=== PATIENT | male | born 1935 | race Caucasian/White ===

== ENCOUNTER → 2018-01-06 | Outpatient (CLI) | payer BC, MEDICARE ==
[2018-01-01 13:51] VITALS: BMI 33.3
[2018-01-06 11:44] VITALS: BP 144/68; PULSE 60; RESP 18; TEMP 97.8
--- NOTE | 2018-01-06 12:26 | P.PAINCN ---
History of Present Illness - Reason for Consult Consult date: 01/06/18 - History of Present Illness This is the initial consultation visit , [birth year] 2 years old male with a chronic history of severe low back pain, inserted 3 years ago but the intensity of the pain increased since april 2017, he denies any initiating event, the pain is constant, increased with movement, relieved with rest, localizing the low back area and radiated to the posterior aspect of the lower extremity, he feels his leg weaker than usual, he described his pain as aching pain, no numbness, no fever no night sweats, currently on [place] 5/325 when necessary, he denies any side effect from the medication. Past Medical History Past Medical History: Coronary Artery Disease (CAD), Chest Pain / Angina, COPD, Diabetes Mellitus, Hyperlipidemia, Hypertension, Pneumonia, Prostate Disorder, Sleep Apnea/CPAP/BIPAP Additional Past Medical History / Comment(s): CATARACTS, MURMUR, SINUS PROBLEMS , OCC USES CPAP MACHINE, BACK PAIN-DIFFICULTY W/MOBILITY TIRES EASILY AND SOB WITH EXERTION USES ROLLING WALKER OR W/C History of Any Multi-Drug Resistant Organisms: None Reported Past Surgical History: Coronary Bypass/CABG, Heart Catheterization, Heart Catheterization With Stent, Hernia Repair, Pacemaker, Tonsillectomy Additional Past Surgical History / Comment(s): QUAD BYPASS, HEART CATH 2010, - 2015([facility]), COLONOSCOPY. Past Anesthesia/Blood Transfusion Reactions: No Reported Reaction Date of Last Stent Placement:: 2015 Type of Cardiac Device: Permanent Pacemaker Device Placement Date:: 2016 Smoking Status: Former smoker - Past Family History Mother Family Medical History: Diabetes Mellitus Father Family Medical History: Unable to Obtain Additional Family Medical History / Comment(s): UNK TYPE Medications and Allergies Home Medications Medication Instructions Recorded Confirmed Type Furosemide 40 mg PO DAILY 08/27/15 01/06/18 History Insulin Glargine,Hum.rec.anlog 70 units SQ HS 08/27/15 01/06/18 History [Lantus Solostar] Insulin Lispro [humaLOG Kwikpen] 12 unit SQ AC-BRKFST 08/27/15 01/06/18 History Insulin Lispro [humaLOG Kwikpen] 28 unit SQ AC-LUNCH 08/27/15 01/06/18 History Insulin Lispro [humaLOG Kwikpen] 38 unit SQ AC-SUPPER 08/27/15 01/06/18 History Rosuvastatin Calcium [Crestor] 10 mg PO HS 08/27/15 01/06/18 History Solifenacin Succinate [Vesicare] 5 mg PO HS 08/27/15 01/06/18 History Tamsulosin HCl 0.4 mg PO DAILY 08/27/15 01/06/18 History amLODIPine BESYLATE [Norvasc] 5 mg PO DAILY 08/27/15 01/06/18 History rOPINIRole HCL [Requip] 1 mg PO HS 08/27/15 01/06/18 History Carvedilol [Coreg] 25 mg PO BID-W/MEALS 09/17/15 01/06/18 History Clopidogrel [Plavix] 75 mg PO DAILY #90 tab 09/18/15 01/06/18 Rx Nitroglycerin Sl Tabs [Nitrostat] 0.4 mg SUBLINGUAL Q5M PRN #25 tab 09/18/15 Rx Aspirin EC [Ecotrin Low Dose] 81 mg PO DAILY 12/05/15 01/06/18 History Dapagliflozin Propanediol [Farxiga] 5 mg PO DAILY 12/05/15 01/06/18 History Losartan/Hydrochlorothiazide 1 tab PO DAILY 12/05/15 01/06/18 History [Losartan-Hctz 100-25 mg Tab] Potassium Chloride [Klor-Con 20] 20 meq PO DAILY 12/05/15 01/06/18 History Simvastatin [Zocor] 20 mg PO HS 12/05/15 01/06/18 History metFORMIN HCL [Glucophage] 1,000 mg PO W/SUPPER 12/05/15 01/06/18 History Acetaminophen Tab [Tylenol] 650 mg PO Q6HR PRN #0 tab 12/10/15 01/06/18 Rx Famotidine [Pepcid] 20 mg PO DAILY tab 12/10/15 01/06/18 Rx HYDROcodone/APAP 5-325MG [[place] 1 tab PO Q6H PRN #60 tab 12/10/15 01/06/18 Rx 5-325] INSULIN LISPRO (humaLOG) [humaLOG] 0 unit SQ ACHS vial 12/10/15 01/06/18 Rx Dulaglutide [Trulicity] 1.5 mg SQ WE 01/01/18 01/06/18 History Gabapentin [Neurontin] 600 mg PO BID 01/01/18 01/06/18 History Allergies Allergy/AdvReac Type Severity Reaction Status Date / Time No Known Allergies Allergy Verified 01/06/18 11:22 Physical Exam Vitals: Vital Signs Temp Pulse Resp BP Pulse Ox 01/06/18 11:25 97.8 F 60 18 144/68 97 Social history : not smoker , NO ETOH , NO Illegal drugs use . Review of Systems : 1- Constitutional : no chills , no fever , no night sweats , 2- Ears : no ear discharge , no change in hearing 3-Nose, Mouth ,Throat ; no bleeding gums, no sore throat , no epistaxis , 4-Cardiovascular : Denies chest pain, , no orthopnea , no palpitation 5-Respiratory : Denies cough , no dyspnea , no hemoptysis 6-Gastrointestinal :, no change in bowel habits , no coffee- ground emesis . 7-Genitourinary : No hematuria , no discharge , no incontinence, 8-Musculoskeletal : No gait dysfunction , report low back pain , 9- Neurological : no ataxia , no tremor , no sezure , 10-Psychatric , no suicidal ideation no hallucination 11- Endocrine : no cold intolerence , no polyuria , no polydypsia , 12-Hematologic : no easy bleeding , no easy brusing , 13-Allergic / immunology : no angioedema , no wheezing ,no allergic rhinitis 14-Integumentary : no brttle nails , no change hair / nails , no foot/leg ulcers . Physical Examinations : 1-Constitutional : Cooperative , not in acute distress . 2-HEENT : nech ; supple , no Lymphadenopathy , no Thyromegaly , :eyes , no icterus, no photophobia . ENT : , normal oropharynx , no Thrush 3- Respiratory : Chest clear to auscultations Bilaterally , no wheezing 4- Cardiovascular : regular rate and rhythem , S1 , S2 , no S3 , no S4. 5- Gastrointestinal: abdomen soft no tenderness , no organomegally . 6- Genitourinary : Defferred . 7-Integumentary : No cellulitis , no ulcers , normal skin turgor , no cyanotic . 8- neurologic : Cranial nerve II to XII intact , no focal neurological deffecit 9-psychatric : alert , oriented X 3 , appropriate affect , intact judgment and insight . 10-Lymphatic : no Lymphadenopathy. 11- musculoskeltal: normal gait Cervical and thoracic Spine Normal motor strength in the upper extremity. Trigger point in the right side infrascapular muscles. Lumber spine moter stegnth lower extremities ,thigh and legs 5/5 Right side , 5/5 Left side deep tendon reflexes : normal Knee Jerk , normal ankle Jerk positive lumber facet Loading Test Range of motion of the lumbar spine , flexion normal , extension associated with pain strait leg raising test negative bilaterally Fabere test negative bilaterally tenderness over the Sacroiliac joint on the R and L sides Results Comments: MRI of the lumbar spine and done at [facility]= neuroforaminal stenosis multilevel lumbar degenerative disc disease and multilevel lumbar facet arthropathy at L4 5 and L5-S1 Assessment and Plan Plan: Telemarketing Representative plan= lumbar spondylosis with facet arthropathy,lumbar degenerative disc disease, lumbar spinal stenosis clinically Most of the pain is coming from the facetogenic component patient will be scheduled to have diagnostic medial branch block lumbar area L3-4 ,L4-5 , L5 S1 do it twice and its possible proceed with the radiofrequency ablation of the medial branch Time with Patient: Greater than 30 PQRS Measure Charge Sheet Measure #130: Documentation of Current Meds in Medical Chart: Patient's medications documented in chart Measure #226: Tobacco Use: Screen & Cessation Intervention: Pt not a tobacco user Measure #111: Pneumonia Vaccination: Pneumococcal vaccine administered or previously received Measure #47: Advance Care Plan: Advance care planning discussed & documented, pt chose/unable to give Measure #412: Opioid Treatment Agreement: No documentation of signed opioid treatment agreement Measure #408: Opioid Therapy Follow-up Evaluation: Patient had NO f/u eval minimum every 3 months during opioid therapy Measure #317: Preventitive Care & Scrn High Bld Press & F/U: Pre-hypertensive or hypertensive BP documented, pt will f/u with PCP Measure #128: Body Mass Index (BMI) Screening & Follow-up: BMI documented ABOVE normal parameters - f/u documented Measure #131: Pain Assessment & Follow-up: Pain positive & plan documented, Follow-up scheduled Measure #431: Unhealthy Alcohol Use Preventative Care & Scrn: Patient not identified as an unhealthy alcohol user PQRS Narrative: Smoking Status Former smoker Do You Want the Pneumonia Vaccine Up to Date Vaccine AT THIS TIME? Blood Pressure 144/68 Pain Intensity [Lower Back] 10 Scale Used Numeric (1 - 10) Hx Alcohol Use (MH) No Home Medications: Ambulatory Orders Furosemide 40 mg PO DAILY 08/27/15 Insulin Glargine,Hum.rec.anlog [Lantus Solostar] 70 units SQ HS 08/27/15 Insulin Lispro [humaLOG Kwikpen] 12 unit SQ AC-BRKFST 08/27/15 Insulin Lispro [humaLOG Kwikpen] 28 unit SQ AC-LUNCH 08/27/15 Insulin Lispro [humaLOG Kwikpen] 38 unit SQ AC-SUPPER 08/27/15 Rosuvastatin Calcium [Crestor] 10 mg PO HS 08/27/15 Solifenacin Succinate [Vesicare] 5 mg PO HS 08/27/15 Tamsulosin HCl 0.4 mg PO DAILY 08/27/15 amLODIPine BESYLATE [Norvasc] 5 mg PO DAILY 08/27/15 rOPINIRole HCL [Requip] 1 mg PO HS 08/27/15 Carvedilol [Coreg] 25 mg PO BID-W/MEALS 09/17/15 Clopidogrel [Plavix] 75 mg PO DAILY #90 tab 09/18/15 Nitroglycerin Sl Tabs [Nitrostat] 0.4 mg SUBLINGUAL Q5M PRN #25 tab 09/18/15 Aspirin EC [Ecotrin Low Dose] 81 mg PO DAILY 12/05/15 Dapagliflozin Propanediol [Farxiga] 5 mg PO DAILY 12/05/15 Losartan/Hydrochlorothiazide [Losartan-Hctz 100-25 mg Tab] 1 tab PO DAILY Potassium Chloride [Klor-Con 20] 20 meq PO DAILY 12/05/15 Simvastatin [Zocor] 20 mg PO HS 12/05/15 metFORMIN HCL [Glucophage] 1,000 mg PO W/SUPPER 12/05/15 Acetaminophen Tab [Tylenol] 650 mg PO Q6HR PRN #0 tab 12/10/15 Famotidine [Pepcid] 20 mg PO DAILY tab 12/10/15 HYDROcodone/APAP 5-325MG [[place] 5-325] 1 tab PO Q6H PRN #60 tab 12/10/15 INSULIN LISPRO (humaLOG) [humaLOG] 0 unit SQ ACHS vial 12/10/15 Dulaglutide [Trulicity] 1.5 mg SQ WE 01/01/18 Gabapentin [Neurontin] 600 mg PO BID 01/01/18
== END | disposition home or self-care (01) ==
LOC: PNWHC3 11:06
PROVIDERS: ATTEND Specialist
DX: M48.061 Spinal stenosis, lumbar region without neurogenic claudication (principal); M51.36 Other intervertebral disc degeneration, lumbar region; M47.816 Spondylosis without myelopathy or radiculopathy, lumbar region; M46.96 Unspecified inflammatory spondylopathy, lumbar region; I25.10 Atherosclerotic heart disease of native coronary artery without angina pectoris; J44.9 Chronic obstructive pulmonary disease, unspecified; E11.9 Type 2 diabetes mellitus without complications; E78.5 Hyperlipidemia, unspecified; I10 Essential (primary) hypertension; Z87.891 Personal history of nicotine dependence; Z79.4 Long term (current) use of insulin; Z79.02 Long term (current) use of antithrombotics/antiplatelets; Z79.82 Long term (current) use of aspirin; Z79.84 Long term (current) use of oral hypoglycemic drugs; Z79.899 Other long term (current) drug therapy; Z90.89 Acquired absence of other organs; Z95.1 Presence of aortocoronary bypass graft; Z98.890 Other specified postprocedural states
CPT/HCPCS: 99211

== ENCOUNTER 2018-01-21 08:06 | Day surgery (SDC) | payer MEDICARE ==
[2018-01-14 15:28] VITALS: BMI 32.4
[~2018-01-21 08:06] MED LIST: LACTATED RINGERS 1,000 ML IV SCH
[2018-01-21 09:15] VITALS: RESP 16; TEMP 97.9
[2018-01-21] MEDS ORDERED: LIDOCAINE 1% 20 ML VIAL (10MG/ML) FOR IV START INTRADERMA ONE (09:29)
--- NOTE | 2018-01-21 10:38 | P.PCN ---
Date of Procedure: 01/21/18 Procedure(s) Performed: PREOPERATIVE DIAGNOSIS : 1- Lumbar spondylosis with Facet Arthropathy without myelopathy . 2- Lumber degenerative disc disease POSTOPERATIVE DIAGNOSIS: 1- Lumbar spondylosis with Facet Arthropathy without myelopathy . 2- Lumber degenerative disc disease PROCEDURE: Diagnostic bilateral L3 -4 , L4 -5 , and L5-S1 medial branch block under fluoroscopy ANESTHESIA: Local with Ropivacain 0.5 % 6 ml , moderate sedation with intravenous Versed 2 mg . EBL: Minimal COMPLICATION: None. IV FLUIDS: 100 mL of normal saline. PROCEDURE INDICATION: Chronic low back pain secondary to Facet arthropathy unresponsive to conservative treatment. PROCEDURE DESCRIPTION: the patient was seen and identified in the preop holding area , risks and benefits and possible complications of the procedure and alternative were discussed with the patient, and the patient agreed to proceed with the procedure and signed the consent IV was started and vital signs monitored during the procedure and fluoroscopy was used to maximize the benefit and accuracy of the needle placement, and sedation was given to decrease patient anxiety, patient was taken to the procedure room and placed in prone position vital signs monitored in the back prepped with chlorhexidine X3 then under strict sterile technique using a right oblique fluoroscopy ,the junction of the transverse process and the superior articulating process of the right L3- 4 , L4- 5, and L5-S1 vertebra which corresponding to the fluoroscopy image of the eye of the Dilan dog on the block side for the medial branches and subsequently , after local infiltration of skin and subcu tissuies with Ropivacaine 0.5 % , one mL at each level , then 22-gauge Quincke-type needles , 3 needle was used , each one of them placed at the junction of the base of the transverse process and the superior articular process at the appropriate level, and the needle was advanced until the periosteum contacted, needle placement confirmed with AP oblique and lateral view and after appropriate needle placement confirmed, and after negative aspiration for heme and CSF and there was no paresthesia 1-1/2 mL of Ropivacaine 0.5% , then half mL injected at each level after negative aspiration the needle subsequently removed and the same procedure repeated for the left side at left side at L3-4, L4- 5 and L5-S1 levels. At the end of the procedure and the needles removed and a bandage applied after the skin was cleaned the cleaning solution patient taken to recovery room in stable condition and monitors in the recovery room for 20-30 minutes and discharged home in stable condition after discharge criteria met and patient will follow up with the pain clinic in 2-4 weeks
[2018-01-21] MEDS ORDERED: IV FLUID CONTINUATION 1,000 ML IV ONE (10:44)
[2018-01-21 10:48] LABS: Glucose,Whole Blood 110 mg/dL (75-99)
[2018-01-21 11:07] VITALS: BP 146/68; PULSE 78
--- NOTE | 2018-01-21 13:34 | FL ---
Fluoroscopy HISTORY: Pain 33 seconds fluoroscopy time supplied to the referring clinician. 4 intraoperative C-arm images docum ent the procedure. See dictated report from anesthesia.
== END 2018-01-21 11:34 | disposition home or self-care (01) ==
LOC: ORPAIN 08:06
PROVIDERS: ATTEND Specialist
DX: G89.29 Other chronic pain (principal); M47.816 Spondylosis without myelopathy or radiculopathy, lumbar region; M51.36 Other intervertebral disc degeneration, lumbar region; M48.061 Spinal stenosis, lumbar region without neurogenic claudication; I25.10 Atherosclerotic heart disease of native coronary artery without angina pectoris; J44.9 Chronic obstructive pulmonary disease, unspecified; E78.5 Hyperlipidemia, unspecified; I10 Essential (primary) hypertension; N42.9 Disorder of prostate, unspecified; G47.30 Sleep apnea, unspecified; Z99.89 Dependence on other enabling machines and devices; E11.36 Type 2 diabetes mellitus with diabetic cataract; R01.1 Cardiac murmur, unspecified; Z95.1 Presence of aortocoronary bypass graft; Z95.5 Presence of coronary angioplasty implant and graft; Z95.0 Presence of cardiac pacemaker; Z79.02 Long term (current) use of antithrombotics/antiplatelets; Z79.82 Long term (current) use of aspirin; Z79.4 Long term (current) use of insulin; Z79.899 Other long term (current) drug therapy; Z87.891 Personal history of nicotine dependence
CPT/HCPCS: 64493; 64494; 64495; J2250; 99152

== ENCOUNTER → 2018-03-10 | Day surgery (SDC) | payer MEDICARE ==
[2018-02-16 10:42] VITALS: BMI 32.4
[~2018-03-10] MED LIST changes: -LACTATED RINGERS 1,000 ML IV SCH; +SODIUM CHLORIDE 0.9% 500 ML 500 ML IV ONE; +SODIUM CHLORIDE 0.9% 500 ML 500 ML IV SCH
[2018-03-10 09:00] VITALS: RESP 18; TEMP 97.5
--- NOTE | 2018-03-10 09:54 | P.PCN ---
Date of Procedure: 03/10/18 Surgeon: Ariel Rodriguez Description of Procedure: PREOPERATIVE DIAGNOSIS : Lumbar spondylosis with Facet Arthropathy without myelopathy POSTOPERATIVE DIAGNOSIS: same PROCEDURE: Diagnostic lumbar medial branch block with fluoroscopy at bilateral L4, bilateral L5 bilateral sacral ala ANESTHESIA: Local anesthetic; 2 mg of midazolam Surgeon: Ariel Rodriguez MD PROCEDURE INDICATION: This is an 83-year-old gentleman with a history of intractable back pain who presents today for his second bilateral lumbar medial branch nerve block. He has discontinued his Plavix for 7 days. He was counseled on the risks of hyperglycemia after steroid injection. PROCEDURE DESCRIPTION: the patient was seen and identified in the preop holding area , risks and benefits and possible complications of the procedure and alternative were discussed with the patient, and the patient agreed to proceed with the procedure and signed the consent IV was started and vital signs monitored during the procedure and fluoroscopy was used to maximize the benefit and accuracy of the needle placement, and sedation was given to decrease patient anxiety, patient was taken to the procedure room and placed in prone position vital signs monitored in the back prepped. Under strict sterile technique using a right oblique fluoroscopy ,the junction of the transverse process and the superior articulating process of the left L3- 4 , L4- 5, and L5-S1 vertebra which corresponding to the fluoroscopy image of the eye of the Dilan dog on the block side for the medial branches and subsequently , after local infiltration of skin and subcutaneous tissues with lidocaine 1% one mL at each level ,then one 25-gauge Quincke-type needles was placed at the junction of the base of the transverse process and the superior articular process at the appropriate level, and the needle was advanced until the periosteum contacted, needle placement confirmed with AP oblique and lateral view and after appropriate needle placement confirmed, and after negative aspiration, 0.5 mL of Marcaine 0.5% mixed with 40 mg depomedrol in divided doses was injected at each level and the needle subsequently removed. The procedure was then repeated on the right side. At the end of the procedure and the needles removed and a bandage applied after the skin was cleaned the cleaning solution patient taken to recovery room in stable condition and monitors in the recovery room for 20-30 minutes and discharged home in stable condition after discharge criteria met and patient will follow up with the pain clinic in 2-4 weeks EBL: Minimal COMPLICATION: None.
--- NOTE | 2018-03-10 10:03 | FL ---
EXAMINATION TYPE: FL guided pain mgmt statistic DATE OF EXAM: 03/10/2018 HISTORY: Flouroscopy time 2 seconds of fluoroscopy provided. IMPRESSION: 1. Fluoroscopy time.
[2018-03-10 10:05] VITALS: PULSE 61
[2018-03-10 10:31] VITALS: BP 162/72
[2018-03-10 14:06] LABS: Glucose,Whole Blood 155 mg/dL (75-99)
== END ==
LOC: ORPAIN 08:12
PROVIDERS: ATTEND Pain Medicine Pain Medicine
DX: M47.816 Spondylosis without myelopathy or radiculopathy, lumbar region (principal); Z79.02 Long term (current) use of antithrombotics/antiplatelets
CPT/HCPCS: 64493; 64494; J2250; J1030

== ENCOUNTER → 2018-04-15 | Outpatient (CLI) | payer MEDICARE ==
[2018-04-15 12:35] VITALS: BP 142/66; PULSE 62; RESP 16
--- NOTE | 2018-04-15 13:01 | P.PAINPG ---
Subjective Progress Note Date: 04/15/18 This is follow-up visit for this patient with a history of severe and chronic low back pain secondary to lumbar degenerative disc diseases , lumbar spondylosis with facet arthropathy, We have done interventional pain procedures, the elastic medial branch block lumbar area , L3-4 /L4 5/L5-S1 2 , and he reports his pain improved significantly after each block, his VAS before the first injection was 5/10 dropped to 0/10 for a few days , and similar result happen after the second diagnostic medial branch block, Patients currently on [place] 5/325 every 6 hours when necessary ,And the Neurontin 600 mg twice a day , getting prescription refill from his primary care Patient denies any side effects of the medication, denies excessive drowsiness or sleepiness, denies suicidal ideation, and reports that the current pain medication is helping to control the pain ,and improve activity of daily living Patient denies any motor or sensory deficit , patient denies any fever or night sweats, denies any change in the bowel movements or urination Physical Examinations : 1-Constitutional : Cooperative , not in acute distress . 2-HEENT : nech ; supple , no Lymphadenopathy , no Thyromegaly , normal thyroid size . eyes : no ptosis , no icterus, no photophobia . ENT : normal of hearing , normal oropharynx , no Thrush . 3- Respiratory : Chest clear to auscultations Bilaterally , no wheezing , no Rhonchi . 4- Cardiovascular : regular rate and rhythem , S1 , S2 , no S3 , no S4. 5- Gastrointestinal : abdomen soft no tenderness , bowel sounds positive all four quadrents , no organomegally . 6- Genitourinary : Defferred . 7- neurologic: Cranial nerve II to XII intact , no focal neurological deffecit . 8- Psychatric: alert , oriented X 3 , appropriate affect , intact judgment and insight . 9- Lymphatic : no Lymphadenopathy . 10- Musculoskeltal : exams of the cervical spine = motor strength normal bilateral upper extremities facet loading test cervical area positive. exams of the Lumber spine =motor strength lower extremities ,thigh and legs .5/5 deep tendon reflexes : normal Knee Jerk , normal ankle Jerk . lumber facet Loading Test positive strait leg raising test positive at 30 degree , RT ,LT , Fabere test positive RT and positive LT . Range of motion: Range of motion in flexion of the lumbar spine 30 degrees Range of motion range of motion of extension of the lumbar spine 10 Sever tenderness over the Sacroiliac joint on the Right , and Left side Assessment and plan = Chronic low back pain secondary to lumbar degenerative disc disease , lumbar spondylosis with facet arthropathy without myelopathy Patient had excellent pain relief after the diagnostic medial branch block lumbar area, and he would be good candidate for radiofrequency ablation of the medial branch lumbar area L3 4/L4 5/L5-S1 PQRS Measure Charge Sheet Measure #130: Documentation of Current Meds in Medical Chart: Patient's medications documented in chart Measure #226: Tobacco Use: Screen & Cessation Intervention: Pt not a tobacco user Measure #111: Pneumonia Vaccination: Pneumococcal vaccine administered or previously received Measure #47: Advance Care Plan: Advance care planning discussed & documented, pt chose/unable to give Measure #412: Opioid Treatment Agreement: No documentation of signed opioid treatment agreement Measure #408: Opioid Therapy Follow-up Evaluation: Patient had NO f/u eval minimum every 3 months during opioid therapy Measure #317: Preventitive Care & Scrn High Bld Press & F/U: Pre-hypertensive or hypertensive BP documented, pt will f/u with PCP Measure #128: Body Mass Index (BMI) Screening & Follow-up: BMI documented ABOVE normal parameters - f/u documented Measure #131: Pain Assessment & Follow-up: Pain positive & plan documented, Follow-up scheduled Measure #431: Unhealthy Alcohol Use Preventative Care & Scrn: Patient not identified as an unhealthy alcohol user PQRS Narrative: Smoking Status Former smoker Hx Alcohol Use (MH) No Home Medications: Ambulatory Orders Furosemide 40 mg PO DAILY 08/27/15 Insulin Lispro [humaLOG Kwikpen] 17 unit SQ AC-TID 08/27/15 Rosuvastatin Calcium [Crestor] 10 mg PO HS 08/27/15 Solifenacin Succinate [Vesicare] 5 mg PO HS 08/27/15 Tamsulosin HCl 0.4 mg PO DAILY 08/27/15 amLODIPine BESYLATE [Norvasc] 5 mg PO DAILY 08/27/15 rOPINIRole HCL [Requip] 1 mg PO HS 08/27/15 Carvedilol [Coreg] 25 mg PO BID-W/MEALS 09/17/15 Clopidogrel [Plavix] 75 mg PO DAILY #90 tab 09/18/15 Nitroglycerin Sl Tabs [Nitrostat] 0.4 mg SUBLINGUAL Q5M PRN #25 tab 09/18/15 Aspirin EC [Ecotrin Low Dose] 81 mg PO DAILY 12/05/15 Dapagliflozin Propanediol [Farxiga] 5 mg PO DAILY 12/05/15 Losartan/Hydrochlorothiazide [Losartan-Hctz 100-25 mg Tab] 1 tab PO DAILY Potassium Chloride [Klor-Con 20] 20 meq PO DAILY 12/05/15 Simvastatin [Zocor] 20 mg PO HS 12/05/15 metFORMIN HCL [Glucophage] 1,000 mg PO W/SUPPER 12/05/15 Acetaminophen Tab [Tylenol] 650 mg PO Q6HR PRN #0 tab 12/10/15 Famotidine [Pepcid] 20 mg PO DAILY tab 12/10/15 HYDROcodone/APAP 5-325MG [[place] 5-325] 1 tab PO Q6H PRN #60 tab 12/10/15 Dulaglutide [Trulicity] 1.5 mg SQ WE 01/01/18 Gabapentin [Neurontin] 600 mg PO BID 01/01/18 Insulin Glargine [Lantus] 27 unit SQ HS 01/14/18 Controlled Substance Measures - Controlled Substance Measures Is patient prescribed a controlled substance at discharge?: No When asked, does pt state using other controlled substances?: No If prescribed controlled substance>3 days was MAPS reviewed?: No If Rx opioid, was Start Talking consent form obtained?: No If opioid is for acute pain is fill amount 7 days or less?: No Was information provided regarding opioid addiction?: No
== END | disposition home or self-care (01) ==
LOC: PNWHC3 11:44
PROVIDERS: ATTEND Specialist
DX: G89.29 Other chronic pain (principal); M54.5 Low back pain; M51.36 Other intervertebral disc degeneration, lumbar region; M47.816 Spondylosis without myelopathy or radiculopathy, lumbar region; M46.86 Other specified inflammatory spondylopathies, lumbar region; Z79.891 Long term (current) use of opiate analgesic; Z79.899 Other long term (current) drug therapy; Z87.891 Personal history of nicotine dependence
CPT/HCPCS: 99211

== ENCOUNTER 2018-05-20 09:28 | Day surgery (SDC) | payer MEDICARE ==
[2018-05-18 10:36] VITALS: BMI 30.7
[~2018-05-20 09:28] MED LIST changes: -SODIUM CHLORIDE 0.9% 500 ML 500 ML IV ONE
[2018-05-20 09:54] VITALS: TEMP 98.3
[2018-05-20] MEDS ORDERED: LACTATED RINGERS 1,000 ML IV ONE (09:55)
[2018-05-20 09:56] LABS: Glucose,Whole Blood 129 mg/dL (75-99)
--- NOTE | 2018-05-20 10:45 | P.PCN ---
Date of Procedure: 05/20/18 Procedure(s) Performed: PREOPERATIVE DIAGNOSIS: 1-Lumbar Spondylosis with Facet Arthropathy without myelopathy. 2- Lumber degenerative disc disease. POSTOPERATIVE DIAGNOSIS: 1- Lumbar Spondylosis with Facet Arthropathy without myelopathy. 2- Lumber degenerative disc disease. PROCEDURES : Right Radiofrequency thermocoagulation, L3-L4, L4-L5, and L5-S1 medial branch, with fluoroscopic guidance ANESTHESIA: Moderate sedation with intravenous versed 2 mg , and local infiltration with Ropivacaine 0.5 % . EBL: Minimal PROCEDURE INDICATION: The patient with low back pain secondary to lumbar facet arthropathy who had more than 50% relief of her pain with previous diagnostic lumbar medial branch block with bupivacaine. PROCEDURE DESCRIPTION / TECHNIQUE: The patient was seen and identified in the preoperative area. Risks, benefits, complications, including but not limited to risk of infection ,bleeding , allergic reactions to the medications and no complete pain releife , and alternatives were discussed with the patient, the patient agreed to proceed with the procedure and signed the consent. IV was started. Vital signs remained stable throughout the procedure. Patient was taken to the OR and time out was completed. The patient was placed in the prone position on the procedure table. The lumber area was prepped and draped in the usual sterile fashion. . Vital signs were closely monitored during the procedure .IV sedation was used during the procedure to decrease patients anxiety. Using AP and then oblique fluoroscopy, the ``eye of the Dilan dog corresponding to the connection between the superior and transverse articular processes of Right L3, L4, and L5 were identified, marked, and localized with 1% lidocaine. Subsequently, a 18 [id number] radiofrequency cannula with a 10- mm active tip was advanced guided by fluoroscopy to each of the``eyes of the Dilan dog at Right L3, L4, and L5. Each site then underwent sensory testing at 50 Hz and 0 to 1 volt and motor testing at 2.5 Hz and 0 to 3 volt with local stimulation, but no radicular symptoms down the legs. Thereafter the Right L3-4, L4-5, and L5-S1 sites underwent radiofrequency thermocoagulation at 80 degrees celsius for 90 seconds after injecting 0.5 ml of PF Ropivacaine 1ml, then after the thermocoagulation done , 1 ml of the block solution containing Depo-Medrol 40 mg and 3 ml of Ropivacaine 0.5% was injected at the Right L3-4 , L4-5 , and L5-S1, levels after negative aspiration of CSF and blood and with no paresthesias. Cannulas were retracted while injecting lidocaine 1% until the needle is out. At the end of the procedure, the skin was cleansed and bandages were applied. COMPLICATIONS: No acute complications. DISPOSITION / PLANS: The patient was placed in a supine position and transferred to the recovery area in a stable condition for observation and was discharged from the recovery room after meeting discharge criteria. Home discharge instructions given to the patient by the staff. The patient was reexamined prior to discharge. The patient will schedule a follow up in the clinic in 2-4 weeks.
[2018-05-20] MEDS ORDERED: IV FLUID CONTINUATION 1,000 ML IV ONE (10:56)
--- NOTE | 2018-05-20 10:58 | FL ---
EXAMINATION TYPE: FL guided pain mgmt statistic DATE OF EXAM: 05/20/2018 HISTORY: Flouroscopy time 17 seconds of fluoroscopy provided. IMPRESSION: 1. Fluoroscopy time.
[2018-05-20 11:06] VITALS: BP 154/78; PULSE 62; RESP 18
== END 2018-05-20 11:37 | disposition home or self-care (01) ==
LOC: ORPAIN 09:28
PROVIDERS: ATTEND Anesthesiology
DX: M47.816 Spondylosis without myelopathy or radiculopathy, lumbar region (principal); M51.36 Other intervertebral disc degeneration, lumbar region; I10 Essential (primary) hypertension; I25.10 Atherosclerotic heart disease of native coronary artery without angina pectoris; E11.9 Type 2 diabetes mellitus without complications; Z79.02 Long term (current) use of antithrombotics/antiplatelets
CPT/HCPCS: 64635; 64636; J2250; J1030; 99152

== ENCOUNTER → 2018-06-17 | Outpatient (CLI) | payer MEDICARE ==
[2018-06-17 12:25] VITALS: BP 130/64; PULSE 79; RESP 16
--- NOTE | 2018-06-17 12:50 | P.PAINPG ---
Subjective Progress Note Date: 06/17/18 Principal diagnosis: intractable low back pain This very pleasant 83-year-old gentleman with a history of intractable low back pain who presents today for follow-up. He recently underwent bilateral lumbar radiofrequency ablations for his medial branch nerves. He reports that this is only offered him minimal relief. He continues to have intractable pain when he stands and walks. He denies bowel or bladder dysfunction. He is interested in pursuing other therapies to help him treat his pain. Objective - Vital Signs Vital signs: Vital Signs Temp Pulse 79 06/17/18 12:19 Resp 16 06/17/18 12:19 BP 130/64 06/17/18 12:19 Pulse Ox - Exam General: The patient is alert and oriented. Patient is not sedated Patient answers all question appropriately. He appears less today in a wheelchair with his daughter. Cardiac: Heart is regular in rate and rhythm Respiratory: Clear to auscultation. No audible wheezes. Abdomen: Soft nontender nondistended. Musculoskeletal: Strength is normal bilaterally. Sensation is normal bilaterally except slightly diminished in the toes of his right foot. Straight leg raise is negative bilaterally. He is not tender to palpation over his lumbar facet joints bilaterally. Neurological: Reflexes are preserved and symmetric bilaterally. Assessment and Plan Assessment: Plan of Care 1. Medications: Given the patient's significant medical histories and advanced age I would not recommend any opiate medications. He continues Tylenol sporadically to treat his pain. 2. Interventions: I discussed with the patient and his daughter a lumbar epidu ral steroid injection. I explained them to that he does have moderate spinal stenosis at L4 5 and hopefully this would help reduce the pressure on his nerves and improve his functionality. I also explained him that there are risks to stopping his Plavix medication. This should be done only under the guidance of his prescribing physician. Approval to stop the medication does not remove the risks of discontinuing the medication. 3. Referrals: None 4. Testing: None 5. Follow-up: Lumbar epidural steroid injection at L4 5 after discontinuing Plavix under the guidance of his prescribing physician (1) Degenerative lumbar spinal stenosis Current Visit: Yes Status: Acute Code(s): M48.061 - SPINAL STENOSIS, LUMBAR REGION WITHOUT NEUROGENIC MINDI SNOMED Code(s): 807924871 PQRS Measure Charge Sheet Measure #130: Documentation of Current Meds in Medical Chart: Patient's medications documented in chart Measure #226: Tobacco Use: Screen & Cessation Intervention: Pt not a tobacco user Measure #111: Pneumonia Vaccination: Pneumococcal vaccine NOT administered or previously given Measure #47: Advance Care Plan: Advance care planning discussed & documented, pt chose/unable to give Measure #412: Opioid Treatment Agreement: No documentation of signed opioid treatment agreement Measure #408: Opioid Therapy Follow-up Evaluation: Patient had NO f/u eval minimum every 3 months during opioid therapy Measure #317: Preventitive Care & Scrn High Bld Press & F/U: Normal blood pressure, f/u not required Measure #128: Body Mass Index (BMI) Screening & Follow-up: BMI documented within normal parameters Measure #131: Pain Assessment & Follow-up: Pain positive & plan documented Measure #431: Unhealthy Alcohol Use Preventative Care & Scrn: Patient not identified as an unhealthy alcohol user PQRS Narrative: Smoking Status Former smoker Do You Want the Pneumonia No Vaccine AT THIS TIME? Blood Pressure 130/64 Pain Intensity [Left Lower 8 Back] Scale Used Numeric (1 - 10) Hx Alcohol Use (MH) No Home Medications: Ambulatory Orders Furosemide 40 mg PO DAILY 08/27/15 Insulin Lispro [humaLOG Kwikpen] 17 unit SQ AC-TID 08/27/15 Rosuvastatin Calcium [Crestor] 10 mg PO HS 08/27/15 Solifenacin Succinate [Vesicare] 5 mg PO HS 08/27/15 Tamsulosin HCl 0.4 mg PO DAILY 08/27/15 amLODIPine BESYLATE [Norvasc] 5 mg PO DAILY 08/27/15 rOPINIRole HCL [Requip] 1 mg PO HS 08/27/15 Carvedilol [Coreg] 25 mg PO BID-W/MEALS 09/17/15 Clopidogrel [Plavix] 75 mg PO DAILY #90 tab 09/18/15 Nitroglycerin Sl Tabs [Nitrostat] 0.4 mg SUBLINGUAL Q5M PRN #25 tab 09/18/15 Aspirin EC [Ecotrin Low Dose] 81 mg PO DAILY 12/05/15 Dapagliflozin Propanediol [Farxiga] 5 mg PO DAILY 12/05/15 Losartan/Hydrochlorothiazide [Losartan-Hctz 100-25 mg Tab] 1 tab PO DAILY 12/05/15 Potassium Chloride [Klor-Con 20] 20 meq PO DAILY 12/05/15 Simvastatin [Zocor] 20 mg PO HS 12/05/15 metFORMIN HCL [Glucophage] 1,000 mg PO W/SUPPER 12/05/15 Acetaminophen Tab [Tylenol] 650 mg PO Q6HR PRN #0 tab 12/10/15 Famotidine [Pepcid] 20 mg PO DAILY tab 12/10/15 HYDROcodone/APAP 5-325MG [[place] 5-325] 1 tab PO Q6H PRN #60 tab 12/10/15 Dulaglutide [Trulicity] 1.5 mg SQ WE 01/01/18 Insulin Glargine [Lantus] 27 unit SQ HS 01/14/18 Controlled Substance Measures - Controlled Substance Measures Is patient prescribed a controlled substance at discharge?: No
== END | disposition home or self-care (01) ==
LOC: PNWHC3 12:08
PROVIDERS: ATTEND Pain Medicine Pain Medicine
DX: M48.061 Spinal stenosis, lumbar region without neurogenic claudication (principal); Z79.891 Long term (current) use of opiate analgesic; Z79.02 Long term (current) use of antithrombotics/antiplatelets; Z79.82 Long term (current) use of aspirin; Z87.891 Personal history of nicotine dependence
CPT/HCPCS: 99211

== ENCOUNTER 2018-07-07 09:36 | Day surgery (SDC) | payer MEDICARE ==
[2018-07-05 10:29] VITALS: BMI 30.7
[2018-07-07 10:40] VITALS: TEMP 97.1
[2018-07-07] MEDS ORDERED: LIDOCAINE 1% 20 ML VIAL (10MG/ML) FOR IV START INTRADERMA ONE (10:49)
[2018-07-07] MEDS ORDERED: LACTATED RINGERS 950 ML IV ONE (10:49)
[2018-07-07 10:57] LABS: Glucose,Whole Blood 203 mg/dL (75-99)
--- NOTE | 2018-07-07 11:11 | P.PCN ---
Date of Procedure: 07/07/18 Surgeon: Lesli Buckner Pathology: none sent Condition: stable Disposition: PACU Description of Procedure: PREOPERATIVE DIAGNOSIS: 1-Lumbar stenosis 2- Lumber Degenerative Disc Diseases. POSTOPERATIVE DIAGNOSIS: 1-Lumbar stenosis 2-Lumbar Degenerative Disc Diseases PROCEDURE 1. Lumbar epidural steroid injection under fluoroscopic guidance at the L5-S1 level in the left paramedian approach 2. Lumbar epidurogram. ANESTHESIA: Local with 1% lidocaine; and IV moderate conscious sedation with Versed0.5 mg and fentanyl 25 mcg. EBL: Minimal PROCEDURE INDICATION: The patient with low back pain and radiculitis symptoms unresponsive to conservative treatment. Fluoroscopy was used to optimize visualization of the needle placement and to maximize safety. PROCEDURE DESCRIPTION / TECHNIQUE: The patient was seen and identified in the preoperative area. Risks, benefits, complications including but not limited to infections ,bleeding ,allergic reaction to the medications ,nerve damage and not complete pain relief , and alternatives were discussed with the patient. The patient agreed to proceed with the procedure and signed the consent. IV was started, and vital signs were stable. Patient was taken to the OR and time out was completed. The patient was placed in the prone position on procedure table and a pillow was placed under the abdomen to reduce lumbar lordosis. The lumbosacral area was prepped and draped in the usual sterile fashion with ChloraPrep.Patient was closely monitored during the procedure. Conscious sedation was used during the procedure to decrease patients anxiety. Vital signs were monitered during the entire procedure. Using anterior-posterior fluoroscopy, the L5-S1 interlaminar space was identified and the skin over this site was marked and then infiltrated with 1% lidocaine subcutaneously. Subsequently, a 20-gauge Tuohy epidural needle was inserted and advanced toward the epidural space using the Loss of resistance to air technique and guided by AP and lateral fluoroscopy. The correct needle position in the epidural space was verified with the injection of 1 mL of the water soluble contrast dye Omnipaque 180 contrast and observing an excellent epidurogram with the epidural spread of the dye, the epidural space was found at about 7 cm from skin level. after negative aspiration for blood and CSF and in the absence of paresthesias a 7 ml mixture containing 40 mg of Kenalog and 4 ml of preservative free Normal Saline, and 2 ml of preservative free ropivacaine 0.5% solution was injected and a washout of epidurogram was seen. Needle was withdrawn intact, skin was cleansed, and bandages were applied. patient tolerated procedure well and was transferred to PACU in stable condition. COMPLICATIONS: None DISPOSITION / PLANS: The patient was placed in a supine position and transferred to the recovery area in a stable condition for observation. There was no evidence of lower extremity motor or sensory deficit after the procedure. Patient was discharged from the recovery room after meeting discharge criteria. Home discharge instructions were given to the patient by the staff. The patient was reexamined prior to discharge.
[2018-07-07] MEDS ORDERED: IV FLUID CONTINUATION 1,000 ML IV ONE (11:12)
[2018-07-07 11:40] VITALS: BP 150/54; PULSE 69; RESP 16
[2018-07-07 11:42] LABS: Glucose,Whole Blood 212 mg/dL (75-99)
--- NOTE | 2018-07-07 11:58 | FL ---
EXAMINATION TYPE: FL guided pain mgmt statistic DATE OF EXAM: 07/07/2018 HISTORY: Flouroscopy time 6 seconds of fluoroscopy provided. IMPRESSION: 1. Fluoroscopy time.
== END 2018-07-07 11:47 | disposition home or self-care (01) ==
LOC: ORPAIN 09:36
PROVIDERS: ATTEND Anesthesiology
DX: M48.061 Spinal stenosis, lumbar region without neurogenic claudication (principal); M51.36 Other intervertebral disc degeneration, lumbar region; M54.10 Radiculopathy, site unspecified; E11.9 Type 2 diabetes mellitus without complications; Z87.891 Personal history of nicotine dependence; Z79.4 Long term (current) use of insulin; Z79.899 Other long term (current) drug therapy; Z79.82 Long term (current) use of aspirin; Z79.02 Long term (current) use of antithrombotics/antiplatelets
CPT/HCPCS: 62323; J2250; J3301; J3010; Q9966

== ENCOUNTER 2018-07-28 09:35 | Day surgery (SDC) | payer MEDICARE ==
[2018-07-19 10:44] VITALS: BMI 30.7
[~2018-07-28 09:35] MED LIST changes: +LACTATED RINGERS 1,000 ML IV SCH; -SODIUM CHLORIDE 0.9% 500 ML 500 ML IV SCH
[2018-07-28 09:56] VITALS: TEMP 98.5
--- NOTE | 2018-07-28 10:02 | P.PCN ---
Date of Procedure: 07/28/18 Procedure(s) Performed: Lumbar epidural steroid injection Description of Procedure: PREOPERATIVE DIAGNOSIS: 1-lumbar radiculopathy POSTOPERATIVE DIAGNOSIS: Lumbar radiculopathy PROCEDURE 1. Lumbar epidural steroid injection under fluoroscopic guidance at the L 4/5 level. 2. Lumbar epidurogram. ANESTHESIA: Local with 1% lidocaine 5 ml EBL: Minimal PROCEDURE INDICATION: The patient with low back pain and radiculitis symptoms unresponsive to conservative treatment. Fluoroscopy was used to optimize visualization of the needle placement and to maximize safety. PROCEDURE DESCRIPTION / TECHNIQUE: The patient was seen and identified in the preoperative area. Risks, benefits, complications including but not limited to infections ,bleeding ,allergic reaction to the medications ,nerve damage and incomplete pain relief , as well as alternatives to the procedure were discussed with the patient. The patient agreed to proceed with the procedure and signed the consent. IV was started, and vital signs were stable. Patient was taken to the OR and time out was completed. The patient was placed in the prone position on procedure table and a pillow was placed under the abdomen to reduce lumbar lordosis. The lumbosacral area was prepped and draped in the usual sterile fashion. Vitals were closely monitored during the procedure. Using anterior-posterior fluoroscopy, the L L 4/5 interlaminar space was identified and the skin over this site was marked and then infiltrated with 1% lidocaine subcutaneously. Subsequently, a 20-gauge Tuohy epidural needle was inserted and advanced toward the epidural space using the ``Loss of resistance technique and guided by AP and lateral fluoroscopy. The correct needle position in the epidural space was verified with the injection of 1 mL of the water soluble contrast dye Omnipaque 180 contrast and observing an excellent epidurogram with the epidural spread of the dye, after negative aspiration for blood and CSF and in the absence of paresthesias. Again after negative aspiration, a 4 ml mixture containing 10 mg of Dexamethasone and 3 ml of preservative free Normal Saline was injected and a washout of epidurogram was seen. Needle was withdrawn intact, skin was cleansed, and bandages were applied. COMPLICATIONS: None DISPOSITION / PLANS: The patient was placed in a supine position and transferred to the recovery area in a stable condition for observation. There was no evidence of lower extremity motor or sensory deficit after the procedure. Patient was discharged from the recovery room after meeting discharge criteria. Home discharge instructions were given to the patient by the staff. The patient was reexamined prior to discharge. The patient will schedule a follow up in the clinic in 4 weeks.
[2018-07-28 10:22] VITALS: BP 136/74; PULSE 66; RESP 18
[2018-07-28 10:41] LABS: Glucose,Whole Blood 119 mg/dL (75-99)
[2018-07-28 10:48] LABS: Glucose,Whole Blood 119 mg/dL (75-99)
--- NOTE | 2018-07-28 12:14 | FL ---
EXAMINATION TYPE: FL guided pain mgmt statistic DATE OF EXAM: 07/28/2018 HISTORY: Flouroscopy time 3 seconds of fluoroscopy provided. IMPRESSION: 1. Fluoroscopy time.
== END 2018-07-28 10:45 | disposition home or self-care (01) ==
LOC: ORPAIN 09:35
PROVIDERS: ATTEND Hospitalist
DX: M54.16 Radiculopathy, lumbar region (principal)
CPT/HCPCS: 62323; J1030

== ENCOUNTER → 2018-08-25 | Outpatient (CLI) | payer MEDICARE ==
[2018-08-25 13:46] VITALS: RESP 16
--- NOTE | 2018-08-25 22:20 | P.PAINPG ---
Subjective Progress Note Date: 08/25/18 This is a follow-up visit for this 83 years old male with chronic history of severe low back pain, he is diagnosed with lumbar spinal stenosis ,and lumbar degenerative disc disease, and lumbar diagnoses with facet arthropathy, we have done diagnostic medial branch block and later on was followed with radio frequency ablation of the medial branch lumbar area he continued to have severe low back pain later on we did lumbar epidural steroid injections 2 patient had no benefit from it, he continued to have severe low back pain and he is not able to ambulate, because of the intensity of the pain, he continues to use [place] 5/325 , he reported that the current pain medication is not helping enough, he is wheelchair bound secondary to weakness in the lower extremity and secondary to pain, patient is not a candidate for the neurosurgery cause of his heart condition Objective - Vital Signs Vital signs: Vital Signs Temp Pulse Resp 16 08/25/18 13:41 BP Pulse Ox Intake & Output 08/25/18 08/25/18 08/26/18 06:59 18:59 06:59 Weight 83.915 kg - Exam Physical Examinations : -Constitutiona : Cooperative , not in acute distress . -HEENT : nech ; supple , no Lymphadenopathy , normal thyroid size . eyes : no ptosis , no icterus, no photophobia . ENT : normal of hearing , normal oropharynx , no Thrush . - Respiratory : Chest clear to auscultations Bilaterally , no wheezing , no Rhonchi . - Cardiovascula : regular rate and rhythem , S1 , S2 , no S3 , no S4. - Gastrointestina : abdomen soft no tenderness , bowel sounds , no organomegally . - Genitourinary : Defferred . - neurologic : Cranial nerve II to XII intact , no focal neurological deffecit . -psychatric : alert , oriented X 3 , appropriate affect , intact judgment and insight . -Lymphatic : no Lymphadenopathy . - musculoskeltal : Lumber spine moter stegnth lower extremities ,thigh and legs 4/5 Right side , 4/5 Left side deep tendon reflexes : normal Knee Jerk , normal ankle Jerk positive lumber facet Loading Test Range of motion of the lumbar spine Flexion 30 degrees, extension 10 degrees strait leg raising test , positive at 30 degree Fabere test positive RT and positive LT . Assessment and Plan Plan: Assessment and plan= chronic severe low back pain secondary to lumbar spinal stenosis and lumbar degenerative disc disease, and lumbar spondylosis with lumbar facet arthropathy, patient had no benefit from an interventional pain management, and he is not candidate for neurosurgery secondary to his comorbidity(heart disease ), patient currently on [place] 5/325 every 6 hours and he reported the current medication is not helping enough to control his pain, I recommend to increase [place] to 7.5/325 every 6 hours when necessary, patient will follow up with his primary care Dr. Ramirez , and he will follow up with the pain clinic when necessary Time with Patient: Less than 30 PQRS Measure Charge Sheet Measure #130: Documentation of Current Meds in Medical Chart: Patient's medications documented in chart Measure #226: Tobacco Use: Screen & Cessation Intervention: Pt not a tobacco user Measure #111: Pneumonia Vaccination: Pneumococcal vaccine administered or previously received Measure #47: Advance Care Plan: Advance care planning discussed & documented, pt chose/unable to give Measure #412: Opioid Treatment Agreement: No documentation of signed opioid treatment agreement Measure #408: Opioid Therapy Follow-up Evaluation: Patient had NO f/u eval minimum every 3 months during opioid therapy Measure #317: Preventitive Care & Scrn High Bld Press & F/U: Normal blood pressure, f/u not required Measure #128: Body Mass Index (BMI) Screening & Follow-up: BMI documented ABOVE normal parameters - f/u documented Measure #131: Pain Assessment & Follow-up: Pain positive & plan documented, Follow-up PRN Measure #431: Unhealthy Alcohol Use Preventative Care & Scrn: Patient not identified as an unhealthy alcohol user PQRS Narrative: Smoking Status Former smoker Pain Intensity [Left Lower 10 Back] Scale Used Numeric (1 - 10) Hx Alcohol Use (MH) No Home Medications: Ambulatory Orders Furosemide 40 mg PO DAILY 08/27/15 Insulin Lispro [humaLOG Kwikpen] 9 unit SQ AC-TID 08/27/15 Rosuvastatin Calcium [Crestor] 10 mg PO HS 08/27/15 Solifenacin Succinate [Vesicare] 5 mg PO HS 08/27/15 Tamsulosin HCl 0.4 mg PO DAILY 08/27/15 amLODIPine BESYLATE [Norvasc] 5 mg PO DAILY 08/27/15 rOPINIRole HCL [Requip] 1 mg PO HS 08/27/15 Carvedilol [Coreg] 25 mg PO BID-W/MEALS 09/17/15 Clopidogrel [Plavix] 75 mg PO DAILY #90 tab 09/18/15 Nitroglycerin Sl Tabs [Nitrostat] 0.4 mg SUBLINGUAL Q5M PRN #25 tab 09/18/15 Aspirin EC [Ecotrin Low Dose] 81 mg PO DAILY 12/05/15 Dapagliflozin Propanediol [Farxiga] 5 mg PO DAILY 12/05/15 Losartan/Hydrochlorothiazide [Losartan-Hctz 100-25 mg Tab] 1 tab PO DAILY 12/05/15 Potassium Chloride [Klor-Con 20] 20 meq PO DAILY 12/05/15 Simvastatin [Zocor] 20 mg PO HS 12/05/15 metFORMIN HCL [Glucophage] 1,000 mg PO W/SUPPER 12/05/15 Acetaminophen Tab [Tylenol] 650 mg PO Q6HR PRN #0 tab 12/10/15 Famotidine [Pepcid] 20 mg PO DAILY tab 12/10/15 HYDROcodone/APAP 5-325MG [[place] 5-325] 1 tab PO Q6H PRN #60 tab 12/10/15 Dulaglutide [Trulicity] 1.5 mg SQ WEEKLY 01/01/18 Insulin Glargine [Lantus] 27 unit SQ HS 01/14/18 Controlled Substance Measures - Controlled Substance Measures Is patient prescribed a controlled substance at discharge?: No
== END | disposition home or self-care (01) ==
LOC: PNWHC3 12:12
PROVIDERS: ATTEND Specialist
DX: G89.29 Other chronic pain (principal); M48.061 Spinal stenosis, lumbar region without neurogenic claudication; M51.36 Other intervertebral disc degeneration, lumbar region; M47.816 Spondylosis without myelopathy or radiculopathy, lumbar region; M46.96 Unspecified inflammatory spondylopathy, lumbar region; Z87.891 Personal history of nicotine dependence; Z98.890 Other specified postprocedural states; Z79.891 Long term (current) use of opiate analgesic
CPT/HCPCS: 99211

== ENCOUNTER 2018-12-28 13:20 | Inpatient (IN) | payer MEDICARE ==
--- NOTE | 2018-12-28 14:42 | ED ---
General Adult HPI - General Chief complaint: Extremity Problem,Nontraumatic Stated complaint: edema lower legs Source: patient, EMS Mode of arrival: EMS - History of Present Illness Initial comments: Patient is an 83-year-old male presents emergency room with reported lower extremity edema. The patient reports that he is normally on Lasix which is prescribed by Dr. Freda schafer. He saw Dr. Shaan schafer one week ago in office. He did take him off the water pill. Daughters at bedside and helps history. She is unsure whether patient was taken off of this medication. She thought it may be due to the increased frequency of urination that the patient has. Over the past week patient has noted progressive lower extremity swelling. He has difficulties insulating at baseline and this has made it significantly worse. Daughter states that he now requires assistance during any ambulation. The patient is also reporting increasing shortness of breath. Shortness of breath is exertional. He denies any calf pain. No history of DVTs or PEs. No chest pain. Denies a cough, hemoptysis, fevers or chills. No nausea or vomiting. No recent falls. There are no other alleviating, precipitating or modifying factors - Related Data Home Medications Medication Instructions Recorded Confirmed Furosemide 40 mg PO DAILY 08/27/15 12/28/18 Insulin Lispro [humaLOG Kwikpen] 10 unit SQ AC-TID 08/27/15 12/28/18 Rosuvastatin Calcium [Crestor] 10 mg PO DAILY 08/27/15 12/28/18 Carvedilol [Coreg] 25 mg PO BID-W/MEALS 09/17/15 12/28/18 Aspirin EC [Ecotrin Low Dose] 81 mg PO HS 12/05/15 12/28/18 Losartan/Hydrochlorothiazide 1 tab PO DAILY 12/05/15 12/28/18 [Losartan-Hctz 100-25 mg Tab] Potassium Chloride [Klor-Con 20] 20 meq PO DAILY 12/05/15 12/28/18 metFORMIN HCL [Glucophage] 1,000 mg PO W/SUPPER 12/05/15 12/28/18 Dulaglutide [Trulicity] 1.5 mg SQ WE 01/01/18 12/28/18 Insulin Glargine [Lantus] 28 unit SQ HS 01/14/18 12/28/18 Clopidogrel Bisulfate [Plavix] 75 mg PO HS 12/28/18 12/28/18 Finasteride [Proscar] 5 mg PO DAILY 12/28/18 12/28/18 Gabapentin 600 mg PO BID 12/28/18 12/28/18 Pioglitazone HCl 30 mg PO DAILY 12/28/18 12/28/18 amLODIPine BESYLATE 5 mg PO DAILY 12/28/18 12/28/18 Allergies Allergy/AdvReac Type Severity Reaction Status Date / Time No Known Allergies Allergy Verified 12/28/18 14:10 Review of Systems ROS Statement: Those systems with pertinent positive or pertinent negative responses have been documented in the HPI. ROS Other: All systems not noted in ROS Statement are negative. Past Medical History Past Medical History: Coronary Artery Disease (CAD), Chest Pain / Angina, COPD, Diabetes Mellitus, Hyperlipidemia, Hypertension, Musculoskeletal Disorder, Pneumonia, Prostate Disorder, Sleep Apnea/CPAP/BIPAP Additional Past Medical History / Comment(s): MURMUR, SINUS PROBLEMS, BACK PAIN- DIFFICULTY W/MOBILITY, TIRES EASILY AND SOB. History of Any Multi-Drug Resistant Organisms: None Reported Past Surgical History: Coronary Bypass/CABG, Heart Catheterization, Heart Catheterization With Stent, Hernia Repair, Pacemaker, Tonsillectomy Additional Past Surgical History / Comment(s): QUAD BYPASS, HEART CATH 2010, - 2015(STENTS), COLONOSCOPY, CATARACTS, PACEMAKER, pain clinic procedures. Past Anesthesia/Blood Transfusion Reactions: No Reported Reaction Date of Last Stent Placement:: 2015 Type of Cardiac Device: Permanent Pacemaker Device Placement Date:: 2016 Past Psychological History: Depression Smoking Status: Former smoker Past Alcohol Use History: None Reported Past Drug Use History: None Reported - Past Family History Mother Family Medical History: Diabetes Mellitus Father Family Medical History: Unable to Obtain Additional Family Medical History / Comment(s): UNK TYPE General Exam General appearance: alert, in no apparent distress Head exam: Present: atraumatic, normocephalic, normal inspection Eye exam: Present: normal appearance, PERRL, EOMI. Absent: scleral icterus, conjunctival injection, periorbital swelling ENT exam: Present: normal exam, mucous membranes moist Neck exam: Present: normal inspection. Absent: tenderness, meningismus, lymphadenopathy Respiratory exam: Present: normal lung sounds bilaterally. Absent: respiratory distress, wheezes, rales, rhonchi, stridor Cardiovascular Exam: Present: regular rate, normal rhythm, normal heart sounds. Absent: systolic murmur, diastolic murmur, rubs, gallop, clicks GI/Abdominal exam: Present: soft, normal bowel sounds. Absent: distended, tenderness, guarding, rebound, rigid Extremities exam: Present: normal inspection, full ROM, normal capillary refill. Absent: tenderness, pedal edema, joint swelling, calf tenderness Back exam: Present: normal inspection Neurological exam: Present: alert, oriented X3, CN II-XII intact Psychiatric exam: Present: normal affect, normal mood Skin exam: Present: warm, dry, intact, normal color. Absent: rash Course Vital Signs 12/28/18 13:34 Temperature 97.7 F Pulse Rate 63 Respiratory 22 Rate Blood Pressure 143/69 O2 Sat by Pulse 96 Oximetry Medical Decision Making - Medical Decision Making Upon arrival the patient is placed into room 26. A thorough history and physi ashley exam was performed. Peripheral IV is established. A 12-lead EKG is performed. Laboratory studies were conducted. The patient was sent for chest x-ray and lower extremity Dopplers. Laboratory studies are remarkable for a BNP of 1590. Creatinine is 1.3 which is near the patient's baseline. First troponin is negative. Chest x-ray demonstrates an enlarged heart with a prominent interstitium. Lower extremity Dopplers demonstrated no signs of DVT. I did discuss these findings with the patient. He does have a pulse ox saturation of 89% on room air. Did recommend hospital admission for IV diuresis for which the patient did agree. I did call discuss case with Dr. Dr. Ramirez did accept admission of the patient. He does request a cardiology be placed on consult. I did provide the patient with 40 mg of Lasix IV. I ordered an echo. The patient remained in stable condition awaiting transport to the floor - Lab Data Result diagrams: 12/28/18 14:54 12/28/18 14:54 Lab Results 12/28/18 12/28/18 12/28/18 Range/Units 14:54 14:54 14:54 WBC 5.4 (3.8-10.6) k/uL RBC 3.17 L (4.30-5.90) m/uL Hgb 10.4 L (13.0-17.5) gm/dL Hct 31.6 L (39.0-53.0) % MCV 99.6 (80.0-100.0) fL MCH 32.6 (25.0-35.0) pg MCHC 32.8 (31.0-37.0) g/dL RDW 15.4 (11.5-15.5) % Plt Count 234 (150-450) k/uL Neutrophils % 52 % Lymphocytes % 29 % Monocytes % 10 % Eosinophils % 4 % Basophils % 1 % Neutrophils # 2.8 (1.3-7.7) k/uL Lymphocytes # 1.6 (1.0-4.8) k/uL Monocytes # 0.5 (0-1.0) k/uL Eosinophils # 0.2 (0-0.7) k/uL Basophils # 0.1 (0-0.2) k/uL Macrocytosis Slight PT 10.4 (9.0-12.0) sec INR 1.0 (<1.2) APTT 22.5 (22.0-30.0) sec Sodium 141 (137-145) mmol/L Potassium 5.0 (3.5-5.1) mmol/L Chloride 104 (98-107) mmol/L Carbon Dioxide 29 (22-30) mmol/L Anion Gap 8 mmol/L BUN 29 H (9-20) mg/dL Creatinine 1.32 H (0.66-1.25) mg/dL Est GFR (CKD-EPI)AfAm 58 (>60 ml/min/1.73 sqM) Est GFR (CKD-EPI)NonAf 50 (>60 ml/min/1.73 sqM) Glucose 98 (74-99) mg/dL Calcium 10.0 (8.4-10.2) mg/dL Magnesium 2.2 (1.6-2.3) mg/dL Total Bilirubin 0.7 (0.2-1.3) mg/dL AST 23 (17-59) U/L ALT 12 L (21-72) U/L Alkaline Phosphatase 31 L (38-126) U/L Troponin I (0.000-0.034) ng/mL NT-Pro-B Natriuret Pep pg/mL Total Protein 7.2 (6.3-8.2) g/dL Albumin 4.2 (3.5-5.0) g/dL 12/28/18 12/28/18 Range/Units 14:54 14:54 WBC (3.8-10.6) k/uL RBC (4.30-5.90) m/uL Hgb (13.0-17.5) gm/dL Hct (39.0-53.0) % MCV (80.0-100.0) fL MCH (25.0-35.0) pg MCHC (31.0-37.0) g/dL RDW (11.5-15.5) % Plt Count (150-450) k/uL Neutrophils % % Lymphocytes % % Monocytes % % Eosinophils % % Basophils % % Neutrophils # (1.3-7.7) k/uL Lymphocytes # (1.0-4.8) k/uL Monocytes # (0-1.0) k/uL Eosinophils # (0-0.7) k/uL Basophils # (0-0.2) k/uL Macrocytosis PT (9.0-12.0) sec INR (<1.2) APTT (22.0-30.0) sec Sodium (137-145) mmol/L Potassium (3.5-5.1) mmol/L Chloride (98-107) mmol/L Carbon Dioxide (22-30) mmol/L Anion Gap mmol/L BUN (9-20) mg/dL Creatinine (0.66-1.25) mg/dL Est GFR (CKD-EPI)AfAm (>60 ml/min/1.73 sqM) Est GFR (CKD-EPI)NonAf (>60 ml/min/1.73 sqM) Glucose (74-99) mg/dL Calcium (8.4-10.2) mg/dL Magnesium (1.6-2.3) mg/dL Total Bilirubin (0.2-1.3) mg/dL AST (17-59) U/L ALT (21-72) U/L Alkaline Phosphatase (38-126) U/L Troponin I <0.012 (0.000-0.034) ng/mL NT-Pro-B Natriuret Pep 1590 pg/mL Total Protein (6.3-8.2) g/dL Albumin (3.5-5.0) g/dL Disposition Clinical Impression: Bilateral lower extremity edema Disposition: ADMITTED IP TO THIS HOSP Condition: Stable Is patient prescribed a controlled substance at d/c from ED?: No Referrals: Maria Victoria Ramirez MD [Primary Care Provider] - 1-2 days Decision to Admit Reason: Admit from EC Decision Date: 12/28/18 Decision Time: 16:56
[2018-12-28 15:16] LABS: Albumin 4.2 g/dL (3.5-5.0); Basophils # (A) 0.1 k/uL (0-0.2); Basophils % (A) 1 %; Eosinophils # (A) 0.2 k/uL (0-0.7); Eosinophils % (A) 4 %; HCT 31.6 % (39.0-53.0); HGB 10.4 gm/dL (13.0-17.5); Lymphocytes # (A) 1.6 k/uL (1.0-4.8); Lymphocytes % (A) 29 %; MCH 32.6 pg (25.0-35.0); MCHC 32.8 g/dL (31.0-37.0); MCV 99.6 fL (80.0-100.0); Macrocytosis Slight; Magnesium 2.2 mg/dL (1.6-2.3); Mean Platelet Volume 6.8; Monocytes # (A) 0.5 k/uL (0-1.0); Monocytes % (A) 10 %; Neutrophils # (A) 2.8 k/uL (1.3-7.7); Neutrophils % (A) 52 %; Platelet Count 234 k/uL (150-450); RBC 3.17 m/uL (4.30-5.90); RDW 15.4 % (11.5-15.5); Total Bilirubin 0.7 mg/dL (0.2-1.3); Total Protein 7.2 g/dL (6.3-8.2); WBC 5.4 k/uL (3.8-10.6)
[2018-12-28 15:25] LABS: Partial Thromboplastin Time 22.5 sec (22.0-30.0); Prothrombin Time 10.4 sec (9.0-12.0)
--- NOTE | 2018-12-28 15:53 | XR ---
EXAMINATION TYPE: XR chest 2V DATE OF EXAM: 12/28/2018 COMPARISON: Prior chest x-ray dated 12/08/2015 HISTORY: Dysrhythmia TECHNIQUE: Frontal and lateral views of the chest are obtained. FINDINGS: There are prominent lung lines with relative flattening the hemidiaphragms suggesting unde rlying COPD. Epicardial pacing leads are in place, patient is post median sternotomy, generator in th e left pectoral region, there are leads in the right atrium and ventricle. Heart remains enlarged. No evident airspace disease, pneumothorax, or pleural effusion. Interstitium mildly increased. IMPRESSION: Findings are similar to prior exam. Cardiomegaly. Interstitial lung disease and addition al findings above.
--- NOTE | 2018-12-28 16:39 | US ---
EXAMINATION TYPE: US venous doppler duplex LE DATE OF EXAM: 12/28/2018 2:42 PM COMPARISON: CLINICAL HISTORY: lower extremity swelling. No hx of DVT. On blood thinners SIDE PERFORMED: Bilateral TECHNIQUE: The lower extremity deep venous system is examined utilizing real time linear array sonog esdras with graded compression, doppler sonography and color-flow sonography. VESSELS IMAGED: External Iliac Vein (EIV) Common Femoral Vein Deep Femoral Vein Greater Saphenous Vein * Femoral Vein Popliteal Vein Small Saphenous Vein * Proximal Calf Veins (* superficial vessels) There is normal flow, compressibility, vascular waveforms. Right Leg: Negative for DVT Left Leg: Negative for DVT Edema channels are present within the soft tissues subcutaneous region IMPRESSION: No evident deep venous arthrosis at or above the knees bilaterally. Follow-up as indicate d.
[2018-12-28] MEDS ORDERED: FUROSEMIDE 10 MG/ML 4 ML VIAL IV STA (16:50)
[2018-12-28] MEDS ORDERED: NALOXONE 0.4 MG/ML 1 ML VIAL IV PRN (17:06)
[2018-12-28] MEDS: INSULIN ASPART (NovoLOG) 100 UNIT/ML VIAL SQ SCH (18:37)
[2018-12-28 18:42] LABS: Glucose,Whole Blood 106 mg/dL (75-99)
[2018-12-28 20:54] LABS: Glucose,Whole Blood 130 mg/dL (75-99)
[2018-12-28] MEDS ORDERED: INSULIN DETEMIR (LEVEMIR) 100 UNIT/ML SYR SQ SCH (21:00)
[2018-12-28] MEDS: CARVEDILOL 12.5 MG TAB PO SCH (22:27)
[2018-12-28] MEDS: GABAPENTIN 300 MG CAP PO SCH (22:29)
[2018-12-28] MEDS: ASPIRIN 81 MG PO SCH (22:29)
[2018-12-28] MEDS: CLOPIDOGREL 75 MG TAB PO SCH (22:29)
[2018-12-29 01:03] LABS: Glucose,Whole Blood 95 mg/dL (75-99)
[2018-12-29 07:09] LABS: Glucose,Whole Blood 80 mg/dL (75-99)
[2018-12-29 07:28] LABS: Calcium 9.7 mg/dL (8.4-10.2); Potassium 4.5 mmol/L (3.5-5.1)
[2018-12-29 07:54] LABS: Basophils # (A) 0.1 k/uL (0-0.2); Basophils % (A) 1 %; Eosinophils # (A) 0.2 k/uL (0-0.7); Eosinophils % (A) 4 %; HCT 29.7 % (39.0-53.0); HGB 9.8 gm/dL (13.0-17.5); Lymphocytes # (A) 1.8 k/uL (1.0-4.8); Lymphocytes % (A) 36 %; MCH 32.8 pg (25.0-35.0); MCHC 32.9 g/dL (31.0-37.0); MCV 99.6 fL (80.0-100.0); Macrocytosis Slight; Monocytes # (A) 0.5 k/uL (0-1.0); Monocytes % (A) 11 %; Neutrophils # (A) 2.2 k/uL (1.3-7.7); Neutrophils % (A) 43 %; Platelet Count 233 k/uL (150-450); RBC 2.98 m/uL (4.30-5.90); RDW 15.3 % (11.5-15.5)
[2018-12-29] MEDS: INSULIN ASPART (NovoLOG) 100 UNIT/ML VIAL SQ SCH ×4 (08:47→20:58)
[2018-12-29] MEDS: GABAPENTIN 300 MG CAP PO SCH ×2 (08:50→20:58)
[2018-12-29] MEDS: POTASSIUM CHLORIDE ER 20 MEQ TAB.ER PO SCH (08:50)
[2018-12-29] MEDS: FINASTERIDE 5 MG TAB PO SCH (08:50)
[2018-12-29] MEDS: amLODIPine 5 MG TAB PO SCH (08:51)
[2018-12-29] MEDS: CARVEDILOL 12.5 MG TAB PO SCH ×2 (08:51→17:14)
[2018-12-29] MEDS: ATORVASTATIN 20 MG TAB PO SCH (08:51)
[2018-12-29] MEDS ORDERED: LOSARTAN-HCTZ 50-12.5 MG 1 EACH TAB PO SCH (09:00)
--- NOTE | 2018-12-29 09:48 | P.CRDCN ---
History of Present Illness History of present illness: This is a pleasant 83-year-old male past medical history significant for coronary artery disease status post bypass grafting 2010 and subsequent stent placement of the circumflex in 2016, COPD, permanent pacemaker implantation secondary to diabetes mellitus, hypertension, dyslipidemia and sleep apnea. He follows with Dr. Hudson in the office. We have been asked to see him in consultation for heart failure. The patient presents to the hospital with symptoms of lower extremity edema and increasing shortness of breath. The patient seems to be somewhat of a poor historian. According to the ER noted the patient was recently taken off of his oral Lasix secondary to increased ur ination. The patient however does not recall this when questioned. He is seen and examined sitting up in bed mildly tachypneic. He denies symptoms of chest discomfort, dizziness, palpitations, nausea, vomiting or diaphoresis. There is no EKG obtained on admission. Chest x-ray reveals cardiomegaly, interstitial lung disease with no pleural effusion or opacities noted. Laboratory data reviewed, WBC 5.0, hemoglobin 9.8, platelets 233, sodium 141, potassium 4.5, creatinine 1.41, magnesium 2.2, cardiac enzymes negative 1, proBNP 1590. Current to the cardiac medications include amlodipine 5 mg daily, carvedilol 25 mg twice a day, Lasix 40 mg daily, hydrochlorothiazide chest HCTZ 100/25 mg daily, potassium supplementation, rosuvastatin 10 mg daily, aspirin 81 mg daily and Plavix 75 mg daily. He underwent 4V bypass grafting in 2010 with sequential MARROQUIN-LAD and diag, SVG-PDA and SVG-OM. Catheterization in 2016 revealed RCA is subtotally occluded and nondominant, left main is short patent free of disease with moderate calcification, LAD is occluded after small diagonal, circumflex 40% plaque proximally, OM with a 70-80% stenosis, the groove branch has a proximal long area of disease approximately 70-80%, MARROQUIN to LAD and diagonal branch is patent and neither of the SVG grafts were identified. At that time he underwent successful stent patient of the circumflex. Most recent echoc ardiogram obtained in the office September 2018 reveals preserved LV systolic function with ejection fraction 50%, moderate mitral regurgitation, calcified aortic valve with a mean gradient across the valve of 6 mmHg. At the time of my exam: CONSTITUTIONAL: Denies fever. Denies chills. EYES: Denies blurred vision. Denies vision changes. Denies eye pain. EARS, NOSE, MOUTH & THROAT: Denies headache. Denies sore throat. Denies ear pain. CARDIOVASCULAR: Denies chest pain. Complains of exertional shortness of breath. Denies orthopnea. Complains of intermittent PND. Denies palpitations. RESPIRATORY: Denies cough. GASTROINTESTINAL: Denies abdominal pain. Denies diarrhea. Denies constipation. Denies nausea. Denies vomiting. MUSCULOSKELETAL: Denies myalgias. INTEGUMENTARY: Denies pruitis. Denies rash. NEUROLOGIC: Denies numbness. Denies tingling. Denies weakness. PSYCHIATRIC: Denies anxiety. Denies depression. ENDOCRINE: Denies fatigue. Denies weight change. Denies polydipsia. Denies polyurina. GENITOURINARY: Denies burning, hematuria or urgency with micturation. HEMATOLOGIC: Denies history of anemia. Denies bleeding. Blood pressure 104/39 heart rate 85 afebrile maintaining oxygen saturation on room air GENERAL: This is a 83-year-old male in no apparent distress at the time of my examination. HEENT: Head is atraumatic, normocephalic. Pupils are equal, round. Sclerae anicteric. Conjunctivae are clear. Mucous membranes of the mouth are moist. Neck is supple. There is no jugular venous distention. No carotid bruit is heard. LUNGS: Bibasilar rales, no wheezes or rhonchi. No chest wall tenderness is noted on palpation or with deep breathing. HEART: REgular rate and rhythm with systolic ejection murmur at the left sternal border, no rubs or gallops. S1 and S2 heard. ABDOMEN: Soft, nontender. Bowel sounds are heard. No organomegaly noted. EXTREMITIES: 1+ bilateral lower extremity pitting edema right greater than left and no calf tenderness noted. VASCULAR: Radial and dorsalis pedis pulses palpated, no evidence of clubbing. NEUROLOGIC: Patient is awake, alert and oriented with some mild confusion about recent events. ASSESSMENT Acute on chronic diastolic heart failure Underlying coronary artery disease s/p bypass grafting and stent placement 2015. Maintained on dual anti-platelet therapy Hypertension Dyslipidemia Diabetes mellitus COPD s/p permanent pacemaker implantation Morbid obesity, BMI 35 PLAN Obtain EKG. Discontinue hydrochlorothiazide. Continue losartan at 100 mg daily. Agree with IV diuresis. Follow renal function and electrolytes in the morning. Recent echo in the office reviewed. We will continue to follow and make recommendations accordingly. Thank you kindly for this consultation. Nurse Practitioner note has been reviewed, I agree with a documented findings and plan of care. Patient was seen and examined. Past Medical History Past Medical History: Coronary Artery Disease (CAD), Chest Pain / Angina, COPD, Diabetes Mellitus, Hyperlipidemia, Hypertension, Musculoskeletal Disorder, P neumonia, Prostate Disorder, Sleep Apnea/CPAP/BIPAP Additional Past Medical History / Comment(s): MURMUR, SINUS PROBLEMS, BACK PAIN- DIFFICULTY W/MOBILITY, TIRES EASILY AND SOB. History of Any Multi-Drug Resistant Organisms: None Reported Past Surgical History: Coronary Bypass/CABG, Heart Catheterization, Heart Catheterization With Stent, Hernia Repair, Pacemaker, Tonsillectomy Additional Past Surgical History / Comment(s): QUAD BYPASS, HEART CATH 2010, - 2015(STENTS), COLONOSCOPY, CATARACTS, PACEMAKER, pain clinic procedures. Past Anesthesia/Blood Transfusion Reactions: No Reported Reaction Date of Last Stent Placement:: 2015 Type of Cardiac Device: Permanent Pacemaker Device Placement Date:: 2016 Past Psychological History: Depression Smoking Status: Former smoker Past Alcohol Use History: None Reported Additional Past Alcohol Use History / Comment(s): SMOKED X 30 YEARS, 1PPD, QUIT 1969' Past Drug Use History: None Reported - Past Family History Mother Family Medical History: Diabetes Mellitus Father Family Medical History: Unable to Obtain Additional Family Medical History / Comment(s): UNK TYPE Medications and Allergies Home Medications Medication Instructions Recorded Confirmed Type Furosemide 40 mg PO DAILY 08/27/15 12/28/18 History Insulin Lispro [humaLOG Kwikpen] 10 unit SQ AC-TID 08/27/15 12/28/18 History Rosuvastatin Calcium [Crestor] 10 mg PO DAILY 08/27/15 12/28/18 History Carvedilol [Coreg] 25 mg PO BID-W/MEALS 09/17/15 12/28/18 History Aspirin EC [Ecotrin Low Dose] 81 mg PO HS 12/05/15 12/28/18 History Losartan/Hydrochlorothiazide 1 tab PO DAILY 12/05/15 12/28/18 History [Losartan-Hctz 100-25 mg Tab] Potassium Chloride [Klor-Con 20] 20 meq PO DAILY 12/05/15 12/28/18 History metFORMIN HCL [Glucophage] 1,000 mg PO W/SUPPER 12/05/15 12/28/18 History Dulaglutide [Trulicity] 1.5 mg SQ WE 01/01/18 12/28/18 History Insulin Glargine [Lantus] 28 unit SQ HS 01/14/18 12/28/18 History Clopidogrel Bisulfate [Plavix] 75 mg PO HS 12/28/18 12/28/18 History Finasteride [Proscar] 5 mg PO DAILY 12/28/18 12/28/18 History Gabapentin 600 mg PO BID 12/28/18 12/28/18 History Pioglitazone HCl 30 mg PO DAILY 12/28/18 12/28/18 History amLODIPine BESYLATE 5 mg PO DAILY 12/28/18 12/28/18 History Allergies Allergy/AdvReac Type Severity Reaction Status Date / Time No Known Allergies Allergy Verified 12/28/18 14:10 Physical Exam Vitals: Vital Signs Temp Pulse Pulse Resp BP BP Pulse Ox 12/29/18 00:46 98.4 F 85 18 104/39 90 L 12/28/18 22:34 97.7 F 63 18 144/66 95 12/28/18 20:38 97.8 F 74 18 148/79 98 12/28/18 16:38 60 20 140/69 96 12/28/18 13:34 97.7 F 63 22 143/69 96 Intake and Output 12/28/18 12/29/18 12/29/18 22:59 06:59 14:59 Intake Total 540 Output Total 550 Balance 540 -550 Intake: Oral 540 Output: Urine 550 Other: Weight 95.481 kg Results 12/29/18 06:54 12/29/18 06:54 Cardiac Enzymes 12/28/18 12/28/18 Range/Units 14:54 14:54 AST 23 (17-59) U/L Troponin I <0.012 (0.000-0.034) ng/mL Coagulation 12/28/18 Range/Units 14:54 PT 10.4 (9.0-12.0) sec APTT 22.5 (22.0-30.0) sec CBC 12/28/18 12/29/18 Range/Units 14:54 06:54 WBC 5.4 5.0 (3.8-10.6) k/uL RBC 3.17 L 2.98 L (4.30-5.90) m/uL Hgb 10.4 L 9.8 L (13.0-17.5) gm/dL Hct 31.6 L 29.7 L (39.0-53.0) % Plt Count 234 233 (150-450) k/uL Comprehensive Metabolic Panel 12/28/18 12/29/18 Range/Units 14:54 06:54 Sodium 141 141 (137-145) mmol/L Potassium 5.0 4.5 (3.5-5.1) mmol/L Chloride 104 103 (98-107) mmol/L Carbon Dioxide 29 33 H (22-30) mmol/L BUN 29 H 26 H (9-20) mg/dL Creatinine 1.32 H 1.41 H (0.66-1.25) mg/dL Glucose 98 78 (74-99) mg/dL Calcium 10.0 9.7 (8.4-10.2) mg/dL AST 23 (17-59) U/L ALT 12 L (21-72) U/L Alkaline Phosphatase 31 L (38-126) U/L Total Protein 7.2 (6.3-8.2) g/dL Albumin 4.2 (3.5-5.0) g/dL Current Medications Generic Name Dose Route Start Last Admin Trade Name Beltranq PRN Reason Stop Dose Admin Amlodipine Besylate 5 mg 12/29/18 09:00 12/29/18 08:51 Norvasc PO 5 mg DAILY SINDY Administration Aspirin 81 mg 12/28/18 21:00 12/28/18 22:29 Aspirin PO 81 mg HS SINDY Administration Atorvastatin Calcium 20 mg 12/29/18 09:00 12/29/18 08:51 Lipitor PO 20 mg DAILY SINDY Administration Carvedilol 25 mg 12/28/18 17:30 12/29/18 08:51 Coreg PO 25 mg BID-W/MEALS SINDY Administration Clopidogrel Bisulfate 75 mg 12/28/18 21:00 12/28/18 22:29 Plavix PO 75 mg HS SINDY Administration Finasteride 5 mg 12/29/18 09:00 12/29/18 08:50 Proscar PO 5 mg DAILY SINDY Administration Gabapentin 600 mg 12/28/18 21:00 12/29/18 08:50 Neurontin PO 600 mg BID SINDY Administration HCTZ/Losartan Potassium 2 each 12/29/18 09:00 Hyzaar 50-12.5 PO DAILY SINDY Insulin Aspart 10 unit 12/28/18 17:30 12/29/18 08:47 Novolog SQ Not Given AC-TID SINDY Insulin Detemir 28 unit 12/28/18 21:00 12/28/18 22:29 Levemir SQ 14 unit HS SINDY Administration Naloxone HCl 0.2 mg 12/28/18 17:06 Narcan IV Q2M PRN Opioid Reversal Potassium Chloride 20 meq 12/29/18 09:00 12/29/18 08:50 K-Dur 20 PO 20 meq DAILY SINDY Administration Intake and Output 12/28/18 12/29/18 12/29/18 22:59 06:59 14:59 Intake Total 540 Output Total 550 Balance 540 -550 Intake: Oral 540 Output: Urine 550 Other: Weight 95.481 kg 12/29/18 06:54 12/29/18 06:54
[2018-12-29] MEDS: LOSARTAN 50 MG TAB PO SCH (09:50)
[2018-12-29 11:06] LABS: Glucose,Whole Blood 246 mg/dL (75-99)
[2018-12-29 11:56] LABS: Glucose,Whole Blood 212 mg/dL (75-99)
--- NOTE | 2018-12-29 13:01 | ECHOF ---
Referral Reason:shortness of breath, lower extremity edema MEASUREMENTS -------- HEIGHT: 165.1 cm WEIGHT: 81.6 kg BP: 143/69 RVIDd: 3.7 cm (< 3.3) IVSd: 1.4 cm (0.6 - 1.1) LVIDd: 4.9 cm (3.9 - 5.3) LVPWd: 1.4 cm (0.6 - 1.1) IVSs: 1.9 cm LVIDs: 3.4 cm LVPWs: 1.9 cm LA Diam: 4.5 cm (2.7 - 3.8) LAESV Index (A-L): 42.23 ml/m Ao Diam: 3.0 cm (2.0 - 3.7) AV Cusp: 2.0 cm (1.5 - 2.6) MV EXCURSION: 18.395 mm (> 18.000) MV EF SLOPE: 56 mm/s (70 - 150) EPSS: 0.7 cm MV E Carlos: 1.20 m/s MV DecT: 234 ms MV A Carlos: 1.16 m/s MV E/A Ratio: 1.04 RAP: 5.00 mmHg RVSP: 40.84 mmHg TAPSE: 1.48 cm FINDINGS -------- Pacerwire seen in RV and RA. This was a technically adequate study. The left ventricular size is normal. There is moderate concentric left ventricular hypertrophy. O verall left ventricular systolic function is mildly impaired with, an EF between 45 - 50 %. Both th e mean atrial pressure as well as the LV end diastolic pressure is elevated 20.80. The right ventricle is mildly enlarged. The right ventricular systolic function is mildly impaired. LA is severely dilated >40 ml/m2 The right atrial size is normal. Aneurysmal Interatrial septum. There is mild aortic valve sclerosis. There is mild aortic regurgitation. Mild mitral annular calcification present. Moderate mitral regurgitation is present. Mild tricuspid regurgitation present. There is mild pulmonary hypertension. The right ventricular systolic pressure, as measured by Doppler, is 40.84mmHg. Trace/mild (physiologic) pulmonic regurgitation. The aortic root size is normal. Normal inferior vena cava with normal inspiratory collapse consistent with estimated right atrial pre ssure of 5 mmHg. There is no pericardial effusion. CONCLUSIONS -------- 1. Pacerwire seen in RV and RA. 2. This was a technically adequate study. 3. The left ventricular size is normal. 4. There is moderate concentric left ventricular hypertrophy. 5. Overall left ventricular systolic function is mildly impaired with, an EF between 45 - 50 %. 6. Both the mean atrial pressure as well as the LV end diastolic pressure is elevated 20.80. 7. The right ventricle is mildly enlarged. 8. The right ventricular systolic function is mildly impaired. 9. LA is severely dilated >40 ml/m2 10. Aneurysmal Interatrial septum. 11. There is mild aortic valve sclerosis. 12. There is mild aortic regurgitation. 13. Mild mitral annular calcification present. 14. Moderate mitral regurgitation is present. 15. Mild tricuspid regurgitation present. 16. There is mild pulmonary hypertension. 17. Trace/mild (physiologic) pulmonic regurgitation. 18. The aortic root size is normal. 19. Normal inferior vena cava with normal inspiratory collapse consistent with estimated right atrial pressure of 5 mmHg. 20. There is no pericardial effusion. APPLICATION INTEGRATION ARCHITECT: Danielle Brandon RDCS
--- NOTE | 2018-12-29 13:07 | P.HPIM ---
History of Present Illness H&P Date: 12/29/18 Chief Complaint: Increased shortness breath and edema. This is an 83-year-old male one of my patient with a previous medical history significant for CAD post CABG 4 in 2010 with sequential MARRO[place]IN to LAD and diagonal branch, SVG to PDA and SVG to the obtuse marginal branch, subsequently underwent left heart catheterization 2016 because of unstable angina he had PCI of the obtuse marginal branch, diabetes mellitus type 2 with diabetic polyneuropathy, hypertension and hypertensive cardio vascular disease, COPD, enlarged prostate, sleep apnea, bradycardia status post permanent pacemaker placement, history of significant degenerative disease of the lumbar spine with significant weakness of both lower extremity currently uses a walker for immolation, restless leg syndrome, and finally history of parkinsonism, patient was taken off his diuretics about a week ago due to his worsening kidney function and patient generalized weakness and significant deterioration of his physical status his creatinine improved after the diuretics were stopped, and he came down from 1.9-1.3 to which was at baseline, he was taken off metformin as well due to the same reason however his daughter called and stated that the patient is quite swollen he was started 3 days ago back and his diuretics and he was complaining of increased shortness breath was directed to the ER for e valuation he was found to have an acute diastolic heart failure was started back on IV diuretics and he was admitted to the hospital for evaluation cardiology consultation was obtained. Review of Systems Constitutional: Reports chronic pain, Reports fatigue, Reports lethargy, Reports malaise, Reports weakness, Reports weight loss Eyes: bilateral blurred vision Ears: bilateral: decreased hearing Ears, nose, mouth and throat: Denies dysphagia, Denies neck lump, Denies swelling in throat, Denies sore throat Cardiovascular: Reports decreased exercise tolerance, Reports dyspnea on exertion, Reports edema, Reports shortness of breath, Denies chest pain, Denies lightheadedness, Denies rapid heart beat, Denies syncope Respiratory: Reports dyspnea, Reports sleep apnea, Denies congestion, Denies cough, Denies cough with sputum, Denies home oxygen, Denies snoring, Denies wheezing Gastrointestinal: Reports loss of appetite, Denies abdominal pain, Denies bloating, Denies BRBPR, Denies heartburn, Denies melena, Denies nausea, Denies vomiting Genitourinary: Reports impotence, Reports nocturia, Denies discharge Musculoskeletal: Reports frequent falls, Reports gait dysfunction, Reports leg numbness/tingling, Reports low back pain, Reports muscle weakness, Reports shooting leg pain Musculoskeletal: bilateral: ankle swelling, absent: ankle pain, ankle stiffness, elbow pain, elbow stiffness, elbow swelling, foot pain, foot stiffness, foot swelling, hand pain, hand stiffness, hand swelling, hip pain, hip stiffness, hip swelling, knee pain, knee stiffness, knee swelling, shoulder pain, shoulder stiffness, shoulder swelling, wrist pain, wrist stiffness, wrist swelling Integumentary: Denies pruritus, Denies rash Neurological: Reports gait dysfunction, Reports paresthesias, Reports tingling, Reports weakness, Denies tremors, Denies visual changes Psychiatric: Reports depression, Denies anxiety, Denies sadness/tearfulness, Denies sleep disturbances, Denies suicidal ideation Endocrine: Denies fatigue, Denies weight change Past Medical History Past Medical History: Coronary Artery Disease (CAD), Chest Pain / Angina, COPD, Diabetes Mellitus, Hyperlipidemia, Hypertension, Musculoskeletal Disorder, Pneumonia, Prostate Disorder, Sleep Apnea/CPAP/BIPAP Additional Past Medical History / Comment(s): MURMUR, SINUS PROBLEMS, BACK PAIN- DIFFICULTY W/MOBILITY, TIRES EASILY AND SOB. History of Any Multi-Drug Resistant Organisms: None Reported Past Surgical History: Coronary Bypass/CABG, Heart Catheterization, Heart Catheterization With Stent, Hernia Repair, Pacemaker, Tonsillectomy Additional Past Surgical History / Comment(s): QUAD BYPASS, HEART CATH 2010, - 2015(STENTS), COLONOSCOPY, CATARACTS, PACEMAKER, pain clinic procedures. Past Anesthesia/Blood Transfusion Reactions: No Reported Reaction Date of Last Stent Placement:: 2015 Type of Cardiac Device: Permanent Pacemaker Device Placement Date:: 2016 Past Psychological History: Depression Smoking Status: Former smoker Past Alcohol Use History: None Reported Additional Past Alcohol Use History / Comment(s): SMOKED X 30 YEARS, 1PPD, QUIT 1969' Past Drug Use History: None Reported - Past Family History Mother Family Medical History: Diabetes Mellitus (Mother at age 95 from diabetes complications.) Father Family Medical History: Unable to Obtain (He didn't know much about his father per) Additional Family Medical History / Comment(s): UNK TYPE Brother(s) History Unknown: Yes Family Medical History: No Reported History (Patient has no brothers) Sister(s) Family Medical History: No Reported History (Patient has no sisters) Daughter(s) Family Medical History: No Reported History (Patient has one daughter no major medical problems) Son(s) Family Medical History: No Reported History (Patient has one son no major medical problems.) Medications and Allergies Home Medications Medication Instructions Recorded Confirmed Type Furosemide 40 mg PO DAILY 08/27/15 12/28/18 History Insulin Lispro [humaLOG Kwikpen] 10 unit SQ AC-TID 08/27/15 12/28/18 History Rosuvastatin Calcium [Crestor] 10 mg PO DAILY 08/27/15 12/28/18 History Carvedilol [Coreg] 25 mg PO BID-W/MEALS 09/17/15 12/28/18 History Aspirin EC [Ecotrin Low Dose] 81 mg PO HS 12/05/15 12/28/18 History Losartan/Hydrochlorothiazide 1 tab PO DAILY 12/05/15 12/28/18 History [Losartan-Hctz 100-25 mg Tab] Potassium Chloride [Klor-Con 20] 20 meq PO DAILY 12/05/15 12/28/18 History metFORMIN HCL [Glucophage] 1,000 mg PO W/SUPPER 12/05/15 12/28/18 History Dulaglutide [Trulicity] 1.5 mg SQ WE 01/01/18 12/28/18 History Insulin Glargine [Lantus] 28 unit SQ HS 01/14/18 12/28/18 History Clopidogrel Bisulfate [Plavix] 75 mg PO HS 12/28/18 12/28/18 History Finasteride [Proscar] 5 mg PO DAILY 12/28/18 12/28/18 History Gabapentin 600 mg PO BID 12/28/18 12/28/18 History Pioglitazone HCl 30 mg PO DAILY 12/28/18 12/28/18 History amLODIPine BESYLATE 5 mg PO DAILY 12/28/18 12/28/18 History Allergies Allergy/AdvReac Type Severity Reaction Status Date / Time No Known Allergies Allergy Verified 12/28/18 14:10 Physical Exam Vitals: Vital Signs Temp Pulse Pulse Resp BP BP Pulse Ox 12/29/18 08:20 85 18 12/29/18 07:00 98.0 F 58 L 16 151/66 91 L 12/29/18 00:46 98.4 F 85 18 104/39 90 L 12/28/18 22:34 97.7 F 63 18 144/66 95 12/28/18 20:38 97.8 F 74 18 148/79 98 12/28/18 16:38 60 20 140/69 96 12/28/18 13:34 97.7 F 63 22 143/69 96 Intake and Output 12/28/18 12/29/18 12/29/18 22:59 06:59 14:59 Intake Total 540 Output Total 550 350 Balance 540 -550 -350 Intake: Oral 540 Output: Urine 550 350 Other: # Voids 1 Weight 95.481 kg - Constitutional General appearance: average body habitus, mild distress - EENT Eyes: anicteric sclerae, EOMI, PERRLA, no ptosis, no scleral icterus, normal poncho earance ENT: hard of hearing, normal oropharynx, no thrush Ears: bilateral: normal - Neck Neck: no lymphadenopathy, normal ROM, no rigidity, no stridor, no thyromegaly Carotids: bilateral: upstroke normal Thyroid: bilateral: normal size - Respiratory Respiratory: bilateral: diminished, rales, negative: dullness, rhonchi, wheezing, prolonged expiration, prolonged inspiration - Cardiovascular Rhythm: regular (Pacemaker.) Heart sounds: normal: S1, S2 Abnormal Heart Sounds: systolic murmur, S3 Gallop, no S4 Gallop, no click - Gastrointestinal General gastrointestinal: normal bowel sounds, soft, tenderness (Right lower quadrant), no umbilical hernia, no ventral hernia - Genitourinary Male genitourinary: enlarged prostate - Integumentary Integumentary: normal, normal turgor - Neurologic Neurologic: CNII-XII intact - Musculoskeletal Musculoskeletal: generalized weakness, strength equal bilaterally - Psychiatric Psychiatric: A&O x's 3, appropriate affect, intact judgment & insight Results CBC & Chem 7: 12/29/18 06:54 12/29/18 06:54 Labs: Abnormal Lab Results - Last 24 Hours (Table) 12/28/18 12/28/18 12/28/18 Range/Units 14:54 14:54 18:36 RBC 3.17 L (4.30-5.90) m/uL Hgb 10.4 L (13.0-17.5) gm/dL Hct 31.6 L (39.0-53.0) % Carbon Dioxide (22-30) mmol/L BUN 29 H (9-20) mg/dL Creatinine 1.32 H (0.66-1.25) mg/dL POC Glucose (mg/dL) 106 H (75-99) mg/dL ALT 12 L (21-72) U/L Alkaline Phosphatase 31 L (38-126) U/L 12/28/18 12/29/18 12/29/18 Range/Units 20:53 06:54 06:54 RBC 2.98 L (4.30-5.90) m/uL Hgb 9.8 L (13.0-17.5) gm/dL Hct 29.7 L (39.0-53.0) % Carbon Dioxide 33 H (22-30) mmol/L BUN 26 H (9-20) mg/dL Creatinine 1.41 H (0.66-1.25) mg/dL POC Glucose (mg/dL) 130 H (75-99) mg/dL ALT (21-72) U/L Alkaline Phosphatase (38-126) U/L 12/29/18 12/29/18 Range/Units 10:54 11:24 RBC (4.30-5.90) m/uL Hgb (13.0-17.5) gm/dL Hct (39.0-53.0) % Carbon Dioxide (22-30) mmol/L BUN (9-20) mg/dL Creatinine (0.66-1.25) mg/dL POC Glucose (mg/dL) 246 H 212 H (75-99) mg/dL ALT (21-72) U/L Alkaline Phosphatase (38-126) U/L Thrombosis Risk Factor Assmnt - DVT/VTE Prophylaxis DVT/VTE Prophylaxis: Pharmacologic Prophylaxis ordered, Mechanical Prophylaxis ordered - Choose All That Apply Any of the Below Risk Factors Present?: No Other Risk Factors: Yes Each Risk Factor Represents 3 Points: Age 75 years or older Other congenital or acquired thrombophilia - If yes, enter type in comment: No Thrombosis Risk Factor Assessment Total Risk Factor Score: 3 Thrombosis Risk Factor Assessment Level: Moderate Risk Assessment and Plan Assessment: Assessment and plan: 1. Acute on chronic diastolic heart failure. Continue Lasix 40 mg IV push every 12 hours, continue Coreg 25 mg orally twice every day, losartan 100 mg orally once every day, monitor the patient input and output and daily weight, patient did have an echocardiogram at his shagger's office, cardiology evaluation appreciated. 2. CAD post CABG 4 with PCI of the LCx. Continue aspirin 81 mg once every day, Plavix 75 mg orally once every day, Coreg 25 mg orally twice every day Lipitor 20 mg orally once every day. 3. Hypertension and hypertensive cardiovascular disease. Continue losartan 100 mg orally once every day, Coreg 25 mg orally twice every day, amlodipine 5 mg orally once every day. 4. Hyperlipidemia. Continue Lipitor 20 mg orally once every day. 5. Diabetes mellitus type 2. Continue patient on Lantus 26 units at bedtime along with a sliding scale insulin. Hold off metformin as well as Trulicity. 6. Enlarge prostate. Continue patient on finasteride 5 mg orally once every day. 7. History of CVA. Continue aspirin and Plavix and Lipitor for secondary stroke prevention. 8. History of bradycardia status post permanent pacemaker placement. 9. Degenerative disc disease of the lumbar spine with significant weakness in both lower extremities. Physical therapy evaluation. Continue [place] 5/325 mg orally twice every day. 10. Restless leg syndrome. Restart the patient on Mirapex 0.25 mg orally bedtime. 11. Parkinsonism. Start Sinemet about a year ago. 12. DVT prophylaxis. Heparin 5000 units subcutaneously every 12 hours per 13. GI prophylaxis. Protonix 40 mg orally once every day. 14. Admit to inpatient. Estimated length of stay 2 midnights. 15. Patient is full code . 16. Physical therapy evaluation as well as social work supervisor evaluation for subacute rehabilitation.
[2018-12-29] MEDS ORDERED: HYDROcodone/APAP 5-325MG 1 EACH TAB PO PRN (13:16)
[2018-12-29 16:46] LABS: Glucose,Whole Blood 209 mg/dL (75-99)
[2018-12-29 20:36] LABS: Glucose,Whole Blood 221 mg/dL (75-99)
[2018-12-29] MEDS: ASPIRIN 81 MG PO SCH (20:58)
[2018-12-29] MEDS: FUROSEMIDE 10 MG/ML 4 ML VIAL IV SCH (20:58)
[2018-12-29] MEDS: PRAMIPEXOLE 0.25 MG TAB PO SCH (20:58)
[2018-12-29] MEDS: CLOPIDOGREL 75 MG TAB PO SCH (20:58)
[2018-12-29] MEDS: INSULIN DETEMIR (LEVEMIR) 100 UNIT/ML SYR SQ SCH (20:58)
[2018-12-29] MEDS: HEPARIN SODIUM,PORCINE 5,000 UNIT/ML 1 ML VIAL SQ SCH (20:58)
[2018-12-30 00:51] LABS: Glucose,Whole Blood 176 mg/dL (75-99)
[2018-12-30 07:07] LABS: Glucose,Whole Blood 86 mg/dL (75-99)
[2018-12-30] MEDS: INSULIN ASPART (NovoLOG) 100 UNIT/ML VIAL SQ SCH ×4 (07:11→20:34)
[2018-12-30 08:18] LABS: Albumin 3.9 g/dL (3.5-5.0); Calcium 9.1 mg/dL (8.4-10.2); Magnesium 2.2 mg/dL (1.6-2.3); Potassium 4.1 mmol/L (3.5-5.1); Total Bilirubin 0.8 mg/dL (0.2-1.3); Total Protein 6.7 g/dL (6.3-8.2)
[2018-12-30] MEDS: LOSARTAN 50 MG TAB PO SCH (08:20)
[2018-12-30] MEDS: GABAPENTIN 300 MG CAP PO SCH ×2 (08:20→20:34)
[2018-12-30] MEDS: FUROSEMIDE 10 MG/ML 4 ML VIAL IV SCH (08:20)
[2018-12-30] MEDS: HEPARIN SODIUM,PORCINE 5,000 UNIT/ML 1 ML VIAL SQ SCH ×2 (08:20→20:34)
[2018-12-30] MEDS: ATORVASTATIN 20 MG TAB PO SCH (08:21)
[2018-12-30] MEDS: FINASTERIDE 5 MG TAB PO SCH (08:21)
[2018-12-30] MEDS: PANTOPRAZOLE 40 MG TABLET PO SCH (08:21)
[2018-12-30] MEDS: POTASSIUM CHLORIDE ER 20 MEQ TAB.ER PO SCH (08:21)
[2018-12-30] MEDS: CARVEDILOL 12.5 MG TAB PO SCH ×2 (08:21→17:21)
[2018-12-30] MEDS: amLODIPine 5 MG TAB PO SCH (08:21)
[2018-12-30 09:19] LABS: Basophils # (A) 0.1 k/uL (0-0.2); Basophils % (A) 2 %; Eosinophils # (A) 0.2 k/uL (0-0.7); Eosinophils % (A) 4 %; HCT 30.1 % (39.0-53.0); HGB 9.8 gm/dL (13.0-17.5); Lymphocytes # (A) 1.4 k/uL (1.0-4.8); Lymphocytes % (A) 28 %; MCH 32.9 pg (25.0-35.0); MCHC 32.7 g/dL (31.0-37.0); MCV 100.7 fL (80.0-100.0); Macrocytosis Slight; Mean Platelet Volume 7.2; Monocytes # (A) 0.5 k/uL (0-1.0); Monocytes % (A) 9 %; Neutrophils # (A) 2.8 k/uL (1.3-7.7); Neutrophils % (A) 55 %; Platelet Count 241 k/uL (150-450); RBC 2.99 m/uL (4.30-5.90); RDW 15.3 % (11.5-15.5); WBC 5.1 k/uL (3.8-10.6)
[2018-12-30 11:36] LABS: Glucose,Whole Blood 143 mg/dL (75-99)
[2018-12-30] MEDS ORDERED: amLODIPine 5 MG TAB PO STA (11:39)
--- NOTE | 2018-12-30 12:25 | P.PN ---
Subjective Progress Note Date: 12/30/18 This is an 83-year-old male one of my patient with a previous medical history significant for CAD post CABG 4 in 2010 with sequential MARRO[place]IN to LAD and diagonal branch, SVG to PDA and SVG to the obtuse marginal branch, subsequently underwent left heart catheterization 2016 because of unstable angina he had PCI of the obtuse marginal branch, diabetes mellitus type 2 with diabetic polyneuropathy, hypertension and hypertensive cardio vascular disease, COPD, enlarged prostate, sleep apnea, bradycardia status post permanent pacemaker placement, history of significant degenerative disease of the lumbar spine with significant weakness of both lower extremity currently uses a walker for immolation, restless leg syndrome, and finally history of parkinsonism, patient was taken off his diuretics about a week ago due to his worsening kidney function and patient generalized weakness and significant deterioration of his physical status his creatinine improved after the diuretics were stopped, and he came down from 1.9-1.3 to which was at baseline, he was taken off metformin as well due to the same reason however his daughter called and stated that the patient is quite swollen he was started 3 days ago back and his diuretics and he was complaining of increased shortness breath was directed to the ER for evaluation he was found to have an acute diastolic heart failure was started back on IV diuretics and he was admitted to the hospital for evaluation cardiology consultation was obtained. 12/30: Patient's breathing status is improving. We will plan to decrease Lasix and changed to oral. Weight is down 2.4 kg. Repeat lab work reveals normal electrolytes, BUN 29 creatinine 1.31. Blood sugars running between 71 and 176. WBC is 5.1, hemoglobin 9.8. Patient has been seen by cardiology and hydrochlorothiazide discontinued. Echocardiogram reveals EF of 45-50% with moderate concentric left ventricular hypertrophy, mild aortic valve sclerosis, mild aortic regurgitation, moderate mitral regurgitation, mild tricuspid regurgitation, mild pulmonary hypertension. Discharge plan will be to [facility] tomorrow. Objective - Vital Signs Vital signs: Vital Signs Temp 98.4 F 12/30/18 07:00 Pulse 59 L 12/30/18 07:15 Resp 18 12/30/18 07:15 BP 165/75 12/30/18 07:00 Pulse Ox 97 12/30/18 07:00 Intake & Output 12/29/18 12/30/18 12/30/18 18:59 06:59 18:59 Intake Total 1080 Output Total 350 Balance -350 1080 Weight 93.894 kg Intake: Oral 1080 Output: Urine 350 Other: # Voids 1 1 - Exam Review of Systems Constitutional: Reports chronic pain, Reports fatigue, Reports lethargy, Reports malaise, Reports weakness, Reports weight loss Eyes: bilateral blurred vision Ears: bilateral: decreased hearing Ears, nose, mouth and throat: Denies dysphagia, Denies neck lump, Denies swelling in throat, Denies sore throat Cardiovascular: Reports decreased exercise tolerance, Reports dyspnea on exertion, Reports edema, Reports shortness of breath, Denies chest pain, Denies lightheadedness, Denies rapid heart beat, Denies syncope Respiratory: Reports dyspnea-improving, Reports sleep apnea, Denies congestion, Denies cough, Denies cough with sputum, Denies home oxygen, Denies snoring, Denies wheezing Gastrointestinal: Reports loss of appetite, Denies abdominal pain, Denies bloating, Denies BRBPR, Denies heartburn, Denies melena, Denies nausea, Denies vomiting Genitourinary: Reports impotence, Reports nocturia, Denies discharge Musculoskeletal: Reports frequent falls, Reports gait dysfunction, Reports leg numbness/tingling, Reports low back pain, Reports muscle weakness, Reports shooting leg pain Musculoskeletal: bilateral: ankle swelling, absent: ankle pain, ankle stiffness, elbow pain, elbow stiffness, elbow swelling, foot pain, foot stiffness, foot swelling, hand pain, hand stiffness, hand swelling, hip pain, hip stiffness, hip swelling, knee pain, knee stiffness, knee swelling, shoulder pain, shoulder stiffness, shoulder swelling, wrist pain, wrist stiffness, wrist swelling Integumentary: Denies pruritus, Denies rash Neurological: Reports gait dysfunction, Reports paresthesias, Reports tingling, Reports weakness, Denies tremors, Denies visual changes Psychiatric: Reports depression, Denies anxiety, Denies sadness/tearfulness, Denies sleep disturbances, Denies suicidal ideation Endocrine: Denies fatigue, Denies weight change Physical Examination: - Constitutional General appearance: average body habitus, no distress - EENT Eyes: anicteric sclerae, EOMI, PERRLA, no ptosis, no scleral icterus, normal appearance ENT: hard of hearing, normal oropharynx, no thrush Ears: bilateral: normal - Neck Neck: no lymphadenopathy, normal ROM, no rigidity, no stridor, no thyromegaly Carotids: bilateral: upstroke normal Thyroid: bilateral: normal size - Respiratory Respiratory: bilateral: diminished, rales, negative: dullness, rhonchi, wheezing, prolonged expiration, prolonged inspiration - Cardiovascular Rhythm: regular (Pacemaker.) Heart sounds: normal: S1, S2 Abnormal Heart Sounds: systolic murmur, S3 Gallop, no S4 Gallop, no click - Gastrointestinal General gastrointestinal: normal bowel sounds, soft, tenderness (Right lower quadrant), no umbilical hernia, no ventral hernia - Genitourinary Male genitourinary: enlarged prostate - Integumentary Integumentary: normal, normal turgor - Neurologic Neurologic: CNII-XII intact - Musculoskeletal Musculoskeletal: generalized weakness, strength equal bilaterally - Psychiatric Psychiatric: A&O x's 3, appropriate affect, intact judgment & insight - Labs CBC & Chem 7: 12/30/18 07:07 12/30/18 07:07 Labs: Abnormal Lab Results - Last 24 Hours (Table) 12/29/18 12/29/18 12/30/18 Range/Units 16:39 20:24 00:49 RBC (4.30-5.90) m/uL Hgb (13.0-17.5) gm/dL Hct (39.0-53.0) % MCV (80.0-100.0) fL BUN (9-20) mg/dL Creatinine (0.66-1.25) mg/dL Glucose (74-99) mg/dL POC Glucose (mg/dL) 209 H 221 H 176 H (75-99) mg/dL ALT (21-72) U/L Alkaline Phosphatase (38-126) U/L 12/30/18 12/30/18 12/30/18 Range/Units 07:07 07:07 11:32 RBC 2.99 L (4.30-5.90) m/uL Hgb 9.8 L (13.0-17.5) gm/dL Hct 30.1 L (39.0-53.0) % MCV 100.7 H (80.0-100.0) fL BUN 29 H (9-20) mg/dL Creatinine 1.31 H (0.66-1.25) mg/dL Glucose 71 L (74-99) mg/dL POC Glucose (mg/dL) 143 H (75-99) mg/dL ALT 19 L (21-72) U/L Alkaline Phosphatase 27 L (38-126) U/L Assessment and Plan Plan: 1. Acute on chronic diastolic heart failure. Lasix 40 mg IV push every 12 hours will be transitioned to oral at 40 mg twice daily, continue Coreg 25 mg orally twice every day, losartan 100 mg orally once every day, monitor the patient input and output and daily weight, echocardiogram as above, cardiology evaluation appreciated. 2. CAD post CABG 4 with PCI of the LCx. Continue aspirin 81 mg once every day, Plavix 75 mg orally once every day, Coreg 25 mg orally twice every day Lipitor 20 mg orally once every day. 3. Hypertension and hypertensive cardiovascular disease. Continue losartan 100 mg orally once every day, Coreg 25 mg orally twice every day, amlodipine 5 mg orally once every day. 4. Hyperlipidemia. Continue Lipitor 20 mg orally once every day. 5. Diabetes mellitus type 2. Continue patient on Lantus 26 units at bedtime along with a sliding scale insulin. Hold off metformin as well as Trulicity. 6. Enlarge prostate. Continue patient on finasteride 5 mg orally once every day. 7. History of CVA. Continue aspirin and Plavix and Lipitor for secondary st roke prevention. 8. History of bradycardia status post permanent pacemaker placement. 9. Degenerative disc disease of the lumbar spine with significant weakness in both lower extremities. Physical therapy evaluation. Continue [place] 5/325 mg orally twice every day. 10. Restless leg syndrome. Restart the patient on Mirapex 0.25 mg orally bedtime. 11. Parkinsonism. Started Sinemet about a year ago. 12. DVT prophylaxis. Heparin 5000 units subcutaneously every 12 hours per 13. GI prophylaxis. Protonix 40 mg orally once every day. Patient is full code . Discharge plan: [facility] tomorrow. PT and. Impression and plan of care have been directed as dictated by the signing physician. Starr Jones nurse practitioner acting as scribe for signing physician.
--- NOTE | 2018-12-30 13:50 | P.PN ---
Subjective This is a pleasant 83-year-old male past medical history significant for coronary artery disease status post bypass grafting 2010 and subsequent stent placement of the circumflex in 2016, COPD, permanent pacemaker implantation secondary to diabetes mellitus, hypertension, dyslipidemia and sleep apnea. He follows with Dr. Hudson in the office. Patient is seen and examined sitting up in bed in no acute distress. Overall he does not feel much better. He continues to feel short of breath. He deneis chest pain, dizziness or palpitations. Blood pressure 165/75 heart rate 59 afebrile and maintaining oxygen saturation on nasal cannula. Laboratory data reviewed, WBC 5.1, hgb 9.8, plt 241, sodium 142, potassium 4.1, creatinine 1.31, GFR 50, magnesium 2.2. Weight is down 2 kg since admission. He has been transitioned to PO diuretics per primary care team. Plan is for discharge to [facility] tomorrow. GENERAL: This is a 83-year-old male in no apparent distress at the time of my examination. HEENT: Head is atraumatic, normocephalic. Pupils are equal, round. Sclerae anicteric. Conjunctivae are clear. Mucous membranes of the mouth are moist. Neck is supple. There is no jugular venous distention. No carotid bruit is heard. LUNGS: Faint scattered rhonchi, no wheezes or rales. No chest wall tenderness is noted on palpation or with deep breathing. HEART: REgular rate and rhythm with systolic ejection murmur at the left ster nal border, no rubs or gallops. S1 and S2 heard. EXTREMITIES: trace bilateral lower extremity pitting edema right greater than left, improved from previous exam and no calf tenderness noted. ASSESSMENT Acute on chronic diastolic heart failure Underlying coronary artery disease s/p bypass grafting and stent placement 2015. Maintained on dual anti-platelet therapy Hypertension Dyslipidemia Diabetes mellitus COPD s/p permanent pacemaker implantation Morbid obesity, BMI 35 PLAN Agree with transition to oral diuretics. Increase amlodipine to 10 mg daily since discontinuation of hctz. Further recommendations to follow. Nurse Practitioner note has been reviewed, I agree with a documented findings and plan of care. Patient was seen and examined. Objective - Vital Signs Vital signs: Vital Signs Temp 98.4 F 12/30/18 07:00 Pulse 59 L 12/30/18 07:15 Resp 18 12/30/18 07:15 BP 165/75 12/30/18 07:00 Pulse Ox 97 12/30/18 07:00 Intake & Output 12/29/18 12/30/18 12/30/18 18:59 06:59 18:59 Intake Total 1080 Output Total 350 Balance -350 1080 Weight 93.894 kg Intake: Oral 1080 Output: Urine 350 Other: # Voids 1 1 - Labs CBC & Chem 7: 12/30/18 07:07 12/30/18 07:07 Labs: Abnormal Lab Results - Last 24 Hours (Table) 12/29/18 12/29/18 12/30/18 Range/Units 16:39 20:24 00:49 RBC (4.30-5.90) m/uL Hgb (13.0-17.5) gm/dL Hct (39.0-53.0) % MCV (80.0-100.0) fL BUN (9-20) mg/dL Creatinine (0.66-1.25) mg/dL Glucose (74-99) mg/dL POC Glucose (mg/dL) 209 H 221 H 176 H (75-99) mg/dL ALT (21-72) U/L Alkaline Phosphatase (38-126) U/L 12/30/18 12/30/18 12/30/18 Range/Units 07:07 07:07 11:32 RBC 2.99 L (4.30-5.90) m/uL Hgb 9.8 L (13.0-17.5) gm/dL Hct 30.1 L (39.0-53.0) % MCV 100.7 H (80.0-100.0) fL BUN 29 H (9-20) mg/dL Creatinine 1.31 H (0.66-1.25) mg/dL Glucose 71 L (74-99) mg/dL POC Glucose (mg/dL) 143 H (75-99) mg/dL ALT 19 L (21-72) U/L Alkaline Phosphatase 27 L (38-126) U/L
[2018-12-30] MEDS: FUROSEMIDE 40 MG TAB PO SCH (15:34)
[2018-12-30 16:06] VITALS: BMI 34.4
[2018-12-30 16:52] LABS: Glucose,Whole Blood 202 mg/dL (75-99)
[2018-12-30 19:39] VITALS: RESP 18
[2018-12-30 20:16] LABS: Glucose,Whole Blood 171 mg/dL (75-99)
[2018-12-30] MEDS: ASPIRIN 81 MG PO SCH (20:33)
[2018-12-30] MEDS: CLOPIDOGREL 75 MG TAB PO SCH (20:34)
[2018-12-30] MEDS: INSULIN DETEMIR (LEVEMIR) 100 UNIT/ML SYR SQ SCH (20:34)
[2018-12-30] MEDS: PRAMIPEXOLE 0.25 MG TAB PO SCH (20:43)
[2018-12-31 07:23] LABS: Glucose,Whole Blood 98 mg/dL (75-99)
[2018-12-31] MEDS: CARVEDILOL 12.5 MG TAB PO SCH ×2 (07:26→13:22)
[2018-12-31 07:55] LABS: HCT 28.4 % (39.0-53.0); HGB 9.6 gm/dL (13.0-17.5); MCH 34.2 pg (25.0-35.0); MCV 100.6 fL (80.0-100.0); Macrocytosis Slight; Mean Platelet Volume 6.5; Platelet Count 227 k/uL (150-450); RBC 2.82 m/uL (4.30-5.90); RDW 14.2 % (11.5-15.5); WBC 5.1 k/uL (3.8-10.6)
[2018-12-31 08:00] VITALS: BP 133/65; PULSE 60; TEMP 98
[2018-12-31] MEDS: INSULIN ASPART (NovoLOG) 100 UNIT/ML VIAL SQ SCH ×2 (08:05→12:04)
[2018-12-31 08:12] LABS: Calcium 9.3 mg/dL (8.4-10.2); Potassium 4.3 mmol/L (3.5-5.1)
[2018-12-31] MEDS: LOSARTAN 50 MG TAB PO SCH (08:44)
[2018-12-31] MEDS: HEPARIN SODIUM,PORCINE 5,000 UNIT/ML 1 ML VIAL SQ SCH (08:44)
[2018-12-31] MEDS: GABAPENTIN 300 MG CAP PO SCH (08:44)
[2018-12-31] MEDS: POTASSIUM CHLORIDE ER 20 MEQ TAB.ER PO SCH (08:44)
[2018-12-31] MEDS: ATORVASTATIN 20 MG TAB PO SCH (08:45)
[2018-12-31] MEDS: FUROSEMIDE 40 MG TAB PO SCH (08:45)
[2018-12-31] MEDS: PANTOPRAZOLE 40 MG TABLET PO SCH (08:45)
[2018-12-31] MEDS: FINASTERIDE 5 MG TAB PO SCH (08:45)
[2018-12-31] MEDS ORDERED: amLODIPine 10 MG TAB PO SCH (09:00)
--- NOTE | 2018-12-31 10:37 | P.DS ---
Providers Date of admission: 12/28/18 17:06 Expected date of discharge: 12/31/18 Attending physician: Maria Victoria Ramirez Consults: 12/28/18 17:07 Consult Physician Urgent Consulting Provider: [facility] Consult Reason/Comments: aechf Do you want consulting provider notified?: Yes Primary care physician: Maria Victoria Ramirez Hospital Course: This is an 83-year-old male one of my patient with a previous medical history significant for CAD post CABG 4 in 2010 with sequential MARROQUIN to LAD and diagonal branch, SVG to PDA and SVG to the obtuse marginal branch, subsequently underwent left heart catheterization 2015 because of unstable angina he had PCI of the obtuse marginal branch, diabetes mellitus type 2 with diabetic polyneuropathy, hypertension and hypertensive cardio vascular disease, COPD, enlarged prostate, sleep apnea, bradycardia status post permanent pacemaker placement, history of significant degenerative disease of the lumbar spine with significant weakness of both lower extremity currently uses a walker for immolation, restless leg syndrome, and finally history of parkinsonism, patient was taken off his diuretics about a week ago due to his worsening kidney function and patient generalized weakness and significant deterioration of his physical status his creatinine improved after the diuretics were stopped, and he came down from 1.9-1.3 to which was at baseline, he was taken off metformin as well due to the same reason however his daughter called and stated that the patient is quite swollen he was started 3 days ago back and his diuretics and he was complaining of increased shortness breath was directed to the ER for evaluation he was found to have an acute diastolic heart failure was started back on IV diuretics and he was admitted to the hospital for evaluation cardiology consultation was obtained. 12/30: Patient's breathing status is improving. We will plan to decrease Lasix and changed to oral. Weight is down 2.4 kg. Repeat lab work reveals normal electrolytes, BUN 29 creatinine 1.31. Blood sugars running between 71 and 176. WBC is 5.1, hemoglobin 9.8. Patient has been seen by cardiology and hydrochlorothiazide discontinued. Echocardiogram reveals EF of 45-50% with moderate concentric left ventricular hypertrophy, mild aortic valve sclerosis, mild aortic regurgitation, moderate mitral regurgitation, mild tricuspid regurgitation, mild pulmonary hypertension. Discharge plan will be to [facility] tomorrow. 12/31: Patient is afebrile, heart rate 60, blood pressure 133/65, pulse ox 92% on 2 L nasal cannula. Repeat lab work reveals normal electrolytes, BUN 26 and creatinine 1.39. WBC 5.1, hemoglobin 9.6, platelet count 227. Blood sugars running between 91 and 202. Cardiology has increased amlodipine to 10 mg and discontinued hydrochlorothiazide. Patient is feeling tired today and continues to complain of this. Daughter and his state that he usually takes a lower dose of Neurontin at home versus what is on his home list. This will be decreased to 300 mg twice daily. He is complaining of some generalized arthritic type pain and [place] will be added for him to continue to take at the [facility]. Lantus will be continued at a lower dose at the [facility] and scheduled NovoLog discontinued as patient's blood sugars have been running in the close to normal range here with gout. Trulicy and pioglitazone may be continued at the [facility]. Patient states he ambulated to the doorway only and he's been having knee problems. He has not been eating very much for breakfast today as he states his foot was cold and he did want to eat it. He has had a bowel movement. Lower extremity edema is improved. Patient will be discharged to [facility] today in stable condition once all arrangements are completed. Discharge diagnoses: 1. Acute on chronic diastolic heart failure. 2. CAD post CABG 4 with PCI of the LCx. 3. Hypertension and hypertensive cardiovascular disease. 4. Hyperlipidemia. 5. Diabetes mellitus type 2. 6. Enlarge prostate. 7. History of CVA. 8. History of bradycardia status post permanent pacemaker placement. 9. Degenerative disc disease of the lumbar spine with significant weakness in both lower extremities. 10. Restless leg syndrome. 11. Parkinsonism. 12. Chronic kidney disease stage III Discharge plan: [facility] under the care of Dr. Hickman Impression and plan of care have been directed as dictated by the signing physician. Starr Jones nurse practitioner acting as scribe for signing physician. Patient Condition at Discharge: Good Plan - Discharge Summary Discharge Rx Participant: Yes New Discharge Prescriptions: New Losartan [Cozaar] 100 mg PO DAILY #30 tab Furosemide [Lasix] 40 mg PO BID@0900,1600 #60 tab Pramipexole [Mirapex] 0.25 mg PO HS #30 tab amLODIPine [Norvasc] 10 mg PO DAILY #30 tab HYDROcodone/APAP 5-325MG [[place] 5-325] 1 each PO BID #6 tab INSULIN ASPART (NovoLOG) [NovoLOG (formulary)] 0 unit SQ ACHS vial Gabapentin [Neurontin] 300 mg PO BID #6 cap Continue Rosuvastatin Calcium [Crestor] 10 mg PO DAILY Carvedilol [Coreg] 25 mg PO BID-W/MEALS Potassium Chloride [Klor-Con 20] 20 meq PO DAILY Aspirin EC [Ecotrin Low Dose] 81 mg PO HS Dulaglutide [Trulicity] 1.5 mg SQ WE Finasteride [Proscar] 5 mg PO DAILY Pioglitazone HCl 30 mg PO DAILY Clopidogrel Bisulfate [Plavix] 75 mg PO HS Changed Insulin Glargine [Lantus] 26 unit SQ HS #0 Discontinued Furosemide 40 mg PO DAILY Insulin Lispro [humaLOG Kwikpen] 10 unit SQ AC-TID Losartan/Hydrochlorothiazide [Losartan-Hctz 100-25 mg Tab] 1 tab PO DAILY metFORMIN HCL [Glucophage] 1,000 mg PO W/SUPPER amLODIPine BESYLATE 5 mg PO DAILY Gabapentin 600 mg PO BID Discharge Medication List Rosuvastatin Calcium [Crestor] 10 mg PO DAILY 08/27/15 [History] Carvedilol [Coreg] 25 mg PO BID-W/MEALS 09/17/15 [History] Aspirin EC [Ecotrin Low Dose] 81 mg PO HS 12/05/15 [History] Potassium Chloride [Klor-Con 20] 20 meq PO DAILY 12/05/15 [History] Dulaglutide [Trulicity] 1.5 mg SQ WE 01/01/18 [History] Clopidogrel Bisulfate [Plavix] 75 mg PO HS 12/28/18 [History] Finasteride [Proscar] 5 mg PO DAILY 12/28/18 [History] Pioglitazone HCl 30 mg PO DAILY 12/28/18 [History] Furosemide [Lasix] 40 mg PO BID@0900,1600 #60 tab 12/31/18 [Rx] Gabapentin [Neurontin] 300 mg PO BID #6 cap 12/31/18 [Rx] HYDROcodone/APAP 5-325MG [[place] 5-325] 1 each PO BID #6 tab 12/31/18 [Rx] INSULIN ASPART (NovoLOG) [NovoLOG (formulary)] 0 unit SQ ACHS vial 12/31/18 [Rx] Insulin Glargine [Lantus] 26 unit SQ HS #0 12/31/18 [Rx] Losartan [Cozaar] 100 mg PO DAILY #30 tab 12/31/18 [Rx] Pramipexole [Mirapex] 0.25 mg PO HS #30 tab 12/31/18 [Rx] amLODIPine [Norvasc] 10 mg PO DAILY #30 tab 12/31/18 [Rx] Follow up Appointment(s)/Referral(s): Markel Patino, [NON-STAFF] - As Needed Maria Victoria Ramirez MD [Primary Care Provider] - 1 Week (at [facility]) Patient Instructions/Handouts: Heart Failure (DC) Discharge Disposition: TRANSFER TO SNF/ECF
[2018-12-31 11:49] LABS: Glucose,Whole Blood 134 mg/dL (75-99)
--- NOTE | 2018-12-31 13:00 | PN ---
PROGRESS NOTE Mr. Vazquez is an 83-year-old male who presented with symptoms of progressive fatigue and dyspnea. His breathing is stable at this time. He is denying any chest pain. He denies any dizziness. He has a known history of coronary artery disease, status post coronary artery bypass grafting and percutaneous revascularization, history of permanent pacemaker implantation. His breathing is better. His main complaint is the fatigue in the legs. He is scheduled to be discharged to [facility] for further rehab. He continues to be at this time on amlodipine 10 mg daily, aspirin 81 mg daily, Lipitor 20 mg daily, Coreg 25 mg twice a day, Plavix 75 mg daily, furosemide 40 mg twice a day, insulin, losartan 100 mg daily, Protonix and potassium. PHYSICAL EXAMINATION: Blood pressure 133/60 with the heart rate in the 60s. LUNGS: A few crackles no wheezes. HEART: Regular rate and rhythm. S1, S2. No S3. No rub appreciated. ABDOMEN: Soft, nontender. Positive bowel sounds. No organomegaly. EXTREMITIES: Trace edema, much improved. LAB DATA: Lab data revealed BUN and creatinine 26 and 1.39, potassium 4.3, hemoglobin 9.6. IMPRESSION: 1. Symptoms of dyspnea improved with history of diastolic heart failure. 2. History of coronary artery disease, stable. 3. Hypertension. 4. Hyperlipidemia. 5. Diabetes mellitus. 6. Chronic kidney disease. RECOMMENDATION: From the cardiac standpoint, the patient is stable to continue on present therapy. He will follow as an outpatient with Dr. Hudson. MMAMILCAR / SERAN: [id number] /
== END 2018-12-31 14:12 | DRG 291 ==
LOC: EC 13:20 → 4SSUR 17:06
PROVIDERS: ADMIT Internal Medicine; ATTEND Internal Medicine
DX: I13.0 Hypertensive heart and chronic kidney disease with heart failure and stage 1 through stage 4 chronic kidney disease, or unspecified chronic kidney disease (principal); I50.33 Acute on chronic diastolic (congestive) heart failure; J84.9 Interstitial pulmonary disease, unspecified; J44.9 Chronic obstructive pulmonary disease, unspecified; I27.20 Pulmonary hypertension, unspecified; I25.10 Atherosclerotic heart disease of native coronary artery without angina pectoris; M51.36 Other intervertebral disc degeneration, lumbar region; M10.9 Gout, unspecified; N18.3 Chronic kidney disease, stage 3 (moderate); N40.0 Benign prostatic hyperplasia without lower urinary tract symptoms; I08.0 Rheumatic disorders of both mitral and aortic valves; G47.30 Sleep apnea, unspecified; G25.81 Restless legs syndrome; G20 Parkinson's disease; F32.9 Major depressive disorder, single episode, unspecified; E78.5 Hyperlipidemia, unspecified; E66.01 Morbid (severe) obesity due to excess calories; E11.42 Type 2 diabetes mellitus with diabetic polyneuropathy; E11.22 Type 2 diabetes mellitus with diabetic chronic kidney disease; Z68.35 Body mass index [BMI] 35.0-35.9, adult; Z79.02 Long term (current) use of antithrombotics/antiplatelets; Z79.4 Long term (current) use of insulin; Z79.82 Long term (current) use of aspirin; Z79.899 Other long term (current) drug therapy; Z83.3 Family history of diabetes mellitus; Z86.73 Personal history of transient ischemic attack (TIA), and cerebral infarction without residual deficits; Z87.891 Personal history of nicotine dependence; Z95.0 Presence of cardiac pacemaker; Z99.89 Dependence on other enabling machines and devices; Z90.89 Acquired absence of other organs; Z98.890 Other specified postprocedural states; Z98.49 Cataract extraction status, unspecified eye; Z95.1 Presence of aortocoronary bypass graft
CPT/HCPCS: 36415; 71046; 80048; 80053; 83735; 83880; 84484; 85025; 85027; 85610; 85730; 93005; 93306; 93970; 96374; 99285

== ENCOUNTER 2019-04-25 11:04 | Inpatient (IN) | payer MEDICARE ==
[2019-04-25 11:11] VITALS: RESP 18
[2019-04-25] MEDS ORDERED: SODIUM CHLORIDE 0.9% 1,000 ML IV STA (11:11)
[2019-04-25 11:28] LABS: Glucose,Whole Blood 365 mg/dL (75-99)
[2019-04-25 11:28] LABS: Basophils # (A) 0.1 k/uL (0-0.2); Basophils % (A) 1 %; Eosinophils # (A) 0.2 k/uL (0-0.7); Eosinophils % (A) 3 %; HCT 37.2 % (39.0-53.0); HGB 11.9 gm/dL (13.0-17.5); Lymphocytes # (A) 2.1 k/uL (1.0-4.8); Lymphocytes % (A) 30 %; MCH 31.3 pg (25.0-35.0); MCV 97.9 fL (80.0-100.0); Mean Platelet Volume 7.2; Monocytes # (A) 0.5 k/uL (0-1.0); Monocytes % (A) 7 %; Neutrophils # (A) 4.1 k/uL (1.3-7.7); Neutrophils % (A) 57 %; Platelet Count 224 k/uL (150-450); RDW 12.9 % (11.5-15.5); WBC 7.2 k/uL (3.8-10.6)
--- NOTE | 2019-04-25 11:37 | CT ---
EXAMINATION TYPE: CT brain wo con for TPA DATE OF EXAM: 04/25/2019 HISTORY: Left sided facial droop and limb weakness CT DLP: 1099.4 mGycm. Automated Exposure Control for Dose Reduction was Utilized. TECHNIQUE: CT scan of the head is performed without contrast. COMPARISON: CT brain May 02, 2013. FINDINGS: There is no acute intracranial hemorrhage or midline shift identified. There is diffuse v entricular and sulcal prominence consistent with diffuse age-related cerebral atrophy. There is low- attenuation in the periventricular white matter consistent with chronic small vessel ischemic change. Suspect old lacunar infarct left thalamus on axial image 26 anteriorly unchanged from prior The ryan bes are intact and the visualized sinuses are clear. IMPRESSION: No acute intracranial hemorrhage or midline shift. There is moderate diffuse cerebral a trophy and moderate to advanced chronic small vessel ischemic change redemonstrated. No significant change from prior CT there is
[2019-04-25 11:38] LABS: Albumin 3.9 g/dL (3.5-5.0); Calcium 9.3 mg/dL (8.4-10.2); Potassium 4.9 mmol/L (3.5-5.1); Total Bilirubin 0.6 mg/dL (0.2-1.3); Total Protein 6.8 g/dL (6.3-8.2)
[2019-04-25 11:47] LABS: Partial Thromboplastin Time 22.3 sec (22.0-30.0); Prothrombin Time 10.5 sec (9.0-12.0)
[2019-04-25 11:58] LABS: Creatine Kinase MB 0.9 ng/mL (0.0-2.4)
[2019-04-25] MEDS ORDERED: CLOPIDOGREL 75 MG TAB PO STA (12:15)
--- NOTE | 2019-04-25 12:15 | ED ---
General Adult HPI - General Chief complaint: Neuro Symptoms/Deficit Stated complaint: Poss stroke Time Seen by Provider: 04/25/19 11:04 Source: patient, EMS, RN notes reviewed, old records reviewed Mode of arrival: EMS Limitations: altered mental status - History of Present Illness Initial comments: This is an 84-year-old male who presents emergency Department because he felt dizzy. Patient states someone at the facility where he lives that called EMS and noted that he has some left-sided facial droop. EMS also noted a little bit of left-sided facial droop. Patient denies any visual disturbance per patient denies any speech disturbance. Patient denies any headache. Patient denies any weakness of any extremity or numbness of any extremity. Patient denies chest pain difficulty breathing shortest breath per patient denies abdominal pain pat ient denies nausea vomiting diarrhea. Patient denies any recent fever chills or cough. - Related Data Home Medications Medication Instructions Recorded Confirmed Rosuvastatin Calcium [Crestor] 10 mg PO DAILY@0800 08/27/15 04/25/19 Carvedilol [Coreg] 25 mg PO AC-BID@799,199909/17/15 04/25/19 Aspirin EC [Ecotrin Low Dose] 81 mg PO HS@199912/05/15 04/25/19 Potassium Chloride [Klor-Con 20] 20 meq PO DAILY@0800 12/05/15 04/25/19 Dulaglutide [Trulicity] 1.5 mg SQ WE@139901/01/18 04/25/19 Clopidogrel Bisulfate [Plavix] 75 mg PO HS@199912/28/18 04/25/19 Finasteride [Proscar] 5 mg PO DAILY@79912/28/18 04/25/19 Pioglitazone HCl 15 mg PO DAILY@0812/28/18 04/25/19 Carbidopa-Levodopa 25-100 mg 1 tab PO BID@0800,139904/25/19 04/25/19 [Sinemet 25-100] Furosemide [Lasix] 40 mg PO BID@0800,139904/25/19 04/25/19 Insulin Glargine,Hum.rec.anlog 38 unit SQ HS@199904/25/19 04/25/19 [Lantus Solostar] Insulin Lispro [humaLOG Kwikpen] 10 unit SQ TID@0730,1130,1630 04/25/19 04/25/19 Losartan/Hydrochlorothiazide 1 tab PO DAILY@0800 04/25/19 04/25/19 [Hyzaar 100-25 Tablet] Allergies Allergy/AdvReac Type Severity Reaction Status Date / Time No Known Allergies Allergy Verified 04/25/19 11:50 Review of Systems ROS Statement: Those systems with pertinent positive or pertinent negative responses have been documented in the HPI. ROS Other: All systems not noted in ROS Statement are negative. Past Medical History Past Medical History: Coronary Artery Disease (CAD), Chest Pain / Angina, COPD, Diabetes Mellitus, Hyperlipidemia, Hypertension, Musculoskeletal Disorder, Pneumonia, Prostate Disorder, Sleep Apnea/CPAP/BIPAP Additional Past Medical History / Comment(s): MURMUR, SINUS PROBLEMS, BACK PAIN- DIFFICULTY W/MOBILITY, TIRES EASILY AND SOB. History of Any Multi-Drug Resistant Organisms: None Reported Past Surgical History: Coronary Bypass/CABG, Heart Catheterization, Heart Catheterization With Stent, Hernia Repair, Pacemaker, Tonsillectomy Additional Past Surgical History / Comment(s): QUAD BYPASS, HEART CATH 2010, - 2015(STENTS), COLONOSCOPY, CATARACTS, PACEMAKER, pain clinic procedures. Past Anesthesia/Blood Transfusion Reactions: No Reported Reaction Date of Last Stent Placement:: 2015 Type of Cardiac Device: Permanent Pacemaker Device Placement Date:: 2016 Past Psychological History: Depression Smoking Status: Former smoker Past Alcohol Use History: None Reported Past Drug Use History: None Reported - Past Family History Mother Family Medical History: Diabetes Mellitus Father Family Medical History: Unable to Obtain Additional Family Medical History / Comment(s): UNK TYPE Brother(s) History Unknown: Yes Family Medical History: No Reported History (Patient has no brothers) Sister(s) Family Medical History: No Reported History (Patient has no sisters) Daughter(s) Family Medical History: No Reported History (Patient has one daughter no major medical problems) Son(s) Family Medical History: No Reported History (Patient has one son no major medical problems.) General Exam - General Exam Comments Initial Comments: GENERAL: Patient is well-developed and well-nourished. Patient is nontoxic and well- hydrated and is in no acute distress. ENT: Neck is soft and supple. No significant lymphadenopathy is noted. Oropharynx is clear. Moist mucous membranes. Neck has full range of motion without eliciting any pain. EYES: The sclera were anicteric and conjunctiva were pink and moist. Extraocular movements were intact and pupils were equal round and reactive to light. Eyelids were unremarkable. PULMONARY: Unlabored respirations. Good breath sounds bilaterally. No audible rales rhonchi or wheezing was noted. CARDIOVASCULAR: There is a regular rate and rhythm without any murmurs gallops or rubs. ABDOMEN: Soft and nontender with normal bowel sounds. No palpable organomegaly was noted. There is no palpable pulsatile mass. SKIN: Skin is clear with no lesions or rashes and otherwise unremarkable. NEUROLOGIC: Patient is alert and oriented x3. Patient has a little bit of facial droop of the left eyelid and lip. There is no forehead involvement.. Motor and sensory are also intact. Normal speech, volume and content. Symmetrical smile. Cerebellar exam grossly intact. MUSCULOSKELETAL: Normal extremities with adequate strength and full range of motion. No lower extremity swelling or edema. No calf tenderness. LYMPHATICS: No significant lymphadenopathy is noted PSYCHIATRIC: Normal psychiatric evaluation. Limitations: altered mental status Course Vital Signs 04/25/19 04/25/19 04/25/19 11:05 11:07 11:20 Temperature 97.5 F L Pulse Rate 61 64 64 Respiratory 18 18 18 Rate Blood Pressure 145/64 145/64 132/56 O2 Sat by Pulse 99 97 96 Oximetry 04/25/19 04/25/19 04/25/19 11:35 13:00 13:20 Temperature Pulse Rate 62 68 79 Respiratory 18 18 18 Rate Blood Pressure 126/57 155/66 O2 Sat by Pulse 96 98 96 Oximetry Medical Decision Making - Medical Decision Making I spoke with and he did not want any intervention or TPA at this time he just wanted Plavix continued. EKG shows a paced rhythm at 61 bpm UT interval 06 QRS is 160 QT interval 492 QTC is 495. Computed tomography scan showed no acute abnormality. I spoke with Dr. Montelongo she agreed to admit the patient admitted the patient I co nsulted cardiology. - Lab Data Result diagrams: 04/25/19 11:13 04/25/19 11:13 Lab Results 04/25/19 04/25/19 04/25/19 Range/Units 11:11 11:13 11:13 WBC 7.2 (3.8-10.6) k/uL RBC 3.80 L (4.30-5.90) m/uL Hgb 11.9 L (13.0-17.5) gm/dL Hct 37.2 L (39.0-53.0) % MCV 97.9 (80.0-100.0) fL MCH 31.3 (25.0-35.0) pg MCHC 32.0 (31.0-37.0) g/dL RDW 12.9 (11.5-15.5) % Plt Count 224 (150-450) k/uL Neutrophils % 57 % Lymphocytes % 30 % Monocytes % 7 % Eosinophils % 3 % Basophils % 1 % Neutrophils # 4.1 (1.3-7.7) k/uL Lymphocytes # 2.1 (1.0-4.8) k/uL Monocytes # 0.5 (0-1.0) k/uL Eosinophils # 0.2 (0-0.7) k/uL Basophils # 0.1 (0-0.2) k/uL PT (9.0-12.0) sec INR (<1.2) APTT (22.0-30.0) sec Sodium 136 L (137-145) mmol/L Potassium 4.9 (3.5-5.1) mmol/L Chloride 99 (98-107) mmol/L Carbon Dioxide 30 (22-30) mmol/L Anion Gap 7 mmol/L BUN 48 H (9-20) mg/dL Creatinine 1.80 H (0.66-1.25) mg/dL Est GFR (CKD-EPI)AfAm 39 (>60 ml/min/1.73 sqM) Est GFR (CKD-EPI)NonAf 34 (>60 ml/min/1.73 sqM) Glucose 365 H (74-99) mg/dL POC Glucose (mg/dL) 365 H (75-99) mg/dL POC Glu Device Sales Consultant ID Ann-Marie Cordoba Calcium 9.3 (8.4-10.2) mg/dL Total Bilirubin 0.6 (0.2-1.3) mg/dL AST 19 (17-59) U/L ALT 6 (4-49) U/L Alkaline Phosphatase 64 (38-126) U/L Total Creatine Kinase (55-170) U/L CK-MB (CK-2) (0.0-2.4) ng/mL CK-MB (CK-2) Rel Index Total Protein 6.8 (6.3-8.2) g/dL Albumin 3.9 (3.5-5.0) g/dL 04/25/19 04/25/19 Range/Units 11:13 11:13 WBC (3.8-10.6) k/uL RBC (4.30-5.90) m/uL Hgb (13.0-17.5) gm/dL Hct (39.0-53.0) % MCV (80.0-100.0) fL MCH (25.0-35.0) pg MCHC (31.0-37.0) g/dL RDW (11.5-15.5) % Plt Count (150-450) k/uL Neutrophils % % Lymphocytes % % Monocytes % % Eosinophils % % Basophils % % Neutrophils # (1.3-7.7) k/uL Lymphocytes # (1.0-4.8) k/uL Monocytes # (0-1.0) k/uL Eosinophils # (0-0.7) k/uL Basophils # (0-0.2) k/uL PT 10.5 (9.0-12.0) sec INR 1.0 (<1.2) APTT 22.3 (22.0-30.0) sec Sodium (137-145) mmol/L Potassium (3.5-5.1) mmol/L Chloride (98-107) mmol/L Carbon Dioxide (22-30) mmol/L Anion Gap mmol/L BUN (9-20) mg/dL Creatinine (0.66-1.25) mg/dL Est GFR (CKD-EPI)AfAm (>60 ml/min/1.73 sqM) Est GFR (CKD-EPI)NonAf (>60 ml/min/1.73 sqM) Glucose (74-99) mg/dL POC Glucose (mg/dL) (75-99) mg/dL POC Glu Device Sales Consultant ID Calcium (8.4-10.2) mg/dL Total Bilirubin (0.2-1.3) mg/dL AST (17-59) U/L ALT (4-49) U/L Alkaline Phosphatase (38-126) U/L Total Creatine Kinase 41 L (55-170) U/L CK-MB (CK-2) 0.9 (0.0-2.4) ng/mL CK-MB (CK-2) Rel Index 2.2 Total Protein (6.3-8.2) g/dL Albumin (3.5-5.0) g/dL Disposition Clinical Impression: Cerebrovascular accident (CVA) Disposition: ADMITTED IP TO THIS HOSP Referrals: Maria Victoria Ramirez MD [Primary Care Provider] - 1-2 days Time of Disposition: 13:48
--- NOTE | 2019-04-25 12:16 | XR ---
EXAMINATION TYPE: XR chest 2V DATE OF EXAM: 04/25/2019 COMPARISON: 12/28/2018 HISTORY: Altered mental status TECHNIQUE: Frontal and lateral views of the chest are obtained. FINDINGS: There is no focal air space opacity, pleural effusion, or pneumothorax seen. Cardiomediast inal silhouette is mildly enlarged with post CABG changes and dual-lead left-sided cardiac device. Mi ld pulmonary vascular congestion is seen throughout. Flattening of the diaphragms on lateral view sug gests underlying COPD. Mild degenerative changes of the spine. Diffuse osseous demineralization is se en. IMPRESSION: Mild pulmonary vascular congestion. Consider congestive heart failure.
[2019-04-25] MEDS ORDERED: ASPIRIN 325 MG TAB PO STA (13:48)
--- NOTE | 2019-04-25 15:22 | P.CNNES ---
History of Present Illness Consult date: 04/25/19 Requesting physician: Melvin Wan Reason for Consult: CVA History of Present Illness: Patient is a 84-year-old male who lives at home, but has been living in a [facility] for almost a week because of problems with balance and difficulty with walking, using wheelchair lately. Patient states that this morning he was feeling fine. He had the lunch. At around 11 AM, after taking lunch, he was given medications. After he took the medication, he felt the medication put in a "dismal mood". He felt he will pass out although he never did. Some slurring of speech was noted by the staff, questionable facial droop and patient states that he did feel some funny feeling in the left hand. There was no funny feeli ng in the left leg or the left side of the face. Because of these reasons, patient was brought to the hospital, he mainly arrived to the hospital at 11:04 AM. Patient's blood pressure on arrival was 145/64, pulse rate 61 respiration 18. Patient had computed tomography scan of the head, which revealed no acute process. There is moderate diffuse cerebral atrophy and moderate to advanced chronic small vessel ischemic change. No change from prior CT from 05/02/2013. Patient states that his symptoms have completely resolved within an hour. He feels back to baseline. Chest x-ray showed mild pulmonary vascular congestion. Consider congestive heart failure. EKG showed AV sequential or dual chamber electronic pacemaker. Patient denies any previous history of strokes or TIA. He does take aspirin 81 mg and Plavix every day. Also takes Crestor 10 mg daily. Patient's last hemoglobin A1c is 8.7 on 12/06/2015. Liver functions are normal, B12 was 256 on 12/06/2015. Review of Systems As per history of present less. Denies any headache problem with the vision, hoarseness or throat dysphagia chest pain shortness of breath wheezing cough abdominal pain nausea vomiting diarrhea. Past Medical History Past Medical History: Coronary Artery Disease (CAD), Chest Pain / Angina, COPD, Diabetes Mellitus, Hyperlipidemia, Hypertension, Musculoskeletal Disorder, Pneumonia, Prostate Disorder, Sleep Apnea/CPAP/BIPAP Additional Past Medical History / Comment(s): MURMUR, SINUS PROBLEMS, BACK PAIN-DIFFICULTY W/MOBILITY, TIRES EASILY AND SOB. History of Any Multi-Drug Resistant Organisms: None Reported Past Surgical History: Coronary Bypass/CABG, Heart Catheterization, Heart Catheterization With Stent, Hernia Repair, Pacemaker, Tonsillectomy Additional Past Surgical History / Comment(s): QUAD BYPASS, HEART CATH 2010, -2015(STENTS), COLONOSCOPY, CATARACTS, PACEMAKER, pain clinic procedures. Past Anesthesia/Blood Transfusion Reactions: No Reported Reaction Date of Last Stent Placement:: 2015 Type of Cardiac Device: Permanent Pacemaker Device Placement Date:: 2016 Past Psychological History: Depression Smoking Status: Former smoker Past Alcohol Use History: None Reported Past Drug Use History: None Reported - Past Family History Mother Family Medical History: Diabetes Mellitus Father Family Medical History: Unable to Obtain Additional Family Medical History / Comment(s): UNK TYPE Brother(s) History Unknown: Yes Family Medical History: No Reported History (Patient has no brothers) Sister(s) Family Medical History: No Reported History (Patient has no sisters) Daughter(s) Family Medical History: No Reported History (Patient has one daughter no major medical problems) Son(s) Family Medical History: No Reported History (Patient has one son no major m edical problems.) Medications and Allergies Home Medications Medication Instructions Recorded Confirmed Type Rosuvastatin Calcium [Crestor] 10 mg PO DAILY@79908/27/15 04/25/19 History Carvedilol [Coreg] 25 mg PO AC-BID@799,199909/17/15 04/25/19 History Aspirin EC [Ecotrin Low Dose] 81 mg PO HS@199912/05/15 04/25/19 History Potassium Chloride [Klor-Con 20] 20 meq PO DAILY@79912/05/15 04/25/19 History Dulaglutide [Trulicity] 1.5 mg SQ WE@139901/01/18 04/25/19 History Clopidogrel Bisulfate [Plavix] 75 mg PO HS@199912/28/18 04/25/19 History Finasteride [Proscar] 5 mg PO DAILY@79912/28/18 04/25/19 History Pioglitazone HCl 15 mg PO DAILY@79912/28/18 04/25/19 History Carbidopa-Levodopa 25-100 mg 1 tab PO BID@0800,1400 04/25/19 04/25/19 History [Sinemet 25-100] Furosemide [Lasix] 40 mg PO BID@0800,1400 04/25/19 04/25/19 History Insulin Glargine,Hum.rec.anlog 38 unit SQ HS@199904/25/19 04/25/19 History [Lantus Solostar] Insulin Lispro [humaLOG Kwikpen] 10 unit SQ TID@0730,1130,1630 04/25/19 04/25/19 History Losartan/Hydrochlorothiazide 1 tab PO DAILY@0800 04/25/19 04/25/19 History [Hyzaar 100-25 Tablet] Allergies Allergy/AdvReac Type Severity Reaction Status Date / Time No Known Allergies Allergy Verified 04/25/19 11:50 Physical Examination - Vital Signs Vital Signs: Vital Signs Temp Pulse Resp BP Pulse Ox 04/25/19 14:46 73 18 163/74 98 04/25/19 13:20 79 18 155/66 96 04/25/19 13:00 68 18 98 04/25/19 11:35 62 18 126/57 96 04/25/19 11:20 64 18 132/56 96 04/25/19 11:07 97.5 F L 64 18 145/64 97 04/25/19 11:05 61 18 145/64 99 Intake and Output 04/25/19 04/25/19 04/25/19 06:59 14:59 22:59 Other: Weight 95.254 kg On examination patient is an elderly male, in no acute distress. Patient is alert and awake oriented to time place and person. Speech and langu age functions are normal. Attention and concentration, fund of knowledge is adequate. On cranial nerve examination pupils are round and reacting to light, visual uribe are full, extraocular muscles are intact. Face is symmetric and tongue protrudes the midline. Palatal elevation sensation normal on muscle strength testing there is no pronator drift and the strength is normal in arms and legs distally and proximally. Reflexes are 1+ to 2 and plantars downgoing. Sensory touch is equal. No ataxia for [id number], tone and bulk of muscles normal. Gait deferred. No obvious bruit or murmur. Results - Laboratory Findings CBC and BMP: 04/25/19 11:13 04/25/19 11:13 Abnormal Lab Findings: Abnormal Labs 04/25/19 04/25/19 04/25/19 11:11 11:13 11:13 RBC 3.80 L Hgb 11.9 L Hct 37.2 L Sodium 136 L BUN 48 H Creatinine 1.80 H Glucose 365 H POC Glucose (mg/dL) 365 H Total Creatine Kinase 04/25/19 11:13 RBC Hgb Hct Sodium BUN Creatinine Glucose POC Glucose (mg/dL) Total Creatine Kinase 41 L Assessment and Plan Assessment: * Possible TIA, manifesting with transient slurred speech, facial droop and left hand paresthesia, that resolved in an hour. * Diabetes, not well controlled * Hypertension * Hyperlipidemia * CAD * Pacemaker Plan: * Patient has possible TIA. His symptoms have resolved. * We will check 2-D echo with bubble study to rule out any embolic source. * We will check carotid Doppler to rule out stenosis. * Hemoglobin A1c, fasting a.m. lipid panel. * Continue aspirin 81 mg, Plavix and statins. * We will follow.
--- NOTE | 2019-04-25 15:52 | P.HPIM ---
History of Present Illness H&P Date: 04/25/19 Chief Complaint: Left facial droop This is an 83-year-old male one of Dr. Ramriez with a previous medical history significant for CAD post CABG 4 in 2010 with sequential MARROQUIN to LAD and diagonal branch, SVG to PDA and SVG to the obtuse marginal branch, subsequently underwent left heart catheterization 2016 because of unstable angina he had PCI of the obtuse marginal branch, diabetes mellitus type 2 with diabetic polyneuropathy, hypertension and hypertensive cardio vascular disease, COPD, enlarged prostate, sleep apnea, bradycardia status post permanent pacemaker placement, history of significant degenerative disease of the lumbar spine with significant weakness of both lower extremity currently uses a walker for immolation, restless leg syndrome, and finally history of parkinsonism, currently lives in a intermediate. He was in the emergency room secondary to left facial droop, on further inquiry, patient also has slurred speech for the past 2 weeks, and has chronic lower extremity motor difficulties, and he is at home wheelchair bound, with occasiona l use of a wheeled walker. Family is concerned about the TIA, his NIH score upon ER evaluation is 1, no TPA was given. Patient denies any new motor deficits including diplopia, no isolated motor deficits in the upper extremities, patient denies any melena hematochezia, no headache, no abdominal pain, no chest pain no palpitations. Patient denies any prior stroke events, he has an electronic pacemaker. In the emergency room, CAT scan of the brain was done that shows no acute intracranial hemorrhage or midline shift, there is moderate diffuse, stable atrophy and moderately advanced chronic small vessel ischemia, no significant change from priors EKG shows electronic paced rhythm hemoglobin 11.9 and double basic count 7.2, INR 1.0, creatinine 1.8, sodium 136, glucose of 365, urinalysis was not done. Review of Systems Constitutional: Reports as per HPI, Denies anorexia, Denies chills, Denies chronic headaches, Denies chronic pain, Denies daytime sleepiness, Denies fatigue, Denies fever, Denies lethargy, Denies malaise, Denies night sweats, De nies poor appetite, Denies sweats, Denies weakness, Denies weight gain, Denies weight loss Ears, nose, mouth and throat: Reports as per HPI, Denies ant. neck pain, Denies bleeding gums, Denies dental pain, Denies dysphagia, Denies epistaxis, Denies headache, Denies hoarseness, Denies mouth pain, Denies nasal congestion, Denies nasal discharge, Denies neck fullness/pressure, Denies neck lump, Denies nose pain, Denies odynophagia, Denies post-nasal drip, Denies sinus pain, Denies sinus pressure, Denies swelling in mouth, Denies swelling in throat, Denies sore throat, Denies vertigo, Denies voice changes Cardiovascular: Reports as per HPI Respiratory: Reports as per HPI Gastrointestinal: Reports as per HPI Genitourinary: Reports as per HPI Musculoskeletal: Reports as per HPI Integumentary: Reports as per HPI, Denies acne, Denies boils, Denies brittle nails, Denies change in hair/nails, Denies color changes, Denies darkening of skin, Denies depigmentation, Denies dryness, Denies foot/leg ulcers, Denies growths, Denies hirsutism, Denies lesions, Denies onychomycosis, Denies pruritus, Denies rash, Denies sores, Denies striae, Denies unusual bruising, Denies wounds Neurological: Reports as per HPI, Reports change in speech, Reports gait dysfunction, Reports weakness, Denies aphasia, Denies ataxia, Denies balance difficulties, Denies burning pain, Denies change in mentation, Denies change in smell/taste, Denies confusion, Denies convulsions, Denies double vision, Denies head injury, Denies headaches, Denies hearing difficulties, Denies lack of coordination, Denies loss of vision, Denies memory loss, Denies migraines, Denies motor disturbance, Denies numbness, Denies paralysis, Denies paresthesias, Denies seizures, Denies sensory deficit, Denies spasticity, Denies syncope, Denies tic, Denies tingling, Denies transient paralysis, Denies tremors, Denies vertigo, Denies visual changes Psychiatric: Reports as per HPI, Denies anhedonia, Denies anxiety, Denies anxiety attacks, Denies change in appetite, Denies change in libido, Denies change in sleep habits, Denies confusion, Denies depression, Denies difficulty concentrating, Denies disorientation, Denies hallucinations, Denies hopelessness, Denies hypersomnia, Denies insomnia, Denies irritability, Denies memory loss, Denies mood swings, Denies paranoia, Denies sadness/tearfulness, Denies sleep disturbances, Denies suicidal ideation Endocrine: Reports as per HPI Hematologic/Lymphatic: Reports as per HPI, Denies easy bleeding, Denies easy bruising, Denies lymphadenopathy, Denies lymphedema, Denies thrombophilia Allergic/Immunologic: Reports as per HPI, Denies allergic rhinitis, Denies anaphylaxis, Denies angioedema, Denies gluten intolerance, Denies persistent infections, Denies seasonal allergies, Denies urticaria, Denies wheezing Past Medical History Past Medical History: Coronary Artery Disease (CAD), Chest Pain / Angina, COPD, Diabetes Mellitus, Hyperlipidemia, Hypertension, Musculoskeletal Disorder, Pneumonia, Prostate Disorder, Sleep Apnea/CPAP/BIPAP Additional Past Medical History / Comment(s): MURMUR, SINUS PROBLEMS, BACK PAIN-DIFFICULTY W/MOBILITY, TIRES EASILY AND SOB. History of Any Multi-Drug Resistant Organisms: None Reported Past Surgical History: Coronary Bypass/CABG, Heart Catheterization, Heart Catheterization With Stent, Hernia Repair, Pacemaker, Tonsillectomy Additional Past Surgical History / Comment(s): QUAD BYPASS, HEART CATH 2010, -2015(STENTS), COLONOSCOPY, CATARACTS, PACEMAKER, pain clinic procedures. Past Anesthesia/Blood Transfusion Reactions: No Reported Reaction Date of Last Stent Placement:: 2015 Type of Cardiac Device: Permanent Pacemaker Device Placement Date:: 2016 Past Psychological History: Depression Smoking Status: Former smoker Past Alcohol Use History: None Reported Past Drug Use History: None Reported - Past Family History Mother Family Medical History: Diabetes Mellitus Father Family Medical History: Unable to Obtain Additional Family Medical History / Comment(s): UNK TYPE Brother(s) History Unknown: Yes Family Medical History: No Reported History (Patient has no brothers) Sister(s) Family Medical History: No Reported History (Patient has no sisters) Daughter(s) Family Medical History: No Reported History (Patient has one daughter no major medical problems) Son(s) Family Medical History: No Reported History (Patient has one son no major medi ashley problems.) Medications and Allergies Home Medications Medication Instructions Recorded Confirmed Type Rosuvastatin Calcium [Crestor] 10 mg PO DAILY@0800 08/27/15 04/25/19 History Carvedilol [Coreg] 25 mg PO AC-BID@08,199909/17/15 04/25/19 History Aspirin EC [Ecotrin Low Dose] 81 mg PO HS@199912/05/15 04/25/19 History Potassium Chloride [Klor-Con 20] 20 meq PO DAILY@0800 12/05/15 04/25/19 History Dulaglutide [Trulicity] 1.5 mg SQ WE@139901/01/18 04/25/19 History Clopidogrel Bisulfate [Plavix] 75 mg PO HS@199912/28/18 04/25/19 History Finasteride [Proscar] 5 mg PO DAILY@0812/28/18 04/25/19 History Pioglitazone HCl 15 mg PO DAILY@79912/28/18 04/25/19 History Carbidopa-Levodopa 25-100 mg 1 tab PO BID@0800,139904/25/19 04/25/19 History [Sinemet 25-100] Furosemide [Lasix] 40 mg PO BID@0800,139904/25/19 04/25/19 History Insulin Glargine,Hum.rec.anlog 38 unit SQ HS@199904/25/19 04/25/19 History [Lantus Solostar] Insulin Lispro [humaLOG Kwikpen] 10 unit SQ TID@0730,1130,1630 04/25/19 04/25/19 History Losartan/Hydrochlorothiazide 1 tab PO DAILY@0804/25/19 04/25/19 History [Hyzaar 100-25 Tablet] Allergies Allergy/AdvReac Type Severity Reaction Status Date / Time No Known Allergies Allergy Verified 04/25/19 11:50 Physical Exam Vitals: Vital Signs Temp Pulse Resp BP Pulse Ox 04/25/19 14:46 73 18 163/74 98 04/25/19 13:20 79 18 155/66 96 04/25/19 13:00 68 18 98 04/25/19 11:35 62 18 126/57 96 04/25/19 11:20 64 18 132/56 96 04/25/19 11:07 97.5 F L 64 18 145/64 97 04/25/19 11:05 61 18 145/64 99 Intake and Output 04/25/19 04/25/19 04/25/19 06:59 14:59 22:59 Other: Weight 95.254 kg - Constitutional General appearance: cooperative, no acute distress, obese - EENT Eyes: anicteric sclerae, EOMI, PERRLA, dentition normal, normal appearance - Neck Neck: normal ROM Carotids: negative: bruit present Thyroid: bilateral: normal size - Respiratory Respiratory: bilateral: CTA, negative: diminished, dullness, rales - Gastrointestinal General gastrointestinal: normal bowel sounds, soft - Integumentary Integumentary: decreased turgor, normal - Neurologic Neurologic: CNII-XII intact (Dysarthria, no facial droop noted,) - Musculoskeletal Musculoskeletal: strength equal bilaterally - Psychiatric Psychiatric: A&O x's 3, appropriate affect Results CBC & Chem 7: 04/25/19 11:13 04/25/19 11:13 Labs: Abnormal Lab Results - Last 24 Hours (Table) 04/25/19 04/25/19 04/25/19 Range/Units 11:11 11:13 11:13 RBC 3.80 L (4.30-5.90) m/uL Hgb 11.9 L (13.0-17.5) gm/dL Hct 37.2 L (39.0-53.0) % Sodium 136 L (137-145) mmol/L BUN 48 H (9-20) mg/dL Creatinine 1.80 H (0.66-1.25) mg/dL Glucose 365 H (74-99) mg/dL POC Glucose (mg/dL) 365 H (75-99) mg/dL Total Creatine Kinase (55-170) U/L 04/25/19 Range/Units 11:13 RBC (4.30-5.90) m/uL Hgb (13.0-17.5) gm/dL Hct (39.0-53.0) % Sodium (137-145) mmol/L BUN (9-20) mg/dL Creatinine (0.66-1.25) mg/dL Glucose (74-99) mg/dL POC Glucose (mg/dL) (75-99) mg/dL Total Creatine Kinase 41 L (55-170) U/L Laboratory Results WBC 7.2 k/uL (3.8-10.6) 04/25/19 11:13 RBC 3.80 m/uL (4.30-5.90) L 04/25/19 11:13 Hgb 11.9 gm/dL (13.0-17.5) L 04/25/19 11:13 Hct 37.2 % (39.0-53.0) L 04/25/19 11:13 MCV 97.9 fL (80.0-100.0) 04/25/19 11:13 MCH 31.3 pg (25.0-35.0) 04/25/19 11:13 MCHC 32.0 g/dL (31.0-37.0) 04/25/19 11:13 RDW 12.9 % (11.5-15.5) 04/25/19 11:13 Plt Count 224 k/uL (150-450) 04/25/19 11:13 Neutrophils % 57 % 04/25/19 11:13 Lymphocytes % 30 % 04/25/19 11:13 Monocytes % 7 % 04/25/19 11:13 Eosinophils % 3 % 04/25/19 11:13 Basophils % 1 % 04/25/19 11:13 Neutrophils # 4.1 k/uL (1.3-7.7) 04/25/19 11:13 Lymphocytes # 2.1 k/uL (1.0-4.8) 04/25/19 11:13 Monocytes # 0.5 k/uL (0-1.0) 04/25/19 11:13 Eosinophils # 0.2 k/uL (0-0.7) 04/25/19 11:13 Basophils # 0.1 k/uL (0-0.2) 04/25/19 11:13 PT 10.5 sec (9.0-12.0) 04/25/19 11:13 INR 1.0 (<1.2) 04/25/19 11:13 APTT 22.3 sec (22.0-30.0) 04/25/19 11:13 Sodium 136 mmol/L (137-145) L 04/25/19 11:13 Potassium 4.9 mmol/L (3.5-5.1) 04/25/19 11:13 Chloride 99 mmol/L (98-107) 04/25/19 11:13 Carbon Dioxide 30 mmol/L (22-30) 04/25/19 11:13 Anion Gap 7 mmol/L 04/25/19 11:13 BUN 48 mg/dL (9-20) H 04/25/19 11:13 Creatinine 1.80 mg/dL (0.66-1.25) H 04/25/19 11:13 Est GFR (CKD-EPI)AfAm 39 (>60 ml/min/1.73 sqM) 04/25/19 11:13 Est GFR (CKD-EPI)NonAf 34 (>60 ml/min/1.73 sqM) 04/25/19 11:13 Glucose 365 mg/dL (74-99) H 04/25/19 11:13 POC Glucose (mg/dL) 365 mg/dL (75-99) H 04/25/19 11:11 POC Glu Director Emergency Ann-Marie Boyce 04/25/19 11:11 Calcium 9.3 mg/dL (8.4-10.2) 04/25/19 11:13 Total Bilirubin 0.6 mg/dL (0.2-1.3) 04/25/19 11:13 AST 19 U/L (17-59) 04/25/19 11:13 ALT 6 U/L (4-49) 04/25/19 11:13 Alkaline Phosphatase 64 U/L (38-126) 04/25/19 11:13 Total Creatine Kinase 41 U/L (55-170) L 04/25/19 11:13 CK-MB (CK-2) 0.9 ng/mL (0.0-2.4) 04/25/19 11:13 CK-MB (CK-2) Rel Index 2.2 04/25/19 11:13 Troponin I 0.012 ng/mL (0.000-0.034) 04/25/19 11:13 Total Protein 6.8 g/dL (6.3-8.2) 04/25/19 11:13 Albumin 3.9 g/dL (3.5-5.0) 04/25/19 11:13 Thrombosis Risk Factor Assmnt - DVT/VTE Prophylaxis DVT/VTE Prophylaxis: Pharmacologic Prophylaxis ordered - Choose All That Apply Each Risk Factor Represents 2 Points: Patient confined to bed Each Risk Factor Represents 3 Points: Age 75 years or older Thrombosis Risk Factor Assessment Total Risk Factor Score: 5 Thrombosis Risk Factor Assessment Level: High Risk Assessment and Plan Plan: 1. Left facial droop, with slurred speech, slurred speech has occurred 2 weeks prior to admission, and left facial droop was TR was ago, and I score on admission per ER is approximately 1, patient wasn't given TPA, echocardiogram and Dopplers to be done this evaluate for carotid stenosis and possible embolic stroke, patient's continue an aspirin and Plavix, and statins. Neurology consultation, Dr. Lei, PT OT and speech, bedside screen for swallow, patient might need a full study with modified barium swallow eval 2 Electronic pacemaker rhythm history of conduction system disease with AV block, known history of chronic diastolic heart failure. Patient will be on telemetry, echocardiogram to evaluate for possible embolic stroke, 3. CAD post CABG 4 with PCI of the LCx. Continue aspirin 81 mg once every day, Plavix 75 mg orally once every day, Coreg 25 mg orally twice every day Crestor 10 mg daily 4. Hypertension and hypertensive cardiovascular disease. Continue losartan 100 /25 HCTZ mg orally once every day, Coreg 25 mg orally twice every day, 5. Hyperlipidemia. Continue crestor 10 mg orally once every day. 5. Diabetes mellitus type 2 uncontrolled. Last A1c in a facility was 8.7, this in 2016, new A1c to be done, Accu-Cheks before meals and at bedtime with NovoLog coverage, Continue patient on Lantus 38 units at bedtime along with a sliding scale insulin. Pre-meal 10 units NovoLog percussed lunch and dinner at Actos 50 mg daily, to ECT 1.5 mg every Thursday 6. Enlarge prostate. Continue patient on finasteride 5 mg orally once every day. 7. History of CVA. Continue aspirin and Plavix and Lipitor for secondary stroke prevention. 8. History of bradycardia status post permanent pacemaker placement. 9. Degenerative disc disease of the lumbar spine with significant weakness in both lower extremities. Physical therapy evaluation. Continue Wellman 5/325 mg orally twice every day. 10. Restless leg syndrome. Restart the patient on Mirapex 0.25 mg orally bedtime. 11. Parkinsonism. On maintenance Sinemet 25/100, 1 twice a day, no changes needed at this time 12. DVT prophylaxis. Heparin 5000 units subcutaneously every 12 hours per 13. GI prophylaxis. Protonix 40 mg orally once every day. 14. Admit to inpatient. Estimated length of stay 2 midnights. 15. Patient is full code .
--- NOTE | 2019-04-25 16:39 | US ---
EXAMINATION TYPE: US carotid duplex BILAT DATE OF EXAM: 04/25/2019 COMPARISON: NONE CLINICAL HISTORY: TIA. EXAM MEASUREMENTS: RIGHT: Peak Systolic Velocity (PSV) cm/sec ----- Right CCA: 90.0 ----- Right ICA: 107.3 ----- Right ECA: 373.5 ICA/CCA ratio: 1.2 RIGHT: End Diastole cm/sec ----- Right CCA: 12.4 ----- Right ICA: 11.1 ----- Right ECA: 31.2 LEFT: Peak Systolic Velocity (PSV) cm/sec ----- Left CCA: 75.0 ----- Left ICA: 84.0 ----- Left ECA: 81.9 ICA/CCA ratio: 1.1 LEFT: End Diastole cm/sec ----- Left CCA: 4.2 ----- Left ICA: 9.7 ----- Left ECA: 17.4 VERTEBRALS (direction of flow): Right Vertebral: Antegrade Left Vertebral: Antegrade Rhythm: Arrhythmia Severe atherosclerotic changes without significant velocity elevations. Technically difficult study due to pulsatile vessels and large thick neck. IMPRESSION: There is antegrade flow in the vertebral arteries. There is significant plaque formation and images a nd measurements suggest at least 50% stenosis in both internal carotid arteries. Velocities do not sh ow stenosis significantly higher than 50%. Criteria for Assigning % of Stenosis / Diameter reduction (Estimation based on the indirect measurements of the internal carotid artery velocities (ICA PSV). 1. Normal (no stenosis)=ICA PSV < 125 cm/s: ratio < 2.0: ICA EDV<40 cm/s. 2. Less than 50% stenosis=ICA PSV < 125 cm/s: ratio < 2.0: ICA EDV<40 cm/s. 3. 50 to 69% stenosis=ICA PSV of 125 to 230 cm/s: ration 2.0 ? 4.0: ICA EDV 40-100 cm/s. 4. Greater than 70% stenosis to near occlusion= ICA PSV > 230 cm/s: ratio > 4.0: ICA EDV > 100 cm/s. 5. Near occlusion= ICA PSV velocities may be low or undetectable: variable ratio and ICA EDV. 6. Total occlusion=unable to detect flow.
[2019-04-25 17:47] LABS: Glucose,Whole Blood 221 mg/dL (75-99)
[2019-04-25] MEDS: INSULIN ASPART (NovoLOG) 100 UNIT/ML VIAL SQ SCH (18:14)
[2019-04-25] MEDS ORDERED: INSULIN DETEMIR (LEVEMIR) 100 UNIT/ML SYR SQ SCH (20:00)
[2019-04-25] MEDS ORDERED: CLOPIDOGREL 75 MG TAB PO SCH (20:00)
[2019-04-25 20:37] LABS: Glucose,Whole Blood 258 mg/dL (75-99)
[2019-04-26] MEDS: CARVEDILOL 12.5 MG TAB PO SCH ×2 (01:13→09:26)
[2019-04-26 01:32] LABS: Hemoglobin A1C 10.7 % (4.0-6.0)
[2019-04-26 06:26] LABS: Glucose,Whole Blood 85 mg/dL (75-99)
[2019-04-26] MEDS: INSULIN ASPART (NovoLOG) 100 UNIT/ML VIAL SQ SCH ×2 (06:29→12:47)
[2019-04-26 06:35] LABS: Basophils # (A) 0.1 k/uL (0-0.2); Basophils % (A) 2 %; Eosinophils # (A) 0.3 k/uL (0-0.7); Eosinophils % (A) 4 %; HCT 39.8 % (39.0-53.0); HGB 12.6 gm/dL (13.0-17.5); Lymphocytes # (A) 2.2 k/uL (1.0-4.8); Lymphocytes % (A) 34 %; MCH 30.7 pg (25.0-35.0); MCHC 31.6 g/dL (31.0-37.0); MCV 97.1 fL (80.0-100.0); Monocytes # (A) 0.5 k/uL (0-1.0); Monocytes % (A) 8 %; Neutrophils # (A) 3.1 k/uL (1.3-7.7); Neutrophils % (A) 49 %; Platelet Count 250 k/uL (150-450); WBC 6.4 k/uL (3.8-10.6)
[2019-04-26 06:42] LABS: Calcium 9.9 mg/dL (8.4-10.2); Potassium 4.1 mmol/L (3.5-5.1); Total Bilirubin 0.6 mg/dL (0.2-1.3); Total Protein 7.1 g/dL (6.3-8.2)
[2019-04-26] MEDS ORDERED: FINASTERIDE 5 MG TAB PO SCH (08:00)
[2019-04-26] MEDS ORDERED: POTASSIUM CHLORIDE ER 20 MEQ TAB.ER PO SCH (08:00)
[2019-04-26] MEDS ORDERED: PIOGLITAZONE 15 MG TAB PO SCH (08:00)
[2019-04-26] MEDS ORDERED: LOSARTAN-HCTZ 50-12.5 MG 1 EACH TAB PO SCH (08:00)
[2019-04-26] MEDS ORDERED: CARBIDOPA-LEVODOPA 25-100 MG 1 EACH TAB PO SCH (08:00)
[2019-04-26] MEDS ORDERED: FUROSEMIDE 40 MG TAB PO SCH (08:00)
[2019-04-26] MEDS ORDERED: ATORVASTATIN 20 MG TAB PO SCH (08:00)
[2019-04-26] MEDS ORDERED: CLOPIDOGREL 75 MG TAB PO SCH (09:00)
[2019-04-26] MEDS ORDERED: ASPIRIN 325 MG TAB PO SCH (09:00)
--- NOTE | 2019-04-26 11:46 | ECHOF ---
Referral Reason:TIA MEASUREMENTS -------- HEIGHT: 165.1 cm WEIGHT: 95.3 kg BP: 133/68 IVSd: 1.5 cm (0.6 - 1.1) LVIDd: 4.4 cm (3.9 - 5.3) LVPWd: 1.4 cm (0.6 - 1.1) IVSs: 2.1 cm LVIDs: 3.6 cm LVPWs: 1.6 cm LAESV Index (A-L): 27.49 ml/m Ao Diam: 2.7 cm (2.0 - 3.7) AV Cusp: 2.2 cm (1.5 - 2.6) LA Diam: 4.8 cm (2.7 - 3.8) MV EXCURSION: 22.213 mm (> 18.000) MV EF SLOPE: 94 mm/s (70 - 150) EPSS: 0.7 cm MV E Carlos: 0.91 m/s MV DecT: 151 ms MV A Carlos: 1.11 m/s MV E/A Ratio: 0.82 RAP: 5.00 mmHg RVSP: 25.25 mmHg TAPSE: 17.18 mm FINDINGS -------- Paced rhythm. Pacerwire seen in RV and RA. This was a technically difficult study with suboptimal views. The left ventricular size is normal. There is mild concentric left ventricular hypertrophy. Overa ll left ventricular systolic function is mild-moderately impaired with, an EF between 40 - 45 %. Th e diastolic filling pattern indicates impaired relaxation 21.56. Increased LAP Grade 2 Diastolic Dy sfunction. l inferolateral appears hypokinetic. The right ventricle is normal in size. The right ventricular systolic function is normal. The left atrium is normal in size. Normal LA size by volume 22+/-6 ml/m2. The right atrial size is normal. Contrast study was performed with 1 iv injections of 8 ccs of agitated normal saline, at rest, and wi th cough. Lumason used Interatrial and interventricular septum intact. The aortic valve is trileaflet and appears structurally normal. The mitral valve is normal. Zpio-ap-ctjppenj mitral regurgitation is present. The tricuspid valve appears structurally normal. Mild tricuspid regurgitation present. Right vent ricular systolic pressure is normal at < 35 mmHg. There is no pulmonic regurgitation present. The aortic root size is normal. IVC Not well visulized. There is no pericardial effusion. CONCLUSIONS -------- 1. Paced rhythm. 2. Pacerwire seen in RV and RA. 3. This was a technically difficult study with suboptimal views. 4. The left ventricular size is normal. 5. There is mild concentric left ventricular hypertrophy. 6. The diastolic filling pattern indicates impaired relaxation 21.56.. 7. Increased LAP Grade 2 Diastolic Dysfunction. 8. inferolateral appears hypokinetic. 9. The right ventricle is normal in size. 10. The right ventricular systolic function is normal. 11. The left atrium is normal in size. 12. Normal LA size by volume 22+/-6 ml/m2. 13. The right atrial size is normal. 14. Contrast study was performed with 1 iv injections of 8 ccs of agitated normal saline, at rest, an d with cough. 15. Lumason used 16. Interatrial and interventricular septum intact. 17. The aortic valve is trileaflet and appears structurally normal. 18. The mitral valve is normal. 19. Smvw-qd-lgnzgwxu mitral regurgitation is present. 20. The tricuspid valve appears structurally normal. 21. Mild tricuspid regurgitation present. 22. Right ventricular systolic pressure is normal at < 35 mmHg. 23. There is no pulmonic regurgitation present. 24. The aortic root size is normal. 25. IVC Not well visulized. 26. There is no pericardial effusion. JIG BUILDER: Dasia Villegas RDCS
[2019-04-26 11:53] VITALS: BMI 34.9
[2019-04-26 11:55] VITALS: BP 164/70; PULSE 61; TEMP 97.4
--- NOTE | 2019-04-26 12:06 | P.PN ---
Subjective Progress Note Date: 04/26/19 Patient denies any new focal symptoms. Denies headache any numbness tingling slurred speech, or any other focal symptoms. Denies headache. Objective - Vital Signs Vital signs: Vital Signs Temp 97.4 F L 04/26/19 08:00 Pulse 61 04/26/19 08:00 Resp 18 04/26/19 06:11 BP 164/70 04/26/19 08:00 Pulse Ox 96 04/26/19 08:00 Intake & Output 04/25/19 04/26/19 04/26/19 18:59 06:59 18:59 Intake Total 180 Output Total 650 Balance -650 180 Weight 95.254 kg 95.254 kg 95.254 kg Intake: Oral 180 Output: Urine 650 Other: Voiding Method Urinal Urinal Diaper Diaper # Voids 3 - Exam On examination patient is alert and awake, in no distress. His speech and language functions appears normal. Cranial nerves examination are normal. Visual uribe are full and face is symmetric and tongue protrudes the midline. Muscle strength appears equal in the arms and legs. No ataxia. Sensory touch is equal. - Labs CBC & Chem 7: 04/26/19 05:41 04/26/19 05:41 Labs: Abnormal Lab Results - Last 24 Hours (Table) 04/25/19 04/25/19 04/25/19 Range/Units 11:13 17:42 20:34 RBC (4.30-5.90) m/uL Hgb (13.0-17.5) gm/dL Carbon Dioxide (22-30) mmol/L BUN (9-20) mg/dL Creatinine (0.66-1.25) mg/dL Glucose (74-99) mg/dL POC Glucose (mg/dL) 221 H 258 H (75-99) mg/dL Hemoglobin A1c 10.7 H (4.0-6.0) % Triglycerides (<150) mg/dL 04/26/19 04/26/19 Range/Units 05:41 05:41 RBC 4.10 L (4.30-5.90) m/uL Hgb 12.6 L (13.0-17.5) gm/dL Carbon Dioxide 32 H (22-30) mmol/L BUN 37 H (9-20) mg/dL Creatinine 1.43 H (0.66-1.25) mg/dL Glucose 65 L (74-99) mg/dL POC Glucose (mg/dL) (75-99) mg/dL Hemoglobin A1c (4.0-6.0) % Triglycerides 150 H (<150) mg/dL Assessment and Plan Assessment: * Possible TIA, manifesting with transient slurred speech, facial droop and left hand paresthesia, that resolved in an hour. * Diabetes, not well controlled * Hypertension * Hyperlipidemia * CAD * Pacemaker Plan: * Patient has possible TIA. His symptoms have resolved. * 2-D echo with bubble study revealed paced rhythm, inferior lateral wall appears hypokinetic. Left atrial size is normal.. No evidence of PFO or ASD on bubble study. * Carotid Doppler showed less than 50% stenosis. Antegrade flow in both vertebral arteries. * Hemoglobin A1c is 10.7, suggestive of poorly controlled diabetes. I would suggest aggressively control of diabetes to target A1c <7.0. * Fasting a.m. lipid panel with cholesterol 129, LDL 44, HDL 55 and triglycerides 150. Continue statins. * Continue aspirin 81 mg, and Plavix. * Telemetric monitoring showing no signs of A. fib. Patient has a AV s equential/dual electronic paced rhythm. * Neurologically clear for discharge.
--- NOTE | 2019-04-27 08:04 | P.DS ---
Providers Date of admission: 04/25/19 13:48 Expected date of discharge: 04/26/19 Attending physician: Edyta Montelongo Consults: 04/25/19 13:49 Consult Physician Routine Consulting Provider: Varsha Amezquita Consult Reason/Comments: CVA Do you want consulting provider notified?: Yes Primary care physician: Maria Victoria Ramirez Hospital Course: This is an 83-year-old male one of Dr. Ramirez with a previous medical history significant for CAD post CABG 4 in 2010 with sequential MARROQUIN to LAD and diagonal branch, SVG to PDA and SVG to the obtuse marginal branch, subsequently underwent left heart catheterization 2015 because of unstable angina he had PCI of the obtuse marginal branch, diabetes mellitus type 2 with diabetic polyneuropathy, hypertension and hypertensive cardio vascular disease, COPD, enlarged prostate, sleep apnea, bradycardia status post permanent pacemaker placement, history of significant degenerative disease of the lumbar spine with significant weakness of both lower extremity currently uses a walker for immolation, restless leg syndrome, and finally history of parkinsonism, currently lives in a custodial. He was in the emergency room secondary to left facial droop, on further inquiry, patient also has slurred speech for the past 2 weeks, and has chronic lower extremity motor difficulties, and he is at home wheelchair bound, with occasional use of a wheeled walker. Family is concerned about the TIA, his NIH score upon ER evaluation is 1, no TPA was given. Patient denies any new motor deficits including diplopia, no isolated motor deficits in the upper extremities, patient denies any melena hematochezia, no headache, no abdominal pain, no chest pain no palpitations. Patient denies any prior stroke events, he has an electronic pacemaker. In the emergency room, CAT scan of the brain was done that shows no acute intracranial hemorrhage or midline shift, there is moderate diffuse, stable atrophy and moderately advanced chronic small vessel ischemia, no significant change from priors EKG shows electronic paced rhythm hemoglobin 11.9 and double basic count 7.2, INR 1.0, creatinine 1.8, sodium 136, glucose of 365, urinalysis was not done. 04/26: Patient is seen this morning by Dr. Lei and he is cleared patient for discharge if echocardiogram is without significant abnormalities. Patient has been ruled in for probable TIA. No new symptoms today. Hemoglobin A1c is 10.7. Scheduled NovoLog will be increased at home. Patient is anxious to be discharged. Discharge plan is to return to [facility]. Patient will be discharged home once all arrangements are completed. Echocardiogram reveals EF of 40-45% mild concentric left ventricular hypertrophy, mild to moderate mitral regurgitation, mild tricuspid regurgitation . Discharge diagnoses: 1. Possible TIA 2 Electronic pacemaker rhythm history of conduction system disease with AV block, known history of chronic diastolic heart failure. 3. CAD post CABG 4 with PCI of the LCx. 4. Hypertension and hypertensive cardiovascular disease. 5. Hyperlipidemia. 5. Diabetes mellitus type 2 uncontrolled. A1c 10.7. 6. Enlarge prostate. 7. History of CVA. 8. History of bradycardia status post permanent pacemaker placement. 9. Degenerative disc disease of the lumbar spine with significant weakness in both lower extremities. 10. Restless leg syndrome. 11. Parkinsonism. Discharge plan: Home Impression and plan of care have been directed as dictated by the signing physician. Starr Jones nurse practitioner acting as scribe for signing physician. Patient Condition at Discharge: Good Plan - Discharge Summary Discharge Rx Participant: No New Discharge Prescriptions: Continue Rosuvastatin Calcium [Crestor] 10 mg PO DAILY@0800 Carvedilol [Coreg] 25 mg PO AC-BID@0800,1999 Potassium Chloride [Klor-Con 20] 20 meq PO DAILY@0800 Aspirin EC [Ecotrin Low Dose] 81 mg PO HS@2000 Dulaglutide [Trulicity] 1.5 mg SQ WE@1400 Finasteride [Proscar] 5 mg PO DAILY@0800 Pioglitazone HCl 15 mg PO DAILY@0800 Clopidogrel Bisulfate [Plavix] 75 mg PO HS@2000 Insulin Glargine,Hum.rec.anlog [Lantus Solostar] 38 unit SQ HS@2000 Carbidopa-Levodopa 25-100 mg [Sinemet 25-100 mg] 1 tab PO BID@0800,1400 Losartan/Hydrochlorothiazide [Hyzaar 100-25 Tablet] 1 tab PO DAILY@0800 Furosemide [Lasix] 40 mg PO BID@0800,1400 Changed Insulin Lispro [humaLOG Kwikpen] 12 unit SQ TID@0730,1130,1630 #0 Discharge Medication List Rosuvastatin Calcium [Crestor] 10 mg PO DAILY@0800 08/27/15 [History] Carvedilol [Coreg] 25 mg PO AC-BID@0800,199909/17/15 [History] Aspirin EC [Ecotrin Low Dose] 81 mg PO HS@199912/05/15 [History] Potassium Chloride [Klor-Con 20] 20 meq PO DAILY@79912/05/15 [History] Dulaglutide [Trulicity] 1.5 mg SQ WE@1400 01/01/18 [History] Clopidogrel Bisulfate [Plavix] 75 mg PO HS@199912/28/18 [History] Finasteride [Proscar] 5 mg PO DAILY@79912/28/18 [History] Pioglitazone HCl 15 mg PO DAILY@79912/28/18 [History] Carbidopa-Levodopa 25-100 mg [Sinemet 25-100 mg] 1 tab PO BID@0800,139904/25/19 [History] Furosemide [Lasix] 40 mg PO BID@0800,139904/25/19 [History] Insulin Glargine,Hum.rec.anlog [Lantus Solostar] 38 unit SQ HS@199904/25/19 [History] Losartan/Hydrochlorothiazide [Hyzaar 100-25 Tablet] 1 tab PO DAILY@79904/25/19 [History] Insulin Lispro [humaLOG Kwikpen] 12 unit SQ TID@0730,1130,1630 #0 04/26/19 [Rx] Follow up Appointment(s)/Referral(s): Maria Victoria Ramirez MD [Primary Care Provider] - 1 Week [facility] Visiting Nurse, [NON-STAFF] - Patient Instructions/Handouts: Transient Ischemic Attack (DC) Activity/Diet/Wound Care/Special Instructions: Contact daughter Elizabeth @[phone] to notify her of discharge time Patient will return to [facility] Patient will need wheelchair van ([phone]) for transport to [facility] ([address] [facility] [address], [facility]) - transport time 1630 - packet at desk Discharge Disposition: TRANSFER TO SNF/F
--- NOTE | 2019-04-27 09:04 | CDI ---
Documentation Clarification Form Date: 04/27/2019 08:47:45 AM From: Norma Vivar RN, CCDS Admit Date: 04/25/2019 01:48:00 PM Patient Name: Elías Vazquez Visit Number: [id number] Discharge Date: 04/26/2019 04:59:00 PM ATTENTION: The Clinical Documentation Specialists (CDI) and [facility] Coding Staff appreciate your assistance in clarifying documentation. Please respond to the clarification below the line at the bottom and electronically sign. The CDI & [facility] Coding staff will review the response and follow-up if needed. Please note: Queries are made part of the Legal Health Record. If you have any questions, please contact the author of this message via ITS. Dr. Edyta Montelongo The patient has diabetes mellitus type 2 uncontrolled. as indicated on progress note on 04/25/19 and in discharge summary. History/Risk Factors: Diabetes Mellitus type 2, Coronary artery disease, Hypertension, CVA, Chronic diastolic heart failure Clinical Indicators: 84-year-old male present secondary to left facial droop. ER evaluation found glucose of 365 with A1c 10.7. In your documentation you have indicated the patient Diabetes to be uncontrolled and further clarification is needed. Treatment: Monitor Blood sugar per orders Insulin, Novolog 10 units SQ AC-TID Insulin, Levemir 38 units SQ HS In order to capture the severity of Illness and necessary documentation specificity, please clarify: Diabetes mellitus type 2 with Hyperglycemia Diabetes mellitus type 2 with Hypoglycemia Other, please specify Unable to Determine (Last Revision: January 2017) dm 2 with hyperglycemia, other specified complications MTDD
[2019-04-27] MEDS ORDERED: DULAGLUTIDE 1.5 MG SQ SCH (14:00)
== END 2019-04-26 16:59 | disposition home health service (06) | DRG 69 ==
LOC: EC 11:04 → 3SCARD 13:48
PROVIDERS: ADMIT Family Medicine; ATTEND Family Medicine
DX: G45.9 Transient cerebral ischemic attack, unspecified (principal); I50.32 Chronic diastolic (congestive) heart failure; E11.42 Type 2 diabetes mellitus with diabetic polyneuropathy; E11.65 Type 2 diabetes mellitus with hyperglycemia; E78.5 Hyperlipidemia, unspecified; F32.9 Major depressive disorder, single episode, unspecified; G20 Parkinson's disease; G25.81 Restless legs syndrome; I11.0 Hypertensive heart disease with heart failure; I25.10 Atherosclerotic heart disease of native coronary artery without angina pectoris; J44.9 Chronic obstructive pulmonary disease, unspecified; M51.36 Other intervertebral disc degeneration, lumbar region; N40.0 Benign prostatic hyperplasia without lower urinary tract symptoms; R29.810 Facial weakness; R47.81 Slurred speech; Z79.02 Long term (current) use of antithrombotics/antiplatelets; Z79.4 Long term (current) use of insulin; Z79.82 Long term (current) use of aspirin; Z79.899 Other long term (current) drug therapy; Z83.3 Family history of diabetes mellitus; Z86.73 Personal history of transient ischemic attack (TIA), and cerebral infarction without residual deficits; Z87.891 Personal history of nicotine dependence; Z95.0 Presence of cardiac pacemaker; Z95.1 Presence of aortocoronary bypass graft; Z99.3 Dependence on wheelchair; R29.701 NIHSS score 1; G47.30 Sleep apnea, unspecified; Z98.49 Cataract extraction status, unspecified eye; Z87.01 Personal history of pneumonia (recurrent); I44.30 Unspecified atrioventricular block
CPT/HCPCS: 36415; 70450; 71046; 80053; 80061; 82550; 82553; 83036; 84484; 85025; 85610; 85730; 93005; 93306; 93880; 96360; 99285

== ENCOUNTER 2019-12-22 17:37 | Inpatient (IN) | payer MEDICARE ==
[2019-12-22] MEDS ORDERED: IPRATROPIUM-ALBUTEROL 3 ML NEB INHALATION STA (18:38)
--- NOTE | 2019-12-22 18:38 | ED ---
SOB HPI - General Chief Complaint: Shortness of Breath Stated Complaint: Cough,Fever Time Seen by Provider: 12/22/19 17:48 Source: patient, family, RN/MD, RN notes reviewed Mode of arrival: wheelchair Limitations: physical limitation - History of Present Illness Initial Comments: This is a 84-year-old male who was brought in by family for evaluation of shortness of breath. He was seen by his doctor today and found have diminished breath sounds low-grade fever of 99.5 saturation 91% room air. He has diminished breath sounds with possible evidence of pneumonia. Additionally the patient's been nonambulatory and route requiring total care more progressively over last week or so. No reports of any fall at this time. Is gotten especially increased over last 4 days. He is demonstrated weakness. MD Complaint: shortness of breath - Related Data Home Medications Medication Instructions Recorded Confirmed Rosuvastatin Calcium [Crestor] 10 mg PO DAILY@0800 08/27/15 04/25/19 Aspirin EC [Ecotrin Low Dose] 81 mg PO HS@199912/05/15 04/25/19 Potassium Chloride [Klor-Con 20] 20 meq PO DAILY@0800 12/05/15 04/25/19 Dulaglutide [Trulicity] 1.5 mg SQ WE@139901/01/18 04/25/19 Clopidogrel Bisulfate [Plavix] 75 mg PO HS@199912/28/18 04/25/19 Finasteride [Proscar] 5 mg PO DAILY@0812/28/18 04/25/19 Carbidopa-Levodopa 25-100 mg 1 tab PO BID@0800,139904/25/19 04/25/19 [Sinemet 25-100 mg] Furosemide [Lasix] 40 mg PO BID@0800,139904/25/19 04/25/19 Insulin Glargine,Hum.rec.anlog 38 unit SQ HS@199904/25/19 04/25/19 [Lantus Solostar] Cranberry Fruit Extract [Cranberry] 500 mg PO DAILY 12/22/19 12/22/19 Gabapentin 600 mg PO BID 12/22/19 12/22/19 Losartan [Cozaar] 50 mg PO DAILY 12/22/19 12/22/19 Pioglitazone HCl 15 mg PO DAILY 12/22/19 12/22/19 carvediloL [Coreg] 12.5 mg PO BID@0800,1600 12/22/19 12/22/19 Previous Rx's Medication Instructions Recorded Insulin Lispro [humaLOG Kwikpen] 12 unit SQ TID@0730,1130,1630 #0 04/26/19 Allergies Allergy/AdvReac Type Severity Reaction Status Date / Time No Known Allergies Allergy Verified 12/22/19 19:48 Review of Systems ROS Statement: Those systems with pertinent positive or pertinent negative responses have been documented in the HPI. ROS Other: All systems not noted in ROS Statement are negative. Past Medical History Past Medical History: Coronary Artery Disease (CAD), Chest Pain / Angina, COPD, Diabetes Mellitus, Hyperlipidemia, Hypertension, Musculoskeletal Disorder, Pneumonia, Prostate Disorder, Sleep Apnea/CPAP/BIPAP Additional Past Medical History / Comment(s): MURMUR, SINUS PROBLEMS, BACK PAIN- DIFFICULTY W/MOBILITY, TIRES EASILY AND SOB. History of Any Multi-Drug Resistant Organisms: None Reported Past Surgical History: Coronary Bypass/CABG, Heart Catheterization, Heart Catheterization With Stent, Hernia Repair, Pacemaker, Tonsillectomy Additional Past Surgical History / Comment(s): QUAD BYPASS, HEART CATH 2010, - 2015(STENTS), COLONOSCOPY, CATARACTS, PACEMAKER, pain clinic procedures. Past Anesthesia/Blood Transfusion Reactions: No Reported Reaction Date of Last Stent Placement:: 2015 Type of Cardiac Device: Permanent Pacemaker Device Placement Date:: 2016 Past Psychological History: Depression Smoking Status: Former smoker Past Alcohol Use History: None Reported Past Drug Use History: None Reported - Past Family History Mother Family Medical History: Diabetes Mellitus Father Family Medical History: Unable to Obtain Additional Family Medical History / Comment(s): UNK TYPE Brother(s) History Unknown: Yes Family Medical History: No Reported History Sister(s) Family Medical History: No Reported History Daughter(s) Family Medical History: No Reported History Son(s) Family Medical History: No Reported History General Exam - General Exam Comments Initial Comments: This is a well-developed well-nourished awake alert but somewhat lethargic male Limitations: physical limitation General appearance: alert, in no apparent distress Head exam: Present: atraumatic, normocephalic, normal inspection Eye exam: Present: normal appearance, PERRL, EOMI. Absent: scleral icterus, conjunctival injection, periorbital swelling ENT exam: Present: mucous membranes dry Neck exam: Present: normal inspection. Absent: tenderness, meningismus, lymphadenopathy Respiratory exam: Present: wheezes, decreased breath sounds. Absent: respiratory distress, rales, rhonchi, stridor Cardiovascular Exam: Present: regular rate, normal rhythm, normal heart sounds. Absent: systolic murmur, diastolic murmur, rubs, gallop, clicks GI/Abdominal exam: Present: soft, normal bowel sounds. Absent: distended, tenderness, guarding, rebound, rigid Extremities exam: Present: normal inspection, full ROM, normal capillary refill. Absent: tenderness, pedal edema, joint swelling, calf tenderness Back exam: Present: normal inspection Neurological exam: Present: alert, oriented X3, CN II-XII intact Psychiatric exam: Present: normal affect, normal mood Skin exam: Present: warm, dry, intact, normal color. Absent: rash Course Vital Signs 12/22/19 12/22/19 12/22/19 17:46 19:05 19:16 Temperature 99.7 F H Pulse Rate 71 70 69 Respiratory 22 Rate Blood Pressure 121/65 O2 Sat by Pulse 92 L Oximetry - Reevaluation(s) Reevaluation #1: 12/22/19 19:53 Reevaluation of the patient after the initial treatment reveals increased aeration. Medical Decision Making - Medical Decision Making I did discuss the findings with the patient and family as well as Dr. Ramirez. Patient will be given a dose of antibiotics he does have evidence of acute bronchospasm he does have a history of smoking. Evidence of chronic renal insufficiency. Increased pulmonary vascular markings on the x-ray but no definitive infiltrate. - Lab Data Result diagrams: 12/22/19 18:16 12/22/19 18:16 Lab Results 12/22/19 12/22/19 12/22/19 Range/Units 18:16 18:16 18:16 WBC 5.5 (3.8-10.6) k/uL RBC 3.57 L (4.30-5.90) m/uL Hgb 11.3 L (13.0-17.5) gm/dL Hct 35.4 L (39.0-53.0) % MCV 99.1 (80.0-100.0) fL MCH 31.5 (25.0-35.0) pg MCHC 31.8 (31.0-37.0) g/dL RDW 13.8 (11.5-15.5) % Plt Count 224 (150-450) k/uL Neutrophils % 65 % Lymphocytes % 24 % Monocytes % 7 % Eosinophils % 1 % Basophils % 1 % Neutrophils # 3.5 (1.3-7.7) k/uL Lymphocytes # 1.3 (1.0-4.8) k/uL Monocytes # 0.4 (0-1.0) k/uL Eosinophils # 0.0 (0-0.7) k/uL Basophils # 0.1 (0-0.2) k/uL PT 9.8 (9.0-12.0) sec INR 0.9 (<1.2) APTT 22.6 (22.0-30.0) sec Sodium 137 (137-145) mmol/L Potassium 5.1 (3.5-5.1) mmol/L Chloride 102 (98-107) mmol/L Carbon Dioxide 25 (22-30) mmol/L Anion Gap 10 mmol/L BUN 44 H (9-20) mg/dL Creatinine 1.96 H (0.66-1.25) mg/dL Est GFR (CKD-EPI)AfAm 35 (>60 ml/min/1.73 sqM) Est GFR (CKD-EPI)NonAf 31 (>60 ml/min/1.73 sqM) Glucose 153 H (74-99) mg/dL Plasma Lactic Acid Magdy (0.7-2.0) mmol/L Calcium 9.0 (8.4-10.2) mg/dL Magnesium 2.4 H (1.6-2.3) mg/dL Total Bilirubin 0.7 (0.2-1.3) mg/dL AST 38 (17-59) U/L ALT <6 (4-49) U/L Alkaline Phosphatase 40 (38-126) U/L Creatine Kinase 231 H (55-170) U/L Troponin I (0.000-0.034) ng/mL NT-Pro-B Natriuret Pep pg/mL Total Protein 7.2 (6.3-8.2) g/dL Albumin 4.2 (3.5-5.0) g/dL Influenza Type A RNA (Not Detectd) Influenza Type B (PCR) (Not Detectd) 12/22/19 12/22/19 12/22/19 Range/Units 18:16 18:16 18:16 WBC (3.8-10.6) k/uL RBC (4.30-5.90) m/uL Hgb (13.0-17.5) gm/dL Hct (39.0-53.0) % MCV (80.0-100.0) fL MCH (25.0-35.0) pg MCHC (31.0-37.0) g/dL RDW (11.5-15.5) % Plt Count (150-450) k/uL Neutrophils % % Lymphocytes % % Monocytes % % Eosinophils % % Basophils % % Neutrophils # (1.3-7.7) k/uL Lymphocytes # (1.0-4.8) k/uL Monocytes # (0-1.0) k/uL Eosinophils # (0-0.7) k/uL Basophils # (0-0.2) k/uL PT (9.0-12.0) sec INR (<1.2) APTT (22.0-30.0) sec Sodium (137-145) mmol/L Potassium (3.5-5.1) mmol/L Chloride (98-107) mmol/L Carbon Dioxide (22-30) mmol/L Anion Gap mmol/L BUN (9-20) mg/dL Creatinine (0.66-1.25) mg/dL Est GFR (CKD-EPI)AfAm (>60 ml/min/1.73 sqM) Est GFR (CKD-EPI)NonAf (>60 ml/min/1.73 sqM) Glucose (74-99) mg/dL Plasma Lactic Acid Magdy 1.2 (0.7-2.0) mmol/L Calcium (8.4-10.2) mg/dL Magnesium (1.6-2.3) mg/dL Total Bilirubin (0.2-1.3) mg/dL AST (17-59) U/L ALT (4-49) U/L Alkaline Phosphatase (38-126) U/L Creatine Kinase (55-170) U/L Troponin I 0.020 (0.000-0.034) ng/mL NT-Pro-B Natriuret Pep 1660 pg/mL Total Protein (6.3-8.2) g/dL Albumin (3.5-5.0) g/dL Influenza Type A RNA (Not Detectd) Influenza Type B (PCR) (Not Detectd) 12/22/19 Range/Units 18:16 WBC (3.8-10.6) k/uL RBC (4.30-5.90) m/uL Hgb (13.0-17.5) gm/dL Hct (39.0-53.0) % MCV (80.0-100.0) fL MCH (25.0-35.0) pg MCHC (31.0-37.0) g/dL RDW (11.5-15.5) % Plt Count (150-450) k/uL Neutrophils % % Lymphocytes % % Monocytes % % Eosinophils % % Basophils % % Neutrophils # (1.3-7.7) k/uL Lymphocytes # (1.0-4.8) k/uL Monocytes # (0-1.0) k/uL Eosinophils # (0-0.7) k/uL Basophils # (0-0.2) k/uL PT (9.0-12.0) sec INR (<1.2) APTT (22.0-30.0) sec Sodium (137-145) mmol/L Potassium (3.5-5.1) mmol/L Chloride (98-107) mmol/L Carbon Dioxide (22-30) mmol/L Anion Gap mmol/L BUN (9-20) mg/dL Creatinine (0.66-1.25) mg/dL Est GFR (CKD-EPI)AfAm (>60 ml/min/1.73 sqM) Est GFR (CKD-EPI)NonAf (>60 ml/min/1.73 sqM) Glucose (74-99) mg/dL Plasma Lactic Acid Magdy (0.7-2.0) mmol/L Calcium (8.4-10.2) mg/dL Magnesium (1.6-2.3) mg/dL Total Bilirubin (0.2-1.3) mg/dL AST (17-59) U/L ALT (4-49) U/L Alkaline Phosphatase (38-126) U/L Creatine Kinase (55-170) U/L Troponin I (0.000-0.034) ng/mL NT-Pro-B Natriuret Pep pg/mL Total Protein (6.3-8.2) g/dL Albumin (3.5-5.0) g/dL Influenza Type A RNA Not Detected (Not Detectd) Influenza Type B (PCR) Not Detected (Not Detectd) - EKG Data -: EKG Interpreted by Me EKG Comments: Atrial sensed pacemaker rate 68. Interval 312 QRS 144 QT since QTC 456/484 artifact present - Radiology Data Radiology results: report reviewed (I did review the imaging and report there is increase evidence of bony basilar markings. He did have elevated low-grade temperature.), image reviewed Disposition Clinical Impression: Dehydration, Acute bronchospasm, Febrile illness, acute, Failure to thrive in adult, Generalized weakness Disposition: ADMITTED IP TO THIS HOSP Condition: Fair Referrals: Maria Victoria Ramirez MD [Primary Care Provider] - 1-2 days
[2019-12-22 18:49] LABS: Basophils # (A) 0.1 k/uL (0-0.2); Basophils % (A) 1 %; Eosinophils % (A) 1 %; HCT 35.4 % (39.0-53.0); HGB 11.3 gm/dL (13.0-17.5); Lymphocytes # (A) 1.3 k/uL (1.0-4.8); Lymphocytes % (A) 24 %; MCH 31.5 pg (25.0-35.0); MCHC 31.8 g/dL (31.0-37.0); MCV 99.1 fL (80.0-100.0); Mean Platelet Volume 7.2; Monocytes # (A) 0.4 k/uL (0-1.0); Monocytes % (A) 7 %; Neutrophils # (A) 3.5 k/uL (1.3-7.7); Neutrophils % (A) 65 %; Platelet Count 224 k/uL (150-450); RBC 3.57 m/uL (4.30-5.90); RDW 13.8 % (11.5-15.5); WBC 5.5 k/uL (3.8-10.6)
[2019-12-22 18:56] LABS: ALT <6 U/L (4-49); AST 38 U/L (17-59); African American GFR (CKD) 35 (>60 ml/min/1.73 sqM); Albumin 4.2 g/dL (3.5-5.0); Alkaline Phosphatase 40 U/L (38-126); Anion Gap 10 mmol/L; Blood Urea Nitrogen 44 mg/dL (9-20); Carbon Dioxide 25 mmol/L (22-30); Chloride 102 mmol/L (98-107); Creatine Kinase 231 U/L (55-170); Glucose 153 mg/dL (74-99); INR 0.9 (<1.2); Magnesium 2.4 mg/dL (1.6-2.3); Non-African American GFR(CKD) 31 (>60 ml/min/1.73 sqM); Partial Thromboplastin Time 22.6 sec (22.0-30.0); Potassium 5.1 mmol/L (3.5-5.1); Prothrombin Time 9.8 sec (9.0-12.0); Sodium 137 mmol/L (137-145); Total Bilirubin 0.7 mg/dL (0.2-1.3); Total Protein 7.2 g/dL (6.3-8.2)
--- NOTE | 2019-12-22 19:22 | XR ---
EXAMINATION TYPE: XR chest 2V DATE OF EXAM: 12/22/2019 COMPARISON: 04/25/2019 HISTORY: Altered mental status TECHNIQUE: 2 views FINDINGS: Heart appears enlarged. There are sternal wires. There is left axillary pacemaker. There is mild pulmonary congestion. Bony thorax is intact. IMPRESSION: Mild pulmonary congestion increased compared to old exam. No definite pleural fluid.
[2019-12-22] MEDS ORDERED: cefTRIAXone IN SWFI 1,000 MG/10 ML SYRINGE IVP STA (19:57)
[2019-12-22] MEDS ORDERED: NALOXONE 0.4 MG/ML 1 ML VIAL IV PRN (20:01)
[2019-12-22] MEDS ORDERED: ACETAMINOPHEN TAB 325 MG TAB PO PRN (20:06)
[2019-12-22] MEDS: GABAPENTIN 300 MG CAP PO SCH (22:05)
[2019-12-22] MEDS: SODIUM CHLORIDE 0.9% 1,000 ML IV SCH (22:08)
[2019-12-23 04:12] LABS: Appearance,Urine Clear (Clear); Bilirubin,Urine Negative (Negative); Blood,Urine Negative (Negative); Color,Urine Yellow; Glucose,Urine (UA) Negative (Negative); Hyaline Casts,Urine 41 /lpf (0-2); Ketones,Urine Negative (Negative); Leukocyte Esterase,Urine Negative (Negative); Mucus,Urine Rare /hpf; Nitrite,Urine Negative (Negative); Protein,Urine 1+ (Negative); RBC,Urine <1 /hpf (0-5); Specific Gravity,Urine 1.013 (1.001-1.035); Squamous Epithelial Cell,Urine <1 /hpf (0-4); Urobilinogen,Urine <2.0 mg/dL (<2.0); WBC,Urine <1 /hpf (0-5)
[2019-12-23 07:26] LABS: Glucose,Whole Blood 94 mg/dL (75-99)
[2019-12-23] MEDS: NON FORMULARY DRUG (Cranberry Fruit Extract [Cranberry] 500 MG Tablet) PO SCH (07:49)
[2019-12-23] MEDS: INSULIN ASPART (NovoLOG) 100 UNIT/ML VIAL SQ SCH ×3 (07:49→17:26)
[2019-12-23] MEDS: GABAPENTIN 300 MG CAP PO SCH ×2 (07:55→23:13)
[2019-12-23] MEDS: POTASSIUM CHLORIDE ER 20 MEQ TAB.ER PO SCH (07:55)
[2019-12-23] MEDS: FUROSEMIDE 40 MG TAB PO SCH ×2 (07:55→14:28)
[2019-12-23] MEDS: CARBIDOPA-LEVODOPA 25-100 MG 1 EACH TAB PO SCH ×2 (07:55→14:28)
[2019-12-23] MEDS: carvediloL 12.5 MG TAB PO SCH ×2 (07:55→17:23)
[2019-12-23] MEDS: PIOGLITAZONE 15 MG TAB PO SCH (07:55)
[2019-12-23] MEDS: FINASTERIDE 5 MG TAB PO SCH (07:55)
[2019-12-23] MEDS: LOSARTAN 50 MG TAB PO SCH (07:55)
[2019-12-23] MEDS: ATORVASTATIN 20 MG TAB PO SCH (07:55)
[2019-12-23 11:41] LABS: Glucose,Whole Blood 125 mg/dL (75-99)
[2019-12-23 14:02] VITALS: BMI 38.9
--- NOTE | 2019-12-23 15:05 | P.HPIM ---
History of Present Illness H&P Date: 12/23/19 Chief Complaint: Shortness of breath This is an 84-year-old male one of my patient with a previous medical history significant for CAD post CABG 4 in 2010 with sequential MARROQUIN to LAD and diagonal branch, SVG to PDA and SVG to the obtuse marginal branch, subsequently underwent left heart catheterization 2016 because of unstable angina he had PCI of the obtuse marginal branch, chronic diastolic heart failure, diabetes mellitus type 2 with diabetic polyneuropathy, hypertension and hypertensive cardio vascular disease, COPD, enlarged prostate, sleep apnea, bradycardia status post permanent pacemaker placement, history of significant degenerative disease of the lumbar spine with significant weakness of both lower extremity currently uses a walker for immolation, restless leg syndrome, and history of parkinsonism. Patient's family brought patient to the emergency center due to shortness of breath. He was seen in the office and had diminished breath sounds concerning for pneumonia with temperature of 99.5 and pulse ox of 91% on room air. Patient has had increasing weakness over the past week especially the last 4 days continuing to worsen. Patient was afebrile, heart rate 71, blood pressure 121/65, pulse ox 92% on 2 L. Diabetes he 5.5, hemoglobin 11.3. Electrolytes normal, BUN 44 and creatinine 1.96, blood sugar 153. CK was 231. Lactic acid 1.2. Troponin 0.020. ProBNP 1660. Influenza testing negative. COVID-19 negative. EKG was a paced rhythm. Urinalysis negative for infection. Chest x-ray revealed mild pulmonary congestion increased rolled exam. No definite pleural fluid. Review of Systems Constitutional: Reports chronic pain, Reports fatigue, Reports lethargy, Reports malaise, Reports weakness, Reports weight loss Eyes: bilateral blurred vision Ears: bilateral: decreased hearing Ears, nose, mouth and throat: Denies dysphagia, Denies neck lump, Denies swelling in throat, Denies sore throat Cardiovascular: Reports decreased exercise tolerance, Reports dyspnea on exertion, Reports edema, Reports shortness of breath, Denies chest pain, Denies lightheadedness, Denies rapid heart beat, Denies syncope Respiratory: Reports dyspnea, Reports sleep apnea, Denies congestion, Denies cough, Denies cough with sputum, Denies home oxygen, Denies snoring, Denies whee zing Gastrointestinal: Reports loss of appetite, Denies abdominal pain, Denies bloating, Denies BRBPR, Denies heartburn, Denies melena, Denies nausea, Denies vomiting Genitourinary: Reports impotence, Reports nocturia, Denies discharge Musculoskeletal: Reports frequent falls, Reports gait dysfunction, Reports leg numbness/tingling, Reports low back pain, Reports muscle weakness, Reports shooting leg pain Musculoskeletal: bilateral: ankle swelling, absent: ankle pain, ankle stiffness, elbow pain, elbow stiffness, elbow swelling, foot pain, foot stiffness, foot swelling, hand pain, hand stiffness, hand swelling, hip pain, hip stiffness, hip swelling, knee pain, knee stiffness, knee swelling, shoulder pain, shoulder stiffness, shoulder swelling, wrist pain, wrist stiffness, wrist swelling Integumentary: Denies pruritus, Denies rash Neurological: Reports gait dysfunction, Reports paresthesias, Reports tingling, Reports weakness, Denies tremors, Denies visual changes Psychiatric: Reports depression, Denies anxiety, Denies sadness/tearfulness, Denies sleep disturbances, Denies suicidal ideation Endocrine: Denies fatigue, Denies weight change Past Medical History Past Medical History: Coronary Artery Disease (CAD), Chest Pain / Angina, COPD, Diabetes Mellitus, Hyperlipidemia, Hypertension, Musculoskeletal Disorder, Pneumonia, Prostate Disorder, Sleep Apnea/CPAP/BIPAP Additional Past Medical History / Comment(s): Murmur, sinus problems, back pain, SOB History of Any Multi-Drug Resistant Organisms: None Reported Past Surgical History: Coronary Bypass/CABG, Heart Catheterization, Heart Catheterization With Stent, Hernia Repair, Pacemaker, Tonsillectomy Additional Past Surgical History / Comment(s): Quad bypass, heart cath 2010, 6 stents (2016), colonoscopy, cataracts, pacemaker, pain clinic procedures Past Anesthesia/Blood Transfusion Reactions: No Reported Reaction Date of Last Stent Placement:: 2015 Type of Cardiac Device: Permanent Pacemaker Device Placement Date:: 2016 Past Psychological History: Depression Smoking Status: Former smoker Past Alcohol Use History: None Reported Additional Past Alcohol Use History / Comment(s): SMOKED X 30 YEARS, 1PPD, QUIT 1969'S Past Drug Use History: None Reported - Past Family History Mother Family Medical History: Diabetes Mellitus Additional Family Medical History / Comment(s): Mother at age 95 from diabetes complications. Father Family Medical History: Unable to Obtain Additional Family Medical History / Comment(s): He didn't know much about his father. Brother(s) History Unknown: Yes Family Medical History: No Reported History Additional Family Medical History / Comment(s): Patient has no brothers. Sister(s) Family Medical History: No Reported History Additional Family Medical History / Comment(s): Patient has no sisters. Daughter(s) Family Medical History: No Reported History Additional Family Medical History / Comment(s): Patient has one daughter with no major medical problems. Son(s) Family Medical History: No Reported History Additional Family Medical History / Comment(s): Patient has one son with no major medical problems. Medications and Allergies Home Medications Medication Instructions Recorded Confirmed Type Rosuvastatin Calcium [Crestor] 10 mg PO DAILY@0800 08/27/15 12/22/19 History Aspirin EC [Ecotrin Low Dose] 81 mg PO HS@199912/05/15 12/22/19 History Potassium Chloride [Klor-Con 20] 20 meq PO DAILY@0800 12/05/15 12/22/19 History Dulaglutide [Trulicity] 1.5 mg SQ WE@139901/01/18 12/22/19 History Clopidogrel Bisulfate [Plavix] 75 mg PO HS@199912/28/18 12/22/19 History Finasteride [Proscar] 5 mg PO DAILY@79912/28/18 12/22/19 History Carbidopa-Levodopa 25-100 mg 1 tab PO BID@0800,139904/25/19 12/22/19 History [Sinemet 25-100 mg] Furosemide [Lasix] 40 mg PO BID@0800,139904/25/19 12/22/19 History Insulin Glargine,Hum.rec.anlog 42 unit SQ HS@199904/25/19 12/22/19 History [Lantus Solostar] Insulin Lispro [humaLOG Kwikpen] 12 unit SQ TID@0730,1130,1630 #0 04/26/19 12/22/19 Rx Cranberry Fruit Extract [Cranberry] 500 mg PO DAILY 12/22/19 12/22/19 History Gabapentin 600 mg PO BID 12/22/19 12/22/19 History Losartan [Cozaar] 50 mg PO DAILY 12/22/19 12/22/19 History Pioglitazone HCl 15 mg PO DAILY 12/22/19 12/22/19 History carvediloL [Coreg] 12.5 mg PO BID@0800,1600 12/22/19 12/22/19 History Allergies Allergy/AdvReac Type Severity Reaction Status Date / Time No Known Allergies Allergy Verified 12/22/19 19:48 Physical Exam Vitals: Vital Signs Temp Pulse Pulse Resp BP BP Pulse Ox 12/23/19 07:10 98.1 F 60 17 159/63 96 12/23/19 01:42 98.6 F 61 16 122/56 96 12/22/19 21:00 69 21 115/49 95 12/22/19 20:50 98.7 F 63 22 109/67 98 12/22/19 20:17 100.9 F H 71 19 133/59 95 12/22/19 19:16 69 12/22/19 19:05 70 12/22/19 17:46 99.7 F H 71 22 121/65 92 L Intake and Output 12/22/19 12/23/19 12/23/19 22:59 06:59 14:59 Output Total 200 Balance -200 Output: Urine 200 Other: Weight 99.79 kg 99.79 kg - Constitutional General appearance: average body habitus, mild distress - EENT Eyes: anicteric sclerae, EOMI, PERRLA, no ptosis, no scleral icterus, normal appearance ENT: hard of hearing, normal oropharynx, no thrush Ears: bilateral: normal - Neck Neck: no lymphadenopathy, normal ROM, no rigidity, no stridor, no thyromegaly Carotids: bilateral: upstroke normal Thyroid: bilateral: normal size - Respiratory Respiratory: bilateral: diminished, rales, negative: dullness, rhonchi, wheezing, prolonged expiration, prolonged inspiration - Cardiovascular Rhythm: regular (Pacemaker.) Heart sounds: normal: S1, S2 Abnormal Heart Sounds: systolic murmur, S3 Gallop, no S4 Gallop, no click - Gastrointestinal General gastrointestinal: normal bowel sounds, soft, tenderness (Right lower quadrant), no umbilical hernia, no ventral hernia - Genitourinary Male genitourinary: enlarged prostate - Integumentary Integumentary: normal, normal turgor - Neurologic Neurologic: CNII-XII intact - Musculoskeletal Musculoskeletal: generalized weakness, strength equal bilaterally - Psychiatric Psychiatric: A&O to person and place, able to follow simple commands, generalized weakness Results CBC & Chem 7: 12/22/19 18:16 12/22/19 18:16 Labs: Abnormal Lab Results - Last 24 Hours (Table) 12/22/19 12/22/19 12/23/19 Range/Units 18:16 18:16 03:40 RBC 3.57 L (4.30-5.90) m/uL Hgb 11.3 L (13.0-17.5) gm/dL Hct 35.4 L (39.0-53.0) % BUN 44 H (9-20) mg/dL Creatinine 1.96 H (0.66-1.25) mg/dL Glucose 153 H (74-99) mg/dL POC Glucose (mg/dL) (75-99) mg/dL Magnesium 2.4 H (1.6-2.3) mg/dL Creatine Kinase 231 H (55-170) U/L Urine Protein 1+ H (Negative) Hyaline Casts 41 H (0-2) /lpf Urine Mucus Rare H (None) /hpf 12/23/19 Range/Units 11:38 RBC (4.30-5.90) m/uL Hgb (13.0-17.5) gm/dL Hct (39.0-53.0) % BUN (9-20) mg/dL Creatinine (0.66-1.25) mg/dL Glucose (74-99) mg/dL POC Glucose (mg/dL) 125 H (75-99) mg/dL Magnesium (1.6-2.3) mg/dL Creatine Kinase (55-170) U/L Urine Protein (Negative) Hyaline Casts (0-2) /lpf Urine Mucus (None) /hpf Thrombosis Risk Factor Assmnt - DVT/VTE Prophylaxis DVT/VTE Prophylaxis: Pharmacologic Prophylaxis ordered - Choose All That Apply Each Risk Factor Represents 3 Points: Age 75 years or older Other congenital or acquired thrombophilia - If yes, enter type in comment: No Thrombosis Risk Factor Assessment Total Risk Factor Score: 3 Thrombosis Risk Factor Assessment Level: Moderate Risk Assessment and Plan Plan: 1. Dyspnea, exertional dyspnea and generalized weakness secondary to a combination of bronchospasm, chronic diastolic heart failure, acute renal john lure. Continue Lasix 40 mg oral twice daily, continue Coreg 12.5 mg orally twice every day, losartan 50 mg orally once every day, monitor the patient input and output and daily weight. 2. Acute kidney injury with chronic kidney disease stage III, baseline creatinine 1.5. Avoid nephrotoxic agents. Okay to continue losartan and Lasix at current dose. 3. CAD post CABG 4 with PCI of the LCx. Continue aspirin 81 mg once every day, Plavix 75 mg orally once every day, Coreg 12.5 mg orally twice every day, Lipitor 20 mg daily. 3. Hypertension and hypertensive cardiovascular disease. Continue losartan 50 mg orally once every day, Coreg 12.5 mg orally twice every day. 4. Hyperlipidemia. Patient is normally on Crestor 10 mg daily. 5. Diabetes mellitus type 2. Continue patient on Lantus 42 units at bedtime along with a sliding scale insulin, Actos 15 mg daily. Hold off metformin as well as Trulicity. 6. Enlarge prostate. Continue patient on finasteride 5 mg orally once every day. 7. History of CVA. Continue aspirin and Plavix and crestor for secondary stroke prevention. 8. History of bradycardia status post permanent pacemaker placement. 9. Degenerative disc disease of the lumbar spine with significant weakness in both lower extremities. Physical therapy evaluation. Continue gabapentin 600 mg twice daily, Tylenol for pain 10. Restless leg syndrome. 11. Parkinsonism. Start Sinemet one twice daily. 12. DVT prophylaxis. Heparin 5000 units subcutaneously every 12 hours. 13. GI prophylaxis. Protonix 40 mg orally once every day. 14. Admit to inpatient. Estimated length of stay 2 midnights. 15. Patient is full code. 16. Physical therapy evaluation as well as social insurance analyst evaluation for subacute rehabilitation. Impression and plan of care have been directed as dictated by the signing physician. Starr Jones nurse practitioner acting as scribe for signing physician.
[2019-12-23 17:31] LABS: Glucose,Whole Blood 224 mg/dL (75-99)
[2019-12-23 22:06] LABS: Glucose,Whole Blood 127 mg/dL (75-99)
[2019-12-23] MEDS: HEPARIN SODIUM,PORCINE 5,000 UNIT/ML 1 ML VIAL SQ SCH (23:10)
[2019-12-23] MEDS: INSULIN DETEMIR (LEVEMIR) 100 UNIT/ML SYR SQ SCH (23:12)
[2019-12-23] MEDS: CLOPIDOGREL 75 MG TAB PO SCH (23:13)
[2019-12-23] MEDS: SODIUM CHLORIDE 0.9% 1,000 ML IV SCH (23:13)
[2019-12-23] MEDS: ASPIRIN 81 MG PO SCH (23:13)
[2019-12-24 07:21] LABS: Glucose,Whole Blood 88 mg/dL (75-99)
[2019-12-24] MEDS: INSULIN ASPART (NovoLOG) 100 UNIT/ML VIAL SQ SCH ×3 (08:04→17:05)
[2019-12-24] MEDS: FINASTERIDE 5 MG TAB PO SCH (08:38)
[2019-12-24] MEDS: HEPARIN SODIUM,PORCINE 5,000 UNIT/ML 1 ML VIAL SQ SCH ×2 (08:39→21:37)
[2019-12-24] MEDS: FUROSEMIDE 40 MG TAB PO SCH ×2 (08:39→12:45)
[2019-12-24] MEDS: CARBIDOPA-LEVODOPA 25-100 MG 1 EACH TAB PO SCH ×2 (08:39→12:45)
[2019-12-24] MEDS: ATORVASTATIN 20 MG TAB PO SCH (08:39)
[2019-12-24] MEDS: carvediloL 12.5 MG TAB PO SCH ×2 (08:39→17:05)
[2019-12-24] MEDS: GABAPENTIN 300 MG CAP PO SCH ×2 (08:39→21:38)
[2019-12-24] MEDS: POTASSIUM CHLORIDE ER 20 MEQ TAB.ER PO SCH (08:39)
[2019-12-24] MEDS: LOSARTAN 50 MG TAB PO SCH (08:39)
[2019-12-24] MEDS: PANTOPRAZOLE 40 MG TABLET PO SCH (08:39)
[2019-12-24] MEDS: PIOGLITAZONE 15 MG TAB PO SCH (08:42)
[2019-12-24] MEDS: NON FORMULARY DRUG (Cranberry Fruit Extract [Cranberry] 500 MG Tablet) PO SCH (09:11)
[2019-12-24 12:01] LABS: Glucose,Whole Blood 192 mg/dL (75-99)
--- NOTE | 2019-12-24 13:21 | P.PN ---
Subjective Progress Note Date: 12/24/19 This is an 84-year-old male one of my patient with a previous medical history significant for CAD post CABG 4 in 2010 with sequential M[place] to LAD and diagonal branch, SVG to PDA and SVG to the obtuse marginal branch, subsequently underwent left heart catheterization 2016 because of unstable angina he had PCI of the obtuse marginal branch, chronic diastolic heart failure, diabetes mellitus type 2 with diabetic polyneuropathy, hypertension and hypertensive cardio vascular disease, COPD, enlarged prostate, sleep apnea, bradycardia status post permanent pacemaker placement, history of significant degenerative disease of the lumbar spine with significant weakness of both lower extremity currently uses a walker for immolation, restless leg syndrome, and history of parkinsonism. Patient's family brought patient to the emergency center due to shortness of breath. He was seen in the office and had diminished breath sounds concerning for pneumonia with temperature of 99.5 and pulse ox of 91% on room air. Patient has had increasing weakness over the past week especially the last 4 days continuing to worsen. Patient was afebrile, heart rate 71, blood pressure 121/65, pulse ox 92% on 2 L. Diabetes he 5.5, hemoglobin 11.3. Electrolytes normal, BUN 44 and creatinine 1.96, blood sugar 153. CK was 231. Lactic acid 1.2. Troponin 0.020. ProBNP 1660. Influenza testing negative. COV ID-19 negative. EKG was a paced rhythm. Urinalysis negative for infection. Chest x-ray revealed mild pulmonary congestion increased rolled exam. No definite pleural fluid. 12/23: Patient sitting up in a chair today he appears to be generally weak he has no chest pain or shortness breath, he does not appear to have any fever or chills at this time, she seems to be eating well patient denies any abdominal pain no nausea or vomiting he did have a bowel movement, patient is requiring about 2 person assist to transfer from bed to recliner we will continue with physical therapy for another 24 hours. Hopefully the patient can be sent to [facility] on Thursday. Objective - Vital Signs Vital signs: Vital Signs Temp 98.3 F 12/24/19 07:00 Pulse 62 12/24/19 07:00 Resp 17 12/24/19 07:00 BP 146/70 12/24/19 07:00 Pulse Ox 96 12/24/19 07:00 Intake & Output 12/23/19 12/24/19 12/24/19 18:59 06:59 18:59 Output Total 700 1225 Balance -700 -1225 Weight 99.79 kg Output: Urine 700 1225 - Exam Review of Systems Constitutional: Reports chronic pain, Reports fatigue, Reports lethargy, Reports malaise, Reports weakness, Reports weight loss Eyes: bilateral blurred vision Ears: bilateral: decreased hearing Ears, nose, mouth and throat: Denies dysphagia, Denies neck lump, Denies swelling in throat, Denies sore throat Cardiovascular: Reports decreased exercise tolerance, Reports dyspnea on exe rtion, Reports edema, Reports shortness of breath, Denies chest pain, Denies lightheadedness, Denies rapid heart beat, Denies syncope Respiratory: Reports dyspnea, Reports sleep apnea, Denies congestion, Denies cough, Denies cough with sputum, Denies home oxygen, Denies snoring, Denies wheezing Gastrointestinal: Reports loss of appetite, Denies abdominal pain, Denies bloating, Denies BRBPR, Denies heartburn, Denies melena, Denies nausea, Denies v omiting Genitourinary: Reports impotence, Reports nocturia, Denies discharge Musculoskeletal: Reports frequent falls, Reports gait dysfunction, Reports leg numbness/tingling, Reports low back pain, Reports muscle weakness, Reports shooting leg pain Musculoskeletal: bilateral: ankle swelling, absent: ankle pain, ankle stiffness, elbow pain, elbow stiffness, elbow swelling, foot pain, foot stiffness, foot swelling, hand pain, hand stiffness, hand swelling, hip pain, hip stiffness, hip swelling, knee pain, knee stiffness, knee swelling, shoulder pain, shoulder stiffness, shoulder swelling, wrist pain, wrist stiffness, wrist swelling Integumentary: Denies pruritus, Denies rash Neurological: Reports gait dysfunction, Reports paresthesias, Reports tingling, Reports weakness, Denies tremors, Denies visual changes Psychiatric: Reports depression, Denies anxiety, Denies sadness/tearfulness, Denies sleep disturbances, Denies suicidal ideation Endocrine: Denies fatigue, Denies weight change - Constitutional General appearance: average body habitus, mild distress - EENT Eyes: anicteric sclerae, EOMI, PERRLA, no ptosis, no scleral icterus, normal appearance ENT: hard of hearing, normal oropharynx, no thrush Ears: bilateral: normal - Neck Neck: no lymphadenopathy, normal ROM, no rigidity, no stridor, no thyromegaly Carotids: bilateral: upstroke normal Thyroid: bilateral: normal size - Respiratory Respiratory: bilateral: diminished, rales, negative: dullness, rhonchi, wheezing, prolonged expiration, prolonged inspiration - Cardiovascular Rhythm: regular (Pacemaker.) Heart sounds: normal: S1, S2 Abnormal Heart Sounds: systolic murmur, S3 Gallop, no S4 Gallop, no click - Gastrointestinal General gastrointestinal: normal bowel sounds, soft, tenderness (Right lower quadrant), no umbilical hernia, no ventral hernia - Genitourinary Male genitourinary: enlarged prostate - Integumentary Integumentary: normal, normal turgor - Neurologic Neurologic: CNII-XII intact - Musculoskeletal Musculoskeletal: generalized weakness, strength equal bilaterally - Psychiatric Psychiatric: A&O to person and place, able to follow simple commands, gen eralized weakness - Labs CBC & Chem 7: 12/22/19 18:16 12/22/19 18:16 Labs: Abnormal Lab Results - Last 24 Hours (Table) 12/23/19 12/23/19 12/24/19 Range/Units 17:23 22:03 11:59 POC Glucose (mg/dL) 224 H 127 H 192 H (75-99) mg/dL Microbiology - Last 24 Hours (Table) 12/22/19 18:16 Blood Culture - Preliminary Blood No Growth after 24 hours Assessment and Plan Assessment: Assessment and Plan Plan: 1. Dyspnea, exertional dyspnea and generalized weakness secondary to a combination of bronchospasm, chronic diastolic heart failure, acute renal failure. Continue Lasix 40 mg oral twice daily, continue Coreg 12.5 mg orally twice every day, losartan 50 mg orally once every day, monitor the patient input and output and daily weight. 2. Acute kidney injury with chronic kidney disease stage III, baseline creatinine 1.5. Avoid nephrotoxic agents. Okay to continue losartan and Lasix at current dose. 3. CAD post CABG 4 with PCI of the LCx. Continue aspirin 81 mg once every day, Plavix 75 mg orally once every day, Coreg 12.5 mg orally twice every day, Lipitor 20 mg daily. 3. Hypertension and hypertensive cardiovascular disease. Continue losartan 50 mg orally once every day, Coreg 12.5 mg orally twice every day. 4. Hyperlipidemia. Patient is normally on Crestor 10 mg daily. 5. Diabetes mellitus type 2. Continue patient on Lantus 42 units at bedtime along with a sliding scale insulin, Actos 15 mg daily. Hold off metformin as well as Trulicity. 6. Enlarge prostate. Continue patient on finasteride 5 mg orally once every day. 7. History of CVA. Continue aspirin and Plavix and crestor for secondary stroke prevention. 8. History of bradycardia status post permanent pacemaker placement. 9. Degenerative disc disease of the lumbar spine with significant weakness in both lower extremities. Physical therapy evaluation. Continue gabapentin 600 mg twice daily, Tylenol for pain 10. Restless leg syndrome. 11. Parkinsonism. Start Sinemet one twice daily. 12. DVT prophylaxis. Heparin 5000 units subcutaneously every 12 hours. 13. GI prophylaxis. Protonix 40 mg orally once every day. 14. generalized weakness with recurrent falls at the [facility], PT/OT evaluation and criminal justice social worker consultation for discharge planning. 15. Full code.
[2019-12-24 16:25] LABS: Glucose,Whole Blood 149 mg/dL (75-99)
[2019-12-24 20:31] LABS: Glucose,Whole Blood 136 mg/dL (75-99)
[2019-12-24] MEDS: ASPIRIN 81 MG PO SCH (21:38)
[2019-12-24] MEDS: CLOPIDOGREL 75 MG TAB PO SCH (21:38)
[2019-12-24] MEDS: INSULIN DETEMIR (LEVEMIR) 100 UNIT/ML SYR SQ SCH (21:39)
[2019-12-24] MEDS: SODIUM CHLORIDE 0.9% 1,000 ML IV SCH (21:40)
[2019-12-25 07:09] LABS: Glucose,Whole Blood 94 mg/dL (75-99)
[2019-12-25] MEDS: INSULIN ASPART (NovoLOG) 100 UNIT/ML VIAL SQ SCH ×3 (07:19→17:24)
[2019-12-25 07:42] LABS: Basophils # (A) 0.1 k/uL (0-0.2); Basophils % (A) 1 %; Eosinophils # (A) 0.3 k/uL (0-0.7); Eosinophils % (A) 6 %; HCT 32.4 % (39.0-53.0); HGB 10.3 gm/dL (13.0-17.5); Lymphocytes # (A) 1.2 k/uL (1.0-4.8); Lymphocytes % (A) 23 %; MCH 31.5 pg (25.0-35.0); MCHC 31.8 g/dL (31.0-37.0); MCV 99.3 fL (80.0-100.0); Monocytes # (A) 0.4 k/uL (0-1.0); Monocytes % (A) 8 %; Neutrophils # (A) 3.1 k/uL (1.3-7.7); Neutrophils % (A) 59 %; Platelet Count 261 k/uL (150-450); RBC 3.26 m/uL (4.30-5.90); RDW 13.6 % (11.5-15.5); WBC 5.2 k/uL (3.8-10.6)
[2019-12-25 08:00] LABS: Calcium 8.7 mg/dL (8.4-10.2); Potassium 4.3 mmol/L (3.5-5.1)
[2019-12-25] MEDS: NON FORMULARY DRUG (Cranberry Fruit Extract [Cranberry] 500 MG Tablet) PO SCH (08:09)
[2019-12-25] MEDS: carvediloL 12.5 MG TAB PO SCH ×2 (08:38→17:24)
[2019-12-25] MEDS: ATORVASTATIN 20 MG TAB PO SCH (08:38)
[2019-12-25] MEDS: FINASTERIDE 5 MG TAB PO SCH (08:38)
[2019-12-25] MEDS: CARBIDOPA-LEVODOPA 25-100 MG 1 EACH TAB PO SCH ×2 (08:38→14:15)
[2019-12-25] MEDS: PIOGLITAZONE 15 MG TAB PO SCH (08:38)
[2019-12-25] MEDS: PANTOPRAZOLE 40 MG TABLET PO SCH (08:38)
[2019-12-25] MEDS: POTASSIUM CHLORIDE ER 20 MEQ TAB.ER PO SCH (08:38)
[2019-12-25] MEDS: FUROSEMIDE 40 MG TAB PO SCH ×2 (08:38→14:15)
[2019-12-25] MEDS: GABAPENTIN 300 MG CAP PO SCH ×2 (08:38→20:40)
[2019-12-25] MEDS: HEPARIN SODIUM,PORCINE 5,000 UNIT/ML 1 ML VIAL SQ SCH ×2 (08:38→20:40)
[2019-12-25] MEDS: LOSARTAN 50 MG TAB PO SCH (08:38)
--- NOTE | 2019-12-25 09:56 | P.PN ---
Subjective Progress Note Date: 12/25/19 This is an 84-year-old male one of my patient with a previous medical history significant for CAD post CABG 4 in 2010 with sequential MARROQUIN to LAD and diagonal branch, SVG to PDA and SVG to the obtuse marginal branch, subsequently underwent left heart catheterization 2016 because of unstable angina he had PCI of the obtuse marginal branch, chronic diastolic heart failure, diabetes mellitus type 2 with diabetic polyneuropathy, hypertension and hypertensive cardio vascular disease, COPD, enlarged prostate, sleep apnea, bradycardia status post permanent pacemaker placement, history of significant degenerative disease of the lumbar spine with significant weakness of both lower extremity currently uses a walker for immolation, restless leg syndrome, and history of parkinsonism. Patient's family brought patient to the emergency center due to shortness of breath. He was seen in the office and had diminished breath sounds concerning for pneumonia with temperature of 99.5 and pulse ox of 91% on room air. Patient has had increasing weakness over the past week especially the last 4 days continuing to worsen. Patient was afebrile, heart rate 71, blood pressure 121/65, pulse ox 92% on 2 L. Diabetes he 5.5, hemoglobin 11.3. Electrolytes normal, BUN 44 and creatinine 1.96, blood sugar 153. CK was 231. Lactic acid 1.2. Troponin 0.020. ProBNP 1660. Influenza testing negative. COV ID-19 negative. EKG was a paced rhythm. Urinalysis negative for infection. Chest x-ray revealed mild pulmonary congestion increased rolled exam. No definite pleural fluid. 12/23: Patient sitting up in a chair today he appears to be generally weak he has no chest pain or shortness breath, he does not appear to have any fever or chills at this time, she seems to be eating well patient denies any abdominal pain no nausea or vomiting he did have a bowel movement, patient is requiring about 2 person assist to transfer from bed to recliner we will continue with physical therapy for another 24 hours. Hopefully the patient can be sent to [facility] on Thursday. 12/24: Patient is sitting up in the commode he tried to stand up with a physical therapist he continues to be extremely weak he will require 2 person assist at this point in time I advised the patient to go to the extended care facility for physical therapy rehabilitation as he is at increased risk of falling he denies any chest pain or shortness breath, he is eating 100% of his meals, he has no abdominal pain, nausea or vomiting he does complain of rash in the back that is itchy we will start him on hydrocortisone 2.5% apply twice every day, patient will continue to work with physical therapy the plan is to discharge him back to [facility] Objective - Vital Signs Vital signs: Vital Signs Temp 98.7 F 12/25/19 07:00 Pulse 67 12/25/19 07:00 Resp 19 12/25/19 07:00 BP 161/67 12/25/19 07:00 Pulse Ox 93 L 12/25/19 07:00 Intake & Output 12/24/19 12/25/19 12/25/19 18:59 06:59 18:59 Output Total 325 700 300 Balance -325 700 -300 Output: Urine 325 700 300 - Exam Review of Systems Constitutional: Reports chronic pain, Reports fatigue, Reports lethargy, Reports malaise, Reports weakness, Reports weight loss Eyes: bilateral blurred vision Ears: bilateral: decreased hearing Ears, nose, mouth and throat: Denies dysphagia, Denies neck lump, Denies swelli ng in throat, Denies sore throat Cardiovascular: Reports decreased exercise tolerance, Reports dyspnea on exertion, Reports edema, Reports shortness of breath, Denies chest pain, Denies lightheadedness, Denies rapid heart beat, Denies syncope Respiratory: Reports dyspnea, Reports sleep apnea, Denies congestion, Denies cough, Denies cough with sputum, Denies home oxygen, Denies snoring, Denies wheezing Gastrointestinal: Reports loss of appetite, Denies abdominal pain, Denies bloating, Denies BRBPR, Denies heartburn, Denies melena, Denies nausea, Denies vomiting Genitourinary: Reports impotence, Reports nocturia, Denies discharge Musculoskeletal: Reports frequent falls, Reports gait dysfunction, Reports leg numbness/tingling, Reports low back pain, Reports muscle weakness, Reports shooting leg pain Musculoskeletal: bilateral: ankle swelling, absent: ankle pain, ankle stiffness, elbow pain, elbow stiffness, elbow swelling, foot pain, foot stiffness, foot swelling, hand pain, hand stiffness, hand swelling, hip pain, hip stiffness, hip swelling, knee pain, knee stiffness, knee swelling, shoulder pain, shoulder stiffness, shoulder swelling, wrist pain, wrist stiffness, wrist swelling Integumentary: Denies pruritus, Denies rash Neurological: Reports gait dysfunction, Reports paresthesias, Reports tingling, Reports weakness, Denies tremors, Denies visual changes Psychiatric: Reports depression, Denies anxiety, Denies sadness/tearfulness, Denies sleep disturbances, Denies suicidal ideation Endocrine: Denies fatigue, Denies weight change - Constitutional General appearance: average body habitus, mild distress - EENT Eyes: anicteric sclerae, EOMI, PERRLA, no ptosis, no scleral icterus, normal appearance ENT: hard of hearing, normal oropharynx, no thrush Ears: bilateral: normal - Neck Neck: no lymphadenopathy, normal ROM, no rigidity, no stridor, no thyromegaly Carotids: bilateral: upstroke normal Thyroid: bilateral: normal size - Respiratory Respiratory: bilateral: diminished, rales, negative: dullness, rhonchi, wheezing, prolonged expiration, prolonged inspiration - Cardiovascular Rhythm: regular (Pacemaker.) Heart sounds: normal: S1, S2 Abnormal Heart Sounds: systolic murmur, S3 Gallop, no S4 Gallop, no click - Gastrointestinal General gastrointestinal: normal bowel sounds, soft, tenderness (Right lower quadrant), no umbilical hernia, no ventral hernia - Genitourinary Male genitourinary: enlarged prostate - Integumentary Integumentary: normal, normal turgor - Neurologic Neurologic: CNII-XII intact - Musculoskeletal Musculoskeletal: generalized weakness, strength equal bilaterally - Psychiatric Psychiatric: A&O to person and place, able to follow simple commands, generalized weakness - Labs CBC & Chem 7: 12/25/19 07:19 12/25/19 07:19 Labs: Abnormal Lab Results - Last 24 Hours (Table) 12/24/19 12/24/19 12/24/19 Range/Units 11:59 16:23 20:25 RBC (4.30-5.90) m/uL Hgb (13.0-17.5) gm/dL Hct (39.0-53.0) % BUN (9-20) mg/dL Creatinine (0.66-1.25) mg/dL POC Glucose (mg/dL) 192 H 149 H 136 H (75-99) mg/dL 12/25/19 12/25/19 Range/Units 07:19 07:19 RBC 3.26 L (4.30-5.90) m/uL Hgb 10.3 L (13.0-17.5) gm/dL Hct 32.4 L (39.0-53.0) % BUN 37 H (9-20) mg/dL Creatinine 1.45 H (0.66-1.25) mg/dL POC Glucose (mg/dL) (75-99) mg/dL Microbiology - Last 24 Hours (Table) 12/22/19 18:16 Blood Culture - Preliminary Blood No Growth after 48 hours Assessment and Plan Assessment: Assessment and Plan Plan: 1. Dyspnea on exertion exertion with generalized weakness secondary to a combination of bronchospasm, chronic diastolic heart failure, acute renal john lure. Continue Lasix 40 mg oral twice daily, continue Coreg 12.5 mg orally twice every day, losartan 50 mg orally once every day, monitor the patient input and output and daily weight. 2. Acute kidney injury with chronic kidney disease stage III, baseline creatinine 1.5. Avoid nephrotoxic agents. Okay to continue losartan and Lasix at current dose. 3. CAD post CABG 4 with PCI of the LCx. Continue aspirin 81 mg once every day, Plavix 75 mg orally once every day, Coreg 12.5 mg orally twice every day, Lipitor 20 mg daily. 3. Hypertension and hypertensive cardiovascular disease. Continue losartan 50 mg orally once every day, Coreg 12.5 mg orally twice every day. 4. Hyperlipidemia. Patient is normally on Crestor 10 mg daily. 5. Diabetes mellitus type 2. Continue patient on Lantus 42 units at bedtime along with a sliding scale insulin, Actos 15 mg daily. Hold off metformin as well as Trulicity. 6. Enlarge prostate. Continue patient on finasteride 5 mg orally once every day. 7. History of CVA. Continue aspirin and Plavix and crestor for secondary stroke prevention. 8. History of bradycardia status post permanent pacemaker placement. 9. Degenerative disc disease of the lumbar spine with significant weakness in both lower extremities. Physical therapy evaluation. Continue gabapentin 600 mg twice daily, Tylenol for pain 10. Restless leg syndrome. 11. Parkinsonism. Start Sinemet one twice daily. 12. DVT prophylaxis. Heparin 5000 units subcutaneously every 12 hours. 13. GI prophylaxis. Protonix 40 mg orally once every day. 14. generalized weakness with recurrent falls at the AFC, PT/OT recommended ECF for physical therapy rehabilitation for the next 2 weeks. 15. pupuric rash on his back that is itchy. we will apply Hydrocortisone cream 2.5 % bid 16. [place] in AM.
[2019-12-25 11:29] LABS: Glucose,Whole Blood 170 mg/dL (75-99)
[2019-12-25 16:25] LABS: Glucose,Whole Blood 159 mg/dL (75-99)
[2019-12-25] MEDS: ASPIRIN 81 MG PO SCH (20:40)
[2019-12-25] MEDS: CLOPIDOGREL 75 MG TAB PO SCH (20:40)
[2019-12-25 20:53] LABS: Glucose,Whole Blood 104 mg/dL (75-99)
[2019-12-25] MEDS: INSULIN DETEMIR (LEVEMIR) 100 UNIT/ML SYR SQ SCH (21:24)
[2019-12-25] MEDS: SODIUM CHLORIDE 0.9% 1,000 ML IV SCH (22:27)
[2019-12-25] MEDS: TRIAMCINOLONE 0.1% CREAM 80 GM TUBE TOPICAL SCH (23:22)
[2019-12-26 06:51] LABS: Glucose,Whole Blood 113 mg/dL (75-99)
[2019-12-26] MEDS: INSULIN ASPART (NovoLOG) 100 UNIT/ML VIAL SQ SCH ×3 (07:30→17:18)
--- NOTE | 2019-12-26 08:11 | P.DS ---
Providers Date of admission: 12/23/19 14:02 Expected date of discharge: 12/27/19 Attending physician: Maria Victoria Ramirez Primary care physician: Maria Victoria Ramirez Hospital Course: This is an 84-year-old male one of my patient with a previous medical history significant for CAD post CABG 4 in 2010 with sequential MARROQUIN to LAD and diagonal branch, SVG to PDA and SVG to the obtuse marginal branch, subsequently underwent left heart catheterization 2015 because of unstable angina he had PCI of the obtuse marginal branch, chronic diastolic heart failure, diabetes mellitus type 2 with diabetic polyneuropathy, hypertension and hypertensive card io vascular disease, COPD, enlarged prostate, sleep apnea, bradycardia status post permanent pacemaker placement, history of significant degenerative disease of the lumbar spine with significant weakness of both lower extremity currently uses a walker for immolation, restless leg syndrome, and history of parkinsonism. Patient's family brought patient to the emergency center due to shortness of breath. He was seen in the office and had diminished breath sounds concerning for pneumonia with temperature of 99.5 and pulse ox of 91% on room air. Patient has had increasing weakness over the past week especially the last 4 days continuing to worsen. Patient was afebrile, heart rate 71, blood pressure 121/65, pulse ox 92% on 2 L. Diabetes he 5.5, hemoglobin 11.3. Electrolytes normal, BUN 44 and creatinine 1.96, blood sugar 153. CK was 231. Lactic acid 1.2. Troponin 0.020. ProBNP 1660. Influenza testing negative. COVID-19 negative. EKG was a paced rhythm. Urinalysis negative for infection. Chest x-ray revealed mild pulmonary congestion increased rolled exam. No definite pleural fluid. 12/23: Patient sitting up in a chair today he appears to be generally weak he has no chest pain or shortness breath, he does not appear to have any fever or chills at this time, she seems to be eating well patient denies any abdominal pain no nausea or vomiting he did have a bowel movement, patient is requiring about 2 person assist to transfer from bed to recliner we will continue with physical therapy for another 24 hours. Hopefully the patient can be sent to [facility] on Thursday. 12/24: Patient is sitting up in the commode he tried to stand up with a physical therapist he continues to be extremely weak he will require 2 person assist at this point in time I advised the patient to go to the [facility] for physical therapy rehabilitation as he is at increased risk of falling he denies any chest pain or shortness breath, he is eating 100% of his meals, he has no abdominal pain, nausea or vomiting he does complain of rash in the back that is itchy we will start him on hydrocortisone 2.5% apply twice every day, patient will continue to work with physical therapy the plan is to discharge him back to [facility]. 12/25: Patient has been afebrile, HR 68, BP 107/52. Patient is prepared for discharge to [facility] for rehab. COVID testing ordered. Patient denies any new concerns. Family updated. 12/26: Discharge was delayed due to insurance authorization and COVID testing. Both have been obtained and patient is prepared for discharge to [facility]. Kika moran continues to have significant weakness and would benefit from rehab. Patient will be coninued on Kenalog cream for rash. Patient's family at bedside and all questions have been answered. Patient will be discharged in stable condition. Discharge Diagnoses: 1. Dyspnea on exertion exertion with generalized weakness secondary to a combination of bronchospasm, chronic diastolic heart failure, acute renal failure. 2. Acute kidney injury with chronic kidney disease stage III, baseline creatinine 1.5. 3. CAD post CABG 4 with PCI of the LCx. 4. Hypertension and hypertensive cardiovascular disease. 5. Hyperlipidemia. 6. Diabetes mellitus type 2. 7. Enlarge prostate. 8. History of CVA. 9. History of bradycardia status post permanent pacemaker placement. 10. Degenerative disc disease of the lumbar spine with significant weakness in both lower extremities. 11. Restless leg syndrome. 12. Parkinsonism. 13. Generalized weakness with recurrent falls. 14. Pupuric rash on his back that is itchy. Discharge plan: [facility] Patient Condition at Discharge: Fair Plan - Discharge Summary Discharge Rx Participant: No New Discharge Prescriptions: New Triamcinolone 0.1% Cream [Kenalog 0.1% Cream] 1 applic TOPICAL BID applic Pantoprazole [Protonix] 40 mg PO AC-BRKFST tablet. Acetaminophen Tab [Tylenol] 650 mg PO Q6HR PRN tab PRN Reason: Mild Pain Or Fever > 100.5 bisacodyL [Dulcolax] 10 mg RECTAL DAILY #1 supp Sennosides-Docusate Sodium [Senokot-S] 2 tab PO DAILY #60 tablet Continue Rosuvastatin Calcium [Crestor] 10 mg PO DAILY@0800 Potassium Chloride [Klor-Con 20] 20 meq PO DAILY@0800 Aspirin EC [Ecotrin Low Dose] 81 mg PO HS@1999 Dulaglutide [Trulicity] 1.5 mg SQ WE@1400 Finasteride [Proscar] 5 mg PO DAILY@0800 Clopidogrel Bisulfate [Plavix] 75 mg PO HS@1999 Insulin Glargine,Hum.rec.anlog [Lantus Solostar] 42 unit SQ HS@1999 Carbidopa-Levodopa 25-100 mg [Sinemet 25-100 mg] 1 tab PO BID@0800,1400 Furosemide [Lasix] 40 mg PO BID@0800,1400 Insulin Lispro [humaLOG Kwikpen] 12 unit SQ TID@0730,1130,1630 #0 Losartan [Cozaar] 50 mg PO DAILY Cranberry Fruit Extract [Cranberry] 500 mg PO DAILY carvediloL [Coreg*] 12.5 mg PO BID@0800,1600 Pioglitazone HCl 15 mg PO DAILY Gabapentin 600 mg PO BID #6 tab Discharge Medication List Rosuvastatin Calcium [Crestor] 10 mg PO DAILY@0800 08/27/15 [History] Aspirin EC [Ecotrin Low Dose] 81 mg PO HS@199912/05/15 [History] Potassium Chloride [Klor-Con 20] 20 meq PO DAILY@0800 12/05/15 [History] Dulaglutide [Trulicity] 1.5 mg SQ WE@139901/01/18 [History] Clopidogrel Bisulfate [Plavix] 75 mg PO HS@199912/28/18 [History] Finasteride [Proscar] 5 mg PO DAILY@0800 12/28/18 [History] Carbidopa-Levodopa 25-100 mg [Sinemet 25-100 mg] 1 tab PO BID@0800,1400 04/25/19 [History] Furosemide [Lasix] 40 mg PO BID@0800,1400 04/25/19 [History] Insulin Glargine,Hum.rec.anlog [Lantus Solostar] 42 unit SQ HS@199904/25/19 [History] Insulin Lispro [humaLOG Kwikpen] 12 unit SQ TID@0730,1130,1630 #0 04/26/19 [Rx] Cranberry Fruit Extract [Cranberry] 500 mg PO DAILY 12/22/19 [History] Losartan [Cozaar] 50 mg PO DAILY 12/22/19 [History] Pioglitazone HCl 15 mg PO DAILY 12/22/19 [History] carvediloL [Coreg*] 12.5 mg PO BID@0800,1600 12/22/19 [History] Acetaminophen Tab [Tylenol] 650 mg PO Q6HR PRN tab 12/26/19 [Rx] Gabapentin 600 mg PO BID #6 tab 12/26/19 [Rx] Pantoprazole [Protonix] 40 mg PO AC-BRKFST tablet. 12/26/19 [Rx] Triamcinolone 0.1% Cream [Kenalog 0.1% Cream] 1 applic TOPICAL BID applic 12/26/19 [Rx] Sennosides-Docusate Sodium [Senokot-S] 2 tab PO DAILY #60 tablet 12/27/19 [Rx] bisacodyL [Dulcolax] 10 mg RECTAL DAILY #1 supp 12/27/19 [Rx] Follow up Appointment(s)/Referral(s): Maria Victoria Ramirez MD [Primary Care Provider] - 1 Week Discharge Disposition: TRANSFER TO SNF/ECF
[2019-12-26] MEDS: CARBIDOPA-LEVODOPA 25-100 MG 1 EACH TAB PO SCH ×2 (08:47→15:09)
[2019-12-26] MEDS: FUROSEMIDE 40 MG TAB PO SCH ×2 (08:47→15:09)
[2019-12-26] MEDS: GABAPENTIN 300 MG CAP PO SCH ×2 (08:47→20:29)
[2019-12-26] MEDS: carvediloL 12.5 MG TAB PO SCH ×2 (08:47→15:09)
[2019-12-26] MEDS: PANTOPRAZOLE 40 MG TABLET PO SCH (08:47)
[2019-12-26] MEDS: FINASTERIDE 5 MG TAB PO SCH (08:48)
[2019-12-26] MEDS: ATORVASTATIN 20 MG TAB PO SCH (08:48)
[2019-12-26] MEDS: POTASSIUM CHLORIDE ER 20 MEQ TAB.ER PO SCH (08:48)
[2019-12-26] MEDS: LOSARTAN 50 MG TAB PO SCH (08:48)
[2019-12-26] MEDS: PIOGLITAZONE 15 MG TAB PO SCH (08:50)
[2019-12-26] MEDS: HEPARIN SODIUM,PORCINE 5,000 UNIT/ML 1 ML VIAL SQ SCH ×2 (08:50→20:29)
[2019-12-26] MEDS: TRIAMCINOLONE 0.1% CREAM 80 GM TUBE TOPICAL SCH ×2 (10:01→20:30)
[2019-12-26] MEDS: NON FORMULARY DRUG (Cranberry Fruit Extract [Cranberry] 500 MG Tablet) PO SCH (10:08)
[2019-12-26 11:25] LABS: Glucose,Whole Blood 221 mg/dL (75-99)
[2019-12-26 17:25] LABS: Glucose,Whole Blood 212 mg/dL (75-99)
[2019-12-26] MEDS: CLOPIDOGREL 75 MG TAB PO SCH (20:28)
[2019-12-26] MEDS: INSULIN DETEMIR (LEVEMIR) 100 UNIT/ML SYR SQ SCH (20:28)
[2019-12-26] MEDS: ASPIRIN 81 MG PO SCH (20:28)
[2019-12-26] MEDS: SODIUM CHLORIDE 0.9% 1,000 ML IV SCH (20:29)
[2019-12-26 21:30] LABS: Glucose,Whole Blood 140 mg/dL (75-99)
[2019-12-27 02:01] VITALS: TEMP 99.1
[2019-12-27 07:00] VITALS: BP 147/61; PULSE 60; RESP 12
[2019-12-27 07:24] LABS: Glucose,Whole Blood 88 mg/dL (75-99)
--- NOTE | 2019-12-27 07:44 | P.PN ---
Subjective Progress Note Date: 12/26/19 This is an 84-year-old male one of my patient with a previous medical history significant for CAD post CABG 4 in 2010 with sequential MARROQUIN to LAD and diagonal branch, SVG to PDA and SVG to the obtuse marginal branch, subsequently underwent left heart catheterization 2016 because of unstable angina he had PCI of the obtuse marginal branch, chronic diastolic heart failure, diabetes mellitus type 2 with diabetic polyneuropathy, hypertension and hypertensive cardio vascular disease, COPD, enlarged prostate, sleep apnea, bradycardia status post permanent pacemaker placement, history of significant degenerative disease of the lumbar spine with significant weakness of both lower extremity currently uses a walker for immolation, restless leg syndrome, and history of parkinsonism. Patient's family brought patient to the emergency center due to shortness of breath. He was seen in the office and had diminished breath sounds concerning for pneumonia with temperature of 99.5 and pulse ox of 91% on room air. Patient has had increasing weakness over the past week especially the last 4 days continuing to worsen. Patient was afebrile, heart rate 71, blood pressure 121/65, pulse ox 92% on 2 L. Diabetes he 5.5, hemoglobin 11.3. Electrolytes normal, BUN 44 and creatinine 1.96, blood sugar 153. CK was 231. Lactic acid 1.2. Troponin 0.020. ProBNP 1660. Influenza testing negative. COV ID-19 negative. EKG was a paced rhythm. Urinalysis negative for infection. Chest x-ray revealed mild pulmonary congestion increased rolled exam. No definite pleural fluid. 12/23: Patient sitting up in a chair today he appears to be generally weak he has no chest pain or shortness breath, he does not appear to have any fever or chills at this time, she seems to be eating well patient denies any abdominal pain no nausea or vomiting he did have a bowel movement, patient is requiring about 2 person assist to transfer from bed to recliner we will continue with physical therapy for another 24 hours. Hopefully the patient can be sent [facility] on Thursday. 12/24: Patient is sitting up in the commode he tried to stand up with a physical therapist he continues to be extremely weak he will require 2 person assist at this point in time I advised the patient to go to the extended care facility for physical therapy rehabilitation as he is at increased risk of falling he denies any chest pain or shortness breath, he is eating 100% of his meals, he has no abdominal pain, nausea or vomiting he does complain of rash in the back that is itchy we will start him on hydrocortisone 2.5% apply twice every day, patient will continue to work with physical therapy the plan is to discharge him back to [facility] Objective - Vital Signs Vital signs: Vital Signs Temp 99.1 F 12/27/19 01:00 Pulse 60 12/27/19 06:59 Resp 12 12/27/19 06:59 BP 147/61 12/27/19 06:59 Pulse Ox 98 12/27/19 06:59 Intake & Output 12/26/19 12/27/19 12/27/19 18:59 06:59 18:59 Intake Total 460 Output Total 900 Balance -900 460 Weight 99.79 kg Intake: Intake, IV Titration 60 Amount Sodium Chloride 0.9% 1, 60 000 ml @ 20 mls/hr IV . Q24H [facility] Rx#:[id number] Oral 400 Output: Urine 900 Other: Voiding Method Diaper # Voids 1 3 - Exam Review of systems Constitutional: Reports chronic pain, Reports fatigue, Reports lethargy, Reports malaise, Reports weakness, Reports weight loss Eyes: bilateral blurred vision Ears: bilateral: decreased hearing Ears, nose, mouth and throat: Denies dysphagia, Denies neck lump, Denies swelling in throat, Denies sore throat Cardiovascular: Reports decreased exercise tolerance, Reports dyspnea on exertion, Reports edema, Reports shortness of breath, Denies chest pain, Denies lightheadedness, Denies rapid heart beat, Denies syncope Respiratory: Reports dyspnea, Reports sleep apnea, Denies congestion, Denies cough, Denies cough with sputum, Denies home oxygen, Denies snoring, Denies wheezing Gastrointestinal: Reports loss of appetite, Denies abdominal pain, Denies bloating, Denies BRBPR, Denies heartburn, Denies melena, Denies nausea, Denies vomiting Genitourinary: Reports impotence, Reports nocturia, Denies discharge Musculoskeletal: Reports frequent falls, Reports gait dysfunction, Reports leg numbness/tingling, Reports low back pain, Reports muscle weakness, Reports shooting leg pain Musculoskeletal: bilateral: ankle swelling, absent: ankle pain, ankle stiffness, elbow pain, elbow stiffness, elbow swelling, foot pain, foot stiffness, foot swelling, hand pain, hand stiffness, hand swelling, hip pain, hip stiffness, hip swelling, knee pain, knee stiffness, knee swelling, shoulder pain, shoulder stiffness, shoulder swelling, wrist pain, wrist stiffness, wrist swelling Integumentary: Denies pruritus, Denies rash Neurological: Reports gait dysfunction, Reports paresthesias, Reports tingling, Reports weakness, Denies tremors, Denies visual changes Psychiatric: Reports depression, Denies anxiety, Denies sadness/tearfulness, Denies sleep disturbances, Denies suicidal ideation Endocrine: Denies fatigue, Denies weight change Physical examination - Constitutional General appearance: average body habitus, mild distress - EENT Eyes: anicteric sclerae, EOMI, PERRLA, no ptosis, no scleral icterus, normal appearance ENT: hard of hearing, normal oropharynx, no thrush Ears: bilateral: normal - Neck Neck: no lymphadenopathy, normal ROM, no rigidity, no stridor, no thyromegaly Carotids: bilateral: upstroke normal Thyroid: bilateral: normal size - Respiratory Respiratory: bilateral: diminished, rales, negative: dullness, rhonchi, wheezing, prolonged expiration, prolonged inspiration - Cardiovascular Rhythm: regular (Pacemaker.) Heart sounds: normal: S1, S2 Abnormal Heart Sounds: systolic murmur, S3 Gallop, no S4 Gallop, no click - Gastrointestinal General gastrointestinal: normal bowel sounds, soft, tenderness (Right lower quadrant), no umbilical hernia, no ventral hernia - Genitourinary Male genitourinary: enlarged prostate - Integumentary Integumentary: normal, normal turgor - Neurologic Neurologic: CNII-XII intact - Musculoskeletal Musculoskeletal: generalized weakness noted, strength equal bilaterally - Psychiatric Psychiatric: A&O to person and place, able to follow simple commands, generalized weakness - Labs CBC & Chem 7: 12/25/19 07:19 12/25/19 07:19 Labs: Abnormal Lab Results - Last 24 Hours (Table) 12/26/19 12/26/19 12/26/19 Range/Units 11:24 17:23 21:27 POC Glucose (mg/dL) 221 H 212 H 140 H (75-99) mg/dL Microbiology - Last 24 Hours (Table) 12/22/19 18:16 Blood Culture - Preliminary Blood No Growth after 96 hours Assessment and Plan Plan: 1. Dyspnea, exertional dyspnea and generalized weakness secondary to a combination of bronchospasm, chronic diastolic heart failure, acute renal failure. Continue Lasix 40 mg oral twice daily, continue Coreg 12.5 mg orally twice every day, losartan 50 mg orally once every day, monitor the patient input and output and daily weight. 2. Acute kidney injury with chronic kidney disease stage III, baseline creatinine 1.5. Avoid nephrotoxic agents. Okay to continue losartan and Lasix at current dose. 3. CAD post CABG 4 with PCI of the LCx. Continue aspirin 81 mg once every day, Plavix 75 mg orally once every day, Coreg 12.5 mg orally twice every day, Lipitor 20 mg daily. 3. Hypertension and hypertensive cardiovascular disease. Continue losartan 50 mg orally once every day, Coreg 12.5 mg orally twice every day. 4. Hyperlipidemia. Patient is normally on Crestor 10 mg daily. 5. Diabetes mellitus type 2. Continue patient on Lantus 42 units at bedtime along with a sliding scale insulin, Actos 15 mg daily. Hold off metformin as well as Trulicity. 6. Enlarge prostate. Continue patient on finasteride 5 mg orally once every day. 7. History of CVA. Continue aspirin and Plavix and crestor for secondary stroke prevention. 8. History of bradycardia status post permanent pacemaker placement. 9. Degenerative disc disease of the lumbar spine with significant weakness in both lower extremities. Physical therapy evaluation. Continue gabapentin 600 mg twice daily, Tylenol for pain 10. Restless leg syndrome. 11. Parkinsonism. Start Sinemet one twice daily. 12. DVT prophylaxis. Heparin 5000 units subcutaneously every 12 hours. 13. GI prophylaxis. Protonix 40 mg orally once every day. 14. Generalized weakness with recurrent falls at the [facility], PT/OT recommended ECF for physical therapy rehabilitation for the next 2 weeks. 15. Pupuric rash on his back that is itchy. we will apply Hydrocortisone cream 2.5 % bid 16. Physical therapy evaluation as well as manager social responsibility evaluation for subacute rehabilitation. Discharge plan: [facility]. Panfilo testing. Awaiting insurance authorization. Impression and plan of care have been directed as dictated by the signing physician. Starr Jones nurse practitioner acting as scribe for signing physician.
[2019-12-27] MEDS: GABAPENTIN 300 MG CAP PO SCH (08:20)
[2019-12-27] MEDS: CARBIDOPA-LEVODOPA 25-100 MG 1 EACH TAB PO SCH (08:21)
[2019-12-27] MEDS: carvediloL 12.5 MG TAB PO SCH (08:21)
[2019-12-27] MEDS: PANTOPRAZOLE 40 MG TABLET PO SCH (08:21)
[2019-12-27] MEDS: LOSARTAN 50 MG TAB PO SCH (08:22)
[2019-12-27] MEDS: ATORVASTATIN 20 MG TAB PO SCH (08:22)
[2019-12-27] MEDS: POTASSIUM CHLORIDE ER 20 MEQ TAB.ER PO SCH (08:22)
[2019-12-27] MEDS: PIOGLITAZONE 15 MG TAB PO SCH (08:23)
[2019-12-27] MEDS: FINASTERIDE 5 MG TAB PO SCH (08:24)
[2019-12-27] MEDS: FUROSEMIDE 40 MG TAB PO SCH (08:24)
[2019-12-27] MEDS: HEPARIN SODIUM,PORCINE 5,000 UNIT/ML 1 ML VIAL SQ SCH (08:33)
[2019-12-27] MEDS: INSULIN ASPART (NovoLOG) 100 UNIT/ML VIAL SQ SCH ×2 (09:32→13:18)
[2019-12-27] MEDS: NON FORMULARY DRUG (Cranberry Fruit Extract [Cranberry] 500 MG Tablet) PO SCH (09:32)
[2019-12-27] MEDS: TRIAMCINOLONE 0.1% CREAM 80 GM TUBE TOPICAL SCH (11:13)
[2019-12-27 11:33] LABS: Glucose,Whole Blood 100 mg/dL (75-99)
[2019-12-28] MEDS ORDERED: NON FORMULARY DRUG (Dulaglutide [Trulicity] 1.5 MG/0.5 ML Pen.Injctr) SQ SCH (14:00)
== END 2019-12-27 13:12 | DRG 202 ==
LOC: EC 17:37 → 4SSUR 20:01 → OBSVTOIN 12-23 14:02
PROVIDERS: ADMIT Internal Medicine; ATTEND Internal Medicine
DX: J98.01 Acute bronchospasm (principal); N17.9 Acute kidney failure, unspecified; I13.0 Hypertensive heart and chronic kidney disease with heart failure and stage 1 through stage 4 chronic kidney disease, or unspecified chronic kidney disease; I50.32 Chronic diastolic (congestive) heart failure; E11.22 Type 2 diabetes mellitus with diabetic chronic kidney disease; E11.42 Type 2 diabetes mellitus with diabetic polyneuropathy; E78.5 Hyperlipidemia, unspecified; E86.0 Dehydration; F32.9 Major depressive disorder, single episode, unspecified; G20 Parkinson's disease; G25.81 Restless legs syndrome; I25.10 Atherosclerotic heart disease of native coronary artery without angina pectoris; J44.9 Chronic obstructive pulmonary disease, unspecified; M51.36 Other intervertebral disc degeneration, lumbar region; N18.3 Chronic kidney disease, stage 3 (moderate); N40.0 Benign prostatic hyperplasia without lower urinary tract symptoms; R29.6 Repeated falls; Z20.828 Contact with and (suspected) exposure to other viral communicable diseases; R62.7 Adult failure to thrive; G47.30 Sleep apnea, unspecified; Z99.89 Dependence on other enabling machines and devices; Z90.89 Acquired absence of other organs; R21 Rash and other nonspecific skin eruption; Z79.02 Long term (current) use of antithrombotics/antiplatelets; Z79.4 Long term (current) use of insulin; Z79.899 Other long term (current) drug therapy; Z79.82 Long term (current) use of aspirin; Z83.3 Family history of diabetes mellitus; Z86.73 Personal history of transient ischemic attack (TIA), and cerebral infarction without residual deficits; Z87.891 Personal history of nicotine dependence; Z95.0 Presence of cardiac pacemaker; Z95.1 Presence of aortocoronary bypass graft; Z95.5 Presence of coronary angioplasty implant and graft; G89.29 Other chronic pain; H91.93 Unspecified hearing loss, bilateral; R26.9 Unspecified abnormalities of gait and mobility; Z87.01 Personal history of pneumonia (recurrent)
CPT/HCPCS: 36415; 71046; 80048; 80053; 81001; 82550; 83036; 83605; 83735; 83880; 84484; 85025; 85610; 85730; 87040; 87502; 93005; 94640; 96374; 99285

== ENCOUNTER 2023-02-21 19:12 | Inpatient (IN) | payer MEDICARE, OTHER ==
--- NOTE | 2023-02-21 22:15 | ED ---
General Adult HPI - General Chief complaint: Shortness of Breath Stated complaint: EVE Time Seen by Provider: 02/21/23 19:39 Source: EMS, RN notes reviewed Mode of arrival: EMS - History of Present Illness Initial comments: 87-year-old male with a past medical history for Parkinson's disease and pacemaker presents to the emergency department via EMS from [facility] with chief complaint of worsening cough and shortness of breath. History is limited as patient is a note 1-2 at baseline. Patient recently diagnosed with Covid 10 days ago. His primary called EMS to bring him to the hospital due to worsening gargling sounds. - Related Data Home Medications Medication Instructions Recorded Confirmed Rosuvastatin Calcium [Crestor] 10 mg PO DAILY@0800 08/27/15 12/22/19 Aspirin EC [Ecotrin Low Dose] 81 mg PO HS@199912/05/15 12/22/19 Potassium Chloride [Klor-Con 20] 20 meq PO DAILY@0800 12/05/15 12/22/19 Dulaglutide [Trulicity] 1.5 mg SQ WE@139901/01/18 12/22/19 Clopidogrel Bisulfate [Plavix] 75 mg PO HS@199912/28/18 12/22/19 Finasteride [Proscar] 5 mg PO DAILY@0800 12/28/18 12/22/19 Carbidopa-Levodopa 25-100 mg 1 tab PO BID@0800,1400 04/25/19 12/22/19 [Sinemet 25-100 mg] Furosemide [Lasix] 40 mg PO BID@0800,1400 04/25/19 12/22/19 Insulin Glargine,Hum.rec.anlog 42 unit SQ HS@199904/25/19 12/22/19 [Lantus Solostar Pen] Cranberry Fruit Extract [Cranberry] 500 mg PO DAILY 12/22/19 12/22/19 Losartan [Cozaar] 50 mg PO DAILY 12/22/19 12/22/19 Pioglitazone HCl 15 mg PO DAILY 12/22/19 12/22/19 carvediloL [Coreg*] 12.5 mg PO BID@0800,1600 12/22/19 12/22/19 Previous Rx's Medication Instructions Recorded Insulin Lispro [humaLOG Kwikpen] 12 unit SQ TID@0730,1130,1630 #0 04/26/19 Acetaminophen Tab [Tylenol] 650 mg PO Q6HR PRN tab 12/26/19 Gabapentin 600 mg PO BID #6 tab 12/26/19 Pantoprazole [Protonix] 40 mg PO AC-BRKFST tablet. 12/26/19 Triamcinolone 0.1% Cream [Kenalog 1 applic TOPICAL BID applic 12/26/19 0.1% Cream] Sennosides-Docusate Sodium 2 tab PO DAILY #60 tablet 12/27/19 [Senokot-S] bisacodyL [Dulcolax] 10 mg RECTAL DAILY #1 supp 12/27/19 Allergies Allergy/AdvReac Type Severity Reaction Status Date / Time No Known Allergies Allergy Verified 12/22/19 19:48 Review of Systems ROS Statement: Those systems with pertinent positive or pertinent negative responses have been documented in the HPI. ROS Other: All systems not noted in ROS Statement are negative. Past Medical History Past Medical History: Coronary Artery Disease (CAD), Chest Pain / Angina, COPD, Diabetes Mellitus, Hyperlipidemia, Hypertension, Musculoskeletal Disorder, Pneumonia, Prostate Disorder, Sleep Apnea/CPAP/BIPAP Additional Past Medical History / Comment(s): Murmur, sinus problems, back pain, SOB History of Any Multi-Drug Resistant Organisms: None Reported Past Surgical History: Coronary Bypass/CABG, Heart Catheterization, Heart Catheterization With Stent, Hernia Repair, Pacemaker, Tonsillectomy Additional Past Surgical History / Comment(s): Quad bypass, heart cath 2010, 6 stents (2015), colonoscopy, cataracts, pacemaker, pain clinic procedures Past Anesthesia/Blood Transfusion Reactions: No Reported Reaction Date of Last Stent Placement:: 2015 Type of Cardiac Device: Permanent Pacemaker Device Placement Date:: 2016 Past Psychological History: Depression Smoking Status: Former smoker Past Alcohol Use History: None Reported Additional Past Alcohol Use History / Comment(s): SMOKED X 30 YEARS, 1PPD, QUIT 1969'S Past Drug Use History: None Reported - Past Family History Mother Family Medical History: Diabetes Mellitus Additional Family Medical History / Comment(s): Mother at age 95 from diabetes complications. Father Family Medical History: Unable to Obtain Additional Family Medical History / Comment(s): He didn't know much about his father. Brother(s) History Unknown: Yes Family Medical History: No Reported History Additional Family Medical History / Comment(s): Patient has no brothers. Sister(s) Family Medical History: No Reported History Additional Family Medical History / Comment(s): Patient has no sisters. Daughter(s) Family Medical History: No Reported History Additional Family Medical History / Comment(s): Patient has one daughter with no major medical problems. Son(s) Family Medical History: No Reported History Additional Family Medical History / Comment(s): Patient has one son with no major medical problems. General Exam - General Exam Comments Initial Comments: General: Alert, in no acute distress Head: atraumatic normocephalic. Eyes PERRL, EOMI intact, mucous membranes moist Respiratory: rales Cardiovascular: Heart rate regular rate and rhythm Abdominal: Soft without guarding or rebound Extremities: Normal inspection with full range of motion and normal capillary refill Neuroogic: alert and oriented 3, CN II-XII intact, able to ambulate with steady gait Skin: warm dry and intact with normal color Course Vital Signs 02/21/23 02/21/23 02/21/23 19:16 19:27 19:30 Temperature 99.3 F Pulse Rate 66 Respiratory 18 Rate Blood Pressure 86/51 113/93 O2 Sat by Pulse 92 L 91 L 94 L Oximetry 02/21/23 02/21/23 02/21/23 20:00 20:30 21:00 Temperature Pulse Rate 59 L 62 65 Respiratory Rate Blood Pressure 88/48 78/47 86/54 O2 Sat by Pulse 92 L 93 L 92 L Oximetry 02/21/23 02/21/23 02/21/23 21:30 22:00 22:30 Temperature Pulse Rate 61 62 58 L Respiratory Rate Blood Pressure 100/55 101/55 107/54 O2 Sat by Pulse 94 L 93 L 91 L Oximetry 02/22/23 01:12 Temperature Pulse Rate 61 Respiratory 18 Rate Blood Pressure 116/67 O2 Sat by Pulse 93 L Oximetry - Reevaluation(s) Reevaluation #1: 02/21/23 21:00 attempted to contact family regarding plan of care. No ansswer 2. Reevaluation #2: 02/21/23 22:[address] Ramirez who is requesting patient to be admitted at this time. EKG Findings - EKG Comments: EKG Findings:: I interpreted the followin: 07/20/1959 6 bpm electronically atrial and ventricularly paced. [place] interval 323, Estrogen 176, QT/QTc 441/455 Medical Decision Making - Medical Decision Making Was pt. sent in by a medical professional or institution ([facility] Hickman, [facility], urgent care, hospital, or correction...) When possible be specific @ -[No] Did you speak to anyone other than the patient for history (EMS, parent, family, police, friend...)? What history was obtained from this source @ -[No] Did you review nursing and triage notes (agree or disagree)? Why? @ -[I reviewed and agree with nursing and triage notes] Were old charts reviewed (outside hosp., previous admission, EMS record, old EKG, old radiological studies, urgent care reports/EKG's, correction records)? Report findings @ -[No old charts were reviewed] Differential Diagnosis (chest pain, altered mental status, abdominal pain women, abdominal pain men, vaginal bleeding, weakness, fever, dyspnea, syncope, he adache, dizziness, GI bleed, back pain, seizure, CVA, palpatations, mental health, musculoskeletal)? @ -[not applicable] EKG interpreted by me (3pts min.). @ -[As above] X-rays interpreted by me (1pt min.). @ -Mild pulmonary congestion CT interpreted by me (1pt min.). @ -[None done] U/S interpreted by me (1pt. min.). @ -[None done] What testing was considered but not performed or refused? (CT, X-rays, U/S, labs)? Why? @ -[None] What meds were considered but not given or refused? Why? @ -[None] Did you discuss the management of the patient with other professionals (professionals i.e. MELIA Hickman, [facility], lab, RT, psych nurse, social organization professor, pharmacology teacher, teacher, veterinary medical officer, oil field caser)? Give summary @ -Case discussed with Dr. Ramirez who is requesting patient be admitted for further observation Was smoking cessation discussed for >3mins.? @ -[No] Was critical care preformed (if so, how long)? @ -[No] Were there social determinants of health that impacted care today? How? (Homelessness, low income, unemployed, alcoholism, drug addiction, transportation, low edu. Level, literacy, decrease access to med. care, correction, rehab)? @ -[No] Was there de-escalation of care discussed even if they declined (Discuss DNR or withdrawal of care, Hospice)? DNR status @ -[No] What co-morbidities impacted this encounter? (DM, HTN, Smoking, COPD, CAD, Ca ncer, CVA, ARF, Chemo, Hep., AIDS, mental health diagnosis, sleep apnea, morbid obesity)? @ - Was patient admitted / discharged? Hospital course, mention meds given and route, prescriptions, significant lab abnormalities, going to OR and other pertinent info. @ -Admission. This is an 87-year-old female presents the emergency department with worsening shortness of breath. Patient had a thorough history and physical exam performed. Patient is alert and oriented 1-2 which is baseline. Heart rate regular rate and rhythm, audible rales heard, abdomen soft and nontender. Patient had laboratory studies performed WBCs 14.5, hemoglobin 10.5 platelets 322 cardioversions studies unremarkable sodium 140, potassium 4.4 BUN 93, creatinine 2.74 lactic acid 1.2 serial troponins negative BNP 1000 I interpreted the following: Chest x-ray reveals Attempts were made to the family however there was no answers regarding plan of care. Case was discussed with Dr. sahu who is requesting patient to be admitted for further evaluation. Case discussed with ROLANDO Lott who agrees with plan of care Undiagnosed new problem with uncertain prognosis? @ -[No] Drug Therapy requiring intensive monitoring for toxicity (Heparin, Nitro, Insulin, Cardizem)? @ -[No] Were any procedures done? @ -[No] Diagnosis/symptom? @ - Shortness of breath - CHF Exacerbation - Acute Kidney Injury - Leukocytosis - Failure to Thrive Acute, or Chronic, or Acute on Chronic? @ -Acute on Chronic Uncomplicated (without systemic symptoms) or Complicated (systemic symptoms)? @ -Complicated Side effects of treatment? @ -[No] Exacerbation, Progression, or Severe Exacerbation? @ -[No] Poses a threat to life or bodily function? How? (Chest pain, [place], [place], pneumonia, PE, COPD, DKA, ARF, appy, cholecystitis, CVA, Diverticulitis, Homicidal, Suicidal, threat to staff... and all critical care pts) @ -Yes, CHF - Lab Data Result diagrams: 02/21/23 22:26 02/21/23 22:26 Lab Results 02/21/23 02/21/23 02/21/23 Range/Units 22:26 22:26 22:26 WBC 14.5 H (3.8-10.6) k/uL RBC 3.23 L (4.30-5.90) m/uL Hgb 10.5 L (13.0-17.5) gm/dL Hct 32.4 L (39.0-53.0) % MCV 100.3 H (80.0-100.0) fL MCH 32.7 (25.0-35.0) pg MCHC 32.6 (31.0-37.0) g/dL RDW 13.0 (11.5-15.5) % Plt Count 322 (150-450) k/uL MPV 7.9 Neutrophils % 84 % Lymphocytes % 10 % Monocytes % 5 % Eosinophils % 1 % Basophils % 0 % Neutrophils # 12.1 H (1.3-7.7) k/uL Lymphocytes # 1.5 (1.0-4.8) k/uL Monocytes # 0.7 (0-1.0) k/uL Eosinophils # 0.1 (0-0.7) k/uL Basophils # 0.0 (0-0.2) k/uL PT 10.4 (10.0-12.5) sec INR 0.9 (<1.2) APTT 18.6 L (22.0-30.0) sec Sodium 140 (137-145) mmol/L Potassium 4.4 (3.5-5.1) mmol/L Chloride 101 (98-107) mmol/L Carbon Dioxide 26 (22-30) mmol/L Anion Gap 13 mmol/L BUN 93 H (9-20) mg/dL Creatinine 2.74 H (0.66-1.25) mg/dL Est GFR (CKD-EPI)AfAm 23 (>60 ml/min/1.73 sqM) Est GFR (CKD-EPI)NonAf 20 (>60 ml/min/1.73 sqM) Glucose 74 (74-99) mg/dL Plasma Lactic Acid Magdy (0.7-2.0) mmol/L Calcium 9.3 (8.4-10.2) mg/dL Total Bilirubin 0.8 (0.2-1.3) mg/dL AST 60 H (17-59) U/L ALT 31 (4-49) U/L Alkaline Phosphatase 64 (38-126) U/L Troponin I (0.000-0.034) ng/mL NT-Pro-B Natriuret Pep pg/mL Total Protein 7.0 (6.3-8.2) g/dL Albumin 3.6 (3.5-5.0) g/dL 02/21/23 02/21/23 02/21/23 Range/Units 22:26 22:26 22:26 WBC (3.8-10.6) k/uL RBC (4.30-5.90) m/uL Hgb (13.0-17.5) gm/dL Hct (39.0-53.0) % MCV (80.0-100.0) fL MCH (25.0-35.0) pg MCHC (31.0-37.0) g/dL RDW (11.5-15.5) % Plt Count (150-450) k/uL MPV Neutrophils % % Lymphocytes % % Monocytes % % Eosinophils % % Basophils % % Neutrophils # (1.3-7.7) k/uL Lymphocytes # (1.0-4.8) k/uL Monocytes # (0-1.0) k/uL Eosinophils # (0-0.7) k/uL Basophils # (0-0.2) k/uL PT (10.0-12.5) sec INR (<1.2) APTT (22.0-30.0) sec Sodium (137-145) mmol/L Potassium (3.5-5.1) mmol/L Chloride (98-107) mmol/L Carbon Dioxide (22-30) mmol/L Anion Gap mmol/L BUN (9-20) mg/dL Creatinine (0.66-1.25) mg/dL Est GFR (CKD-EPI)AfAm (>60 ml/min/1.73 sqM) Est GFR (CKD-EPI)NonAf (>60 ml/min/1.73 sqM) Glucose (74-99) mg/dL Plasma Lactic Acid Magdy 1.2 (0.7-2.0) mmol/L Calcium (8.4-10.2) mg/dL Total Bilirubin (0.2-1.3) mg/dL AST (17-59) U/L ALT (4-49) U/L Alkaline Phosphatase (38-126) U/L Troponin I 0.022 (0.000-0.034) ng/mL NT-Pro-B Natriuret Pep 1060 pg/mL Total Protein (6.3-8.2) g/dL Albumin (3.5-5.0) g/dL Disposition Clinical Impression: Cough, Shortness of breath, Failure to thrive in adult, Acute on chronic diastolic CHF (congestive heart failure), MARINA (acute kidney injury), Le ukocytosis Disposition: ADMITTED IP TO THIS HOSP Condition: Fair Time of Disposition: 23:40
[2023-02-21 23:17] LABS: Basophils % (A) 0 %; Eosinophils # (A) 0.1 k/uL (0-0.7); Eosinophils % (A) 1 %; HCT 32.4 % (39.0-53.0); HGB 10.5 gm/dL (13.0-17.5); Lymphocytes # (A) 1.5 k/uL (1.0-4.8); Lymphocytes % (A) 10 %; MCH 32.7 pg (25.0-35.0); MCHC 32.6 g/dL (31.0-37.0); MCV 100.3 fL (80.0-100.0); Mean Platelet Volume 7.9; Monocytes # (A) 0.7 k/uL (0-1.0); Monocytes % (A) 5 %; Neutrophils # (A) 12.1 k/uL (1.3-7.7); Neutrophils % (A) 84 %; Platelet Count 322 k/uL (150-450); RBC 3.23 m/uL (4.30-5.90); WBC 14.5 k/uL (3.8-10.6)
[2023-02-21 23:30] LABS: ALT 31 U/L (4-49); AST 60 U/L (17-59); African American GFR (CKD) 23 (>60 ml/min/1.73 sqM); Albumin 3.6 g/dL (3.5-5.0); Alkaline Phosphatase 64 U/L (38-126); Anion Gap 13 mmol/L; Blood Urea Nitrogen 93 mg/dL (9-20); Calcium 9.3 mg/dL (8.4-10.2); Carbon Dioxide 26 mmol/L (22-30); Chloride 101 mmol/L (98-107); Glucose 74 mg/dL (74-99); Non-African American GFR(CKD) 20 (>60 ml/min/1.73 sqM); Sodium 140 mmol/L (137-145); Total Bilirubin 0.8 mg/dL (0.2-1.3)
[2023-02-21 23:32] LABS: Potassium 4.4 mmol/L (3.5-5.1)
[2023-02-21] MEDS ORDERED: SODIUM CHLORIDE 0.9% 1,000 ML IV SCH (23:45)
[2023-02-21] MEDS ORDERED: NALOXONE 0.4 MG/ML 1 ML VIAL IV PRN (23:47)
[2023-02-21] MEDS ORDERED: ACETAMINOPHEN TAB 325 MG TAB PO PRN (23:47)
[2023-02-21 23:57] LABS: INR 0.9 (<1.2)
[2023-02-21 23:58] LABS: Partial Thromboplastin Time 18.6 sec (22.0-30.0); Prothrombin Time 10.4 sec (10.0-12.5)
--- NOTE | 2023-02-22 00:11 | XR ---
EXAM: XR Chest, 2 Views CLINICAL HISTORY: ITS.REASON XR Reason: COugh TECHNIQUE: Frontal and lateral views of the chest. COMPARISON: No relevant prior studies available. FINDINGS: Lungs: Mild pulmonary vascular congestion. Pleural space: Unremarkable. No pneumothorax. Heart: Cardiomegaly. Mediastinum: Unremarkable. Bones/joints: Sternotomy wires. Tubes, lines and devices: Pacemaker leads. IMPRESSION: Mild pulmonary vascular congestion.
[2023-02-22] MEDS ORDERED: NITROGLYCERIN OINT 1 INCH/GM PACKET TOPICAL STA (02:00)
[2023-02-22 05:40] LABS: Basophils % (A) 0 %; Eosinophils # (A) 0.1 k/uL (0-0.7); Eosinophils % (A) 1 %; HCT 35.3 % (39.0-53.0); HGB 11.6 gm/dL (13.0-17.5); Lymphocytes # (A) 1.4 k/uL (1.0-4.8); Lymphocytes % (A) 15 %; MCH 33.1 pg (25.0-35.0); MCHC 32.9 g/dL (31.0-37.0); MCV 100.7 fL (80.0-100.0); Mean Platelet Volume 7.8; Monocytes # (A) 0.5 k/uL (0-1.0); Monocytes % (A) 5 %; Neutrophils # (A) 7.3 k/uL (1.3-7.7); Neutrophils % (A) 77 %; Platelet Count 232 k/uL (150-450); RBC 3.51 m/uL (4.30-5.90); RDW 12.9 % (11.5-15.5); WBC 9.4 k/uL (3.8-10.6)
[2023-02-22 05:49] LABS: African American GFR (CKD) 22 (>60 ml/min/1.73 sqM); Anion Gap 10 mmol/L; Blood Urea Nitrogen 93 mg/dL (9-20); Calcium 8.5 mg/dL (8.4-10.2); Carbon Dioxide 24 mmol/L (22-30); Chloride 104 mmol/L (98-107); Glucose 96 mg/dL (74-99); Non-African American GFR(CKD) 19 (>60 ml/min/1.73 sqM); Potassium 4.2 mmol/L (3.5-5.1); Sodium 138 mmol/L (137-145)
[2023-02-22 06:56] LABS: Glucose,Whole Blood 95 mg/dL (70-110)
[2023-02-22] MEDS ORDERED: ACETAMINOPHEN TAB 325 MG TAB PO PRN (08:30)
[2023-02-22] MEDS ORDERED: GABAPENTIN 300 MG CAP PO SCH (09:00)
[2023-02-22] MEDS ORDERED: carvediloL 12.5 MG TAB PO SCH (09:00)
[2023-02-22] MEDS ORDERED: NON FORMULARY DRUG (Cranberry Fruit Extract [Cranberry] 500 MG Tablet) PO SCH (09:00)
[2023-02-22] MEDS: CARBIDOPA-LEVODOPA 25-100 MG 1 EACH TAB PO SCH ×2 (09:03→14:34)
[2023-02-22] MEDS: bisacodyL 10 MG SUPP RECTAL SCH (09:03)
[2023-02-22] MEDS: FINASTERIDE 5 MG TAB PO SCH (09:03)
[2023-02-22] MEDS: ATORVASTATIN 20 MG TAB PO SCH (09:03)
[2023-02-22] MEDS: HEPARIN SODIUM,PORCINE 5,000 UNIT/ML 1 ML VIAL SQ SCH ×2 (09:03→20:45)
[2023-02-22] MEDS: SENNOSIDES-DOCUSATE SODIUM 1 EACH TAB PO SCH (09:03)
--- NOTE | 2023-02-22 10:29 | P.CNPUL ---
History of Present Illness Consult date: 02/22/23 Requesting physician: Maria Victoria Ramirez Reason for consult: dyspnea, cough Chief complaint: Shortness of breath and cough. History of present illness: Pulmonary consult dated 02/22/2023. 87-year-old no code patient, who is brought into the emergency department by EMS, from [facility]. The patient apparently has a history of Parkinson's disease, hyperlipidemia, diabetes, coronary disease, hypertension, hyperlipidemia, sleep apnea syndrome, and previous bypass surgery. In addition, the patient has a history of pacemaker implantation. The patient himself is not a particularly good historian. All of the history is really obtained from the ER frederic. The patient apparently had shortness of breath and cough at [facility], and for that reason, was brought to the ER. The patient apparently tested positive for coronavirus infection 10 days prior. It's noted in the ER frederic that the EMS noted that he had gurgling respirations. Currently he is in bed, sitting up, completing his breakfast. He is on 4 L of oxygen. He is getting saline at 75 mL an hour. He does not appear to be in any respiratory distress or difficulty. Again, he cannot give much of a history. White count 9.4, he moglobin 11.6, hematocrit 35.3, with a normal platelet count. Sodium 138, potassium 4.2, chlorides 104, CO2 24, anion gap 10, BUN 93, and creatinine 2.89. Troponins were 0.022, 0.021, and 0.022. N-terminal proBNP was 1060. Chest x- ray was consistent with mild fluid overload. Review of Systems REVIEW OF SYSTEMS: CONSTITUTIONAL: [Negative.] NEUROLOGIC: [ Negative.] HEENT: [ Negative.] CARDIAC: Shortness of breath. PULMONARY: Shortness of breath and cough. GI: [Negative.] : [Negative.] RHEUMATOLOGIC: [ Negative.] IMMUNOLOGIC: [ Negative.] ENDOCRINE: [Negative. ] DERMATOLOGIC: [Negative.] Past Medical History Past Medical History: Coronary Artery Disease (CAD), Chest Pain / Angina, COPD, Diabetes Mellitus, Hyperlipidemia, Hypertension, Musculoskeletal Disorder, Pneumonia, Prostate Disorder, Sleep Apnea/CPAP/BIPAP Additional Past Medical History / Comment(s): Murmur, sinus problems, back pain, SOB History of Any Multi-Drug Resistant Organisms: None Reported Past Surgical History: Coronary Bypass/CABG, Heart Catheterization, Heart Catheterization With Stent, Hernia Repair, Pacemaker, Tonsillectomy Additional Past Surgical History / Comment(s): Quad bypass, heart cath 2010, 6 stents (2016), colonoscopy, cataracts, pacemaker, pain clinic procedures Past Anesthesia/Blood Transfusion Reactions: No Reported Reaction Date of Last Stent Placement:: 2015 Type of Cardiac Device: Permanent Pacemaker Device Placement Date:: 2016 Past Psychological History: Depression Smoking Status: Former smoker Past Alcohol Use History: None Reported Additional Past Alcohol Use History / Comment(s): SMOKED X 30 YEARS, 1PPD, QUIT Past Drug Use History: None Reported - Past Family History Mother Family Medical History: Diabetes Mellitus Additional Family Medical History / Comment(s): Mother at age 95 from diabetes complications. Father Family Medical History: Unable to Obtain Additional Family Medical History / Comment(s): He didn't know much about his father. Brother(s) History Unknown: Yes Family Medical History: No Reported History Additional Family Medical History / Comment(s): Patient has no brothers. Sister(s) Family Medical History: No Reported History Additional Family Medical History / Comment(s): Patient has no sisters. Daughter(s) Family Medical History: No Reported History Additional Family Medical History / Comment(s): Patient has one daughter with no major medical problems. Son(s) Family Medical History: No Reported History Additional Family Medical History / Comment(s): Patient has one son with no major medical problems. Medications and Allergies Home Medications Medication Instructions Recorded Confirmed Type Rosuvastatin Calcium [Crestor] 10 mg PO DAILY@0808/27/15 12/22/19 History Aspirin EC [Ecotrin Low Dose] 81 mg PO HS@199912/05/15 12/22/19 History Potassium Chloride [Klor-Con 20] 20 meq PO DAILY@79912/05/15 12/22/19 History Dulaglutide [Trulicity] 1.5 mg SQ WE@139901/01/18 12/22/19 History Clopidogrel Bisulfate [Plavix] 75 mg PO HS@199912/28/18 12/22/19 History Finasteride [Proscar] 5 mg PO DAILY@79912/28/18 12/22/19 History Carbidopa-Levodopa 25-100 mg 1 tab PO BID@0800,1400 04/25/19 12/22/19 History [Sinemet 25-100 mg] Furosemide [Lasix] 40 mg PO BID@0800,1400 04/25/19 12/22/19 History Insulin Glargine,Hum.rec.anlog 42 unit SQ HS@199904/25/19 12/22/19 History [Lantus Solostar Pen] Insulin Lispro [humaLOG Kwikpen] 12 unit SQ TID@0730,1130,1630 #0 04/26/19 12/22/19 Rx Cranberry Fruit Extract [Cranberry] 500 mg PO DAILY 12/22/19 12/22/19 History Losartan [Cozaar] 50 mg PO DAILY 12/22/19 12/22/19 History Pioglitazone HCl 15 mg PO DAILY 12/22/19 12/22/19 History carvediloL [Coreg*] 12.5 mg PO BID@0800,1600 12/22/19 12/22/19 History Acetaminophen Tab [Tylenol] 650 mg PO Q6HR PRN tab 12/26/19 Rx Gabapentin 600 mg PO BID #6 tab 12/26/19 Rx Pantoprazole [Protonix] 40 mg PO AC-BRKFST tablet. 12/26/19 Rx Triamcinolone 0.1% Cream [Kenalog 1 applic TOPICAL BID applic 12/26/19 Rx 0.1% Cream] Sennosides-Docusate Sodium 2 tab PO DAILY #60 tablet 12/27/19 Rx [Senokot-S] bisacodyL [Dulcolax] 10 mg RECTAL DAILY #1 supp 12/27/19 Rx Allergies Allergy/AdvReac Type Severity Reaction Status Date / Time No Known Allergies Allergy Verified 12/22/19 19:48 Physical Exam Osteopathic Statement: *. No significant issues noted on an osteopathic structural exam other than those noted in the History and Physical/Consult. Vitals: Vital Signs Temp Pulse Pulse Resp BP BP Pulse Ox 02/22/23 07:57 97.4 F L 63 20 117/61 92 L 02/22/23 04:00 60 20 144/69 96 02/22/23 02:00 97.5 F L 60 20 93 L 02/22/23 01:12 61 18 116/67 93 L 02/21/23 22:30 58 L 107/54 91 L 02/21/23 22:00 62 101/55 93 L 02/21/23 21:30 61 100/55 94 L 02/21/23 21:00 65 86/54 92 L 02/21/23 20:30 62 78/47 93 L 02/21/23 20:00 59 L 88/48 92 L 02/21/23 19:30 113/93 94 L 02/21/23 19:27 91 L 02/21/23 19:16 99.3 F 66 18 86/51 92 L Intake and Output 02/21/23 02/22/23 02/22/23 22:59 06:59 14:59 Intake Total 0 Output Total 275 Balance 0 -275 Intake: Oral 0 Output: Post Void Residual 275 Other: Voiding Method Diaper Diaper External Catheter # Voids 0 Weight 99.79 kg 100 kg No acute distress, oriented 3, patient is a very poor historian. Currently, he's on 4 L by nasal cannula. HEENT examination is grossly unremarkable. Mucous membranes are moist. No oral lesions. The patient has a cold sore on his lower lip. Neck supple. Full range of motion. No adenopathy thyromegaly or neck vein distention. Cardiovascular examination reveals regular rhythm rate. S1-S2 normal. No S3 or S4. No discernible murmur noted. Heart sounds are distant. Heart rate 63 bpm. Lungs reveal scattered rhonchi. No wheezes or crackles noted. Breath sounds are diminished throughout. The patient does not take deep breaths. 4 L saturation is 92%. Abdomen soft bowel sounds are heard. No masses or tenderness. Extremities are intact. No cyanosis clubbing or edema. Skin is without rash or lesion. Neurologic examination is brief but nonfocal. Results - Laboratory Findings CBC and BMP: 02/22/23 05:07 02/22/23 05:07 PT/INR, D-dimer PT 10.4 sec (10.0-12.5) 02/21/23 22:26 INR 0.9 (<1.2) 02/21/23 22:26 Abnormal lab findings: Abnormal Labs 02/21/23 02/21/23 02/21/23 22:26 22:26 22:26 WBC 14.5 H RBC 3.23 L Hgb 10.5 L Hct 32.4 L MCV 100.3 H Neutrophils # 12.1 H APTT 18.6 L BUN 93 H Creatinine 2.74 H AST 60 H 02/22/23 02/22/23 05:07 05:07 WBC RBC 3.51 L Hgb 11.6 L Hct 35.3 L MCV 100.7 H Neutrophils # APTT BUN 93 H Creatinine 2.89 H AST - Diagnostic Findings Chest x-ray: image reviewed Assessment and Plan Assessment: Acute hypoxemic respiratory failure, likely secondary to mild fluid overload/CHF. History of coronary artery disease, with previous bypass surgery. Status post pacemaker insertion. History of hypertension. History of hyperlipidemia. History of diabetes mellitus. History of obstructive sleep apnea syndrome. Prior history of tobacco use. Plan: Plan dated 02/22/2023. The patient is seen today in room 363. He is currently on 4 L of oxygen. The patient is not a particularly good historian, and most of the history is obtained from the ER frederic. It appears that the patient may have some mild fluid overload/CHF. Labs, x-rays, and medications are reviewed. The patient's prognosis remains guarded. The patient is a DO NOT RESUSCITATE patient. We will continue to follow and make recommendations. Time with Patient: Greater than 30
--- NOTE | 2023-02-22 10:42 | US ---
EXAMINATION TYPE: US kidneys/renal and bladder DATE OF EXAM: 02/22/2023 COMPARISON: NONE CLINICAL INDICATION: Male, 87 years old with history of MARINA/CKD3b; MARINA, CKD EXAM MEASUREMENTS: Right Kidney: 10.0 x 4.7 x 4.7 cm Left Kidney: 10.6 x 6.2 x 5.0 cm Difficult exam due to immobile, elderly pt Right Kidney: Cortical thinning, hypoechoic lesion lower pole= 2.4 x 1.6 x 1.5 cm/ possible calcifica tion mid/lower pole= 1.4 cm Left Kidney: Cortical thinning Bladder: Unable to visualize No evidence for obstructive uropathy bilaterally. Cortical thinning present bilaterally. IMPRESSION: 1. Right inferior pole probable renal cysts. 2. Cortical thinning bilaterally suggestive of medical renal disease.
[2023-02-22] MEDS ORDERED: FUROSEMIDE 10 MG/ML 4 ML VIAL IV STA (10:52)
--- NOTE | 2023-02-22 10:52 | P.NPCON ---
History of Present Illness - Reason for Consult acute renal failure - History of Present Illness Patient is an 87-year-old male with history of Parkinson's disease, type 2 diabetes hypertension who is admitted to the hospital from [facility] with shortness of breath. History of positive go over test 10 days ago. Maintained on IV fluids and at 75 mL an hour Patient has history of chronic kidney disease stage IV with baseline creatinine around 2 mg/dL. Creatinine on admission was 2.2 and has increased to 2.8 today. Patient has an external catheter. 275 mL of urine is charted. Blood pressure was low with systolic in the 80s on initial admission. Maintained on losartan as outpatient, currently on hold. Chest x-ray shows mild pulmonary vascular congestion. Past Medical History Past Medical History: Coronary Artery Disease (CAD), Chest Pain / Angina, COPD, Diabetes Mellitus, Hyperlipidemia, Hypertension, Musculoskeletal Disorder, Pneumonia, Prostate Disorder, Sleep Apnea/CPAP/BIPAP Additional Past Medical History / Comment(s): Murmur, sinus problems, back pain, SOB History of Any Multi-Drug Resistant Organisms: None Reported Past Surgical History: Coronary Bypass/CABG, Heart Catheterization, Heart Catheterization With Stent, Hernia Repair, Pacemaker, Tonsillectomy Additional Past Surgical History / Comment(s): Quad bypass, heart cath 2010, 6 stents (2016), colonoscopy, cataracts, pacemaker, pain clinic procedures Past Anesthesia/Blood Transfusion Reactions: No Reported Reaction Date of Last Stent Placement:: 2015 Type of Cardiac Device: Permanent Pacemaker Device Placement Date:: 2016 Past Psychological History: Depression Smoking Status: Former smoker Past Alcohol Use History: None Reported Additional Past Alcohol Use History / Comment(s): SMOKED X 30 YEARS, 1PPD, QUIT Past Drug Use History: None Reported - Past Family History Mother Family Medical History: Diabetes Mellitus Additional Family Medical History / Comment(s): Mother at age 95 from diabetes complications. Father Family Medical History: Unable to Obtain Additional Family Medical History / Comment(s): He didn't know much about his father. Brother(s) History Unknown: Yes Family Medical History: No Reported History Additional Family Medical History / Comment(s): Patient has no brothers. Sister(s) Family Medical History: No Reported History Additional Family Medical History / Comment(s): Patient has no sisters. Daughter(s) Family Medical History: No Reported History Additional Family Medical History / Comment(s): Patient has one daughter with no major medical problems. Son(s) Family Medical History: No Reported History Additional Family Medical History / Comment(s): Patient has one son with no major medical problems. Medications and Allergies Home Medications Medication Instructions Recorded Confirmed Type Rosuvastatin Calcium [Crestor] 10 mg PO DAILY@0800 08/27/15 12/22/19 History Aspirin EC [Ecotrin Low Dose] 81 mg PO HS@199912/05/15 12/22/19 History Potassium Chloride [Klor-Con 20] 20 meq PO DAILY@0800 12/05/15 12/22/19 History Dulaglutide [Trulicity] 1.5 mg SQ WE@139901/01/18 12/22/19 History Clopidogrel Bisulfate [Plavix] 75 mg PO HS@199912/28/18 12/22/19 History Finasteride [Proscar] 5 mg PO DAILY@79912/28/18 12/22/19 History Carbidopa-Levodopa 25-100 mg 1 tab PO BID@0800,1400 04/25/19 12/22/19 History [Sinemet 25-100 mg] Furosemide [Lasix] 40 mg PO BID@0800,1400 04/25/19 12/22/19 History Insulin Glargine,Hum.rec.anlog 42 unit SQ HS@199904/25/19 12/22/19 History [Lantus Solostar Pen] Insulin Lispro [humaLOG Kwikpen] 12 unit SQ TID@0730,1130,1630 #0 04/26/19 12/22/19 Rx Cranberry Fruit Extract [Cranberry] 500 mg PO DAILY 12/22/19 12/22/19 History Losartan [Cozaar] 50 mg PO DAILY 12/22/19 12/22/19 History Pioglitazone HCl 15 mg PO DAILY 12/22/19 12/22/19 History carvediloL [Coreg*] 12.5 mg PO BID@0800,1600 12/22/19 12/22/19 History Acetaminophen Tab [Tylenol] 650 mg PO Q6HR PRN tab 12/26/19 Rx Gabapentin 600 mg PO BID #6 tab 12/26/19 Rx Pantoprazole [Protonix] 40 mg PO AC-BRKFST tablet. 12/26/19 Rx Triamcinolone 0.1% Cream [Kenalog 1 applic TOPICAL BID applic 12/26/19 Rx 0.1% Cream] Sennosides-Docusate Sodium 2 tab PO DAILY #60 tablet 12/27/19 Rx [Senokot-S] bisacodyL [Dulcolax] 10 mg RECTAL DAILY #1 supp 12/27/19 Rx Allergies Allergy/AdvReac Type Severity Reaction Status Date / Time No Known Allergies Allergy Verified 12/22/19 19:48 Physical Exam Vitals: Vital Signs Temp Pulse Pulse Resp BP BP Pulse Ox 02/22/23 07:57 97.4 F L 63 20 117/61 92 L 02/22/23 04:00 60 20 144/69 96 02/22/23 02:00 97.5 F L 60 20 93 L 02/22/23 01:12 61 18 116/67 93 L 02/21/23 22:30 58 L 107/54 91 L 02/21/23 22:00 62 101/55 93 L 02/21/23 21:30 61 100/55 94 L 02/21/23 21:00 65 86/54 92 L 02/21/23 20:30 62 78/47 93 L 02/21/23 20:00 59 L 88/48 92 L 02/21/23 19:30 113/93 94 L 02/21/23 19:27 91 L 02/21/23 19:16 99.3 F 66 18 86/51 92 L Intake and Output 02/21/23 02/22/23 02/22/23 22:59 06:59 14:59 Intake Total 0 Output Total 275 Balance 0 -275 Intake: Oral 0 Output: Post Void Residual 275 Other: Voiding Method Diaper Diaper External Catheter # Voids 0 Weight 99.79 kg 100 kg Patient is awake, comfortable, in no acute distress Examination of the heart S1 and S2 Examination of the lungs bilateral breath sounds are heard Abdomen is soft nontender Examination of lower extremity shows no significant edema [employer]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 He does not communicate much. Results - Lab Results Most recent lab results Calcium 8.5 mg/dL (8.4-10.2) 02/22/23 05:07 02/22/23 05:07 02/22/23 05:07 Assessment and Plan Assessment: 1. Acute kidney injury, nonoliguric. Most likely ATN associated with some degree of hypoperfusion with hypotension in the setting of use of ARBs. Losartan currently on hold. Patient is maintained on IV fluids however he appears to be in volume overload. 2. History of over the infection 10 days prior to admission 3. History of Parkinson's disease 4. Coronary artery disease with history of coronary bypass surgery and coronary stents. 5. Mild volume overload 6. Cardiomyopathy with ejection fraction of 40-45% on echocardiogram on 04/26/2019 Plan: DC IV fluids Lasix IV 1 Continue to hold losartan Continue to monitor post void residuals Repeat labs in a.m. Avoid nephrotoxic agents Decrease Neurontin dose Thank you for the consultation. We will continue to follow the patient with you during his hospitalization.
[2023-02-22] MEDS: IPRATROPIUM-ALBUTEROL 3 ML NEB INHALATION SCH ×3 (11:25→20:24)
[2023-02-22 11:39] LABS: Glucose,Whole Blood 151 mg/dL (70-110)
[2023-02-22] MEDS: NYSTATIN 100,000 UNIT/ML SUSP 500,000 UNIT/5 ML CUP PO SCH ×4 (12:49→20:45)
[2023-02-22] MEDS: INSULIN ASPART (NovoLOG) 100 UNIT/ML VIAL SQ SCH ×2 (12:50→17:24)
[2023-02-22] MEDS: carvediloL 3.125 MG TAB PO SCH (16:09)
[2023-02-22 16:16] LABS: Glucose,Whole Blood 216 mg/dL (70-110)
[2023-02-22 20:34] LABS: Glucose,Whole Blood 216 mg/dL (70-110)
[2023-02-22] MEDS: INSULIN DETEMIR (LEVEMIR) 100 UNIT/ML SYR SQ SCH (20:45)
[2023-02-22] MEDS: ASPIRIN 81 MG PO SCH (20:45)
[2023-02-22] MEDS: GABAPENTIN 100 MG CAP PO SCH (20:45)
[2023-02-22] MEDS: CLOPIDOGREL 75 MG TAB PO SCH (20:45)
[2023-02-23 05:56] LABS: Glucose,Whole Blood 121 mg/dL (70-110)
[2023-02-23] MEDS: INSULIN ASPART (NovoLOG) 100 UNIT/ML VIAL SQ SCH ×3 (06:15→17:00)
[2023-02-23] MEDS: PANTOPRAZOLE 40 MG TABLET PO SCH (06:18)
[2023-02-23] MEDS: IPRATROPIUM-ALBUTEROL 3 ML NEB INHALATION SCH ×4 (07:52→20:44)
[2023-02-23] MEDS: CARBIDOPA-LEVODOPA 25-100 MG 1 EACH TAB PO SCH ×2 (09:20→14:51)
[2023-02-23] MEDS: NYSTATIN 100,000 UNIT/ML SUSP 500,000 UNIT/5 ML CUP PO SCH ×4 (09:20→20:59)
[2023-02-23] MEDS: HEPARIN SODIUM,PORCINE 5,000 UNIT/ML 1 ML VIAL SQ SCH ×2 (09:20→20:05)
[2023-02-23] MEDS: SENNOSIDES-DOCUSATE SODIUM 1 EACH TAB PO SCH (09:20)
[2023-02-23] MEDS: GABAPENTIN 100 MG CAP PO SCH ×2 (09:20→20:04)
[2023-02-23] MEDS: carvediloL 3.125 MG TAB PO SCH ×2 (09:20→17:00)
[2023-02-23] MEDS: bisacodyL 10 MG SUPP RECTAL SCH (09:20)
[2023-02-23] MEDS: ATORVASTATIN 20 MG TAB PO SCH (09:20)
[2023-02-23] MEDS: FINASTERIDE 5 MG TAB PO SCH (09:20)
--- NOTE | 2023-02-23 09:41 | P.PN ---
Subjective Patient is seen in follow-up for acute kidney injury on chronic kidney disease. Hemodynamically stable. Resting in bed. On nasal cannula. Not responding to verbal commands. Vital signs are stable. General: No acute distress. HEENT: Head exam is unremarkable. LUNGS: No audible rhonchi or wheezes. HEART: Rate and Rhythm are regular. ABDOMEN: No distention. EXTREMITITES: No edema. Objective - Vital Signs Vital signs: Vital Signs Temp 97.5 F L 02/22/23 20:00 Pulse 66 02/23/23 08:03 Resp 18 02/23/23 03:55 BP 128/59 02/23/23 03:55 Pulse Ox 94 L 02/23/23 07:54 FiO2 Intake & Output 02/22/23 02/23/23 02/23/23 18:59 06:59 18:59 Intake Total 0 Output Total 1120 750 Balance -1120 -750 Intake: Oral 0 Output: Urine 400 750 Uretheral ([place]) 400 Post Void Residual 720 Other: Voiding Method Diaper Indwelling Catheter External Catheter # Voids 1 # Bowel Movements 1 - Labs CBC & Chem 7: 02/22/23 05:07 02/22/23 05:07 Labs: Abnormal Lab Results - Last 24 Hours (Table) 02/22/23 02/22/23 02/22/23 Range/Units 11:37 16:15 20:31 POC Glucose (mg/dL) 151 H 216 H 216 H (70-110) mg/dL 02/23/23 Range/Units 05:54 POC Glucose (mg/dL) 121 H (70-110) mg/dL Assessment and Plan Plan: Assessment: 1. Acute kidney injury secondary to ATN secondary to hypotension and use of losartan. Creatinine 2.89 yesterday. No hydronephrosis noted on ultrasound on this admission. 2. Chronic kidney disease stage IIIB with baseline creatinine 1.8-2 in July 2021 and December 2022. Prior to that creatinine noted to be as low as 1.08 in September 2020. Suspect underlying diabetic kidney disease. UA from December 2022 showed slight proteinuria and no blood. 3. Acute on chronic systolic CHF with ejection fraction of 40-45%. 4. Diabetes mellitus. 5. Volume overload status post IV Lasix given 02/22/2023. 6. Coronary artery disease with history of CABG and stenting. 7. Parkinson's disease. Plan: Repeat chest x-ray. Avoid nephrotoxins. Check labs today and again in the morning. Check UA.
[2023-02-23 11:06] LABS: African American GFR (CKD) 36 (>60 ml/min/1.73 sqM); Anion Gap 9 mmol/L; Blood Urea Nitrogen 81 mg/dL (9-20); Calcium 8.9 mg/dL (8.4-10.2); Carbon Dioxide 27 mmol/L (22-30); Chloride 102 mmol/L (98-107); Glucose 87 mg/dL (74-99); Magnesium 2.9 mg/dL (1.6-2.3); Non-African American GFR(CKD) 31 (>60 ml/min/1.73 sqM); Potassium 4.3 mmol/L (3.5-5.1); Sodium 138 mmol/L (137-145)
[2023-02-23 11:21] LABS: Glucose,Whole Blood 94 mg/dL (70-110)
--- NOTE | 2023-02-23 12:53 | P.PN ---
Subjective Progress Note Date: 02/23/23 87-year-old no code patient, who is brought into the emergency department by EMS, from [facility]. The patient apparently has a history of Parkinson's disease, hyperlipidemia, diabetes, coronary disease, hypertension, hyperlipidemia, sleep apnea syndrome, and previous bypass surgery. In addition, the patient has a history of pacemaker implantation. The patient himself is not a particularly good historian. All of the history is really obtained from the ER frederic. The patient apparently had shortness of breath and cough at [facility], and for that reason, was brought to the ER. The patient apparently tested positive for coronavirus infection 10 days prior. It's noted in the ER frederic that the EMS noted that he had gurgling respirations. Currently he is in bed, sitting up, completing his breakfast. He is on 4 L of oxygen. He is getting saline at 75 mL an hour. He does not appear to be in any respiratory distress or difficulty. Again, he cannot give much of a history. White count 9.4, hemoglobin 11.6, hematocrit 35.3, with a normal platelet count. Sodium 138, potassium 4.2, chlorides 104, CO2 24, anion gap 10, BUN 93, and creatinine 2.89. Troponins were 0.022, 0.021, and 0.022. N-terminal proBNP was 1060. Chest x- ray was consistent with mild fluid overload. On today's evaluation of 02/23/2023, the patient is being seen for a follow-up. Is an 87-year-old male patient was sent over from the [facility]. The patient has advanced comorbidities including dementia and Parkinson's disease and the patient is also known to be diabetic has coronary artery disease hypertension hyperlipidemia and sleep apnea. The patient is currently on 4 L of Oxymizer nasal cannula. Is a weak cough. Unable to tolerate BiPAP and based on that the patient was kept on 4 L of O2 nasal cannula. He did sustain an acute kidney injury secondary to ATN related to hypotension and use of losartan. He is on intake is quite diminished. Family is at the bedside. Is a DNR/DNI CODE ST [facility]. He is alert and oriented 2. He is arousable. His creatinine today is at 1.9 with a BUN of 81 and sodium levels of 138 Objective - Vital Signs Vital signs: Vital Signs Temp 98.1 F 11/13/23 08:00 Pulse 66 02/23/23 08:03 Resp 18 02/23/23 08:00 BP 128/61 02/23/23 08:00 Pulse Ox 92 L 02/23/23 08:00 FiO2 Intake & Output 02/22/23 02/23/23 02/23/23 18:59 06:59 18:59 Intake Total 0 Output Total 1120 750 Balance -1120 -750 Intake: Oral 0 Output: Urine 400 750 Uretheral ([place]) 400 Post Void Residual 720 Other: Voiding Method Diaper Indwelling Catheter Indwelling Catheter External Catheter # Voids 1 # Bowel Movements 1 - Exam No acute distress, oriented 3, patient is a very poor historian. Currently, he's on 4 L by nasal cannula. HEENT examination is grossly unremarkable. Mucous membranes are moist. No oral lesions. The patient has a cold sore on his lower lip. Neck supple. Full range of motion. No adenopathy thyromegaly or neck vein distention. Cardiovascular examination reveals regular rhythm rate. S1-S2 normal. No S3 or S4. No discernible murmur noted. Heart sounds are distant. Heart rate 63 bpm. Lungs reveal scattered rhonchi. No wheezes or crackles noted. Breath sounds are diminished throughout. The patient does not take deep breaths. 4 L satur ation is 92%. Abdomen soft bowel sounds are heard. No masses or tenderness. Extremities are intact. No cyanosis clubbing or edema. Skin is without rash or lesion. Neurologic examination is brief but nonfocal. - Labs CBC & Chem 7: 02/22/23 05:07 02/23/23 10:24 Labs: Abnormal Lab Results - Last 24 Hours (Table) 02/22/23 02/22/23 02/22/23 Range/Units 11:37 16:15 20:31 POC Glucose (mg/dL) 151 H 216 H 216 H (70-110) mg/dL 02/23/23 Range/Units 05:54 POC Glucose (mg/dL) 121 H (70-110) mg/dL Assessment and Plan Plan: Acute hypoxemic respiratory failure, likely secondary to mild fluid overload/CHF. The patient is currently on 4 L O2 nasal cannula with a pulse ox of 93%. History of coronary artery disease, with previous bypass surgery. Acute kidney injury secondary to ATN secondary to hypotension and use of losartan CAD and he is post CABG and sari coronary stenting CHF , EF 40-45% (2020) Status post pacemaker insertion. History of hypertension. History of hyperlipidemia. History of diabetes mellitus. History of obstructive sleep apnea syndrome. Prior history of tobacco use. Plan: Wean FiO2 as tolerated Monitor renal function Home medications have been resumed Plan dated 02/22/2023. Avoid nephrotoxic agents Repeat chest x-ray in the morning We'll continue to follow. DNR/DNI CODE STATUS T
--- NOTE | 2023-02-23 14:08 | XR ---
EXAMINATION TYPE: XR chest 1V DATE OF EXAM: 02/23/2023 COMPARISON: 02/21/2023 HISTORY: Shortness of breath TECHNIQUE: Single frontal view of the chest is obtained. FINDINGS: Limited inspiration with bibasilar subsegmental consolidation. Poststernotomy changes are noted with no pneumothorax. Apical pleural thickening. Heart size upper limits of normal. Diffuse ost eopenia with arthropathy of the shoulders. IMPRESSION: 1. Bibasilar atelectasis or early pneumonia.
[2023-02-23 15:50] LABS: ABG Base Excess 2.8 mmol/L; ABG HCO3 27 mmol/L (21-25); ABG Oxygen Saturation 89.3 % (94-97); ABG PCO2 42 mmHg (35-45); ABG PH 7.42 (7.35-7.45); ABG TCO2 29 mmol/L (19-24); Allen Test Performed? Yes
[2023-02-23 15:54] LABS: ABG PO2 58 mmHg (83-108)
[2023-02-23 16:23] LABS: Glucose,Whole Blood 71 mg/dL (70-110)
[2023-02-23 16:36] LABS: Glucose,Whole Blood 91 mg/dL (70-110)
[2023-02-23] MEDS: CLOPIDOGREL 75 MG TAB PO SCH (20:04)
[2023-02-23] MEDS: ASPIRIN 81 MG PO SCH (20:04)
[2023-02-23] MEDS: INSULIN DETEMIR (LEVEMIR) 100 UNIT/ML SYR SQ SCH (20:05)
[2023-02-23 20:25] LABS: Glucose,Whole Blood 110 mg/dL (70-110)
[2023-02-23] MEDS ORDERED: PATIENT'S OWN (Tirzepatide [Mounjaro] 7.5 MG/0.5 ML Pen.Injctr) SQ SCH (21:00)
[2023-02-23] MEDS: MONTELUKAST 10 MG TAB PO SCH (22:02)
[2023-02-24 04:45] LABS: Glucose,Whole Blood 106 mg/dL (70-110)
[2023-02-24] MEDS: INSULIN ASPART (NovoLOG) 100 UNIT/ML VIAL SQ SCH ×3 (06:08→17:37)
--- NOTE | 2023-02-24 06:09 | P.HPIM ---
History of Present Illness H&P Date: 02/22/23 Chief Complaint: Metabolic encephalopathy, acute kidney injury on chronic kidney disease HISTORY OF PRESENT ILLNESS: This is an 87-year-old male one of my patient with a previous medical history significant for CAD post CABG 4 in 2010 with sequential MARROQUIN to LAD and diagonal branch, SVG to PDA and SVG to the obtuse marginal branch, subsequently underwent left heart catheterization 2016 because of unstable angina he had PCI of the obtuse marginal branch, chronic diastolic heart failure, diabetes mellitus type 2 with diabetic polyneuropathy, hypertension and hypertensive cardio vascular disease, COPD, enlarged prostate, sleep apnea, bradycardia status post permanent pacemaker placement, history of significant degenerative disease of the lumbar spine with significant weakness of both lower extremity currently uses a walker for immolation, restless leg syndrome, and history of parkinsonism. Patient has had COVID-19 as part of the recent surge at [facility] with COVID-19 infection has not been eating or drinking much due to poor appetite, and he has been complaining of increased shortness breath, he developed to have a significant mental status changes nursing staff at contacted me as stated that the patient is coughing he was seen earlier by the nurse practitioner Beenaalbert lea. He was prescribed doxycycline, and the patient became quite short of breath and responsive nursing staff has contacted co recommended for the patient to be transferred to the hospital he contacted his daughter who is the medical DURABLE POWER OF GLUE REEL OPERATOR and made him okay to hospitalization at this point in time but DO NOT RESUSCITATE, patient was seen in emergency depar tment at [facility] he was found to have an acute kidney injury on chronic kidney disease, he was placed on IV fluid resuscitation and was admitted to the hospital for further evaluation and treatment. Pulmonary consultation was obtained. As well as nephrology consultation. REVIEW OF SYSTEMS: Constitutional: No documented fever, no chills, no night sweats. positive for weight change. positive for weakness, fatigue or lethargy. No daytime sleepiness. EENT: No headache. No blurred vision or double vision, no loss of vision. positive for hard of Hearing, no ringing in the ears, no dizziness. No nasal drainage or congestion. No epistaxis. No sore throat. Lungs: No shortness of breath, occasional cough, no sputum production. No wheezing. Reports dyspnea with activity. Cardiovascular: No chest pain, no lower extremity edema. No palpitations. No paroxysmal nocturnal dyspnea. No orthopnea. No lightheadedness or dizziness. No syncopal episodes. Abdominal: Reports no abdominal pain. No nausea, vomiting. No diarrhea. No constipation. No bloody or tarry stools reports loss of appetite. Genitourinary: No dysuria, increased frequency, urgency. No urinary retention. Musculoskeletal: No myalgias. positive for muscle weakness, no gait dysfunction, no frequent falls. No back pain. No neck pain. Integumentary: No wounds, no lesions. No rash or pruritus. No unusual bruising. No change in hair or nails. Neurologic: No aphasia. positive for chronic facial droop. positive for change in mentation. No head injury. No headache. No paralysis. No paresthesia. Psychiatric: positive for depression. No anxiety. No mood swings. Endocrine: abnormal blood sugars. positive for weight change. PAST MEDICAL HISTORY: CAD post CABG 4 in 2010 hypertension and hypertensive perivascular disease. Mixed hyperlipidemia. Chronic diastolic heart failure. diabetes mellitus type 2. Diabetic polyneuropathy. COPD. Enlarged prostate. Obstructive sleep apnea. Bradycardia status post permanent pacemaker placement Degenerative disc disease of the lumbar spine Restless leg syndrome Parkinsonism History of CVA. PAST SURGICAL HISTORY: CABG 4 with MARROQUIN to LAD and diagonal branch SVG to PDA and SVG to obtuse marginal branch 2011 Left heart catheterization with PCI of the obtuse marginal branch 2016 Hernia repair. Permanent pacemaker placement Bilateral cataract surgery Colonoscopy SOCIAL HISTORY: Patient used to smoke about a pack every day for 30 years and quit in 1970 patient denies any alcohol ingestion now used to drink quite a bit of a beer in the past he currently resides at [facility], uses a wheelchair, he is not ambulatory, he denies any drug use or abuse, FAMILY HISTORY: Mother at age 95 from diabetes competition, patient did not do much of his father, patient has one daughter with macular degeneration PHYSICAL EXAMINATION: General: A 70-year-old male laying down in bed in no respiratory distress. HEENT: Head is atraumatic, normocephalic, pupils were equal round reactive to light and recommendation, extraocular muscle movement were intact, sclera nonicteric, conjunctivae were pale, mucous membranes of the mouth are somewhat dry. Neck: Supple, no JVP, normal carotid upstroke bilaterally, no lymphadenopathy. Chest: Decreased breath sounds at the bases, few rhonchi, no expiratory wheezes, no chest wall tenderness, no intercostal retractions. Heart: First heart sound is normal, second heart sound is normal there is HENRIQUE 2/6 located at the left sternal border there PPM. Abdomen: Soft, nontender, nondistended, positive bowel sounds. Extremities: There is no edema no calf tenderness DP +2 bilaterally. Neurologic examination: Patient is awake alert and oriented x2 , cranial nerves II-12 appear grossly intact, muscle power were 4 out of 5 in upper extremities and 3 out of 5 in bilateral lower extremities, deep tendon reflexes normal bilaterally. ASSESSMENT AND PLAN: 1. Acute kidney injury on chronic kidney disease stage III a due to vasomotor nephropathy and poor intake of fluids Continue IV fluid resuscitation the form of normal saline at 50 mL an hour, monitor the patient CMP over the next 24 hours, increase oral intake and obtain nephrology consultation. 2. Metabolic encephalopathy likely related to acute kidney injury no evidence of any acute ischemic event at this point in time, we will continue to monitor the patient very closely. 3. Chronic systolic heart failure. We will decrease IV resuscitation. 4. Hypertension and hypertensive cardiovascular disease. Continue carvedilol 3.125 mg orally twice every day, losartan due to acute kidney injury much of the patient blood pressure very closely. 5. Coronary artery disease status post CABG 4 with ischemic cardiomyopathy. Continue patient on carvedilol 3.125 mg orally twice every day, continue aspirin 81 mg once every day, continue atorvastatin 20 mg orally once every day, keep LDL cholesterol 55-70. 6. Mixed hyperlipidemia. Continue atorvastatin 20 mg orally once every day. 7. Diabetes mellitus type 2. Continue patient on Levemir 30 units at bedtime along with the Humalog 5 units before each meal, continue patient on Mounjaro 7.5 mg subcutaneously once every week on Thursday, discontinue Jardiance. 8. Parkinsonism. Continue Sinemet 25/100 with one tablet orally twice every day. 9. Obesity with obstructive sleep apnea. Currently not on CPAP. 10. History of CVA in the past. Continue patient on aspirin 81 mg once every day, Plavix 75 mg once every day, atorvastatin 20 mg once every day for se condary stroke prevention. 11. Diabetic polyneuropathy. Continue gabapentin at a smaller dose of her milligrams orally twice every day. 12. Degenerative disc disease of lumbar spine. Stable at this time. 13. Enlarged prostate. Continue finasteride 5 mg orally once every day. 14. Depression. Continue venlafaxine ER 37.5 mg orally once every day. 15. DVT prophylaxis. Heparin 5000 units subcutaneously every 12 hours. 16. GI prophylaxis. Continue patient on famotidine 10 mg orally twice every day. 17. Patient is DO NOT RESUSCITATE. 18. Admit to inpatient. Estimate a length of stay 2 midnights. Past Medical History Past Medical History: Coronary Artery Disease (CAD), Chest Pain / Angina, COPD, Diabetes Mellitus, Hyperlipidemia, Hypertension, Musculoskeletal Disorder, Pneumonia, Prostate Disorder, Sleep Apnea/CPAP/BIPAP Additional Past Medical History / Comment(s): Murmur, sinus problems, back pain, SOB History of Any Multi-Drug Resistant Organisms: None Reported Past Surgical History: Coronary Bypass/CABG, Heart Catheterization, Heart Catheterization With Stent, Hernia Repair, Pacemaker, Tonsillectomy Additional Past Surgical History / Comment(s): Quad bypass, heart cath 2010, 6 stents (2015), colonoscopy, cataracts, pacemaker, pain clinic procedures Past Anesthesia/Blood Transfusion Reactions: No Reported Reaction Date of Last Stent Placement:: 2015 Type of Cardiac Device: Permanent Pacemaker Device Placement Date:: 2016 Past Psychological History: Depression Smoking Status: Former smoker Past Alcohol Use History: None Reported Additional Past Alcohol Use History / Comment(s): SMOKED X 30 YEARS, 1PPD, QUIT Past Drug Use History: None Reported - Past Family History Mother Family Medical History: Diabetes Mellitus Additional Family Medical History / Comment(s): Mother at age 95 from diabetes complications. Father Family Medical History: Unable to Obtain Additional Family Medical History / Comment(s): He didn't know much about his f ather. Brother(s) History Unknown: Yes Family Medical History: No Reported History Additional Family Medical History / Comment(s): Patient has no brothers. Sister(s) Family Medical History: No Reported History Additional Family Medical History / Comment(s): Patient has no sisters. Daughter(s) Family Medical History: No Reported History Additional Family Medical History / Comment(s): Patient has one daughter with no major medical problems. Son(s) Family Medical History: No Reported History Additional Family Medical History / Comment(s): Patient has one son with no major medical problems. Medications and Allergies Home Medications Medication Instructions Recorded Confirmed Type Rosuvastatin Calcium [Crestor] 10 mg PO DAILY@0800 08/27/15 02/22/23 History Aspirin EC [Ecotrin Low Dose] 81 mg PO DAILY@1700 12/05/15 02/22/23 History Potassium Chloride [Klor-Con 20] 20 meq PO MOWEFR@1700 12/05/15 02/22/23 History Clopidogrel Bisulfate [Plavix] 75 mg PO HS@209912/28/18 02/22/23 History Finasteride [Proscar] 5 mg PO DAILY@0800 12/28/18 02/22/23 History Carbidopa-Levodopa 25-100 mg 1 tab PO BID@0800,1400 04/25/19 02/22/23 History [Sinemet 25-100 mg] Furosemide [Lasix] 40 mg PO BID@0800,1400 04/25/19 02/22/23 History Insulin Glargine,Hum.rec.anlog 60 unit SQ HS@209904/25/19 02/22/23 History [Lantus Solostar Pen] carvediloL [Coreg*] 12.5 mg PO BID@0800,1700 12/22/19 02/22/23 History Acetaminophen Tab [Tylenol] 650 mg PO Q6HR PRN tab 12/26/19 02/22/23 Rx Pantoprazole [Protonix] 40 mg PO AC-BRKFST tablet. 12/26/19 02/22/23 Rx Ascorbic Acid [Vitamin C] 1,000 mg PO DAILY@0800 02/22/23 02/22/23 History Calcium Carbonate [Tums] 1,000 mg PO TID PRN 02/22/23 02/22/23 History Cholecalciferol [Vitamin D3 (25 125 mcg PO DAILY@0800 02/22/23 02/22/23 History Mcg = 1000 Iu)] Cranberry 405mg 2 cap PO DAILY@0800 02/22/23 02/22/23 History Dextroamphetamine/Amphetamine 10 mg PO BID@0800,1700 02/22/23 02/22/23 History [Adderall] Doxycycline Hyclate 100 mg PO BID@0800,1700 02/22/23 02/22/23 History Empagliflozin [Jardiance] 25 mg PO DAILY@0800 02/22/23 02/22/23 History Famotidine [Pepcid] 20 mg PO DAILY@1700 02/22/23 02/22/23 History Gabapentin [Neurontin] 300 mg PO BID@0800,1700 02/22/23 02/22/23 History INSULIN ASPART (NovoLOG) [NovoLOG 5 unit SQ TID@0800,1200,1700 02/22/23 02/22/23 History (formulary)] INSULIN ASPART (NovoLOG) [NovoLOG See Protocol SQ AC-TID 02/22/23 02/22/23 History (formulary)] Ipratropium-Albuterol Nebulize 3 ml INHALATION RT-Q6H PRN 02/22/23 02/22/23 History [Duoneb 0.5 mg-3 mg/3 ml Soln] Loperamide [Imodium] 2 mg PO QID PRN 02/22/23 02/22/23 History Loratadine [Children's Loratadine 5 mg PO DAILY@0800 02/22/23 02/22/23 History Chew] Losartan Potassium 100 mg PO DAILY@0800 02/22/23 02/22/23 History Magnesium Hydroxide [Milk of 7,200 mg PO DIRECTED PRN 02/22/23 02/22/23 History Magnesia Concentrate] Menthol [Biofreeze] 1 applic TOPICAL BID PRN 02/22/23 02/22/23 History Metoclopramide [Reglan] 5 mg PO PC-TID 02/22/23 02/22/23 History Montelukast [Singulair] 10 mg PO HS@2100 02/22/23 02/22/23 History Na Phos,M-B/Na Phos,Di-Ba [Fleet 133 ml RECTAL DAILY PRN 02/22/23 02/22/23 History Adult] Polyvinyl Alcohol/Povidone [Clear 1 drop BOTH EYES DAILY@1700 02/22/23 02/22/23 History Eyes Natural Tears Drop] Sennosides-Docusate Sodium 2 tab PO DAILY@0800 02/22/23 02/22/23 History [Senokot-S] Tirzepatide [Mounjaro] 7.5 mg SQ MO 02/22/23 02/22/23 History Venlafaxine HCl ER [Effexor Xr] 37.5 mg PO DAILY@0800 02/22/23 02/22/23 History Zinc Sulfate [Orazinc] 220 mg PO DAILY@0800 02/22/23 02/22/23 History bisacodyL [Dulcolax] 10 mg RECTAL DAILY PRN 02/22/23 02/22/23 History polyethylene glycoL 3350 [Miralax] 17 gm PO DAILY@1700 02/22/23 02/22/23 History Allergies Allergy/AdvReac Type Severity Reaction Status Date / Time No Known Allergies Allergy Verified 12/22/19 19:48 Physical Exam Vitals: Vital Signs Temp Pulse Pulse Resp BP BP Pulse Ox 02/22/23 07:57 97.4 F L 63 20 117/61 92 L 02/22/23 04:00 60 20 144/69 96 02/22/23 02:00 97.5 F L 60 20 93 L 02/22/23 01:12 61 18 116/67 93 L 02/21/23 22:30 58 L 107/54 91 L 02/21/23 22:00 62 101/55 93 L 02/21/23 21:30 61 100/55 94 L 02/21/23 21:00 65 86/54 92 L 02/21/23 20:30 62 78/47 93 L 02/21/23 20:00 59 L 88/48 92 L 02/21/23 19:30 113/93 94 L 02/21/23 19:27 91 L 02/21/23 19:16 99.3 F 66 18 86/51 92 L Intake and Output 02/21/23 02/22/23 02/22/23 22:59 06:59 14:59 Intake Total 0 Balance 0 Intake: Oral 0 Other: Voiding Method Diaper # Voids 0 Weight 99.79 kg 100 kg Results CBC & Chem 7: 02/22/23 05:07 02/23/23 10:24 Labs: Abnormal Lab Results - Last 24 Hours (Table) 02/21/23 02/21/23 02/21/23 Range/Units 22:26 22:26 22:26 WBC 14.5 H (3.8-10.6) k/uL RBC 3.23 L (4.30-5.90) m/uL Hgb 10.5 L (13.0-17.5) gm/dL Hct 32.4 L (39.0-53.0) % MCV 100.3 H (80.0-100.0) fL Neutrophils # 12.1 H (1.3-7.7) k/uL APTT 18.6 L (22.0-30.0) sec BUN 93 H (9-20) mg/dL Creatinine 2.74 H (0.66-1.25) mg/dL AST 60 H (17-59) U/L 02/22/23 02/22/23 Range/Units 05:07 05:07 WBC (3.8-10.6) k/uL RBC 3.51 L (4.30-5.90) m/uL Hgb 11.6 L (13.0-17.5) gm/dL Hct 35.3 L (39.0-53.0) % MCV 100.7 H (80.0-100.0) fL Neutrophils # (1.3-7.7) k/uL APTT (22.0-30.0) sec BUN 93 H (9-20) mg/dL Creatinine 2.89 H (0.66-1.25) mg/dL AST (17-59) U/L
[2023-02-24] MEDS: PANTOPRAZOLE 40 MG TABLET PO SCH (06:10)
[2023-02-24 06:20] LABS: Glucose,Whole Blood 95 mg/dL (70-110)
[2023-02-24] MEDS ORDERED: LEVOFLOXACIN 500MG-D5W PMX 500 MG in DEXTROSE/WATER 1 100ML.BAG IVPB ONE (08:00)
[2023-02-24] MEDS ORDERED: GABAPENTIN 300 MG CAP PO SCH (08:00)
[2023-02-24] MEDS: SENNOSIDES-DOCUSATE SODIUM 1 EACH TAB PO SCH (08:52)
[2023-02-24] MEDS: HEPARIN SODIUM,PORCINE 5,000 UNIT/ML 1 ML VIAL SQ SCH ×2 (08:52→20:24)
[2023-02-24] MEDS: IPRATROPIUM-ALBUTEROL 3 ML NEB INHALATION SCH ×4 (08:52→20:29)
[2023-02-24] MEDS: METOCLOPRAMIDE 5 MG TAB PO SCH ×3 (08:52→17:37)
[2023-02-24] MEDS: carvediloL 3.125 MG TAB PO SCH ×2 (08:53→17:37)
[2023-02-24] MEDS: FINASTERIDE 5 MG TAB PO SCH (08:53)
[2023-02-24] MEDS: CARBIDOPA-LEVODOPA 25-100 MG 1 EACH TAB PO SCH ×2 (08:53→15:08)
[2023-02-24] MEDS: VENLAFAXINE HCL ER 37.5 MG CAP PO SCH (08:53)
[2023-02-24] MEDS: ATORVASTATIN 20 MG TAB PO SCH (08:53)
[2023-02-24] MEDS: GABAPENTIN 100 MG CAP PO SCH ×2 (08:53→20:24)
[2023-02-24] MEDS: NYSTATIN 100,000 UNIT/ML SUSP 500,000 UNIT/5 ML CUP PO SCH ×4 (08:54→20:24)
[2023-02-24] MEDS: bisacodyL 10 MG SUPP RECTAL SCH (08:55)
[2023-02-24] MEDS: PATIENT'S OWN (Dextroamphetamine/Amphetamine [Adderall] 10 MG Tablet) PO SCH ×2 (09:00→17:37)
[2023-02-24 09:21] LABS: Basophils % (A) 0 %; Eosinophils # (A) 0.2 k/uL (0-0.7); Eosinophils % (A) 2 %; HCT 37.9 % (39.0-53.0); HGB 12.2 gm/dL (13.0-17.5); Lymphocytes # (A) 1.1 k/uL (1.0-4.8); Lymphocytes % (A) 11 %; MCH 32.6 pg (25.0-35.0); MCHC 32.3 g/dL (31.0-37.0); MCV 100.8 fL (80.0-100.0); Mean Platelet Volume 7.7; Monocytes # (A) 0.5 k/uL (0-1.0); Monocytes % (A) 5 %; Neutrophils # (A) 8.3 k/uL (1.3-7.7); Neutrophils % (A) 81 %; Platelet Count 262 k/uL (150-450); RBC 3.76 m/uL (4.30-5.90); RDW 13.1 % (11.5-15.5); WBC 10.2 k/uL (3.8-10.6)
[2023-02-24 09:36] LABS: ALT 40 U/L (4-49); AST 26 U/L (17-59); African American GFR (CKD) 48 (>60 ml/min/1.73 sqM); Alkaline Phosphatase 73 U/L (38-126); Anion Gap 12 mmol/L; Blood Urea Nitrogen 63 mg/dL (9-20); Calcium 8.8 mg/dL (8.4-10.2); Carbon Dioxide 22 mmol/L (22-30); Chloride 104 mmol/L (98-107); Glucose 124 mg/dL (74-99); Non-African American GFR(CKD) 41 (>60 ml/min/1.73 sqM); Potassium 4.1 mmol/L (3.5-5.1); Sodium 138 mmol/L (137-145); Total Bilirubin 0.7 mg/dL (0.2-1.3); Total Protein 6.1 g/dL (6.3-8.2)
--- NOTE | 2023-02-24 11:02 | P.PN ---
Subjective Progress Note Date: 02/24/23 87-year-old no code patient, who is brought into the emergency department by EMS, from [facility]. The patient apparently has a history of Parkinson's disease, hyperlipidemia, diabetes, coronary disease, hypertension, hyperlipidemia, sleep apnea syndrome, and previous bypass surgery. In addition, the patient has a history of pacemaker implantation. The patient himself is not a particularly good historian. All of the history is really obtained from the ER frederic. The patient apparently had shortness of breath and cough at [facility], and for that reason, was brought to the ER. The patient apparently tested positive for coronavirus infection 10 days prior. It's noted in the ER [facility] that the EMS noted that he had gurgling respirations. Currently he is in bed, sitting up, completing his breakfast. He is on 4 L of oxygen. He is getting saline at 75 mL an hour. He does not appear to be in any respiratory distress or difficulty. Again, he cannot give much of a history. White count 9.4, hemoglobin 11.6, hematocrit 35.3, with a normal platelet count. Sodium 138, potassium 4.2, chlorides 104, CO2 24, anion gap 10, BUN 93, and creatinine 2.89. Troponins were 0.022, 0.021, and 0.022. N-terminal proBNP was 1060. Chest x- ray was consistent with mild fluid overload. On today's evaluation of 02/23/2023, the patient is being seen for a follow-up. Is an 87-year-old male patient [facility]. The patient has advanced comorbidities including dementia and Parkinson's disease and the patient is also known to be diabetic has coronary artery disease hypertension hyperlipidemia and sleep apnea. The patient is currently on 4 L of Oxymizer nasal cannula. Is a weak cough. Unable to tolerate BiPAP and based on that the patient was kept on 4 L of O2 nasal cannula. He did sustain an acute kidney injury secondary to ATN related to hypotension and use of losartan. He is on intake is quite diminished. Family is at the bedside. Is a DNR/DNI CODE ST [facility]. He is alert and oriented 2. He is arousable. His creatinine today is at 1.9 with a BUN of 81 and sodium levels of 138 On today's evaluation of 02/24/2023, seeing the patient for a follow-up. The patient is doing better compared to yesterday. He has made excellent urine output. This morning, he was taken off the BiPAP and is currently on oxygen at 5 L with a pulse ox of 95%. His blood work from today shows a drop in the creatinine down to 1.5 with a BUN of 63 and a sodium level is at 138. Hemoglobin is at 12.2 with a white cell count of 10.2. He is in negative fluid balance of at least 2.5 L over the past 24 hours. His calm and comfortable. He is confused and he has underlying dementia. [facility] is a [facility]. He remains on bronchodilators. He is also on Levemir insulin 30 units at bedtime and NovoLog 5 units with meals. Repeat chest x-ray from today shows some atelectatic change in lung bases bilaterally. No other acute abnormalities. Objective - Vital Signs Vital signs: Vital Signs Temp 99.5 F 02/24/23 08:45 Pulse 60 02/24/23 09:04 Resp 20 02/24/23 08:45 BP 133/66 02/24/23 08:45 Pulse Ox 93 L 02/24/23 08:52 FiO2 Intake & Output 02/23/23 02/24/23 02/24/23 18:59 06:59 18:59 Intake Total 220 Output Total 600 750 Balance -380 -750 Intake: Oral 220 Output: Urine 600 750 Other: Voiding Method Indwelling Catheter Indwelling Catheter - Exam No acute distress, oriented 3, patient is a very poor historian. Currently, he's on 4 L by nasal cannula. HEENT examination is grossly unremarkable. Mucous membranes are moist. No oral lesions. The patient has a cold sore on his lower lip. Neck supple. Full range of motion. No adenopathy thyromegaly or neck vein distention. Cardiovascular examination reveals regular rhythm rate. S1-S2 normal. No S3 or S4. No discernible murmur noted. Heart sounds are distant. Heart rate 63 bpm. Lungs reveal scattered rhonchi. No wheezes or crackles noted. Breath sounds are diminished throughout. The patient does not take deep breaths. 4 L saturation is 92%. Abdomen soft bowel sounds are heard. No masses or tenderness. Extremities are intact. No cyanosis clubbing or edema. Skin is without rash or lesion. Neurologic examination is brief but nonfocal. - Labs CBC & Chem 7: 02/24/23 08:44 02/24/23 08:44 Labs: Abnormal Lab Results - Last 24 Hours (Table) 02/22/23 02/23/23 02/23/23 Range/Units 05:07 10:24 15:39 ABG pO2 58 L* (83-108) mmHg ABG HCO3 27 H (21-25) mmol/L ABG Total CO2 29 H (19-24) mmol/L ABG O2 Saturation 89.3 L (94-97) % BUN 81 H (9-20) mg/dL Creatinine 1.90 H (0.66-1.25) mg/dL Magnesium 2.9 H (1.6-2.3) mg/dL Procalcitonin 0.29 H (0.02-0.09) ng/mL Assessment and Plan Plan: Acute hypoxemic respiratory failure, likely secondary to mild fluid overload/CHF. The patient is currently on 4-5 L of oxygen by nasal cannula. Clinically stable. Acute kidney injury, improving and the creatinine is down to 1.5 and the patient is negative fluid balance History of coronary artery disease, with previous bypass surgery. Acute kidney injury secondary to ATN secondary to hypotension and use of losartan CAD and he is post CABG and sari coronary stenting CHF , EF 40-45% (2019) Status post pacemaker insertion. History of hypertension. History of hyperlipidemia. History of diabetes mellitus. History of obstructive sleep apnea syndrome. Prior history of tobacco use. Plan: Wean FiO2 as tolerated Monitor renal function, the patient's creatinine is improving and the patient has produced excellent urine output. There is improvement in oxygenation and overall respiratory status. Home medications have been resumed Plan dated 02/22/2023. Avoid nephrotoxic agents Repeat chest x-ray in the morning shows some bibasilar atelectatic changes. Complete the course of antibiotics We'll continue to follow. DNR/DNI CODE STATUS T
--- NOTE | 2023-02-24 11:31 | CA ---
Transthoracic Echo Report Name: Elías Vazquez Age: 87 Gender: M : 1935 Exam Date: 02/24/2023 08:57 Exam Location: [place] [facility] Ht (in): 69 Wt (lb): 220 Ordering Physician: Maria Victoria Ramirez MD Attending/Referring Phys: Logging Engineer Danielle Brandon RDCS Procedure CPT: Indications: chf Cardiac Hx: CABG, PACEMAKER Technical Quality: Technically difficult study Contrast 1: Definity Total Dose (mL): 2 Contrast 2: Total Dose (mL): MEASUREMENTS (Male / Female) Normal Values 2D ECHO LV Diastolic Diameter PLAX 5.3 cm 4.2 - 5.9 / 3.9 - 5.3 cm LV Systolic Diameter PLAX 3.6 cm IVS Diastolic Thickness 1.4 cm 0.6 - 1.0 / 0.6 - 0.9 cm LVPW Diastolic Thickness 1.3 cm 0.6 - 1.0 / 0.6 - 0.9 cm LV Relative Wall Thickness 0.5 RV Internal Dim ED PLAX 2.8 cm LA Systolic Diameter LX 4.3 cm 3.0 - 4.0 / 2.7 - 3.8 cm LV Diastolic Volume MOD BP 67.8 cm??? 67 - 155 / 56 - 104 cm??? LV Systolic Volume MOD BP 38.3 cm??? - 58 / 19 - 49 cm??? LV Ejection Fraction MOD BP 43.5 % >= 55 % LV Cardiac Index MOD BP 911.4 cm???/min???m??? LV Diastolic Volume MOD 4C 76.3 cm??? LV Systolic Volume MOD 4C 49.3 cm??? LV Ejection Fraction MOD 4C 35.4 % LV Cardiac Index MOD 4C 834.7 cm???/min???m??? LV Diastolic Length 4C 8.1 cm LV Systolic Length 4C 6.9 cm LV Diastolic Volume MOD 2C 57.3 cm??? LV Systolic Volume MOD 2C 29.3 cm??? LV Ejection Fraction MOD 2C 49.0 % LV Cardiac Index MOD 2C 866.0 cm???/min???m??? LV Diastolic Length 2C 7.6 cm LV Systolic Length 2C 6.7 cm LA Volume 62.8 cm??? 18 - 58 / 22 - 52 cm??? LA Volume Index 28.1 cm???/m??? 16 - 28 cm???/m??? M-MODE Aortic Root Diameter MM 3.1 cm MV E Point Septal Separation 0.7 cm AV Cusp Separation MM 2.1 cm DOPPLER AV Peak Velocity 132.8 cm/s AV Peak Gradient 7.1 mmHg MV Area PHT 3.4 cm??? Mitral E Point Velocity 71.0 cm/s Mitral A Point Velocity 99.6 cm/s Mitral E to A Ratio 0.7 MV Deceleration Time 224.8 ms TR Peak Velocity 286.3 cm/s TR Peak Gradient 32.8 mmHg Right Ventricular Systolic Press 37.8 mmHg FINDINGS Left Ventricle Left ventricular ejection fraction is estimated at 40 %. Left ventricular cavity size normal. Moderately increased septal wall thickness. Moderately decreased left ventricular ejection fraction. Right Ventricle Normal right ventricular size. Mild pulmonary hypertension. Right Atrium Normal right atrial size. Left Atrium Mildly increased left atrial diameter. Mildly increased left atrial volume. Mitral Valve Structurally normal mitral valve. Mild mitral regurgitation. Aortic Valve Trileaflet aortic valve. Aortic valve sclerosis. Trace aortic regurgitation. Tricuspid Valve Structurally normal tricuspid valve. Mild tricuspid regurgitation. Pulmonic Valve Structurally normal pulmonic valve. No pulmonic regurgitation. Pericardium No pericardial effusion. Aorta Normal size aortic root and proximal ascending aorta. CONCLUSIONS Left ventricle is at upper limits of normal with the global decrease in contractility atypical septal motion and ejection fraction of about 40%. Mild mitral and tricuspid regurgitation no pericardial effusion. Mild pulmonary hypertension Previewed by: Dr. Suzi Hudson MD (Electronically Signed) Final Date: 24 February 2023 11:30
[2023-02-24 11:47] LABS: Glucose,Whole Blood 193 mg/dL (70-110)
--- NOTE | 2023-02-24 13:39 | P.PN ---
Subjective Patient is seen in follow-up for acute kidney injury on chronic kidney disease. Hemodynamically stable. Resting in bed. On nasal cannula. Poor historian. Renal function improving. Vital signs are stable. General: No acute distress. HEENT: Head exam is unremarkable. LUNGS: No audible rhonchi or wheezes. HEART: Rate and Rhythm are regular. ABDOMEN: No distention. EXTREMITITES: No edema. Objective - Vital Signs Vital signs: Vital Signs Temp 98.7 F 02/24/23 12:22 Pulse 60 02/24/23 12:22 Resp 20 02/24/23 12:22 BP 130/75 02/24/23 12:22 Pulse Ox 95 02/24/23 12:22 FiO2 Intake & Output 02/23/23 02/24/23 02/24/23 18:59 06:59 18:59 Intake Total 220 335 Output Total 600 750 Balance -380 -750 335 Intake: Oral 220 335 Output: Urine 600 750 Other: Voiding Method Indwelling Catheter Indwelling Catheter - Labs CBC & Chem 7: 02/24/23 08:44 02/24/23 08:44 Labs: Abnormal Lab Results - Last 24 Hours (Table) 02/23/23 02/24/23 02/24/23 Range/Units 15:39 08:44 08:44 RBC 3.76 L (4.30-5.90) m/uL Hgb 12.2 L (13.0-17.5) gm/dL Hct 37.9 L (39.0-53.0) % MCV 100.8 H (80.0-100.0) fL Neutrophils # 8.3 H (1.3-7.7) k/uL ABG pO2 58 L* (83-108) mmHg ABG HCO3 27 H (21-25) mmol/L ABG Total CO2 29 H (19-24) mmol/L ABG O2 Saturation 89.3 L (94-97) % BUN 63 H (9-20) mg/dL Creatinine 1.50 H (0.66-1.25) mg/dL Glucose 124 H (74-99) mg/dL POC Glucose (mg/dL) (70-110) mg/dL Magnesium 3.0 H (1.6-2.3) mg/dL Total Protein 6.1 L (6.3-8.2) g/dL Albumin 3.0 L (3.5-5.0) g/dL 02/24/23 Range/Units 11:45 RBC (4.30-5.90) m/uL Hgb (13.0-17.5) gm/dL Hct (39.0-53.0) % MCV (80.0-100.0) fL Neutrophils # (1.3-7.7) k/uL ABG pO2 (83-108) mmHg ABG HCO3 (21-25) mmol/L ABG Total CO2 (19-24) mmol/L ABG O2 Saturation (94-97) % BUN (9-20) mg/dL Creatinine (0.66-1.25) mg/dL Glucose (74-99) mg/dL POC Glucose (mg/dL) 193 H (70-110) mg/dL Magnesium (1.6-2.3) mg/dL Total Protein (6.3-8.2) g/dL Albumin (3.5-5.0) g/dL Assessment and Plan Plan: Assessment: 1. Acute kidney injury secondary to ATN secondary to hypotension and use of losartan. Creatinine 1.5 today. No hydronephrosis noted on ultrasound on this admission. 2. Chronic kidney disease stage IIIB with baseline creatinine 1.8-2 in July 2021 and December 2022. Prior to that creatinine noted to be as low as 1.08 in September 2020. Suspect underlying diabetic kidney disease. UA from December 2022 showed slight proteinuria and no blood. 3. Acute on chronic systolic CHF with ejection fraction of 40% with mild mitral and tricuspid regurgitation, mild pulmonary hypertension. 4. Diabetes mellitus. 5. Volume overload status post IV Lasix given 02/22/2023. 6. Coronary artery disease with history of CABG and stenting. 7. Parkinson's disease. Plan: Avoid nephrotoxins. Follow-up UA. No evidence of fluid overload noted on x-ray.
--- NOTE | 2023-02-24 15:40 | P.PN ---
Subjective Progress Note Date: 02/23/23 HISTORY OF PRESENT ILLNESS: This is an 87-year-old male one of my patient with a previous medical history significant for CAD post CABG 4 in 2010 with sequential MARROQUIN to LAD and diagonal branch, SVG to PDA and SVG to the obtuse marginal branch, subsequently underwent left heart catheterization 2016 because of unstable angina he had PCI of the obtuse marginal branch, chronic diastolic heart failure, diabetes mellitus type 2 with diabetic polyneuropathy, hypertension and hypertensive cardio vascular disease, COPD, enlarged prostate, sleep apnea, bradycardia status post permanent pacemaker placement, history of significant degenerative disease of the lumbar spine with significant weakness of both lower extremity currently uses a walker for immolation, restless leg syndrome, and history of parkinsonism. Patient has had COVID-19 as part of the recent surge at [facility] with COVID-19 infection has not been eating or drinking much due to poor appetite, and he has been complaining of increased shortness breath, he developed to have a significant mental status changes nursing staff at contacted me as stated that the patient is coughing he was seen earlier by the nurse practitioner Markel. He was prescribed doxycycline, and the patient became quite short of breath and responsive nursing staff has contacted me recommended for the patient to be transferred to the hospital he contacted his daughter who is the medical DURABLE POWER OF ORTHOPEDICS TEACHER and made him okay to hospitalization at this point in time but DO NOT RESUSCITATE, patient was seen in emergency department at [facility] he was found to have an acute kidney injury on chronic kidney disease, he was placed on IV fluid resuscitation and was admitted to the hospital for further evaluation and treatment. Pulmonary consultation was obtained. As well as nephrology consultation. 02/23: Patient is resting in bed. Patient is seen and followed by pulmonary medicine for acute hypoxic respiratory failure secondary to fluid overload. The patient has been seen by nephrology for acute kidney injury likely ATN as sociated with hypoperfusion and hypotension. Patient is off IV fluids. He is status post Lasix 1 yesterday. Losartan is on hold andNeurontin dose was decreased. A repeat chest x-ray has been ordered which reveals. Repeat blood work reveals appropriate of renal function with BUN of 81 creatinine 1.9. Electrolytes are within normal limits. Magnesium is 2.9. Heart rate is in the 50s and 60s, blood pressure 128/61, pulse ox 92% on 4 L nasal cannula. REVIEW OF SYSTEMS: Constitutional: No documented fever, no chills, no night sweats. positive for weight change. positive for weakness, fatigue or lethargy. No daytime sleepiness. EENT: No headache. No blurred vision or double vision, no loss of vision. positive for hard of Hearing, no ringing in the ears, no dizziness. No nasal drainage or congestion. No epistaxis. No sore throat. Lungs: No shortness of breath, occasional cough, no sputum production. No wheezing. Reports dyspnea with activity. Cardiovascular: No chest pain, no lower extremity edema. No palpitations. No paroxysmal nocturnal dyspnea. No orthopnea. No lightheadedness or dizziness. No syncopal episodes. Abdominal: Reports no abdominal pain. No nausea, vomiting. No diarrhea. No constipation. No bloody or tarry stools reports loss of appetite. Genitourinary: No dysuria, increased frequency, urgency. No urinary retention. Musculoskeletal: No myalgias. positive for muscle weakness, no gait dysfunction, no frequent falls. No back pain. No neck pain. Integumentary: No wounds, no lesions. No rash or pruritus. No unusual bruising. No change in hair or nails. Neurologic: No aphasia. positive for chronic facial droop. positive for change in mentation. No head injury. No headache. No paralysis. No paresthesia. Psychiatric: positive for depression. No anxiety. No mood swings. Endocrine: abnormal blood sugars. positive for weight change. PHYSICAL EXAMINATION: General: A 70-year-old male laying down in bed in no respiratory distress. HEENT: Head is atraumatic, normocephalic, pupils were equal round reactive to l ight and recommendation, extraocular muscle movement were intact, sclera nonicteric, conjunctivae were pale, mucous membranes of the mouth are somewhat dry. Neck: Supple, no JVP, normal carotid upstroke bilaterally, no lymphadenopathy. Chest: Decreased breath sounds at the bases, few rhonchi, no expiratory wheezes, no chest wall tenderness, no intercostal retractions. Heart: First heart sound is normal, second heart sound is normal there is HENRIQUE 2/6 located at the left sternal border there PPM. Abdomen: Soft, nontender, nondistended, positive bowel sounds. Extremities: There is no edema no calf tenderness DP +2 bilaterally. Neurologic examination: Patient is awake alert and oriented x2 , cranial nerves II-12 appear grossly intact, muscle power were 4 out of 5 in upper extremities and 3 out of 5 in bilateral lower extremities, deep tendon reflexes normal bilaterally. ASSESSMENT AND PLAN: 1. Acute kidney injury on chronic kidney disease stage III a due to vasomotor nephropathy and poor intake of fluids Continue IV fluid discontinued, monitor the patient CMP over the next 24 hours, increase oral intake and neurology consult appreciated. 2. Metabolic encephalopathy likely related to acute kidney injury no evidence of any acute ischemic event at this point in time, we will continue to monitor the patient very closely. 3. Chronic systolic heart failure. IV fluid discontinued. 4. Hypertension and hypertensive cardiovascular disease. Continue carvedilol 3.125 mg orally twice every day, losartan due to acute kidney injury much of the patient blood pressure very closely. 5. Coronary artery disease status post CABG 4 with ischemic cardiomyopathy. Continue patient on carvedilol 3.125 mg orally twice every day, continue aspirin 81 mg once every day, continue atorvastatin 20 mg orally once every day, keep LDL cholesterol 55-70. 6. Mixed hyperlipidemia. Continue atorvastatin 20 mg orally once every day. 7. Diabetes mellitus type 2. Continue patient on Levemir 30 units at bedtime along with the Humalog 5 units before each meal, continue patient on Mounjaro 7 .5 mg subcutaneously once every week on Thursday, discontinue Jardiance. 8. Parkinsonism. Continue Sinemet 25/100 with one tablet orally twice every day. 9. Obesity with obstructive sleep apnea. Currently not on CPAP. 10. History of CVA in the past. Continue patient on aspirin 81 mg once every day, Plavix 75 mg once every day, atorvastatin 20 mg once every day for secondary stroke prevention. 11. Diabetic polyneuropathy. Continue gabapentin at a smaller dose of her milligrams orally twice every day. 12. Degenerative disc disease of lumbar spine. Stable at this time. 13. Enlarged prostate. Continue finasteride 5 mg orally once every day. 14. Depression. Continue venlafaxine ER 37.5 mg orally once every day. 15. DVT prophylaxis. Heparin 5000 units subcutaneously every 12 hours. 16. GI prophylaxis. Continue patient on famotidine 10 mg orally twice every day. 17. Patient is DO NOT RESUSCITATE. Impression and plan of care have been directed as dictated by the signing physician. Starr Jones nurse practitioner acting as scribe for signing physician. Objective - Vital Signs Vital signs: Vital Signs Temp 98.1 F 02/23/23 08:00 Pulse 67 02/23/23 11:50 Resp 18 02/23/23 08:00 BP 128/61 02/23/23 08:00 Pulse Ox 92 L 02/23/23 08:00 FiO2 Intake & Output 02/22/23 02/23/23 02/23/23 18:59 06:59 18:59 Intake Total 0 110 Output Total 1120 750 Balance -1120 -750 110 Intake: Oral 0 110 Output: Urine 400 750 Uretheral ([place]) 400 Post Void Residual 720 Other: Voiding Method Diaper Indwelling Catheter Indwelling Catheter External Catheter # Voids 1 # Bowel Movements 1 - Labs CBC & Chem 7: 02/24/23 08:44 02/24/23 08:44 Labs: Abnormal Lab Results - Last 24 Hours (Table) 02/22/23 02/22/23 02/22/23 Range/Units 05:07 16:15 20:31 BUN (9-20) mg/dL Creatinine (0.66-1.25) mg/dL POC Glucose (mg/dL) 216 H 216 H (70-110) mg/dL Magnesium (1.6-2.3) mg/dL Procalcitonin 0.29 H (0.02-0.09) ng/mL 02/23/23 02/23/23 Range/Units 05:54 10:24 BUN 81 H (9-20) mg/dL Creatinine 1.90 H (0.66-1.25) mg/dL POC Glucose (mg/dL) 121 H (70-110) mg/dL Magnesium 2.9 H (1.6-2.3) mg/dL Procalcitonin (0.02-0.09) ng/mL
--- NOTE | 2023-02-24 15:57 | P.PN ---
Subjective Progress Note Date: 02/24/23 HISTORY OF PRESENT ILLNESS: This is an 87-year-old male one of my patient with a previous medical history significant for CAD post CABG 4 in 2010 with sequential MARROQUIN to LAD and diagonal branch, SVG to PDA and SVG to the obtuse marginal branch, subsequently underwent left heart catheterization 2016 because of unstable angina he had PCI of the obtuse marginal branch, chronic diastolic heart failure, diabetes mellitus type 2 with diabetic polyneuropathy, hypertension and hypertensive cardio vascular disease, COPD, enlarged prostate, sleep apnea, bradycardia status post permanent pacemaker placement, history of significant degenerative disease of the lumbar spine with significant weakness of both lower extremity currently uses a walker for immolation, restless leg syndrome, and history of parkinsonism. Patient has had COVID-19 as part of the recent surge at [facility] with COVID-19 infection has not been eating or drinking much due to poor appetite, and he has been complaining of increased shortness breath, he developed to have a significant mental status changes nursing staff at contacted me as stated that the patient is coughing he was seen earlier by the nurse practitioner Markel. He was prescribed doxycycline, and the patient became quite short of breath and responsive nursing staff has contacted me recommended for the patient to be transferred to the hospital he contacted his daughter who is the medical DURABLE POWER OF [employer] SAWYER and made him okay to hospitalization at this point in time but DO NOT RESUSCITATE, patient was seen in emergency department at [facility] he was found to have an acute kidney injury on chronic kidney disease, he was placed on IV fluid resuscitation and was admitted to the hospital for further evaluation and treatment. Pulmonary consultation was obtained. As well as nephrology consultation. 02/23: Patient is resting in bed. Patient is seen and followed by pulmonary medicine for acute hypoxic respiratory failure secondary to fluid overload. The patient has been seen by nephrology for acute kidney injury likely ATN as sociated with hypoperfusion and hypotension. Patient is off IV fluids. He is status post Lasix 1 yesterday. Losartan is on hold andNeurontin dose was decreased. A repeat chest x-ray has been ordered. Repeat blood work reveals appropriate of renal function with BUN of 81 creatinine 1.9. Electrolytes are within normal limits. Magnesium is 2.9. Heart rate is in the 50s and 60s, blood pressure 128/61, pulse ox 92% on 4 L nasal cannula. 02/24: Patient is off BiPAP and oxygen is down to 4 L nasal cannula. He has had improvement of his renal function with BUN of 63 and creatinine 1.5. Patient is followed by pulmonary medicine and nephrology. BP 108/54, HR 60-70s, afebrile, PO 95% @4L n/c. Repeat chest x-ray performed yesterday afternoon reveals bibasilar atelectasis or early pneumonia. Echocardiogram reveals EF of 40%, mild mitral and tricuspid regurgitation. Mild pulmonary hypertension. REVIEW OF SYSTEMS: Constitutional: No documented fever, no chills, no night sweats. positive for weight change. positive for weakness, fatigue or lethargy. No daytime sleepiness. EENT: No headache. No blurred vision or double vision, no loss of vision. positive for hard of Hearing, no ringing in the ears, no dizziness. No nasal drainage or congestion. No epistaxis. No sore throat. Lungs: No shortness of breath, occasional cough, no sputum production. No wheezing. Reports dyspnea with activity. Cardiovascular: No chest pain, no lower extremity edema. No palpitations. No p aroxysmal nocturnal dyspnea. No orthopnea. No lightheadedness or dizziness. No syncopal episodes. Abdominal: Reports no abdominal pain. No nausea, vomiting. No diarrhea. No constipation. No bloody or tarry stools reports loss of appetite. Genitourinary: No dysuria, increased frequency, urgency. No urinary retention. Musculoskeletal: No myalgias. positive for muscle weakness, no gait dys function, no frequent falls. No back pain. No neck pain. Integumentary: No wounds, no lesions. No rash or pruritus. No unusual bruising. No change in hair or nails. Neurologic: No aphasia. positive for chronic facial droop. positive for change in mentation. No head injury. No headache. No paralysis. No paresthesia. Psychiatric: positive for depression. No anxiety. No mood swings. Endocrine: abnormal blood sugars. positive for weight change. PHYSICAL EXAMINATION: General: A 70-year-old male laying down in bed in no respiratory distress. HEENT: Head is atraumatic, normocephalic, pupils were equal round reactive to light and recommendation, extraocular muscle movement were intact, sclera nonicteric, conjunctivae were pale, mucous membranes of the mouth are somewhat dry. Neck: Supple, no JVP, normal carotid upstroke bilaterally, no lymphadenopathy. Chest: Decreased breath sounds at the bases, few rhonchi, no expiratory wheezes, no chest wall tenderness, no intercostal retractions. Heart: First heart sound is normal, second heart sound is normal there is HENRIQUE 2 /6 located at the left sternal border there PPM. Abdomen: Soft, nontender, nondistended, positive bowel sounds. Extremities: There is no edema no calf tenderness DP +2 bilaterally. Neurologic examination: Patient is awake alert and oriented x2 , cranial nerves II-12 appear grossly intact, muscle power were 4 out of 5 in upper extremities and 3 out of 5 in bilateral lower extremities, deep tendon reflexes normal bilaterally. ASSESSMENT AND PLAN: 1. Acute kidney injury on chronic kidney disease stage III a due to vasomotor nephropathy and poor intake of fluids Continue IV fluid discontinued, monitor the patient CMP over the next 24 hours, increase oral intake and neurology consult appreciated. 2. Metabolic encephalopathy likely related to acute kidney injury no evidence of any acute ischemic event at this point in time, we will continue to monitor the patient very closely. 3. Chronic systolic heart failure. IV fluid discontinued. 4. Hypertension and hypertensive cardiovascular disease. Continue carvedilol 3.125 mg orally twice every day, losartan due to acute kidney injury much of the patient blood pressure very closely. 5. Coronary artery disease status post CABG 4 with ischemic cardiomyopathy. Continue patient on carvedilol 3.125 mg orally twice every day, continue aspirin 81 mg once every day, continue atorvastatin 20 mg orally once every day, keep LDL cholesterol 55-70. 6. Mixed hyperlipidemia. Continue atorvastatin 20 mg orally once every day. 7. Diabetes mellitus type 2. Continue patient on Levemir 30 units at bedtime along with the Humalog 5 units before each meal, continue patient on Mounjaro 7.5 mg subcutaneously once every week on Thursday, discontinue Jardiance. 8. Parkinsonism. Continue Sinemet 25/100 with one tablet orally twice every d ay. 9. Obesity with obstructive sleep apnea. Currently not on CPAP. 10. History of CVA in the past. Continue patient on aspirin 81 mg once every day, Plavix 75 mg once every day, atorvastatin 20 mg once every day for secondary stroke prevention. 11. Diabetic polyneuropathy. Continue gabapentin at a smaller dose of her milligrams orally twice every day. 12. Degenerative disc disease of lumbar spine. Stable at this time. 13. Enlarged prostate. Continue finasteride 5 mg orally once every day. 14. Depression. Continue venlafaxine ER 37.5 mg orally once every day. 15. DVT prophylaxis. Heparin 5000 units subcutaneously every 12 hours. 16. GI prophylaxis. Continue patient on famotidine 10 mg orally twice every day. 17. Patient is DO NOT RESUSCITATE. Impression and plan of care have been directed as dictated by the signing physician. Starr Jones nurse practitioner acting as scribe for signing physician. Objective - Vital Signs Vital signs: Vital Signs Temp 98.6 F 02/24/23 15:03 Pulse 63 02/24/23 15:03 Resp 20 02/24/23 15:03 BP 108/54 02/24/23 15:03 Pulse Ox 95 02/24/23 15:03 FiO2 Intake & Output 02/23/23 02/24/23 02/24/23 18:59 06:59 18:59 Intake Total 220 335 Output Total 600 750 Balance -380 -750 335 Intake: Oral 220 335 Output: Urine 600 750 Other: Voiding Method Indwelling Catheter Indwelling Catheter - Labs CBC & Chem 7: 02/24/23 08:44 02/24/23 08:44 Labs: Abnormal Lab Results - Last 24 Hours (Table) 02/23/23 02/24/23 02/24/23 Range/Units 15:39 08:44 08:44 RBC 3.76 L (4.30-5.90) m/uL Hgb 12.2 L (13.0-17.5) gm/dL Hct 37.9 L (39.0-53.0) % MCV 100.8 H (80.0-100.0) fL Neutrophils # 8.3 H (1.3-7.7) k/uL ABG pO2 58 L* (83-108) mmHg ABG HCO3 27 H (21-25) mmol/L ABG Total CO2 29 H (19-24) mmol/L ABG O2 Saturation 89.3 L (94-97) % BUN 63 H (9-20) mg/dL Creatinine 1.50 H (0.66-1.25) mg/dL Glucose 124 H (74-99) mg/dL POC Glucose (mg/dL) (70-110) mg/dL Magnesium 3.0 H (1.6-2.3) mg/dL Total Protein 6.1 L (6.3-8.2) g/dL Albumin 3.0 L (3.5-5.0) g/dL 02/24/23 Range/Units 11:45 RBC (4.30-5.90) m/uL Hgb (13.0-17.5) gm/dL Hct (39.0-53.0) % MCV (80.0-100.0) fL Neutrophils # (1.3-7.7) k/uL ABG pO2 (83-108) mmHg ABG HCO3 (21-25) mmol/L ABG Total CO2 (19-24) mmol/L ABG O2 Saturation (94-97) % BUN (9-20) mg/dL Creatinine (0.66-1.25) mg/dL Glucose (74-99) mg/dL POC Glucose (mg/dL) 193 H (70-110) mg/dL Magnesium (1.6-2.3) mg/dL Total Protein (6.3-8.2) g/dL Albumin (3.5-5.0) g/dL
[2023-02-24 16:17] LABS: Glucose,Whole Blood 183 mg/dL (70-110)
[2023-02-24] MEDS: FAMOTIDINE 20 MG TAB PO SCH (17:36)
[2023-02-24] MEDS: ARTIFICIAL TEARS-HYPROMELLOSE DROPS 15 ML BTL BOTH EYES SCH (17:37)
[2023-02-24] MEDS: ASPIRIN 81 MG PO SCH (20:24)
[2023-02-24] MEDS: CLOPIDOGREL 75 MG TAB PO SCH (20:24)
[2023-02-24] MEDS: INSULIN DETEMIR (LEVEMIR) 100 UNIT/ML SYR SQ SCH (20:24)
[2023-02-24] MEDS: MONTELUKAST 10 MG TAB PO SCH (20:24)
[2023-02-24 20:25] LABS: Glucose,Whole Blood 157 mg/dL (70-110)
[2023-02-25 04:26] LABS: Appearance,Urine Cloudy (Clear); Bilirubin,Urine Negative (Negative); Blood,Urine Trace (Negative); Color,Urine Light Yellow; Glucose,Urine (UA) 4+ (Negative); Hyaline Casts,Urine 3 /lpf (0-2); Ketones,Urine Negative (Negative); Leukocyte Esterase,Urine Large (Negative); Mucus,Urine Few /hpf; Nitrite,Urine Negative (Negative); Protein,Urine Negative (Negative); RBC,Urine 13 /hpf (0-5); Squamous Epithelial Cell,Urine 1 /hpf (0-4); Uric Acid Crystals,Urine Moderate /hpf; Urobilinogen,Urine <2.0 mg/dL (<2.0); WBC,Urine 59 /hpf (0-5)
[2023-02-25 06:07] LABS: Glucose,Whole Blood 164 mg/dL (70-110)
[2023-02-25] MEDS: INSULIN ASPART (NovoLOG) 100 UNIT/ML VIAL SQ SCH ×3 (06:22→16:36)
[2023-02-25] MEDS: PANTOPRAZOLE 40 MG TABLET PO SCH (06:22)
[2023-02-25] MEDS: bisacodyL 10 MG SUPP RECTAL SCH (08:21)
[2023-02-25] MEDS: PATIENT'S OWN (Dextroamphetamine/Amphetamine [Adderall] 10 MG Tablet) PO SCH ×2 (08:21→16:35)
[2023-02-25] MEDS: LEVOFLOXACIN 250MG-D5W PMX 250 MG in DEXTROSE/WATER 1 50ML.BAG IVPB SCH (08:30)
[2023-02-25] MEDS: NYSTATIN 100,000 UNIT/ML SUSP 500,000 UNIT/5 ML CUP PO SCH ×4 (08:30→20:31)
[2023-02-25] MEDS: HEPARIN SODIUM,PORCINE 5,000 UNIT/ML 1 ML VIAL SQ SCH ×2 (08:30→20:30)
[2023-02-25] MEDS: FINASTERIDE 5 MG TAB PO SCH (08:31)
[2023-02-25] MEDS: METOCLOPRAMIDE 5 MG TAB PO SCH ×3 (08:31→17:29)
[2023-02-25] MEDS: ATORVASTATIN 20 MG TAB PO SCH (08:31)
[2023-02-25] MEDS: GABAPENTIN 100 MG CAP PO SCH ×2 (08:31→20:30)
[2023-02-25] MEDS: VENLAFAXINE HCL ER 37.5 MG CAP PO SCH (08:31)
[2023-02-25] MEDS: carvediloL 3.125 MG TAB PO SCH ×2 (08:31→15:25)
[2023-02-25] MEDS: SENNOSIDES-DOCUSATE SODIUM 1 EACH TAB PO SCH (08:31)
[2023-02-25] MEDS: CARBIDOPA-LEVODOPA 25-100 MG 1 EACH TAB PO SCH ×2 (08:31→15:25)
[2023-02-25] MEDS: IPRATROPIUM-ALBUTEROL 3 ML NEB INHALATION SCH ×4 (08:50→20:47)
--- NOTE | 2023-02-25 11:20 | P.PN ---
Subjective Patient is seen in follow-up for acute kidney injury on chronic kidney disease. Hemodynamically stable. Sitting up in bed. On nasal cannula. Has been eating. Nonoliguric. Vital signs are stable. General: No acute distress. HEENT: Head exam is unremarkable. LUNGS: No audible rhonchi or wheezes. HEART: Rate and Rhythm are regular. ABDOMEN: No distention. EXTREMITITES: No edema. Objective - Vital Signs Vital signs: Vital Signs Temp 98.3 F 02/25/23 08:00 Pulse 67 02/25/23 08:59 Resp 18 02/25/23 08:00 BP 133/64 02/25/23 08:00 Pulse Ox 95 02/25/23 08:00 FiO2 Intake & Output 02/24/23 02/25/23 02/25/23 18:59 06:59 18:59 Intake Total 685 250 240 Output Total 1700 750 Balance 429 -6869 -501 Intake: Intake, IV Titration 100 Amount Levofloxacin 500Mg-D5w 100 Pmx 500 mg In Dextrose/ Water 1 100ml.bag @ 100 mls/hr IVPB ONCE ONE Rx#: [id number] Oral 685 150 240 Output: Urine 1700 750 Other: Voiding Method Indwelling Catheter Indwelling Catheter Indwelling Catheter - Labs CBC & Chem 7: 02/24/23 08:44 02/24/23 08:44 Labs: Abnormal Lab Results - Last 24 Hours (Table) 02/24/23 02/24/23 02/24/23 Range/Units 08:44 11:45 16:15 POC Glucose (mg/dL) 193 H 183 H (70-110) mg/dL Procalcitonin 0.17 H (0.02-0.09) ng/mL Urine Glucose (UA) (Negative) Urine Blood (Negative) Ur Leukocyte Esterase (Negative) Urine RBC (0-5) /hpf Urine WBC (0-5) /hpf Urine WBC Clumps (None) /hpf Uric Acid Crystals (None) /hpf Hyaline Casts (0-2) /lpf Urine Mucus (None) /hpf 02/24/23 02/25/23 02/25/23 Range/Units 20:19 03:35 06:05 POC Glucose (mg/dL) 157 H 164 H (70-110) mg/dL Procalcitonin (0.02-0.09) ng/mL Urine Glucose (UA) 4+ H (Negative) Urine Blood Trace H (Negative) Ur Leukocyte Esterase Large H (Negative) Urine RBC 13 H (0-5) /hpf Urine WBC 59 H (0-5) /hpf Urine WBC Clumps Few H (None) /hpf Uric Acid Crystals Moderate H (None) /hpf Hyaline Casts 3 H (0-2) /lpf Urine Mucus Few H (None) /hpf Assessment and Plan Plan: Assessment: 1. Acute kidney injury secondary to ATN secondary to hypotension and use of losartan. Creatinine 1.5 yesterday. No hydronephrosis noted on ultrasound on this admission. No proteinuria on UA. 2. Chronic kidney disease stage IIIB with baseline creatinine 1.8-2 in July 2021 and December 2022. Prior to that creatinine noted to be as low as 1.08 in September 2020. Suspect underlying diabetic kidney disease. UA from December 2022 showed slight proteinuria and no blood. 3. Acute on chronic systolic CHF with ejection fraction of 40% with mild mitral and tricuspid regurgitation, mild pulmonary hypertension. 4. Diabetes mellitus. 5. Volume overload status post IV Lasix given 02/22/2023. 6. Coronary artery disease with history of CABG and stenting. 7. Parkinson's disease. Plan: Avoid nephrotoxins. No evidence of fluid overload noted on x-ray.
[2023-02-25 11:54] LABS: African American GFR (CKD) 47 (>60 ml/min/1.73 sqM); Anion Gap 10 mmol/L; Blood Urea Nitrogen 45 mg/dL (9-20); Calcium 8.7 mg/dL (8.4-10.2); Carbon Dioxide 22 mmol/L (22-30); Chloride 104 mmol/L (98-107); Glucose 184 mg/dL (74-99); Magnesium 2.8 mg/dL (1.6-2.3); Non-African American GFR(CKD) 40 (>60 ml/min/1.73 sqM); Potassium 4.3 mmol/L (3.5-5.1); Sodium 136 mmol/L (137-145)
[2023-02-25 11:54] LABS: Glucose,Whole Blood 270 mg/dL (70-110)
[2023-02-25 11:54] LABS: Glucose,Whole Blood >600 mg/dL (70-110)
[2023-02-25] MEDS ORDERED: NON FORMULARY DRUG (Dulaglutide [Trulicity] 1.5 MG/0.5 ML Pen.Injctr) SQ SCH (14:00)
--- NOTE | 2023-02-25 14:08 | P.PN ---
Subjective Progress Note Date: 02/25/23 HISTORY OF PRESENT ILLNESS: This is an 87-year-old male one of my patient with a previous medical history significant for CAD post CABG 4 in 2010 with sequential MARROQUIN to LAD and diagonal branch, SVG to PDA and SVG to the obtuse marginal branch, subsequently underwent left heart catheterization 2016 because of unstable angina he had PCI of the obtuse marginal branch, chronic diastolic heart failure, diabetes mellitus type 2 with diabetic polyneuropathy, hypertension and hypertensive cardio vascular disease, COPD, enlarged prostate, sleep apnea, bradycardia status post permanent pacemaker placement, history of significant degenerative disease of the lumbar spine with significant weakness of both lower extremity currently uses a walker for immolation, restless leg syndrome, and history of parkinsonism. Patient has had COVID-19 as part of the recent surge at [facility] with COVID-19 infection has not been eating or drinking much due to poor appetite, and he has been complaining of increased shortness breath, he developed to have a significant mental status changes nursing staff at contacted me as stated that the patient is coughing he was seen earlier by the nurse practitioner Markel. He was prescribed doxycycline, and the patient became quite short of breath and responsive nursing staff has contacted me recommended for the patient to be transferred to the hospital he contacted his daughter who is the medical [employer]IST and made him okay to hospitalization at this point in time but DO NOT RESUSCITATE, patient was seen in emergency department at [facility] he was found to have an acute kidney injury on chronic kidney disease, he was placed on IV fluid resuscitation and was admitted to the hospital for further evaluation and treatment. Pulmonary consultation was obtained. As well as nephrology consultation. 02/23: Patient is resting in bed. Patient is seen and followed by pulmonary medicine for acute hypoxic respiratory failure secondary to fluid overload. The patient has been seen by nephrology for acute kidney injury likely ATN as sociated with hypoperfusion and hypotension. Patient is off IV fluids. He is status post Lasix 1 yesterday. Losartan is on hold andNeurontin dose was decreased. A repeat chest x-ray has been ordered. Repeat blood work reveals appropriate of renal function with BUN of 81 creatinine 1.9. Electrolytes are within normal limits. Magnesium is 2.9. Heart rate is in the 50s and 60s, blood pressure 128/61, pulse ox 92% on 4 L nasal cannula. 02/24: Patient is off BiPAP and oxygen is down to 4 L nasal cannula. He has had improvement of his renal function with BUN of 63 and creatinine 1.5. Patient is followed by pulmonary medicine and nephrology. BP 108/54, HR 60-70s, afebrile, PO 95% @4L n/c. Repeat chest x-ray performed yesterday afternoon reveals bibasilar atelectasis or early pneumonia. Echocardiogram reveals EF of 40%, mild mitral and tricuspid regurgitation. Mild pulmonary hypertension. 02/25: Patient is sitting up in chair in his room. He remains confused but seems to be improving. He states he does not feel any better. Renal function is improved with BUN of 45 and creatinine 1.53. Also sodium 136 and potassium 4.3. He has been started on Levaquin for possible pneumonia. He's been afebrile, pulse ox is 91% on 4 L, heart rate 66, blood pressure 113/55. REVIEW OF SYSTEMS: Constitutional: No documented fever, no chills, no night sweats. positive for weight change. positive for weakness, fatigue or lethargy. No daytime sleepiness. EENT: No headache. No blurred vision or double vision, no loss of vision. positive for hard of Hearing, no ringing in the ears, no dizziness. No nasal drainage or congestion. No epistaxis. No sore throat. Lungs: No shortness of breath, occasional cough, no sputum production. No wheezing. Reports dyspnea with activity. Cardiovascular: No chest pain, no lower extremity edema. No palpitations. No paroxysmal nocturnal dyspnea. No orthopnea. No lightheadedness or dizziness. No syncopal episodes. Abdominal: Reports no abdominal pain. No nausea, vomiting. No diarrhea. No constipation. No bloody or tarry stools reports loss of appetite. Genitourinary: No dysuria, increased frequency, urgency. No urinary retention. Musculoskeletal: No myalgias. positive for muscle weakness, no gait dysfunction, no frequent falls. No back pain. No neck pain. Integumentary: No wounds, no lesions. No rash or pruritus. No unusual bruising. No change in hair or nails. Neurologic: No aphasia. positive for chronic facial droop. positive for change in mentation. No head injury. No headache. No paralysis. No paresthesia. Psychiatric: positive for depression. No anxiety. No mood swings. Endocrine: abnormal blood sugars. positive for weight change. PHYSICAL EXAMINATION: General: A 70-year-old male laying down in bed in no respiratory distress. HEENT: Head is atraumatic, normocephalic, pupils were equal round reactive to light and recommendation, extraocular muscle movement were intact, sclera nonicteric, conjunctivae were pale, mucous membranes of the mouth are somewhat dry. Neck: Supple, no JVP, normal carotid upstroke bilaterally, no lymphadenopathy. Chest: Decreased breath sounds at the bases, few rhonchi, no expiratory wheezes, no chest wall tenderness, no intercostal retractions. Heart: First heart sound is normal, second heart sound is normal there is HENRIQUE 2/6 located at the left sternal border there PPM. Abdomen: Soft, nontender, nondistended, positive bowel sounds. Extremities: There is no edema no calf tenderness DP +2 bilaterally. Neurologic examination: Patient is awake alert and oriented x2 , cranial nerves II-12 appear grossly intact, muscle power were 4 out of 5 in upper extremities and 3 out of 5 in bilateral lower extremities, deep tendon reflexes normal bilaterally. ASSESSMENT AND PLAN: 1. Acute kidney injury on chronic kidney disease stage III a due to vasomotor nephropathy and poor intake of fluids IV fluid discontinued, monitor the patient CMP, increase oral intake and neurology consult appreciated. 2. Metabolic encephalopathy likely related to acute kidney injury no evidence of any acute ischemic event at this point in time, we will continue to monitor the patient very closely. 3. Possible pneumonia. Chronic systolic heart failure. IV fluid discontinued. 4. Hypertension and hypertensive cardiovascular disease. Continue carvedilol 3.125 mg orally twice every day, losartan due to acute kidney injury much of the patient blood pressure very closely. 5. Coronary artery disease status post CABG 4 with ischemic cardiomyopathy. Continue patient on carvedilol 3.125 mg orally twice every day, continue aspirin 81 mg once every day, continue atorvastatin 20 mg orally once every day, keep LDL cholesterol 55-70. 6. Mixed hyperlipidemia. Continue atorvastatin 20 mg orally once every day. 7. Diabetes mellitus type 2. Continue patient on Levemir 30 units at bedtime along with the Humalog 5 units before each meal, continue patient on Mounjaro 7.5 mg subcutaneously once every week on Thursday, discontinue Jardiance. 8. Parkinsonism. Continue Sinemet 25/100 with one tablet orally twice every day. 9. Obesity with obstructive sleep apnea. Currently not on CPAP. 10. History of CVA in the past. Continue patient on aspirin 81 mg once every day, Plavix 75 mg once every day, atorvastatin 20 mg once every day for sec ondary stroke prevention. 11. Diabetic polyneuropathy. Continue gabapentin at a smaller dose of her milligrams orally twice every day. 12. Degenerative disc disease of lumbar spine. Stable at this time. 13. Enlarged prostate. Continue finasteride 5 mg orally once every day. 14. Depression. Continue venlafaxine ER 37.5 mg orally once every day. 15. DVT prophylaxis. Heparin 5000 units subcutaneously every 12 hours. 16. GI prophylaxis. Continue patient on famotidine 10 mg orally twice every day. 17. Patient is DO NOT RESUSCITATE. Impression and plan of care have been directed as dictated by the signing physician. Starr Jones nurse practitioner acting as scribe for signing physician. Objective - Vital Signs Vital signs: Vital Signs Temp 97.9 F 02/25/23 11:49 Pulse 61 02/25/23 11:57 Resp 17 02/25/23 11:49 BP 113/55 02/25/23 11:49 Pulse Ox 91 L 02/25/23 11:49 FiO2 Intake & Output 02/24/23 02/25/23 02/25/23 18:59 06:59 18:59 Intake Total 685 250 240 Output Total 1700 750 Balance 685 -1450 -510 Intake: Intake, IV Titration 100 Amount Levofloxacin 500Mg-D5w 100 Pmx 500 mg In Dextrose/ Water 1 100ml.bag @ 100 mls/hr IVPB ONCE ONE Rx#: [id number] Oral 685 150 240 Output: Urine 1700 750 Other: Voiding Method Indwelling Catheter Indwelling Catheter Indwelling Catheter - Labs CBC & Chem 7: 02/24/23 08:44 02/25/23 09:59 Labs: Abnormal Lab Results - Last 24 Hours (Table) 02/24/23 02/24/23 02/24/23 Range/Units 08:44 16:15 20:19 Sodium (137-145) mmol/L BUN (9-20) mg/dL Creatinine (0.66-1.25) mg/dL Glucose (74-99) mg/dL POC Glucose (mg/dL) 183 H 157 H (70-110) mg/dL Magnesium (1.6-2.3) mg/dL Procalcitonin 0.17 H (0.02-0.09) ng/mL Urine Glucose (UA) (Negative) Urine Blood (Negative) Ur Leukocyte Esterase (Negative) Urine RBC (0-5) /hpf Urine WBC (0-5) /hpf Urine WBC Clumps (None) /hpf Uric Acid Crystals (None) /hpf Hyaline Casts (0-2) /lpf Urine Mucus (None) /hpf 02/25/23 02/25/23 02/25/23 Range/Units 03:35 06:05 09:59 Sodium 136 L (137-145) mmol/L BUN 45 H (9-20) mg/dL Creatinine 1.53 H (0.66-1.25) mg/dL Glucose 184 H (74-99) mg/dL POC Glucose (mg/dL) 164 H (70-110) mg/dL Magnesium 2.8 H (1.6-2.3) mg/dL Procalcitonin (0.02-0.09) ng/mL Urine Glucose (UA) 4+ H (Negative) Urine Blood Trace H (Negative) Ur Leukocyte Esterase Large H (Negative) Urine RBC 13 H (0-5) /hpf Urine WBC 59 H (0-5) /hpf Urine WBC Clumps Few H (None) /hpf Uric Acid Crystals Moderate H (None) /hpf Hyaline Casts 3 H (0-2) /lpf Urine Mucus Few H (None) /hpf 02/25/23 02/25/23 Range/Units 11:51 11:52 Sodium (137-145) mmol/L BUN (9-20) mg/dL Creatinine (0.66-1.25) mg/dL Glucose (74-99) mg/dL POC Glucose (mg/dL) >600 H 270 H (70-110) mg/dL Magnesium (1.6-2.3) mg/dL Procalcitonin (0.02-0.09) ng/mL Urine Glucose (UA) (Negative) Urine Blood (Negative) Ur Leukocyte Esterase (Negative) Urine RBC (0-5) /hpf Urine WBC (0-5) /hpf Urine WBC Clumps (None) /hpf Uric Acid Crystals (None) /hpf Hyaline Casts (0-2) /lpf Urine Mucus (None) /hpf
--- NOTE | 2023-02-25 15:29 | P.PN ---
Subjective Progress Note Date: 02/25/23 87-year-old no code patient, who is brought into the emergency department by EMS, from [facility]. The patient apparently has a history of Parkinson's disease, hyperlipidemia, diabetes, coronary disease, hypertension, hyperlipidemia, sleep apnea syndrome, and previous bypass surgery. In addition, the patient has a history of pacemaker implantation. The patient himself is not a particularly good historian. All of the history is really obtained from the ER frederic. The patient apparently had shortness of breath and cough at [facility], and for that reason, was brought to the ER. The patient apparently tested positive for coronavirus infection 10 days prior. It's noted in the ER frederic that the EMS noted that he had gurgling respirations. Currently he is in bed, sitting up, completing his breakfast. He is on 4 L of oxygen. He is getting saline at 75 mL an hour. He does not appear to be in any respiratory distress or difficulty. Again, he cannot give much of a history. White count 9.4, hemoglobin 11.6, hematocrit 35.3, with a normal platelet count. Sodium 138, potassium 4.2, chlorides 104, CO2 24, anion gap 10, BUN 93, and creatinine 2.89. Troponins were 0.022, 0.021, and 0.022. N-terminal proBNP was 1060. Chest x- ray was consistent with mild fluid overload. On today's evaluation of 02/23/2023, the patient is being seen for a follow-up. Is an 87-year-old male patient was sent over from the long term. The patient has advanced comorbidities including dementia and Parkinson's disease and the patient is also known to be diabetic has coronary artery disease hypertension hyperlipidemia and sleep apnea. The patient is currently on 4 L of Oxymizer nasal cannula. Is a weak cough. Unable to tolerate BiPAP and based on that the patient was kept on 4 L of O2 nasal cannula. He did sustain an acute kidney injury secondary to ATN related to hypotension and use of losartan. He is on intake is quite diminished. Family is at the bedside. Is a DNR/DNI CODE ST [facility]. He is alert and oriented 2. He is arousable. His creatinine today is at 1.9 with a BUN of 81 and sodium levels of 138 On today's evaluation of 02/24/2023, seeing the patient for a follow-up. The patient is doing better compared to yesterday. He has made excellent urine output. This morning, he was taken off the BiPAP and is currently on oxygen at 5 L with a pulse ox of 95%. His blood work from today shows a drop in the creatinine down to 1.5 with a BUN of 63 and a sodium level is at 138. Hemoglobin is at 12.2 with a white cell count of 10.2. He is in negative fluid balance of at least 2.5 L over the past 24 hours. His calm and comfortable. He is confused and he has underlying dementia. He is a long term resident. He remains on bronchodilators. He is also on Levemir insulin 30 units at bedtime and NovoLog 5 units with meals. Repeat chest x-ray from today shows some atelectatic change in lung bases bilaterally. No other acute abnormalities. On 02/25/2023, the patient is being seen for a follow-up. The patient is comfortable sitting up on a chair. Occasional confusion which is essentially improving. Has no specific complaints. He remains on 4 L of oxygen nasal cannula. Hemodynamically stable. Continues to be on Levaquin which is an empiric antibiotic coverage. I believe his overall respiratory status is back to his baseline.. Meanwhile, his oxygen patient is stable on 4 L of oxygen by nasal cannula with a pulse ox of 91%. Breathing is nonlabored and the patient remains on same medications since yesterday. Blood work from today shows a BUN of 45 and a creatinine of 1.5 and a sodium level is at 136 with a potassium level of 4.8. He has been in a negative fluid balance. Objective - Vital Signs Vital signs: Vital Signs Temp 98.3 F 02/25/23 08:00 Pulse 67 02/25/23 08:59 Resp 18 02/25/23 08:00 BP 133/64 02/25/23 08:00 Pulse Ox 95 02/25/23 08:00 FiO2 Intake & Output 02/24/23 02/25/23 02/25/23 18:59 06:59 18:59 Intake Total 685 250 240 Output Total 1700 750 Balance 945 -4585 -510 Intake: Intake, IV Titration 100 Amount Levofloxacin 500Mg-D5w 100 Pmx 500 mg In Dextrose/ Water 1 100ml.bag @ 100 mls/hr IVPB ONCE ONE Rx#: [id number] Oral 685 150 240 Output: Urine 1700 750 Other: Voiding Method Indwelling Catheter Indwelling Catheter Indwelling Catheter - Exam No acute distress, oriented 3, patient is a very poor historian. Currently, he's on 4 L by nasal cannula. HEENT examination is grossly unremarkable. Mucous membranes are moist. No oral lesions. The patient has a cold sore on his lower lip. Neck supple. Full range of motion. No adenopathy thyromegaly or neck vein distention. Cardiovascular examination reveals regular rhythm rate. S1-S2 normal. No S3 or S4. No discernible murmur noted. Heart sounds are distant. Heart rate 63 bpm. Lungs reveal scattered rhonchi. No wheezes or crackles noted. Breath sounds are diminished throughout. The patient does not take deep breaths. 4 L saturation is 92%. Abdomen soft bowel sounds are heard. No masses or tenderness. Extremities are intact. No cyanosis clubbing or edema. Skin is without rash or lesion. Neurologic examination is brief but nonfocal. - Labs CBC & Chem 7: 02/24/23 08:44 02/25/23 09:59 Labs: Abnormal Lab Results - Last 24 Hours (Table) 02/24/23 02/24/23 02/24/23 Range/Units 08:44 11:45 16:15 POC Glucose (mg/dL) 193 H 183 H (70-110) mg/dL Procalcitonin 0.17 H (0.02-0.09) ng/mL Urine Glucose (UA) (Negative) Urine Blood (Negative) Ur Leukocyte Esterase (Negative) Urine RBC (0-5) /hpf Urine WBC (0-5) /hpf Urine WBC Clumps (None) /hpf Uric Acid Crystals (None) /hpf Hyaline Casts (0-2) /lpf Urine Mucus (None) /hpf 02/24/23 02/25/23 02/25/23 Range/Units 20:19 03:35 06:05 POC Glucose (mg/dL) 157 H 164 H (70-110) mg/dL Procalcitonin (0.02-0.09) ng/mL Urine Glucose (UA) 4+ H (Negative) Urine Blood Trace H (Negative) Ur Leukocyte Esterase Large H (Negative) Urine RBC 13 H (0-5) /hpf Urine WBC 59 H (0-5) /hpf Urine WBC Clumps Few H (None) /hpf Uric Acid Crystals Moderate H (None) /hpf Hyaline Casts 3 H (0-2) /lpf Urine Mucus Few H (None) /hpf Assessment and Plan Plan: Acute hypoxemic respiratory failure, likely secondary to mild fluid overload/CHF. The patient is currently on 4 liters of oxygen by nasal cannula, and the last chest x-ray from 02/23/2022 showed some cardiomegaly. Atelectatic change in lung bases. No other acute abnormalities noted. Acute kidney injury, improving and the creatinine is down to 1.5 and the patient is negative fluid balance History of coronary artery disease, with previous bypass surgery. Acute kidney injury secondary to ATN secondary to hypotension and use of losa rtan CAD and he is post CABG and sari coronary stenting CHF , EF 40-45% (2019) Status post pacemaker insertion. History of hypertension. History of hyperlipidemia. History of diabetes mellitus. History of obstructive sleep apnea syndrome. Prior history of tobacco use. Plan: Wean FiO2 as tolerated Creatinine remains stable Home medications have been resumed chest x-ray in the morning shows some bibasilar atelectatic changes. Complete the course of antibiotics We'll continue to follow. DNR/DNI CODE STATUS Wean FiO2 as tolerated, currently on 4 L
[2023-02-25 16:18] LABS: Glucose,Whole Blood 202 mg/dL (70-110)
[2023-02-25 16:18] LABS: Glucose,Whole Blood >600 mg/dL (70-110)
[2023-02-25] MEDS: ARTIFICIAL TEARS-HYPROMELLOSE DROPS 15 ML BTL BOTH EYES SCH (16:36)
[2023-02-25] MEDS: FAMOTIDINE 20 MG TAB PO SCH (17:29)
[2023-02-25] MEDS: INSULIN DETEMIR (LEVEMIR) 100 UNIT/ML SYR SQ SCH (20:30)
[2023-02-25] MEDS: MONTELUKAST 10 MG TAB PO SCH (20:30)
[2023-02-25] MEDS: CLOPIDOGREL 75 MG TAB PO SCH (20:30)
[2023-02-25] MEDS: ASPIRIN 81 MG PO SCH (20:31)
[2023-02-25 21:56] LABS: Glucose,Whole Blood 74 mg/dL (70-110)
[2023-02-26 06:09] LABS: Glucose,Whole Blood 107 mg/dL (70-110)
[2023-02-26] MEDS: INSULIN ASPART (NovoLOG) 100 UNIT/ML VIAL SQ SCH ×3 (06:20→16:25)
[2023-02-26] MEDS: LEVOFLOXACIN 250MG-D5W PMX 250 MG in DEXTROSE/WATER 1 50ML.BAG IVPB SCH (06:27)
[2023-02-26] MEDS: PANTOPRAZOLE 40 MG TABLET PO SCH (06:27)
[2023-02-26] MEDS: IPRATROPIUM-ALBUTEROL 3 ML NEB INHALATION SCH ×4 (07:31→21:45)
[2023-02-26] MEDS: PATIENT'S OWN (Dextroamphetamine/Amphetamine [Adderall] 10 MG Tablet) PO SCH ×2 (08:20→14:30)
[2023-02-26] MEDS: bisacodyL 10 MG SUPP RECTAL SCH (08:20)
[2023-02-26] MEDS: HEPARIN SODIUM,PORCINE 5,000 UNIT/ML 1 ML VIAL SQ SCH ×2 (08:38→20:19)
[2023-02-26] MEDS: NYSTATIN 100,000 UNIT/ML SUSP 500,000 UNIT/5 ML CUP PO SCH ×4 (08:38→20:19)
[2023-02-26] MEDS: carvediloL 3.125 MG TAB PO SCH (08:39)
[2023-02-26] MEDS: SENNOSIDES-DOCUSATE SODIUM 1 EACH TAB PO SCH (08:39)
[2023-02-26] MEDS: METOCLOPRAMIDE 5 MG TAB PO SCH ×3 (08:39→17:41)
[2023-02-26] MEDS: VENLAFAXINE HCL ER 37.5 MG CAP PO SCH (08:39)
[2023-02-26] MEDS: FINASTERIDE 5 MG TAB PO SCH (08:39)
[2023-02-26] MEDS: CARBIDOPA-LEVODOPA 25-100 MG 1 EACH TAB PO SCH ×2 (08:39→12:50)
[2023-02-26] MEDS: GABAPENTIN 100 MG CAP PO SCH ×2 (08:39→20:18)
[2023-02-26] MEDS: ATORVASTATIN 20 MG TAB PO SCH (08:39)
--- NOTE | 2023-02-26 11:28 | P.PN ---
Subjective Patient is seen in follow-up for acute kidney injury on chronic kidney disease. Hemodynamically stable. Resting in bed. On nasal cannula. Has been eating. Nonoliguric. Vital signs are stable. General: No acute distress. HEENT: Head exam is unremarkable. On nasal cannula. LUNGS: No audible rhonchi or wheezes. HEART: Rate and Rhythm are regular. ABDOMEN: No distention. EXTREMITITES: No edema. Objective - Vital Signs Vital signs: Vital Signs Temp 98.3 F 02/26/23 08:00 Pulse 68 02/26/23 11:20 Resp 20 02/26/23 08:00 BP 161/75 02/26/23 08:00 Pulse Ox 96 02/26/23 08:00 FiO2 Intake & Output 02/25/23 02/26/23 02/26/23 18:59 06:59 18:59 Intake Total 840 120 240 Output Total 1125 450 475 Balance -285 -330 -235 Intake: Oral 840 120 240 Output: Urine 1125 450 475 Other: Voiding Method Indwelling Catheter Indwelling Catheter Indwelling Catheter # Voids 1 - Labs CBC & Chem 7: 02/24/23 08:44 02/25/23 09:59 Labs: Abnormal Lab Results - Last 24 Hours (Table) 02/25/23 02/25/23 02/25/23 Range/Units 09:59 11:51 11:52 Sodium 136 L (137-145) mmol/L BUN 45 H (9-20) mg/dL Creatinine 1.53 H (0.66-1.25) mg/dL Glucose 184 H (74-99) mg/dL POC Glucose (mg/dL) >600 H 270 H (70-110) mg/dL Magnesium 2.8 H (1.6-2.3) mg/dL 02/25/23 02/25/23 Range/Units 16:15 16:16 Sodium (137-145) mmol/L BUN (9-20) mg/dL Creatinine (0.66-1.25) mg/dL Glucose (74-99) mg/dL POC Glucose (mg/dL) >600 H 202 H (70-110) mg/dL Magnesium (1.6-2.3) mg/dL Assessment and Plan Plan: Assessment: 1. Acute kidney injury secondary to ATN secondary to hypotension and use of losartan. Creatinine 1.53 yesterday. No hydronephrosis noted on ultrasound on this admission. No proteinuria on UA. 2. Chronic kidney disease stage IIIB with baseline creatinine 1.8-2 in July 2021 and December 2022. Prior to that creatinine noted to be as low as 1.08 in September 2020. Suspect underlying diabetic kidney disease. UA from December 2022 showed slight proteinuria and no blood. 3. Acute on chronic systolic CHF with ejection fraction of 40% with mild mitral and tricuspid regurgitation, mild pulmonary hypertension. 4. Diabetes mellitus. 5. Volume overload status post IV Lasix given 02/22/2023. 6. Coronary artery disease with history of CABG and stenting. 7. Parkinson's disease. Plan: Avoid nephrotoxins. No evidence of fluid overload noted on x-ray. Continue to monitor renal function and urine output.
[2023-02-26 11:42] LABS: Glucose,Whole Blood 124 mg/dL (70-110)
[2023-02-26 11:59] LABS: African American GFR (CKD) 57 (>60 ml/min/1.73 sqM); Anion Gap 8 mmol/L; Blood Urea Nitrogen 33 mg/dL (9-20); Carbon Dioxide 20 mmol/L (22-30); Chloride 111 mmol/L (98-107); Glucose 84 mg/dL (74-99); Magnesium 2.6 mg/dL (1.6-2.3); Non-African American GFR(CKD) 49 (>60 ml/min/1.73 sqM); Potassium 4.6 mmol/L (3.5-5.1); Sodium 139 mmol/L (137-145)
--- NOTE | 2023-02-26 12:24 | P.PN ---
Subjective Progress Note Date: 02/26/23 HISTORY OF PRESENT ILLNESS: This is an 87-year-old male one of my patient with a previous medical history significant for CAD post CABG 4 in 2010 with sequential MARROQUIN to LAD and diagonal branch, SVG to PDA and SVG to the obtuse marginal branch, subsequently underwent left heart catheterization 2016 because of unstable angina he had PCI of the obtuse marginal branch, chronic diastolic heart failure, diabetes mellitus type 2 with diabetic polyneuropathy, hypertension and hypertensive cardio vascular disease, COPD, enlarged prostate, sleep apnea, bradycardia status post permanent pacemaker placement, history of significant degenerative disease of the lumbar spine with significant weakness of both lower extremity currently uses a walker for immolation, restless leg syndrome, and history of parkinsonism. Patient has had COVID-19 as part of the recent surge at [facility] with COVID-19 infection has not been eating or drinking much due to poor appetite, and he has been complaining of increased shortness breath, he developed to have a significant mental status changes nursing staff at contacted me as stated that the patient is coughing he was seen earlier by the nurse practitioner Markel. He was prescribed doxycycline, and the patient became quite short of breath and responsive nursing staff has contacted me recommended for the patient to be transferred to the hospital he contacted his daughter who is the medical [employer] and made him okay to hospitalization at this point in time but DO NOT RESUSCITATE, patient was seen in emergency department at [facility] he was found to have an acute kidney injury on chronic kidney disease, he was placed on IV fluid resuscitation and was admitted to the hospital for further evaluation and treatment. Pulmonary consultation was obtained. As well as nephrology consultation. 02/23: Patient is resting in bed. Patient is seen and followed by pulmonary medicine for acute hypoxic respiratory failure secondary to fluid overload. The patient has been seen by nephrology for acute kidney injury likely ATN as sociated with hypoperfusion and hypotension. Patient is off IV fluids. He is status post Lasix 1 yesterday. Losartan is on hold andNeurontin dose was decreased. A repeat chest x-ray has been ordered. Repeat blood work reveals appropriate of renal function with BUN of 81 creatinine 1.9. Electrolytes are within normal limits. Magnesium is 2.9. Heart rate is in the 50s and 60s, blood pressure 128/61, pulse ox 92% on 4 L nasal cannula. 02/24: Patient is off BiPAP and oxygen is down to 4 L nasal cannula. He has had improvement of his renal function with BUN of 63 and creatinine 1.5. Patient is followed by pulmonary medicine and nephrology. BP 108/54, HR 60-70s, afebrile, PO 95% @4L n/c. Repeat chest x-ray performed yesterday afternoon reveals bibasilar atelectasis or early pneumonia. Echocardiogram reveals EF of 40%, mild mitral and tricuspid regurgitation. Mild pulmonary hypertension. 02/25: Patient is sitting up in chair in his room. He remains confused but seems to be improving. He states he does not feel any better. Renal function is improved with BUN of 45 and creatinine 1.53. Also sodium 136 and potassium 4.3. He has been started on Levaquin for possible pneumonia. He's been afebrile, pulse ox is 91% on 4 L, heart rate 66, blood pressure 113/55. 02/26: Patient is quite sleepy today. His mentation is not quite back to baseline. He normally has some baseline confusion but currently worse than his baseline. Blood pressure 148/73, heart rate in the 60s and 70s, pulse ox 95% on 2 L nasal cannula and afebrile. Repeat blood work today reveals sodium 139, potassium 4.6, chloride 111, CO2 20, BUN 33 creatinine 1.3. Patient has been cleared to resume Farxiga by nephrology. Plan is to monitor patient overnight and plan for discharge back to [facility] tomorrow. REVIEW OF SYSTEMS: Constitutional: No documented fever, no chills, no night sweats. positive for weight change. positive for weakness, fatigue or lethargy. No daytime sleepiness. EENT: No headache. No blurred vision or double vision, no loss of vision. positive for hard of Hearing, no ringing in the ears, no dizziness. No nasal drainage or congestion. No epistaxis. No sore throat. Lungs: No shortness of breath, occasional cough, no sputum production. No wheezing. Reports dyspnea with activity. Cardiovascular: No chest pain, no lower extremity edema. No palpitations. No paroxysmal nocturnal dyspnea. No orthopnea. No lightheadedness or dizziness. No syncopal episodes. Abdominal: Reports no abdominal pain. No nausea, vomiting. No diarrhea. No constipation. No bloody or tarry stools reports loss of appetite. Genitourinary: No dysuria, increased frequency, urgency. No urinary retention. Musculoskeletal: No myalgias. positive for muscle weakness, no gait d ysfunction, no frequent falls. No back pain. No neck pain. Integumentary: No wounds, no lesions. No rash or pruritus. No unusual bruising. No change in hair or nails. Neurologic: No aphasia. positive for chronic facial droop. positive for change in mentation. No head injury. No headache. No paralysis. No paresthesia. Psychiatric: positive for depression. No anxiety. No mood swings. Endocrine: abnormal blood sugars. positive for weight change. PHYSICAL EXAMINATION: General: A 70-year-old male laying down in bed in no respiratory distress. HEENT: Head is atraumatic, normocephalic, pupils were equal round reactive to light and recommendation, extraocular muscle movement were intact, sclera nonicteric, conjunctivae were pale, mucous membranes of the mouth are somewhat dry. Neck: Supple, no JVP, normal carotid upstroke bilaterally, no lymphadenopathy. Chest: Decreased breath sounds at the bases, few rhonchi, no expiratory wheezes, no chest wall tenderness, no intercostal retractions. Heart: First heart sound is normal, second heart sound is normal there is HENRIQUE 2/6 located at the left sternal border there PPM. Abdomen: Soft, nontender, nondistended, positive bowel sounds. Extremities: There is no edema no calf tenderness DP +2 bilaterally. Neurologic examination: Patient is awake alert and oriented x2 , cranial nerves II-12 appear grossly intact, muscle power were 4 out of 5 in upper extremities and 3 out of 5 in bilateral lower extremities, deep tendon reflexes normal bilaterally. ASSESSMENT AND PLAN: 1. Acute kidney injury on chronic kidney disease stage III a due to vasomotor nephropathy and poor intake of fluids IV fluid discontinued, monitor the patient CMP, increase oral intake and neurology consult appreciated. 2. Metabolic encephalopathy likely related to acute kidney injury no evidence of any acute ischemic event at this point in time, we will continue to monitor the patient very closely. 3. Possible pneumonia. Chronic systolic heart failure. IV fluid discontinued. 4. Hypertension and hypertensive cardiovascular disease. Continue carvedilol 3.125 mg orally twice every day, losartan due to acute kidney injury much of the patient blood pressure very closely. 5. Coronary artery disease status post CABG 4 with ischemic cardiomyopathy. Continue patient on carvedilol 3.125 mg orally twice every day, continue aspirin 81 mg once every day, continue atorvastatin 20 mg orally once every day, keep LDL cholesterol 55-70. 6. Mixed hyperlipidemia. Continue atorvastatin 20 mg orally once every day. 7. Diabetes mellitus type 2. Continue patient on Levemir 30 units at bedtime along with the Humalog 5 units before each meal, continue patient on Mounjaro 7.5 mg subcutaneously once every week on Thursday, patient started on ga. 8. Parkinsonism. Continue Sinemet 25/100 with one tablet orally twice every day. 9. Obesity with obstructive sleep apnea. Currently not on CPAP. 10. History of CVA in the past. Continue patient on aspirin 81 mg once every day, Plavix 75 mg once every day, atorvastatin 20 mg once every day for secondary stroke prevention. 11. Diabetic polyneuropathy. Continue gabapentin at a smaller dose of her milligrams orally twice every day. 12. Degenerative disc disease of lumbar spine. Stable at this time. 13. Enlarged prostate. Continue finasteride 5 mg orally once every day. 14. Depression. Continue venlafaxine ER 37.5 mg orally once every day. 15. DVT prophylaxis. Heparin 5000 units subcutaneously every 12 hours. 16. GI prophylaxis. Continue patient on famotidine 10 mg orally twice every day. 17. Patient is DO NOT RESUSCITATE. Impression and plan of care have been directed as dictated by the signing physician. Starr oJnes nurse practitioner acting as scribe for signing physician. Objective - Vital Signs Vital signs: Vital Signs Temp 98 F 02/26/23 11:34 Pulse 64 02/26/23 11:34 Resp 18 02/26/23 11:34 BP 148/73 02/26/23 11:34 Pulse Ox 95 02/26/23 11:34 FiO2 Intake & Output 02/25/23 02/26/23 02/26/23 18:59 06:59 18:59 Intake Total 840 120 240 Output Total 1125 450 475 Balance -285 -330 -235 Intake: Oral 840 120 240 Output: Urine 1125 450 475 Other: Voiding Method Indwelling Catheter Indwelling Catheter Indwelling Catheter # Voids 1 - Labs CBC & Chem 7: 02/24/23 08:44 02/26/23 08:48 Labs: Abnormal Lab Results - Last 24 Hours (Table) 02/25/23 02/25/23 02/26/23 Range/Units 16:15 16:16 08:48 Chloride 111 H (98-107) mmol/L Carbon Dioxide 20 L (22-30) mmol/L BUN 33 H (9-20) mg/dL Creatinine 1.30 H (0.66-1.25) mg/dL POC Glucose (mg/dL) >600 H 202 H (70-110) mg/dL Magnesium 2.6 H (1.6-2.3) mg/dL 02/26/23 Range/Units 11:41 Chloride (98-107) mmol/L Carbon Dioxide (22-30) mmol/L BUN (9-20) mg/dL Creatinine (0.66-1.25) mg/dL POC Glucose (mg/dL) 124 H (70-110) mg/dL Magnesium (1.6-2.3) mg/dL
[2023-02-26] MEDS: DAPAGLIFLOZIN PROPANEDIOL 5 MG TABLET PO SCH (12:34)
[2023-02-26] MEDS ORDERED: carvediloL 3.125 MG TAB PO STA (12:41)
[2023-02-26] MEDS: LOSARTAN 50 MG TAB PO SCH (12:50)
--- NOTE | 2023-02-26 14:12 | P.PN ---
Subjective Progress Note Date: 02/26/23 87-year-old no code patient, who is brought into the emergency department by EMS, from [facility]. The patient apparently has a history of Parkinson's disease, hyperlipidemia, diabetes, coronary disease, hypertension, hyperlipidemia, sleep apnea syndrome, and previous bypass surgery. In addition, the patient has a history of pacemaker implantation. The patient himself is not a particularly good historian. All of the history is really obtained from the ER frederic. The patient apparently had shortness of breath and cough at [facility], and for that reason, was brought to the ER. The patient apparently tested positive for coronavirus infection 10 days prior. It's noted in the ER frederic that the EMS noted that he had gurgling respirations. Currently he is in bed, sitting up, completing his breakfast. He is on 4 L of oxygen. He is getting saline at 75 mL an hour. He does not appear to be in any respiratory distress or difficulty. Again, he cannot give much of a history. White count 9.4, hemoglobin 11.6, hematocrit 35.3, with a normal platelet count. Sodium 138, potassium 4.2, chlorides 104, CO2 24, anion gap 10, BUN 93, and creatinine 2.89. Troponins were 0.022, 0.021, and 0.022. N-terminal proBNP was 1060. Chest x- ray was consistent with mild fluid overload. On today's evaluation of 02/23/2023, the patient is being seen for a follow-up. Is an 87-year-old male patient was sent over from the correction. The patient has advanced comorbidities including dementia and Parkinson's disease and the patient is also known to be diabetic has coronary artery disease hypertension hyperlipidemia and sleep apnea. The patient is currently on 4 L of Oxymizer nasal cannula. Is a weak cough. Unable to tolerate BiPAP and based on that the patient was kept on 4 L of O2 nasal cannula. He did sustain an acute kidney injury secondary to ATN related to hypotension and use of losartan. He is on intake is quite diminished. Family is at the bedside. Is a DNR/DNI CODE ST ATUS. He is alert and oriented 2. He is arousable. His creatinine today is at 1.9 with a BUN of 81 and sodium levels of 138 On today's evaluation of 02/24/2023, seeing the patient for a follow-up. The patient is doing better compared to yesterday. He has made excellent urine output. This morning, he was taken off the BiPAP and is currently on oxygen at 5 L with a pulse ox of 95%. His blood work from today shows a drop in the creatinine down to 1.5 with a BUN of 63 and a sodium level is at 138. Hemoglobin is at 12.2 with a white cell count of 10.2. He is in negative fluid balance of at least 2.5 L over the past 24 hours. His calm and comfortable. He is confused and he has underlying dementia. He is a [facility] resident. He remains on bronchodilators. He is also on Levemir insulin 30 units at bedtime and NovoLog 5 units with meals. Repeat chest x-ray from today shows some atelectatic change in lung bases bilaterally. No other acute abnormalities. On 02/25/2023, the patient is being seen for a follow-up. The patient is comfortable sitting up on a chair. Occasional confusion which is essentially improving. Has no specific complaints. He remains on 4 L of oxygen nasal cannula. Hemodynamically stable. Continues to be on Levaquin which is an empiric antibiotic coverage. I believe his overall respiratory status is back to his baseline.. Meanwhile, his oxygen patient is stable on 4 L of oxygen by nasal cannula with a pulse ox of 91%. Breathing is nonlabored and the patient remains on same medications since yesterday. Blood work from today shows a BUN of 45 and a creatinine of 1.5 and a sodium level is at 136 with a potassium level of 4.8. He has been in a negative fluid balance. On today's evaluation of 02/26/2023, I'm seeing the patient for a follow-up. No new complaints. He remains confused. He is a [facility] resident. No significant respiratory distress. He remains on oxygen at 2 L per minute nasal cannula. Respiratory status is adequate. Blood work and electrolytes were reviewed. Sodium level is at 139, potassium level is at 4.6, BUN is at 33 with a creatinine of 1.3. Medications are unchanged. The patient is completing a course of Levaquin. Objective - Vital Signs Vital signs: Vital Signs Temp 98.3 F 02/26/23 08:00 Pulse 61 02/26/23 08:00 Resp 20 02/26/23 08:00 BP 161/75 02/26/23 08:00 Pulse Ox 96 02/26/23 08:00 FiO2 Intake & Output 02/25/23 02/26/23 02/26/23 18:59 06:59 18:59 Intake Total 840 120 240 Output Total 1125 450 475 Balance -285 -330 -235 Intake: Oral 840 120 240 Output: Urine 1125 450 475 Other: Voiding Method Indwelling Catheter Indwelling Catheter Indwelling Catheter # Voids 1 - Exam No acute distress, oriented 3, patient is a very poor historian. Currently, he's on 4 L by nasal cannula. HEENT examination is grossly unremarkable. Mucous membranes are moist. No oral lesions. The patient has a cold sore on his lower lip. Neck supple. Full range of motion. No adenopathy thyromegaly or neck vein dist ention. Cardiovascular examination reveals regular rhythm rate. S1-S2 normal. No S3 or S4. No discernible murmur noted. Heart sounds are distant. Heart rate 63 bpm. Lungs reveal scattered rhonchi. No wheezes or crackles noted. Breath sounds are diminished throughout. The patient does not take deep breaths. 4 L saturation is 92%. Abdomen soft bowel sounds are heard. No masses or tenderness. Extremities are intact. No cyanosis clubbing or edema. Skin is without rash or lesion. Neurologic examination is brief but nonfocal. - Labs CBC & Chem 7: 02/24/23 08:44 02/26/23 08:48 Labs: Abnormal Lab Results - Last 24 Hours (Table) 02/25/23 02/25/23 02/25/23 Range/Units 09:59 11:51 11:52 Sodium 136 L (137-145) mmol/L BUN 45 H (9-20) mg/dL Creatinine 1.53 H (0.66-1.25) mg/dL Glucose 184 H (74-99) mg/dL POC Glucose (mg/dL) >600 H 270 H (70-110) mg/dL Magnesium 2.8 H (1.6-2.3) mg/dL 02/25/23 02/25/23 Range/Units 16:15 16:16 Sodium (137-145) mmol/L BUN (9-20) mg/dL Creatinine (0.66-1.25) mg/dL Glucose (74-99) mg/dL POC Glucose (mg/dL) >600 H 202 H (70-110) mg/dL Magnesium (1.6-2.3) mg/dL Assessment and Plan Plan: Acute hypoxemic respiratory failure, likely secondary to mild fluid overload/CHF. The patient is currently on 2 liters of oxygen by nasal cannula, and the last chest x-ray from 02/23/2022 showed some cardiomegaly. Atelectatic change in lung bases. No other acute abnormalities noted. Acute kidney injury, improving and the creatinine is down to 1.5 and the patient is negative fluid balance History of coronary artery disease, with previous bypass surgery. Acute kidney injury secondary to ATN secondary to hypotension and use of losartan CAD and he is post CABG and sari coronary stenting CHF , EF 40-45% (2019) Status post pacemaker insertion. History of hypertension. History of hyperlipidemia. History of diabetes mellitus. History of obstructive sleep apnea syndrome. Prior history of tobacco use. Plan: Wean FiO2 as tolerated, current on 2 L of oxygen by nasal cannula, Creatinine remains stable, slightly improved compared to yesterday and the creatinine is down to 1.3 Home medications have been resumed chest x-ray in the morning shows some bibasilar atelectatic changes. Complete the course of antibiotics We'll continue to follow. DNR/DNI CODE STATUS
[2023-02-26] MEDS: carvediloL 6.25 MG TAB PO SCH (15:26)
[2023-02-26] MEDS: ARTIFICIAL TEARS-HYPROMELLOSE DROPS 15 ML BTL BOTH EYES SCH (15:26)
[2023-02-26 16:19] LABS: Glucose,Whole Blood 113 mg/dL (70-110)
[2023-02-26] MEDS: FAMOTIDINE 20 MG TAB PO SCH (17:41)
[2023-02-26 19:43] LABS: Glucose,Whole Blood 238 mg/dL (70-110)
[2023-02-26] MEDS: CLOPIDOGREL 75 MG TAB PO SCH (20:18)
[2023-02-26] MEDS: ASPIRIN 81 MG PO SCH (20:18)
[2023-02-26] MEDS: MONTELUKAST 10 MG TAB PO SCH (20:18)
[2023-02-26] MEDS: INSULIN DETEMIR (LEVEMIR) 100 UNIT/ML SYR SQ SCH (20:18)
[2023-02-27 05:47] LABS: Glucose,Whole Blood 120 mg/dL (70-110)
[2023-02-27] MEDS: INSULIN ASPART (NovoLOG) 100 UNIT/ML VIAL SQ SCH ×3 (06:17→16:51)
[2023-02-27] MEDS: PANTOPRAZOLE 40 MG TABLET PO SCH (06:18)
[2023-02-27] MEDS: IPRATROPIUM-ALBUTEROL 3 ML NEB INHALATION SCH ×4 (09:13→21:15)
[2023-02-27 09:49] LABS: African American GFR (CKD) 57 (>60 ml/min/1.73 sqM); Anion Gap 7 mmol/L; Blood Urea Nitrogen 28 mg/dL (9-20); Calcium 8.9 mg/dL (8.4-10.2); Carbon Dioxide 24 mmol/L (22-30); Chloride 108 mmol/L (98-107); Glucose 69 mg/dL (74-99); Magnesium 2.7 mg/dL (1.6-2.3); Non-African American GFR(CKD) 49 (>60 ml/min/1.73 sqM); Potassium 4.6 mmol/L (3.5-5.1); Sodium 139 mmol/L (137-145)
[2023-02-27 10:48] LABS: Glucose,Whole Blood 109 mg/dL (70-110)
[2023-02-27] MEDS: LEVOFLOXACIN 250MG-D5W PMX 250 MG in DEXTROSE/WATER 1 50ML.BAG IVPB SCH (10:58)
[2023-02-27] MEDS: HEPARIN SODIUM,PORCINE 5,000 UNIT/ML 1 ML VIAL SQ SCH ×2 (10:58→20:10)
[2023-02-27] MEDS: NYSTATIN 100,000 UNIT/ML SUSP 500,000 UNIT/5 ML CUP PO SCH ×4 (10:58→21:54)
[2023-02-27] MEDS: CARBIDOPA-LEVODOPA 25-100 MG 1 EACH TAB PO SCH ×2 (10:59→15:20)
[2023-02-27] MEDS: bisacodyL 10 MG SUPP RECTAL SCH (10:59)
[2023-02-27] MEDS: carvediloL 6.25 MG TAB PO SCH ×2 (10:59→15:20)
[2023-02-27] MEDS: METOCLOPRAMIDE 5 MG TAB PO SCH ×3 (10:59→18:02)
[2023-02-27] MEDS: DAPAGLIFLOZIN PROPANEDIOL 5 MG TABLET PO SCH (10:59)
[2023-02-27] MEDS: SENNOSIDES-DOCUSATE SODIUM 1 EACH TAB PO SCH (10:59)
[2023-02-27] MEDS: VENLAFAXINE HCL ER 37.5 MG CAP PO SCH (10:59)
[2023-02-27] MEDS: ATORVASTATIN 20 MG TAB PO SCH (10:59)
[2023-02-27] MEDS: GABAPENTIN 100 MG CAP PO SCH ×2 (10:59→20:10)
[2023-02-27] MEDS: FINASTERIDE 5 MG TAB PO SCH (10:59)
[2023-02-27] MEDS: LOSARTAN 50 MG TAB PO SCH (10:59)
--- NOTE | 2023-02-27 11:02 | P.PN ---
Subjective Patient is seen in follow-up for acute kidney injury on chronic kidney disease. Hemodynamically stable. Resting in bed. On nasal cannula. Has been eating. Nonoliguric. No changes overnight. Renal function better. Vital signs are stable. General: No acute distress. HEENT: Head exam is unremarkable. On nasal cannula. LUNGS: No audible rhonchi or wheezes. HEART: Rate and Rhythm are regular. ABDOMEN: No distention. EXTREMITITES: No edema. Objective - Vital Signs Vital signs: Vital Signs Temp 98.4 F 02/27/23 08:00 Pulse 72 02/27/23 09:28 Resp 18 02/27/23 08:00 BP 141/65 02/27/23 08:00 Pulse Ox 96 02/27/23 09:15 FiO2 Intake & Output 02/26/23 02/27/23 02/27/23 18:59 06:59 18:59 Intake Total 598 240 358 Output Total 875 500 300 Balance -277 -260 58 Weight 123 kg Intake: Oral 598 240 358 Output: Urine 875 500 300 Other: Voiding Method Indwelling Catheter Indwelling Catheter Indwelling Catheter - Labs CBC & Chem 7: 02/24/23 08:44 02/27/23 07:09 Labs: Abnormal Lab Results - Last 24 Hours (Table) 02/26/23 02/26/23 02/26/23 Range/Units 08:48 11:41 16:18 Chloride 111 H (98-107) mmol/L Carbon Dioxide 20 L (22-30) mmol/L BUN 33 H (9-20) mg/dL Creatinine 1.30 H (0.66-1.25) mg/dL Glucose (74-99) mg/dL POC Glucose (mg/dL) 124 H 113 H (70-110) mg/dL Magnesium 2.6 H (1.6-2.3) mg/dL 02/26/23 02/27/23 02/27/23 Range/Units 19:41 05:45 07:09 Chloride 108 H (98-107) mmol/L Carbon Dioxide (22-30) mmol/L BUN 28 H (9-20) mg/dL Creatinine 1.30 H (0.66-1.25) mg/dL Glucose 69 L (74-99) mg/dL POC Glucose (mg/dL) 238 H 120 H (70-110) mg/dL Magnesium 2.7 H (1.6-2.3) mg/dL Assessment and Plan Plan: Assessment: 1. Acute kidney injury secondary to ATN secondary to hypotension and use of losartan. Creatinine improved to 1.3 today. No hydronephrosis noted on ultrasound on this admission. No proteinuria on UA. 2. Chronic kidney disease stage IIIB with baseline creatinine 1.8-2 in July 2021 and December 2022. Prior to that creatinine noted to be as low as 1.08 in September 2020. Suspect underlying diabetic kidney disease. UA from December 2022 showed slight proteinuria and no blood. 3. Acute on chronic systolic CHF with ejection fraction of 40% with mild mitral and tricuspid regurgitation, mild pulmonary hypertension. 4. Diabetes mellitus. 5. Volume overload status post IV Lasix given 02/22/2023. 6. Coronary artery disease with history of CABG and stenting. 7. Parkinson's disease. Plan: Avoid nephrotoxins. No evidence of fluid overload noted on x-ray. Continue to monitor renal function and urine output.
[2023-02-27 11:23] LABS: Glucose,Whole Blood 127 mg/dL (70-110)
[2023-02-27] MEDS: PATIENT'S OWN (Dextroamphetamine/Amphetamine [Adderall] 10 MG Tablet) PO SCH ×2 (12:10→16:51)
--- NOTE | 2023-02-27 12:12 | P.PN ---
Subjective Progress Note Date: 02/27/23 87-year-old no code patient, who is brought into the emergency department by EMS, from [facility]. The patient apparently has a history of Parkinson's disease, hyperlipidemia, diabetes, coronary disease, hypertension, hyperlipidemia, sleep apnea syndrome, and previous bypass surgery. In addition, the patient has a history of pacemaker implantation. The patient himself is not a particularly good historian. All of the history is really obtained from the ER [facility]. The patient apparently had shortness of breath and cough at [facility], and for that reason, was brought to the ER. The patient apparently tested positive for coronavirus infection 10 days prior. It's noted in the ER [facility] that the EMS noted that he had gurgling respirations. Currently he is in bed, sitting up, completing his breakfast. He is on 4 L of oxygen. He is getting saline at 75 mL an hour. He does not appear to be in any respiratory distress or difficulty. Again, he cannot give much of a history. White count 9.4, hemoglobin 11.6, hematocrit 35.3, with a normal platelet count. Sodium 138, potassium 4.2, chlorides 104, CO2 24, anion gap 10, BUN 93, and creatinine 2.89. Troponins were 0.022, 0.021, and 0.022. N-terminal proBNP was 1060. Chest x- ray was consistent with mild fluid overload. On today's evaluation of 02/23/2023, the patient is being seen for a follow-up. Is an 87-year-old male patient was sent over from the residential. The patient has advanced comorbidities including dementia and Parkinson's disease and the patient is also known to be diabetic has coronary artery disease hypertension hyperlipidemia and sleep apnea. The patient is currently on 4 L of Oxymizer nasal cannula. Is a weak cough. Unable to tolerate BiPAP and based on that the patient was kept on 4 L of O2 nasal cannula. He did sustain an acute kidney injury secondary to ATN related to hypotension and use of losartan. He is on intake is quite diminished. Family is at the bedside. Is a DNR/DNI CODE ST [facility]. He is alert and oriented 2. He is arousable. His creatinine today is at 1.9 with a BUN of 81 and sodium levels of 138 On today's evaluation of 02/24/2023, seeing the patient for a follow-up. The patient is doing better compared to yesterday. He has made excellent urine output. This morning, he was taken off the BiPAP and is currently on oxygen at 5 L with a pulse ox of 95%. His blood work from today shows a drop in the creatinine down to 1.5 with a BUN of 63 and a sodium level is at 138. Hemoglobin is at 12.2 with a white cell count of 10.2. He is in negative fluid balance of at least 2.5 L over the past 24 hours. His calm and comfortable. He is confused and he has underlying dementia. He is a residential resident. He remains on bronchodilators. He is also on Levemir insulin 30 units at bedtime and NovoLog 5 units with meals. Repeat chest x-ray from today shows some atelectatic change in lung bases bilaterally. No other acute abnormalities. On 02/25/2023, the patient is being seen for a follow-up. The patient is comfortable sitting up on a chair. Occasional confusion which is essentially improving. Has no specific complaints. He remains on 4 L of oxygen nasal cannula. Hemodynamically stable. Continues to be on Levaquin which is an empiric antibiotic coverage. I believe his overall respiratory status is back to his baseline.. Meanwhile, his oxygen patient is stable on 4 L of oxygen by nasal cannula with a pulse ox of 91%. Breathing is nonlabored and the patient remains on same medications since yesterday. Blood work from today shows a BUN of 45 and a creatinine of 1.5 and a sodium level is at 136 with a potassium level of 4.8. He has been in a negative fluid balance. On today's evaluation of 02/26/2023, I'm seeing the patient for a follow-up. No new complaints. He remains confused. He is a residential resident. No significant respiratory distress. He remains on oxygen at 2 L per minute nasal cannula. Respiratory status is adequate. Blood work and electrolytes were reviewed. Sodium level is at 139, potassium level is at 4.6, BUN is at 33 with a creatinine of 1.3. Medications are unchanged. The patient is completing a course of Levaquin. On 02/27/2023, the patient is alert and communicating. His condition is improved significantly over the past few days. He is a residential resident. Denies having any specific complaints. He remains on Levaquin as an empiric antibiotic coverage per ID recommendations. This morning he is on 3 L of oxygen and the patient pulse ox 96%. Sodiums of 139, potassium is 4.6, bicarbonate of 24, BUN is at 28 with a creatinine of 1.3. the patient has had no other significant events over the past 24 hours Objective - Vital Signs Vital signs: Vital Signs Temp 98.4 F 02/27/23 08:00 Pulse 72 02/27/23 09:28 Resp 18 02/27/23 08:00 BP 141/65 02/27/23 08:00 Pulse Ox 96 02/27/23 09:15 FiO2 Intake & Output 02/26/23 02/27/23 02/27/23 18:59 06:59 18:59 Intake Total 598 240 358 Output Total 875 500 Balance -277 -260 358 Weight 123 kg Intake: Oral 598 240 358 Output: Urine 875 500 Other: Voiding Method Indwelling Catheter Indwelling Catheter Indwelling Catheter - Exam No acute distress, oriented 3, patient is a very poor historian. Currently, he's on 4 L by nasal cannula. HEENT examination is grossly unremarkable. Mucous membranes are moist. No oral lesions. The patient has a cold sore on his lower lip. Neck supple. Full range of motion. No adenopathy thyromegaly or neck vein dis tention. Cardiovascular examination reveals regular rhythm rate. S1-S2 normal. No S3 or S4. No discernible murmur noted. Heart sounds are distant. Heart rate 63 bpm. Lungs reveal scattered rhonchi. No wheezes or crackles noted. Breath sounds are diminished throughout. The patient does not take deep breaths. 4 L saturation is 92%. Abdomen soft bowel sounds are heard. No masses or tenderness. Extremities are intact. No cyanosis clubbing or edema. Skin is without rash or lesion. Neurologic examination is brief but nonfocal. - Labs CBC & Chem 7: 02/24/23 08:44 02/27/23 07:09 Labs: Abnormal Lab Results - Last 24 Hours (Table) 02/26/23 02/26/23 02/26/23 Range/Units 08:48 11:41 16:18 Chloride 111 H (98-107) mmol/L Carbon Dioxide 20 L (22-30) mmol/L BUN 33 H (9-20) mg/dL Creatinine 1.30 H (0.66-1.25) mg/dL Glucose (74-99) mg/dL POC Glucose (mg/dL) 124 H 113 H (70-110) mg/dL Magnesium 2.6 H (1.6-2.3) mg/dL 02/26/23 02/27/23 02/27/23 Range/Units 19:41 05:45 07:09 Chloride 108 H (98-107) mmol/L Carbon Dioxide (22-30) mmol/L BUN 28 H (9-20) mg/dL Creatinine 1.30 H (0.66-1.25) mg/dL Glucose 69 L (74-99) mg/dL POC Glucose (mg/dL) 238 H 120 H (70-110) mg/dL Magnesium 2.7 H (1.6-2.3) mg/dL Assessment and Plan Plan: Acute hypoxemic respiratory failure, likely secondary to mild fluid overload/CHF. The patient is currently on 2 liters of oxygen by nasal cannula, and the last chest x-ray from 02/23/2022 showed some cardiomegaly. Atelectatic change in lung bases. No other acute abnormalities noted. Overall respiratory status is stable Acute kidney injury, improving and the creatinine is down to 1.3 History of coronary artery disease, with previous bypass surgery. Acute kidney injury secondary to ATN secondary to hypotension and use of losartan CAD and he is post CABG and sari coronary stenting CHF , EF 40-45% (2019) Status post pacemaker insertion. History of hypertension. History of hyperlipidemia. History of diabetes mellitus. History of obstructive sleep apnea syndrome. Prior history of tobacco use. Plan: Clinically stable Wean FiO2 as tolerated, current on 2 L of oxygen by nasal cannula, Creatinine remains stable, slightly improved compared to yesterday and the creatinine is down to 1.3 Home medications have been resumed chest x-ray in the morning shows some bibasilar atelectatic changes. Complete the course of antibiotics We'll continue to follow. DNR/DNI CODE STATUS Consider discharging patient back to the residential
[2023-02-27] MEDS ORDERED: ZINC OXIDE PASTE (Z-GUARD) 1 APPLIC APPLIC TOPICAL PRN (12:43)
--- NOTE | 2023-02-27 14:42 | P.PN ---
Subjective Progress Note Date: 02/27/23 HISTORY OF PRESENT ILLNESS: This is an 87-year-old male one of my patient with a previous medical history significant for CAD post CABG 4 in 2010 with sequential MARROQUIN to LAD and diagonal branch, SVG to PDA and SVG to the obtuse marginal branch, subsequently underwent left heart catheterization 2016 because of unstable angina he had PCI of the obtuse marginal branch, chronic diastolic heart failure, diabetes mellitus type 2 with diabetic polyneuropathy, hypertension and hypertensive cardio vascular disease, COPD, enlarged prostate, sleep apnea, bradycardia status post permanent pacemaker placement, history of significant degenerative disease of the lumbar spine with significant weakness of both lower extremity currently uses a walker for immolation, restless leg syndrome, and history of parkinsonism. Patient has had COVID-19 as part of the recent surge at [facility] with COVID-19 infection has not been eating or drinking much due to poor appetite, and he has been complaining of increased shortness breath, he developed to have a significant mental status changes nursing staff at contacted me as stated that the patient is coughing he was seen earlier by the nurse practitioner Markel. He was prescribed doxycycline, and the patient became quite short of breath and responsive nursing staff has contacted me recommended for the patient to be transferred to the hospital he contacted his daughter who is the medical [employer] and made him okay to hospitalization at this point in time but DO NOT RESUSCITATE, patient was seen in emergency department at [facility] he was found to have an acute kidney injury on chronic kidney disease, he was placed on IV fluid resuscitation and was admitted to the hospital for further evaluation and treatment. Pulmonary consultation was obtained. As well as nephrology consultation. 02/23: Patient is resting in bed. Patient is seen and followed by pulmonary medicine for acute hypoxic respiratory failure secondary to fluid overload. The patient has been seen by nephrology for acute kidney injury likely ATN as sociated with hypoperfusion and hypotension. Patient is off IV fluids. He is status post Lasix 1 yesterday. Losartan is on hold andNeurontin dose was decreased. A repeat chest x-ray has been ordered. Repeat blood work reveals appropriate of renal function with BUN of 81 creatinine 1.9. Electrolytes are within normal limits. Magnesium is 2.9. Heart rate is in the 50s and 60s, blood pressure 128/61, pulse ox 92% on 4 L nasal cannula. 02/24: Patient is off BiPAP and oxygen is down to 4 L nasal cannula. He has had improvement of his renal function with BUN of 63 and creatinine 1.5. Patient is followed by pulmonary medicine and nephrology. BP 108/54, HR 60-70s, afebrile, PO 95% @4L n/c. Repeat chest x-ray performed yesterday afternoon reveals bibasilar atelectasis or early pneumonia. Echocardiogram reveals EF of 40%, mild mitral and tricuspid regurgitation. Mild pulmonary hypertension. 02/25: Patient is sitting up in chair in his room. He remains confused but seems to be improving. He states he does not feel any better. Renal function is improved with BUN of 45 and creatinine 1.53. Also sodium 136 and potassium 4.3. He has been started on Levaquin for possible pneumonia. He's been afebrile, pulse ox is 91% on 4 L, heart rate 66, blood pressure 113/55. 02/26: Patient is quite sleepy today. His mentation is not quite back to baseline. He normally has some baseline confusion but currently worse than his baseline. Blood pressure 148/73, heart rate in the 60s and 70s, pulse ox 95% on 2 L nasal cannula and afebrile. Repeat blood work today reveals sodium 139, potassium 4.6, chloride 111, CO2 20, BUN 33 creatinine 1.3. Patient has been cleared to resume Farxiga by nephrology. Plan is to monitor patient overnight and plan for discharge back to [facility] tomorrow. 02/27: No new concerns overnight. Patient seems to be more alert and getting back to his baseline. He has been continued on IV Levaquin for pneumonia. He has been afebrile, heart rate in the 60s and 70s, blood pressure 136/62, pulse ox 95% on 3 L nasal cannula. Renal function continues to improve with BUN 28 creatinine 1.3. Capillary blood glucose running between 109 and 238 much imp roved from 2 days ago. Plan for discharge to [facility] tomorrow. REVIEW OF SYSTEMS: Constitutional: No documented fever, no chills, no night sweats. positive for weight change. positive for weakness, fatigue or lethargy. No daytime sleepiness. EENT: No headache. No blurred vision or double vision, no loss of vision. positive for hard of Hearing, no ringing in the ears, no dizziness. No nasal drainage or congestion. No epistaxis. No sore throat. Lungs: No shortness of breath, occasional cough, no sputum production. No wheezing. Reports dyspnea with activity. Cardiovascular: No chest pain, no lower extremity edema. No palpitations. No paroxysmal nocturnal dyspnea. No orthopnea. No lightheadedness or dizziness. No syncopal episodes. Abdominal: Reports no abdominal pain. No nausea, vomiting. No diarrhea. No constipation. No bloody or tarry stools reports loss of appetite. Genitourinary: No dysuria, increased frequency, urgency. No urinary retention. Musculoskeletal: No myalgias. positive for muscle weakness, no gait dysfunction, no frequent falls. No back pain. No neck pain. Integumentary: No wounds, no lesions. No rash or pruritus. No unusual bruising. No change in hair or nails. Neurologic: No aphasia. positive for chronic facial droop. positive for change in mentation. No head injury. No headache. No paralysis. No paresthesia. Psychiatric: positive for depression. No anxiety. No mood swings. Endocrine: abnormal blood sugars. positive for weight change. PHYSICAL EXAMINATION: General: A 70-year-old male laying down in bed in no respiratory distress. HEENT: Head is atraumatic, normocephalic, pupils were equal round reactive to light and recommendation, extraocular muscle movement were intact, sclera nonicteric, conjunctivae were pale, mucous membranes of the mouth are somewhat dry. Neck: Supple, no JVP, normal carotid upstroke bilaterally, no lymphadenopathy. Chest: Decreased breath sounds at the bases, few rhonchi, no expiratory wheezes, no chest wall tenderness, no intercostal retractions. Heart: First heart sound is normal, second heart sound is normal there is HENRIQUE 2/6 located at the left sternal border there PPM. Abdomen: Soft, nontender, nondistended, positive bowel sounds. Extremities: There is no edema no calf tenderness DP +2 bilaterally. Neurologic examination: Patient is awake alert and oriented x2 , cranial nerves II-12 appear grossly intact, muscle power were 4 out of 5 in upper extremities and 3 out of 5 in bilateral lower extremities, deep tendon reflexes normal bilaterally. ASSESSMENT AND PLAN: 1. Acute kidney injury on chronic kidney disease stage III a due to vasomotor nephropathy and poor intake of fluids IV fluid discontinued, monitor the patient CMP, increase oral intake and neurology consult appreciated. 2. Metabolic encephalopathy likely related to acute kidney injury no evidence of any acute ischemic event at this point in time, we will continue to monitor the patient very closely. 3. Possible pneumonia. Chronic systolic heart failure. IV fluid discontinued. 4. Hypertension and hypertensive cardiovascular disease. Continue carvedilol 3.125 mg orally twice every day, losartan due to acute kidney injury much of the patient blood pressure very closely. 5. Coronary artery disease status post CABG 4 with ischemic cardiomyopathy. Continue patient on carvedilol 3.125 mg orally twice every day, continue aspirin 81 mg once every day, continue atorvastatin 20 mg orally once every day, keep LDL cholesterol 55-70. 6. Mixed hyperlipidemia. Continue atorvastatin 20 mg orally once every day. 7. Diabetes mellitus type 2. Continue patient on Levemir 30 units at bedtime along with the Humalog 5 units before each meal, continue patient on Mounjaro 7.5 mg subcutaneously once every week on Thursday, patient started on . 8. Parkinsonism. Continue Sinemet 25/100 with one tablet orally twice every day. 9. Obesity with obstructive sleep apnea. Currently not on CPAP. 10. History of CVA in the past. Continue patient on aspirin 81 mg once every day, Plavix 75 mg once every day, atorvastatin 20 mg once every day for secondary stroke prevention. 11. Diabetic polyneuropathy. Continue gabapentin at a smaller dose of her milligrams orally twice every day. 12. Degenerative disc disease of lumbar spine. Stable at this time. 13. Enlarged prostate. Continue finasteride 5 mg orally once every day. 14. Depression. Continue venlafaxine ER 37.5 mg orally once every day. 15. DVT prophylaxis. Heparin 5000 units subcutaneously every 12 hours. 16. GI prophylaxis. Continue patient on famotidine 10 mg orally twice every day. 17. Patient is DO NOT RESUSCITATE. Impression and plan of care have been directed as dictated by the signing physician. Starr Jones nurse practitioner acting as scribe for signing physician. Objective - Vital Signs Vital signs: Vital Signs Temp 98.4 F 02/27/23 12:00 Pulse 65 02/27/23 14:00 Resp 18 02/27/23 14:00 BP 136/62 02/27/23 12:00 Pulse Ox 95 02/27/23 12:00 FiO2 Intake & Output 02/26/23 02/27/23 02/27/23 18:59 06:59 18:59 Intake Total 598 240 476 Output Total 875 500 600 Balance -277 -260 -124 Weight 123 kg Intake: Oral 598 240 476 Output: Urine 875 500 600 Uretheral ([place]) 300 Other: Voiding Method Indwelling Catheter Indwelling Catheter Indwelling Catheter - Labs CBC & Chem 7: 02/24/23 08:44 02/27/23 07:09 Labs: Abnormal Lab Results - Last 24 Hours (Table) 02/26/23 02/26/23 02/27/23 Range/Units 16:18 19:41 05:45 Chloride (98-107) mmol/L BUN (9-20) mg/dL Creatinine (0.66-1.25) mg/dL Glucose (74-99) mg/dL POC Glucose (mg/dL) 113 H 238 H 120 H (70-110) mg/dL Magnesium (1.6-2.3) mg/dL 02/27/23 02/27/23 Range/Units 07:09 11:22 Chloride 108 H (98-107) mmol/L BUN 28 H (9-20) mg/dL Creatinine 1.30 H (0.66-1.25) mg/dL Glucose 69 L (74-99) mg/dL POC Glucose (mg/dL) 127 H (70-110) mg/dL Magnesium 2.7 H (1.6-2.3) mg/dL
--- NOTE | 2023-02-27 14:50 | P.DS ---
Providers Date of admission: 02/24/23 09:46 Expected date of discharge: 02/28/23 Attending physician: Maria Victoria Ramirez Consults: 02/21/23 23:47 Consult Physician Routine Consulting Provider: Tr Davis Consult Reason/Comments: SOB Do you want consulting provider notified?: Yes 02/22/23 08:33 Consult Physician Routine Consulting Provider: Ana Arellano Consult Reason/Comments: MARINA/[id number] Do you want consulting provider notified?: Yes Primary care physician: Maria Victoria Ramirez Hospital Course: HISTORY OF PRESENT ILLNESS: This is an 87-year-old male one of my patient with a previous medical history significant for CAD post CABG 4 in 2010 with sequential MARROQUIN to LAD and diagonal branch, SVG to PDA and SVG to the obtuse marginal branch, subsequently underwent left heart catheterization 2015 because of unstable angina he had PCI of the obtuse marginal branch, chronic diastolic heart failure, diabetes mellitus type 2 with diabetic polyneuropathy, hypertension and hypertensive cardio vascular disease, COPD, enlarged prostate, sleep apnea, bradycardia status post permanent pacemaker placement, history of significant degenerative disease of the lumbar spine with significant weakness of both lower extremity currently uses a walker for immolation, restless leg syndrome, and history of parkinsonism. Patient has had COVID-19 as part of the recent surge at [facility] w ith COVID-19 infection has not been eating or drinking much due to poor appetite, and he has been complaining of increased shortness breath, he developed to have a significant mental status changes nursing staff at contacted me as stated that the patient is coughing he was seen earlier by the nurse practitioner Markel. He was prescribed doxycycline, and the patient became quite short of breath and responsive nursing staff has contacted me recommended for the patient to be transferred to the hospital he contacted his daughter who is the medical DURABLE POWER OF [employer]IM[employer] and made him okay to hospitalization at this point in time but DO NOT RESUSCITATE, patient was seen in emergency department at [facility] he was found to have an acute kidney injury on chronic kidney disease, he was placed on IV fluid resuscitation and was admitted to the hospital for further evaluation and treatment. Pulmonary consultation was obtained. As well as nephrology consultation. 02/23: Patient is resting in bed. Patient is seen and followed by pulmonary medicine for acute hypoxic respiratory failure secondary to fluid overload. The patient has been seen by nephrology for acute kidney injury likely ATN associated with hypoperfusion and hypotension. Patient is off IV fluids. He is status post Lasix 1 yesterday. Losartan is on hold andNeurontin dose was decreased. A repeat chest x-ray has been ordered. Repeat blood work reveals appropriate of renal function with BUN of 81 creatinine 1.9. Electrolytes are within normal limits. Magnesium is 2.9. Heart rate is in the 50s and 60s, blood pressure 128/61, pulse ox 92% on 4 L nasal cannula. 02/24: Patient is off BiPAP and oxygen is down to 4 L nasal cannula. He has had improvement of his renal function with BUN of 63 and creatinine 1.5. Patient is followed by pulmonary medicine and nephrology. BP 108/54, HR 60-70s, afebrile, PO 95% @4L n/c. Repeat chest x-ray performed yesterday afternoon reveals bibasilar atelectasis or early pneumonia. Echocardiogram reveals EF of 40%, mild mitral and tricuspid regurgitation. Mild pulmonary hypertension. 02/25: Patient is sitting up in chair in his room. He remains confused but seems to be improving. He states he does not feel any better. Renal function is improved with BUN of 45 and creatinine 1.53. Also sodium 136 and potassium 4.3. He has been started on Levaquin for possible pneumonia. He's been afebrile, pulse ox is 91% on 4 L, heart rate 66, blood pressure 113/55. 02/26: Patient is quite sleepy today. His mentation is not quite back to baseline. He normally has some baseline confusion but currently worse than his baseline. Blood pressure 148/73, heart rate in the 60s and 70s, pulse ox 95% on 2 L nasal cannula and afebrile. Repeat blood work today reveals sodium 139, potassium 4.6, chloride 111, CO2 20, BUN 33 creatinine 1.3. Patient has been cleared to resume Farxiga by nephrology. Plan is to monitor patient overnight and plan for discharge back to [facility] tomorrow. 02/27: No new concerns overnight. Patient seems to be more alert and getting back to his baseline. He has been continued on IV Levaquin for pneumonia. He has been afebrile, heart rate in the 60s and 70s, blood pressure 136/62, pulse ox 95% on 3 L nasal cannula. Renal function continues to improve with BUN 28 creatinine 1.3. Capillary blood glucose running between 109 and 238 much improved from 2 days ago. Plan for discharge to [facility] tomorrow. DISCHARGE DIAGNOSES: 1. Acute kidney injury on chronic kidney disease stage III 2. Metabolic encephalopathy likely related to acute kidney injury no evidence of any acute ischemic event 3. Possible pneumonia. 4. Chronic systolic heart failure. 5. Hypertension and hypertensive cardiovascular disease. 6. Coronary artery disease status post CABG 4 with ischemic cardiomyopathy. 7. Mixed hyperlipidemia. 8. Diabetes mellitus type 2. 9. Parkinsonism. 10. Obesity with obstructive sleep apnea. 11. History of CVA in the past. 12. Diabetic polyneuropathy. 13. Degenerative disc disease of lumbar spine. 14. Enlarged prostate. 15. Depression. Greater than 35 minutes was utilized and coordinating patient's discharge. Impression and plan of care have been directed as dictated by the signing physician. Starr Jones nurse practitioner acting as scribe for signing physician. Patient Condition at Discharge: Fair Plan - Discharge Summary Discharge Rx Participant: Yes New Discharge Prescriptions: New Insulin Detemir (Levemir) [Levemir] 30 unit SQ HS@2000 each Atorvastatin [Lipitor] 20 mg PO DAILY@0800 tab Gabapentin [Neurontin] 200 mg PO BID #6 cap Dapagliflozin Propanediol [Farxiga] 5 mg PO DAILY tab carvediloL [Coreg] 6.25 mg PO BID@0800,1600 tab Losartan [Cozaar] 50 mg PO DAILY tab Levofloxacin [Levaquin] 250 mg PO DAILY 3 Days #3 tablet Continue Rosuvastatin Calcium [Crestor] 10 mg PO DAILY@0800 Aspirin EC [Ecotrin Low Dose] 81 mg PO DAILY@1700 Finasteride [Proscar] 5 mg PO DAILY@0800 Clopidogrel Bisulfate [Plavix] 75 mg PO HS@2100 Carbidopa-Levodopa 25-100 mg [Sinemet 25-100 mg] 1 tab PO BID@0800,1400 Pantoprazole [Protonix] 40 mg PO AC-BRKFST tablet. Acetaminophen Tab [Tylenol] 650 mg PO Q6HR PRN tab PRN Reason: Mild Pain Or Fever > 100.5 bisacodyL [Dulcolax] 10 mg RECTAL DAILY PRN PRN Reason: Constipation Na Phos,M-B/Na Phos,Di-Ba [Fleet Adult] 133 ml RECTAL DAILY PRN PRN Reason: Constipation Menthol [Biofreeze] 1 applic TOPICAL BID PRN PRN Reason: knee pain Metoclopramide [Reglan] 5 mg PO PC-TID INSULIN ASPART (NovoLOG) [NovoLOG (formulary)] See Protocol SQ AC-TID INSULIN ASPART (NovoLOG) [NovoLOG (formulary)] 5 unit SQ TID@0800,1200,1700 Dextroamphetamine/Amphetamine [Adderall] 10 mg PO BID@0800,1700 Famotidine [Pepcid] 20 mg PO DAILY@1700 Polyvinyl Alcohol/Povidone [Clear Eyes Natural Tears Drop] 1 drop BOTH EYES DAILY@1700 Magnesium Hydroxide [Milk of Magnesia Concentrate] 7,200 mg PO DIRECTED PRN PRN Reason: 2 days no BM Loperamide [Imodium] 2 mg PO QID PRN PRN Reason: Diarrhea Ipratropium-Albuterol Nebulize [Duoneb 0.5 mg-3 mg/3 ml Soln] 3 ml INHALATION RT-Q6H PRN PRN Reason: Shortness Of Breath Sennosides-Docusate Sodium [Senokot-S] 2 tab PO DAILY@0800 Montelukast [Singulair] 10 mg PO HS@2100 polyethylene glycoL 3350 [Miralax] 17 gm PO DAILY@1700 Tirzepatide [Mounjaro] 7.5 mg SQ MO Cranberry 405mg 2 cap PO DAILY@0800 Venlafaxine HCl ER [Effexor XR] 37.5 mg PO DAILY@0800 Discontinued Potassium Chloride [Klor-Con 20] 20 meq PO MOWEFR@1700 Insulin Glargine,Hum.rec.anlog [Lantus Solostar Pen] 60 unit SQ HS@2100 Furosemide [Lasix] 40 mg PO BID@0800,1400 carvediloL [Coreg*] 12.5 mg PO BID@0800,1700 Doxycycline Hyclate 100 mg PO BID@0800,1700 Losartan Potassium 100 mg PO DAILY@0800 Empagliflozin [Jardiance] 25 mg PO DAILY@0800 Loratadine [Children's Loratadine Chew] 5 mg PO DAILY@0800 Ascorbic Acid [Vitamin C] 1,000 mg PO DAILY@0800 Calcium Carbonate [Tums] 1,000 mg PO TID PRN PRN Reason: Heartburn/Indigestion Gabapentin [Neurontin] 300 mg PO BID@0800,1700 Zinc Sulfate [Orazinc] 220 mg PO DAILY@0800 Cholecalciferol [Vitamin D3 (25 Mcg = 1000 Iu)] 125 mcg PO DAILY@0800 Discharge Medication List Rosuvastatin Calcium [Crestor] 10 mg PO DAILY@0800 08/27/15 [History] Aspirin EC [Ecotrin Low Dose] 81 mg PO DAILY@1700 12/05/15 [History] Clopidogrel Bisulfate [Plavix] 75 mg PO HS@2100 12/28/18 [History] Finasteride [Proscar] 5 mg PO DAILY@0800 12/28/18 [History] Carbidopa-Levodopa 25-100 mg [Sinemet 25-100 mg] 1 tab PO BID@0800,1400 04/25/19 [History] Acetaminophen Tab [Tylenol] 650 mg PO Q6HR PRN tab 12/26/19 [Rx] Pantoprazole [Protonix] 40 mg PO AC-BRKFST tablet. 12/26/19 [Rx] Cranberry 405mg 2 cap PO DAILY@0800 02/22/23 [History] Dextroamphetamine/Amphetamine [Adderall] 10 mg PO BID@0800,1700 02/22/23 [History] Famotidine [Pepcid] 20 mg PO DAILY@17002/22/23 [History] INSULIN ASPART (NovoLOG) [NovoLOG (formulary)] 5 unit SQ TID@0800,1200,1700 02/22/23 [History] INSULIN ASPART (NovoLOG) [NovoLOG (formulary)] See Protocol SQ AC-TID 02/22/23 [History] Ipratropium-Albuterol Nebulize [Duoneb 0.5 mg-3 mg/3 ml Soln] 3 ml INHALATION RT-Q6H PRN 02/22/23 [History] Loperamide [Imodium] 2 mg PO QID PRN 02/22/23 [History] Magnesium Hydroxide [Milk of Magnesia Concentrate] 7,200 mg PO DIRECTED PRN 02/22/23 [History] Menthol [Biofreeze] 1 applic TOPICAL BID PRN 02/22/23 [History] Metoclopramide [Reglan] 5 mg PO PC-TID 02/22/23 [History] Montelukast [Singulair] 10 mg PO HS@2100 02/22/23 [History] Na Phos,M-B/Na Phos,Di-Ba [Fleet Adult] 133 ml RECTAL DAILY PRN 02/22/23 [History] Polyvinyl Alcohol/Povidone [Clear Eyes Natural Tears Drop] 1 drop BOTH EYES DAILY@1700 02/22/23 [History] Sennosides-Docusate Sodium [Senokot-S] 2 tab PO DAILY@0800 02/22/23 [History] Tirzepatide [Mounjaro] 7.5 mg SQ MO 02/22/23 [History] Venlafaxine HCl ER [Effexor XR] 37.5 mg PO DAILY@0800 02/22/23 [History] bisacodyL [Dulcolax] 10 mg RECTAL DAILY PRN 02/22/23 [History] polyethylene glycoL 3350 [Miralax] 17 gm PO DAILY@1700 02/22/23 [History] Atorvastatin [Lipitor] 20 mg PO DAILY@0800 tab 02/26/23 [Rx] Dapagliflozin Propanediol [Farxiga] 5 mg PO DAILY tab 02/26/23 [Rx] Gabapentin [Neurontin] 200 mg PO BID #6 cap 02/26/23 [Rx] Insulin Detemir (Levemir) [Levemir] 30 unit SQ HS@2000 each 02/26/23 [Rx] Levofloxacin [Levaquin] 250 mg PO DAILY 3 Days #3 tablet 02/27/23 [Rx] Losartan [Cozaar] 50 mg PO DAILY tab 02/27/23 [Rx] carvediloL [Coreg] 6.25 mg PO BID@0800,1600 tab 02/27/23 [Rx] Follow up Appointment(s)/Referral(s): Maria Victoria Ramirez MD [Primary Care Provider] - 1 Week (At [facility]) Discharge Disposition: TRANSFER TO SNF/F
[2023-02-27 16:23] LABS: Glucose,Whole Blood 211 mg/dL (70-110)
[2023-02-27] MEDS: FAMOTIDINE 20 MG TAB PO SCH (16:51)
[2023-02-27] MEDS: ARTIFICIAL TEARS-HYPROMELLOSE DROPS 15 ML BTL BOTH EYES SCH (16:51)
[2023-02-27 19:23] LABS: Glucose,Whole Blood 158 mg/dL (70-110)
[2023-02-27] MEDS: INSULIN DETEMIR (LEVEMIR) 100 UNIT/ML SYR SQ SCH (20:10)
[2023-02-27] MEDS: CLOPIDOGREL 75 MG TAB PO SCH (20:11)
[2023-02-27] MEDS: ASPIRIN 81 MG PO SCH (20:11)
[2023-02-27] MEDS: MONTELUKAST 10 MG TAB PO SCH (20:11)
[2023-02-28 06:04] LABS: Glucose,Whole Blood 84 mg/dL (70-110)
[2023-02-28] MEDS: INSULIN ASPART (NovoLOG) 100 UNIT/ML VIAL SQ SCH ×2 (06:13→12:42)
[2023-02-28] MEDS: PANTOPRAZOLE 40 MG TABLET PO SCH (06:22)
[2023-02-28] MEDS: IPRATROPIUM-ALBUTEROL 3 ML NEB INHALATION SCH ×2 (08:18→11:19)
[2023-02-28] MEDS: GABAPENTIN 100 MG CAP PO SCH (10:22)
[2023-02-28] MEDS: LOSARTAN 50 MG TAB PO SCH (10:22)
[2023-02-28] MEDS: CARBIDOPA-LEVODOPA 25-100 MG 1 EACH TAB PO SCH ×2 (10:22→12:42)
[2023-02-28] MEDS: bisacodyL 10 MG SUPP RECTAL SCH (10:22)
[2023-02-28] MEDS: HEPARIN SODIUM,PORCINE 5,000 UNIT/ML 1 ML VIAL SQ SCH (10:22)
[2023-02-28] MEDS: SENNOSIDES-DOCUSATE SODIUM 1 EACH TAB PO SCH (10:22)
[2023-02-28] MEDS: FINASTERIDE 5 MG TAB PO SCH (10:22)
[2023-02-28] MEDS: carvediloL 6.25 MG TAB PO SCH (10:22)
[2023-02-28] MEDS: DAPAGLIFLOZIN PROPANEDIOL 5 MG TABLET PO SCH (10:23)
[2023-02-28] MEDS: METOCLOPRAMIDE 5 MG TAB PO SCH ×2 (10:23→12:42)
[2023-02-28] MEDS: VENLAFAXINE HCL ER 37.5 MG CAP PO SCH (10:23)
[2023-02-28] MEDS: ATORVASTATIN 20 MG TAB PO SCH (10:23)
[2023-02-28] MEDS: NYSTATIN 100,000 UNIT/ML SUSP 500,000 UNIT/5 ML CUP PO SCH ×2 (10:23→12:42)
[2023-02-28] MEDS: LEVOFLOXACIN 250MG-D5W PMX 250 MG in DEXTROSE/WATER 1 50ML.BAG IVPB SCH (10:23)
[2023-02-28] MEDS: PATIENT'S OWN (Dextroamphetamine/Amphetamine [Adderall] 10 MG Tablet) PO SCH (10:24)
[2023-02-28 11:35] LABS: Glucose,Whole Blood 245 mg/dL (70-110)
[2023-02-28 12:34] VITALS: BP 108/53; PULSE 62; RESP 18; TEMP 98.1
--- NOTE | 2023-02-28 12:35 | P.PN ---
Subjective Progress Note Date: 02/28/23 87-year-old male one of my patient with a previous medical history significant for CAD post CABG 4 in 2010 with sequential MARROQUIN to LAD and diagonal branch, SVG to PDA and SVG to the obtuse marginal branch, subsequently underwent left heart catheterization 2016 because of unstable angina he had PCI of the obtuse marginal branch, chronic diastolic heart failure, diabetes mellitus type 2 with diabetic polyneuropathy, hypertension and hypertensive cardio vascular disease, COPD, enlarged prostate, sleep apnea, bradycardia status post permanent pacemaker placement, history of significant degenerative disease of the lumbar spine with significant weakness of both lower extremity currently uses a walker for immolation, restless leg syndrome, and history of parkinsonism. Patient has had COVID-19 as part of the recent surge at [facility] with COVID-19 infection has not been eating or drinking much due to poor appetite, and he has been complaining of increased shortness breath, he developed to have a significant mental status changes nursing staff at contacted me as stated that the patient is coughing he was seen earlier by the nurse practitioner Markel. He was prescribed doxycycline, and the patient became quite short of breath and responsive nursing staff has contacted me recommended for the patient to be transferred to the hospital he contacted his daughter who is the medical DURABLE POWER OF [employer]ERY and made him okay to hospitalization at this point in time but DO NOT RESUSCITATE, patient was seen in emergency department at [facility] he was found to have an acute kidney injury on chronic kidney disease, he was placed on IV fluid resuscitation and was admitted to the hospital for further evaluation and treatment. Pulmonary consultation was obtained. As well as nephrology consultation. 02/23: Patient is resting in bed. Patient is seen and followed by pulmonary medicine for acute hypoxic respiratory failure secondary to fluid overload. The patient has been seen by nephrology for acute kidney injury likely ATN associated with hypoperfusion and hypotension. Patient is off IV fluids. He is status post Lasix 1 yesterday. Losartan is on hold andNeurontin dose was decreased. A repeat chest x-ray has been ordered. Repeat blood work reveals appropriate of renal function with BUN of 81 creatinine 1.9. Electrolytes are within normal limits. Magnesium is 2.9. Heart rate is in the 50s and 60s, blood pressure 128/61, pulse ox 92% on 4 L nasal cannula. 02/24: Patient is off BiPAP and oxygen is down to 4 L nasal cannula. He has had improvement of his renal function with BUN of 63 and creatinine 1.5. Patient is followed by pulmonary medicine and nephrology. BP 108/54, HR 60-70s, afebrile, PO 95% @4L n/c. Repeat chest x-ray performed yesterday afternoon reveals bibasilar atelectasis or early pneumonia. Echocardiogram reveals EF of 40%, mild mitral and tricuspid regurgitation. Mild pulmonary hypertension. 02/25: Patient is sitting up in chair in his room. He remains confused but seems to be improving. He states he does not feel any better. Renal function is improved with BUN of 45 and creatinine 1.53. Also sodium 136 and potassium 4.3. He has been started on Levaquin for possible pneumonia. He's been afebrile, pulse ox is 91% on 4 L, heart rate 66, blood pressure 113/55. 02/26: Patient is quite sleepy today. His mentation is not quite back to baseline. He normally has some baseline confusion but currently worse than his baseline. Blood pressure 148/73, heart rate in the 60s and 70s, pulse ox 95% on 2 L nasal cannula and afebrile. Repeat blood work today reveals sodium 139, potassium 4.6, chloride 111, CO2 20, BUN 33 creatinine 1.3. Patient has been cleared to resume Farxiga by nephrology. Plan is to monitor patient overnight and plan for discharge back to [facility] tomorrow. 02/27: No new concerns overnight. Patient seems to be more alert and getting back to his baseline. He has been continued on IV Levaquin for pneumonia. He has been afebrile, heart rate in the 60s and 70s, blood pressure 136/62, pulse ox 95% on 3 L nasal cannula. Renal function continues to improve with BUN 28 creatinine 1.3. Capillary blood glucose running between 109 and 238 much improved from 2 days ago. Plan for discharge to [facility] tomorrow. 02/28: Patient seen and evaluated bedside during my evaluation patient is drowsy and lethargic minimally responsive. Stat blood work ordered including CBC basic metabolic panel serum ammonia and venous blood gas. Patient was scheduled to be discharged to rehab facility today however at this point we will hold off and monitor for 24 hours depending on blood work PHYSICAL EXAMINATION: GENERAL: The patient is alert and oriented x 0, ill appearance HEENT: Pupils are round and equally reacting to light. CARDIOVASCULAR: S1 and S2 present. No murmurs, rubs, or gallops. PULMONARY: Chest is clear to auscultation, no wheezing or crackles. ABDOMEN: Soft, nontender, nondistended, normoactive bowel sounds. No palpable organomegaly. MUSCULOSKELETAL: No joint swelling or deformity. EXTREMITIES: No cyanosis, clubbing, or pedal edema. NEUROLOGICAL: Disoriented Objective - Vital Signs Vital signs: Vital Signs Temp 98.0 F 02/28/23 08:00 Pulse 68 02/28/23 11:32 Resp 20 02/28/23 08:00 BP 138/66 02/28/23 08:00 Pulse Ox 91 L 02/28/23 08:00 FiO2 Intake & Output 02/27/23 02/28/23 02/28/23 18:59 06:59 18:59 Intake Total 594 128 Output Total 600 915 Balance -6 -915 128 Intake: IV 10 Invasive Line 2 10 Oral 594 118 Output: Urine 600 915 Uretheral ([place]) 300 Other: Voiding Method Indwelling Catheter Indwelling Catheter # Bowel Movements 3 - Labs CBC & Chem 7: 02/24/23 08:44 02/27/23 07:09 Labs: Abnormal Lab Results - Last 24 Hours (Table) 02/27/23 02/27/23 02/28/23 Range/Units 16:22 19:22 11:33 POC Glucose (mg/dL) 211 H 158 H 245 H (70-110) mg/dL Assessment and Plan Assessment: Assessment and plan 1. Acute kidney injury on chronic kidney disease stage III 2. Acute Metabolic encephalopathy likely related to acute kidney injury no evidence of any acute ischemic event 3. Multifocal pneumonia with acute hypoxic respiratory failure 4. Chronic systolic heart failure. 5. Hypertension and hypertensive cardiovascular disease. 6. Coronary artery disease status post CABG 4 with ischemic cardiomyopathy. 7. Mixed hyperlipidemia. 8. Diabetes mellitus type 2. 9. Parkinsonism. 10. Obesity with obstructive sleep apnea. 11. History of CVA in the past. 12. Diabetic polyneuropathy. 13. Degenerative disc disease of lumbar spine. 14. Enlarged prostate. 15. Depression. * In regards to renal failure, patient seen by nephrology during this hospitalization, continue to follow up on renal profile * In regards to acute hypoxic respiratory failure, pulmonary medicine following, continue patient on IV antibiotic receiving Levaquin * In regards to diabetes mellitus Accu-Cheks before meals at bedtime * Regards to coronary artery disease continue aspirin, Plavix, Lipitor * In regards to worsening encephalopathy, venous blood gas and ammonia levels ordered renal profile to be checked * Potential discharge in the next 24 hours depending on clinical course
--- NOTE | 2023-02-28 13:07 | P.PN ---
Subjective Progress Note Date: 02/28/23 Follow-up for acute kidney injury. Objective - Vital Signs Vital signs: Vital Signs Temp 98.1 F 02/28/23 12:30 Pulse 62 02/28/23 12:30 Resp 18 02/28/23 12:30 BP 108/53 02/28/23 12:30 Pulse Ox 90 L 02/28/23 12:30 FiO2 Intake & Output 02/27/23 02/28/23 02/28/23 18:59 06:59 18:59 Intake Total 594 128 Output Total 600 915 225 Balance -6 -915 -97 Intake: IV 10 Invasive Line 2 10 Oral 594 118 Output: Urine 600 915 225 Uretheral ([place]) 300 Other: Voiding Method Indwelling Catheter Indwelling Catheter Indwelling Catheter # Bowel Movements 3 - Exam No acute distress S1-S2 heard Decreased breath sounds No edema - Labs CBC & Chem 7: 02/24/23 08:44 02/27/23 07:09 Labs: Abnormal Lab Results - Last 24 Hours (Table) 02/27/23 02/27/23 02/28/23 Range/Units 16:22 19:22 11:33 POC Glucose (mg/dL) 211 H 158 H 245 H (70-110) mg/dL Assessment and Plan Assessment: #1 acute kidney injury secondary to hemodynamic ATN. #2 chronic kidney disease stage IIIB baseline around 1.8 MG per DL. #3 CHF with systolic dysfunction EF of 40% #4 anemia with chronic kidney disease #5 metabolic bone disease Plan: #1 Renal function stable. #2 avoid nephrotoxic agents Stable from nephrology for discharge
--- NOTE | 2023-02-28 13:17 | P.PN ---
Subjective Progress Note Date: 02/28/23 87-year-old no code patient, who is brought into the emergency department by EMS, from [facility]. The patient apparently has a history of Parkinson's disease, hyperlipidemia, diabetes, coronary disease, hypertension, hyperlipidemia, sleep apnea syndrome, and previous bypass surgery. In addition, the patient has a history of pacemaker implantation. The patient himself is not a particularly good historian. All of the history is really obtained from the ER [facility]. The patient apparently had shortness of breath and cough at [facility], and for that reason, was brought to the ER. The patient apparently tested positive for coronavirus infection 10 days prior. It's noted in the ER [facility] that the EMS noted that he had gurgling respirations. Currently he is in bed, sitting up, completing his breakfast. He is on 4 L of oxygen. He is getting saline at 75 mL an hour. He does not appear to be in any respiratory distress or difficulty. Again, he cannot give much of a history. White count 9.4, hemoglobin 11.6, hematocrit 35.3, with a normal platelet count. Sodium 138, potassium 4.2, chlorides 104, CO2 24, anion gap 10, BUN 93, and creatinine 2.89. Troponins were 0.022, 0.021, and 0.022. N-terminal proBNP was 1060. Chest x- ray was consistent with mild fluid overload. On today's evaluation of 02/23/2023, the patient is being seen for a follow-up. Is an 87-year-old male patient was [facility] from the [facility]. The patient has advanced comorbidities including dementia and Parkinson's disease and the patient is also known to be diabetic has coronary artery disease hypertension hyperlipidemia and sleep apnea. The patient is currently on 4 L of Oxymizer nasal cannula. Is a weak cough. Unable to tolerate BiPAP and based on that the patient was kept on 4 L of O2 nasal cannula. He did sustain an acute kidney injury secondary to ATN related to hypotension and use of losartan. He is on intake is quite diminished. Family is at the bedside. Is a DNR/DNI CODE ST [facility]. He is alert and oriented 2. He is arousable. His creatinine today is at 1.9 with a BUN of 81 and sodium levels of 138 On today's evaluation of 02/24/2023, seeing the patient for a follow-up. The patient is doing better compared to yesterday. He has made excellent urine output. This morning, he was taken off the BiPAP and is currently on oxygen at 5 L with a pulse ox of 95%. His blood work from today shows a drop in the creatinine down to 1.5 with a BUN of 63 and a sodium level is at 138. Hemoglobin is at 12.2 with a white cell count of 10.2. He is in negative fluid balance of at least 2.5 L over the past 24 hours. His calm and comfortable. He is confused and he has underlying dementia. He is a [facility] resident. He remains on bronchodilators. He is also on Levemir insulin 30 units at bedtime and NovoLog 5 units with meals. Repeat chest x-ray from today shows some atelectatic change in lung bases bilaterally. No other acute abnormalities. On 02/25/2023, the patient is being seen for a follow-up. The patient is comfortable sitting up on a chair. Occasional confusion which is essentially improving. Has no specific complaints. He remains on 4 L of oxygen nasal cannula. Hemodynamically stable. Continues to be on Levaquin which is an empiric antibiotic coverage. I believe his overall respiratory status is back to his baseline.. Meanwhile, his oxygen patient is stable on 4 L of oxygen by nasal cannula with a pulse ox of 91%. Breathing is nonlabored and the patient remains on same medications since yesterday. Blood work from today shows a BUN of 45 and a creatinine of 1.5 and a sodium level is at 136 with a potassium level of 4.8. He has been in a negative fluid balance. On today's evaluation of 02/26/2023, I'm seeing the patient for a follow-up. No new complaints. He remains confused. He is a [facility] resident. No significant respiratory distress. He remains on oxygen at 2 L per minute nasal cannula. Respiratory status is adequate. Blood work and electrolytes were reviewed. Sodium level is at 139, potassium level is at 4.6, BUN is at 33 with a creatinine of 1.3. Medications are unchanged. The patient is completing a course of Levaquin. On 02/27/2023, the patient is alert and communicating. His condition is improved significantly over the past few days. He is a [facility] resident. Denies having any specific complaints. He remains on Levaquin as an empiric antibiotic coverage per ID recommendations. This morning he is on 3 L of oxygen and the patient pulse ox 96%. Sodiums of 139, potassium is 4.6, bicarbonate of 24, BUN is at 28 with a creatinine of 1.3. the patient has had no other significant events over the past 24 hours 02/28 2023, condition is stable and unchanged compared to yesterday without any new complaints. The patient remains comfortable in bed on 2 L of oxygen by nasal cannula. Is afebrile. Hemodynamically stable. No new labs from today. Most recent labs are from yesterday. The renal function is stable. Patient is being considered for discharge and discharge planning is in progress. Objective - Vital Signs Vital signs: Vital Signs Temp 98.0 F 02/28/23 08:00 Pulse 66 02/28/23 08:00 Resp 20 02/28/23 08:00 BP 138/66 02/28/23 08:00 Pulse Ox 91 L 02/28/23 08:00 FiO2 Intake & Output 02/27/23 02/28/23 02/28/23 18:59 06:59 18:59 Intake Total 594 10 Output Total 600 915 Balance -6 -915 10 Intake: IV 10 Invasive Line 2 10 Oral 594 Output: Urine 600 915 Uretheral ([place]) 300 Other: Voiding Method Indwelling Catheter Indwelling Catheter # Bowel Movements 3 - Exam No acute distress, oriented 3, patient is a very poor historian. Currently, he's on 4 L by nasal cannula. HEENT examination is grossly unremarkable. Mucous membranes are moist. No oral lesions. The patient has a cold sore on his lower lip. Neck supple. Full range of motion. No adenopathy thyromegaly or neck vein distention. Cardiovascular examination reveals regular rhythm rate. S1-S2 normal. No S3 or S4. No discernible murmur noted. Heart sounds are distant. Heart rate 63 bpm. Lungs reveal scattered rhonchi. No wheezes or crackles noted. Breath sounds are diminished throughout. The patient does not take deep breaths. 4 L saturation is 92%. Abdomen soft bowel sounds are heard. No masses or tenderness. Extremities are intact. No cyanosis clubbing or edema. Skin is without rash or lesion. Neurologic examination is brief but nonfocal. - Labs CBC & Chem 7: 02/24/23 08:44 02/27/23 07:09 Labs: Abnormal Lab Results - Last 24 Hours (Table) 02/27/23 02/27/23 02/27/23 Range/Units 11:22 16:22 19:22 POC Glucose (mg/dL) 127 H 211 H 158 H (70-110) mg/dL Assessment and Plan Plan: Acute hypoxemic respiratory failure, likely secondary to mild fluid overload/CHF. The patient is currently on 2 liters of oxygen by nasal cannula, and the last chest x-ray from 02/23/2022 showed some cardiomegaly. Atelectatic change in lung bases. No other acute abnormalities noted. Overall respiratory status is stable Acute kidney injury, improving and the creatinine is down to 1.3 History of coronary artery disease, with previous bypass surgery. Acute kidney injury secondary to ATN secondary to hypotension and use of losartan CAD and he is post CABG and sari coronary stenting CHF , EF 40-45% (2019) Status post pacemaker insertion. History of hypertension. History of hyperlipidemia. History of diabetes mellitus. History of obstructive sleep apnea syndrome. Prior history of tobacco use. Plan: Clinically stable Wean FiO2 as tolerated, current on 3 L O2 nasal cannula Creatinine remains stable, slightly improved on most recent blood work Home medications have been resumed chest x-ray in the morning shows some bibasilar atelectatic changes. Complete the course of antibiotics We'll continue to follow. DNR/DNI CODE STATUS Consider discharging patient back to the [facility]
== END 2023-02-28 14:51 | DRG 682 ==
LOC: EC 19:12 → 3SCARD 23:49 → OBSVTOIN 02-24 09:46
PROVIDERS: ADMIT Internal Medicine; ATTEND Internal Medicine
DX: N17.0 Acute kidney failure with tubular necrosis (principal); G93.41 Metabolic encephalopathy; I50.23 Acute on chronic systolic (congestive) heart failure; J18.9 Pneumonia, unspecified organism; J96.01 Acute respiratory failure with hypoxia; J98.11 Atelectasis; J44.0 Chronic obstructive pulmonary disease with (acute) lower respiratory infection; Z68.41 Body mass index [BMI] 40.0-44.9, adult; I13.0 Hypertensive heart and chronic kidney disease with heart failure and stage 1 through stage 4 chronic kidney disease, or unspecified chronic kidney disease; M89.8X9 Other specified disorders of bone, unspecified site; N18.4 Chronic kidney disease, stage 4 (severe); N40.0 Benign prostatic hyperplasia without lower urinary tract symptoms; M51.36 Other intervertebral disc degeneration, lumbar region; Z66 Do not resuscitate; R62.7 Adult failure to thrive; I27.20 Pulmonary hypertension, unspecified; I25.5 Ischemic cardiomyopathy; I95.9 Hypotension, unspecified; I25.10 Atherosclerotic heart disease of native coronary artery without angina pectoris; G47.33 Obstructive sleep apnea (adult) (pediatric); G25.81 Restless legs syndrome; G20.A1 Parkinson's disease without dyskinesia, without mention of fluctuations; F32.A Depression, unspecified; E78.2 Mixed hyperlipidemia; E66.9 Obesity, unspecified; E11.42 Type 2 diabetes mellitus with diabetic polyneuropathy; E11.22 Type 2 diabetes mellitus with diabetic chronic kidney disease; D63.1 Anemia in chronic kidney disease; Z86.16 Personal history of COVID-19; Z79.4 Long term (current) use of insulin; Z79.82 Long term (current) use of aspirin; Z79.84 Long term (current) use of oral hypoglycemic drugs; Z95.1 Presence of aortocoronary bypass graft; Z95.0 Presence of cardiac pacemaker; Z86.73 Personal history of transient ischemic attack (TIA), and cerebral infarction without residual deficits; Z83.3 Family history of diabetes mellitus; Z79.899 Other long term (current) drug therapy; Z95.5 Presence of coronary angioplasty implant and graft; Z87.891 Personal history of nicotine dependence
CPT/HCPCS: 36415; 36600; 71045; 71046; 76770; 80048; 80053; 81001; 82805; 83605; 83735; 83880; 84145; 84484; 85025; 85610; 85730; 93005; 93306; 94640; 94760; 99285